=== PATIENT | female | born 1955 | race American Indian/Alaskan Native ===

== ENCOUNTER 2016-07-18 01:46 | Emergency (ER) | payer MEDICARE, OTHER ==
[2016-07-18] MEDS ORDERED: HYDROmorphone 1 MG/ML 1 ML SYRINGE IVP STA ×2 (02:49→04:42)
[2016-07-18] MEDS ORDERED: ONDANSETRON 4 MG/2 ML VIAL IVP STA (02:49)
[2016-07-18] MEDS ORDERED: SODIUM CHLORIDE 0.9% 1,000 ML IV ONE (02:50)
--- NOTE | 2016-07-18 03:13 | ED ---
Abdominal Pain HPI - General Source: patient, EMS, RN notes reviewed Mode of arrival: EMS Limitations: no limitations <Charlotte Tellez - Last Filed: 07/18/16 04:48> <Galindo Alan - Last Filed: 07/18/16 07:05> - General Chief Complaint: Abdominal Pain Stated Complaint: abd pain Time Seen by Provider: 07/18/16 01:54 - History of Present Illness Initial Comments: Patient is 60-year-old female presents to the emergency room for evaluation of abdominal pain and nausea/vomiting. Patient is on peritoneal dialysis for kidney failure. Patient states she began having worsening abdominal pain about 4 hours ago. Patient states she began with nausea and vomiting. Patient states her at home pain medications are not helping her pain. Patient denies chest pain or shortness of breath. Patient states he is having 10 out of 10 constant pain. Patient denies any history of bowel obstructions. Patient denies constipation or diarrhea. (Charlotte Tellez) - Related Data Home Medications Medication Instructions Recorded Confirmed Carvedilol [Coreg*] 12.5 mg PO BID 11/24/13 04/27/16 Isosorbide Mononitrate [Imdur] 30 mg PO DAILY 11/24/13 04/27/16 Albuterol Nebulized [Ventolin 2.5 mg INHALATION RT-Q6H PRN 01/07/14 04/27/16 Nebulized] Amitriptyline HCl [Elavil] 100 mg PO HS 12/07/14 04/27/16 Calcium Acetate [Phoslo] 1,334 mg PO TID-W/MEALS 11/13/15 04/27/16 Calcium Acetate [Phoslo] 667 mg PO DIRECTED PRN 11/13/15 04/27/16 Insulin NPH Hum/Reg Insulin Hm 35 units SQ AC-SUPPER 11/13/15 04/27/16 [NovoLIN 70-30 100 UNIT/ML VIAL] traMADol HCL [Tramadol HCl] 50 mg PO BID PRN 11/13/15 04/27/16 Omeprazole 20 mg PO BID 04/27/16 04/27/16 Polyethylene Glycol 3350 [Miralax] 17 gm PO DAILY PRN 04/27/16 04/27/16 Previous Rx's Medication Instructions Recorded Furosemide [Lasix] 80 mg PO BID #60 tablet 01/10/14 Budesonide-Formot 160-4.5 Mcg 2 puff INHALATION BID #1 inhaler 04/28/16 [Symbicort 160-4.5 Mcg Inhaler] Tiotropium 18 Mcg/Puff [Spiriva] 1 puff INHALATION RT-DAILY #1 04/28/16 inhaler ALPRAZolam [Xanax] 0.25 mg PO TID PRN #25 tab 05/08/16 Amoxic-Pot Clav 500-125 mg 1 each PO DAILY #10 tab 05/08/16 [Augmentin 500-125 mg] Darbepoetin Praveen [Aranesp] 60 mcg SQ Q7D syringe 05/08/16 Ipratropium-Albuterol Nebulize 3 ml INHALATION RT-Q4H PRN #5 05/08/16 [Duoneb 0.5 mg-3 mg/3 ml Soln] ampul.neb Isosorbide Dinitrate [Isordil] 10 mg PO TID tab 05/08/16 Mag Hydrox/Al Hydrox/Simeth 30 ml PO Q4HR PRN #0 cup 05/08/16 [Maalox] amLODIPine [Norvasc] 2.5 mg PO DAILY tab 05/08/16 ALPRAZolam [Xanax] 0.5 mg PO Q12HR #15 tab 07/18/16 Allergies Allergy/AdvReac Type Severity Reaction Status Date / Time No Known Allergies Allergy Verified 04/27/16 05:36 Review of Systems ROS Other: All systems not noted in ROS Statement are negative. <Charlotte Tellez - Last Filed: 07/18/16 04:48> ROS Other: All systems not noted in ROS Statement are negative. <Galindo Alan - Last Filed: 07/18/16 07:05> ROS Statement: Those systems with pertinent positive or pertinent negative responses have been documented in the HPI. Past Medical History Past Medical History: Heart Failure, Diabetes Mellitus, Dialysis, GERD/Reflux, Hyperlipidemia, Hypertension, Pneumonia, Renal Disease Additional Past Medical History / Comment(s): Peritonitis's in past with recent admit to [facility] for peritonitis and discharged 04/20/16 per son, chronic renal disease stage IV, cardiomyopathy, current lower leg and face edema per son- "can't get the fluid off", IDDM type II, normocytic anemia, ARPIT without device, frequent constipation, hyponatremia, hypocalcemia, low albumin, mild to moderate protein calorie malnutrition, obesity, gastritis, back and hip pain bilaterally, cataract in one eye (laterallity unknown). History of Any Multi-Drug Resistant Organisms: None Reported Past Surgical History: Cholecystectomy, Heart Catheterization Additional Past Surgical History / Comment(s): 2013 Peritoneal dialysis catheter placement, 2011 cardiac cath, pilonodial cyst removed Past Anesthesia/Blood Transfusion Reactions: No Reported Reaction Additional Past Anesthesia/Blood Transfusion Reaction / Comment(s): never received a blood transfusion Past Psychological History: Anxiety, Depression Additional Psychological History / Comment(s): Father is from [facility]. She has had no international travel at any time. She has no travel to the [facility]. She lives in her family home with her son and rhonda, and does not work outside of the home. No significant alcohol use. No history of recreational drug use. There is a pet cat in the home, and her adult son cares for the box. Smoking Status: Current every day smoker Past Alcohol Use History: None Reported Additional Past Alcohol Use History / Comment(s): Pt started smoking in 1975 and is a ppd smoker. Past Drug Use History: None Reported - Past Family History Mother Family Medical History: Congestive Heart Failure (CHF), Coronary Artery Disease (CAD), Diabetes Mellitus Additional Family Medical History / Comment(s): Mother of diabetic complications at the age of 55yrs. Father Family Medical History: Diabetes Mellitus, Hypertension, Pneumonia Additional Family Medical History / Comment(s): alcoholism. Father of pneumonia at the age of 81 yrs. <Charlotte Tellez - Last Filed: 07/18/16 04:48> General Exam Limitations: no limitations General appearance: alert Head exam: Present: atraumatic, normocephalic, normal inspection Eye exam: Present: normal appearance ENT exam: Present: normal exam Neck exam: Present: normal inspection Respiratory exam: Present: normal lung sounds bilaterally. Absent: respiratory distress Cardiovascular Exam: Present: regular rate, normal rhythm, normal heart sounds GI/Abdominal exam: Present: soft, tenderness (Left upper quadrant and right upper quadrant pain on palpating), normal bowel sounds. Absent: distended, guarding, rebound, rigid Extremities exam: Present: normal inspection Back exam: Present: normal inspection Neurological exam: Present: alert, oriented X3, CN II-XII intact, normal gait Psychiatric exam: Present: normal affect, normal mood Skin exam: Present: warm, dry, intact, normal color. Absent: rash <Charlotte Tellez - Last Filed: 07/18/16 04:48> <Galindo Alan - Last Filed: 07/18/16 07:05> - General Exam Comments Initial Comments: Sitting up in exam room, actively vomiting. (Charlotte Tellez) Course <Charlotte Tellez - Last Filed: 07/18/16 04:48> <Galindo Alan - Last Filed: 07/18/16 07:05> Vital Signs 07/18/16 07/18/16 07/18/16 01:49 03:44 06:05 Temperature 97.2 F L 97.8 F Pulse Rate 90 94 89 Respiratory 20 16 20 Rate Blood Pressure 167/77 152/66 146/95 O2 Sat by Pulse 100 95 98 Oximetry - Reevaluation(s) Reevaluation #1: 07/18/16 04:49 Patient states her abdominal pain has gone from a 10 out of 10 to a 3 out of 10. Patient states the nausea has completely subsided. Patient has her at home peritoneal dialysis kit with her. Will obtain peritoneal fluid from dialysis and culture. (Charlotte Tellez) Medical Decision Making - Lab Data Result diagrams: 07/18/16 02:48 07/18/16 02:48 <Charlotte Tellez - Last Filed: 07/18/16 04:48> - Lab Data Result diagrams: 07/18/16 02:48 07/18/16 02:48 <Galindo Alan - Last Filed: 07/18/16 07:05> - Medical Decision Making EKG shows a sinus rhythm with frequent PVCs at 93 bpm TN interval 176 QRS is 124 Q-T is 384 QTC is 477. Patient has no ST segment elevation or depression I will begin to reevaluate the patient I palpate her abdomen she is nontender at this time. Patient stated she felt considerably better. Patient states this is been a chronic problem with her having intermittent abdominal pain. We will send the dialysate for cultures and if they come back positive we will call her. (Galindo Alan) - Lab Data Lab Results 07/18/16 07/18/16 07/18/16 Range/Units 02:48 02:48 02:48 WBC 6.2 (3.8-10.6) k/uL RBC 4.42 (3.80-5.40) m/uL Hgb 13.5 (11.4-16.0) gm/dL Hct 42.0 (34.0-46.0) % MCV 95.1 (80.0-100.0) fL MCH 30.6 (25.0-35.0) pg MCHC 32.2 (31.0-37.0) g/dL RDW 18.6 H (11.5-15.5) % Plt Count 179 (150-450) k/uL Neutrophils % 80 % Lymphocytes % 11 % Monocytes % 6 % Eosinophils % 1 % Basophils % 0 % Neutrophils # 5.0 (1.3-7.7) k/uL Lymphocytes # 0.7 L (1.0-4.8) k/uL Monocytes # 0.4 (0-1.0) k/uL Eosinophils # 0.1 (0-0.7) k/uL Basophils # 0.0 (0-0.2) k/uL Anisocytosis Slight Macrocytosis Slight Sodium 125 L (137-145) mmol/L Potassium 4.2 (3.5-5.1) mmol/L Chloride 89 L (98-107) mmol/L Carbon Dioxide 22 (22-30) mmol/L Anion Gap 14 mmol/L BUN 60 H (7-17) mg/dL Creatinine 8.20 H* (0.52-1.04) mg/dL Est GFR (MDRD) Af Amer 6 (>60 ml/min/1.73 sqM) Est GFR (MDRD) Non-Af 5 (>60 ml/min/1.73 sqM) Glucose 310 H (74-99) mg/dL Plasma Lactic Acid Pio 1.4 (0.7-2.0) mmol/L Calcium 8.2 L (8.4-10.2) mg/dL Total Bilirubin 0.6 (0.2-1.3) mg/dL AST 19 (14-36) U/L ALT 30 (9-52) U/L Alkaline Phosphatase 257 H (38-126) U/L Total Creatine Kinase (30-135) U/L CK-MB (CK-2) (0.0-2.4) ng/mL CK-MB (CK-2) Rel Index Troponin I (0.000-0.034) ng/mL Total Protein 6.2 L (6.3-8.2) g/dL Albumin 2.7 L (3.5-5.0) g/dL Amylase <30 L (30-110) U/L Lipase 85 (23-300) U/L 07/18/16 Range/Units 02:48 WBC (3.8-10.6) k/uL RBC (3.80-5.40) m/uL Hgb (11.4-16.0) gm/dL Hct (34.0-46.0) % MCV (80.0-100.0) fL MCH (25.0-35.0) pg MCHC (31.0-37.0) g/dL RDW (11.5-15.5) % Plt Count (150-450) k/uL Neutrophils % % Lymphocytes % % Monocytes % % Eosinophils % % Basophils % % Neutrophils # (1.3-7.7) k/uL Lymphocytes # (1.0-4.8) k/uL Monocytes # (0-1.0) k/uL Eosinophils # (0-0.7) k/uL Basophils # (0-0.2) k/uL Anisocytosis Macrocytosis Sodium (137-145) mmol/L Potassium (3.5-5.1) mmol/L Chloride (98-107) mmol/L Carbon Dioxide (22-30) mmol/L Anion Gap mmol/L BUN (7-17) mg/dL Creatinine (0.52-1.04) mg/dL Est GFR (MDRD) Af Amer (>60 ml/min/1.73 sqM) Est GFR (MDRD) Non-Af (>60 ml/min/1.73 sqM) Glucose (74-99) mg/dL Plasma Lactic Acid Pio (0.7-2.0) mmol/L Calcium (8.4-10.2) mg/dL Total Bilirubin (0.2-1.3) mg/dL AST (14-36) U/L ALT (9-52) U/L Alkaline Phosphatase (38-126) U/L Total Creatine Kinase 40 (30-135) U/L CK-MB (CK-2) 2.3 (0.0-2.4) ng/mL CK-MB (CK-2) Rel Index 5.8 Troponin I 0.069 H* (0.000-0.034) ng/mL Total Protein (6.3-8.2) g/dL Albumin (3.5-5.0) g/dL Amylase (30-110) U/L Lipase (23-300) U/L Disposition <Charlotte Tellez - Last Filed: 07/18/16 04:48> Time of Disposition: 07:01 <Galindo Alan - Last Filed: 07/18/16 07:05> Clinical Impression: Abdominal pain Disposition: HOME SELF-CARE Instructions: Abdominal Pain (ED) Prescriptions: ALPRAZolam [Xanax] 0.5 mg PO Q12HR #15 tab Referrals: None,Stated [Primary Care Provider] - 1-2 days
[2016-07-18 03:23] LABS: Anisocytosis Slight; Basophils % (A) 0 %; CH 31.7; CHCM 33.5; Eosinophils # (A) 0.1 k/uL (0-0.7); Eosinophils % (A) 1 %; HGB 13.5 gm/dL (11.4-16.0); Luc % (Auto) 2; Lymphocytes # (A) 0.7 k/uL (1.0-4.8); Lymphocytes % (A) 11 %; MCH 30.6 pg (25.0-35.0); MCHC 32.2 g/dL (31.0-37.0); MCV 95.1 fL (80.0-100.0); Macrocytosis Slight; Mean Platelet Volume 7.6; Monocytes # (A) 0.4 k/uL (0-1.0); Monocytes % (A) 6 %; Neutrophils % (A) 80 %; RBC 4.42 m/uL (3.80-5.40); RDW 18.6 % (11.5-15.5); WBC 6.2 k/uL (3.8-10.6); WBC (Perox) 6.28
[2016-07-18 03:24] LABS: ALT 30 U/L (9-52); AST 19 U/L (14-36); Alkaline Phosphatase 257 U/L (38-126); Amylase <30 U/L (30-110); Anion Gap 14 mmol/L; Blood Urea Nitrogen 60 mg/dL (7-17); Calcium 8.2 mg/dL (8.4-10.2); Carbon Dioxide 22 mmol/L (22-30); Chloride 89 mmol/L (98-107); Glucose 310 mg/dL (74-99); Potassium 4.2 mmol/L (3.5-5.1); Sodium 125 mmol/L (137-145); Total Bilirubin 0.6 mg/dL (0.2-1.3); Total Protein 6.2 g/dL (6.3-8.2)
[2016-07-18 03:36] LABS: Non-African American GFR(MDRD) 5 (>60 ml/min/1.73 sqM)
[2016-07-18 06:38] LABS: Creatine Kinase MB 2.3 ng/mL (0.0-2.4)
[2016-07-18 06:40] LABS: Troponin I 0.069 ng/mL (0.000-0.034)
[2016-07-18] MEDS ORDERED: HYDROcodone/APAP 7.5-325MG 1 EACH TAB PO ONE (08:22)
[2016-07-18 09:16] VITALS: BP 146/74; PULSE 81; RESP 16; TEMP 97.3
== END 2016-07-18 09:41 | disposition home or self-care (01) ==
LOC: EC 01:46
DX: R10.9 Unspecified abdominal pain (principal); I13.2 Hypertensive heart and chronic kidney disease with heart failure and with stage 5 chronic kidney disease, or end stage renal disease; E11.22 Type 2 diabetes mellitus with diabetic chronic kidney disease; N18.6 End stage renal disease; I50.9 Heart failure, unspecified; Z99.2 Dependence on renal dialysis; K21.9 Gastro-esophageal reflux disease without esophagitis; G47.33 Obstructive sleep apnea (adult) (pediatric); F41.9 Anxiety disorder, unspecified; F32.9 Major depressive disorder, single episode, unspecified; F17.200 Nicotine dependence, unspecified, uncomplicated; Z79.4 Long term (current) use of insulin; Z79.51 Long term (current) use of inhaled steroids; Z79.899 Other long term (current) drug therapy
CPT/HCPCS: 36415; 93005; 80053; 82150; 82550; 82553; 83605; 83690; 84484; 85025; 87070; 87205; 99284; 96374; 96375; 96376; 96361 ×2; J2405; J1170

== ENCOUNTER 2016-08-07 23:29 | Inpatient (IN) | payer MEDICARE, OTHER ==
--- NOTE | 2016-08-08 00:02 | ED ---
General Adult HPI - General Chief complaint: Abdominal Pain Stated complaint: Vomiting/[facility] call Time Seen by Provider: 08/07/16 23:35 Source: patient, RN notes reviewed Mode of arrival: ambulatory Limitations: no limitations - History of Present Illness Initial comments: This is a 61-year-old female who is a peritoneal dialysis patient. Patient comes in today because this morning she started having a little bit of abdominal pain and having some nausea and vomiting. Patient states she her dialysate has become cloudy so she believes she has peritonitis again. Patient states she is ability the third time. Patient denies any fever chills patient denies any chest pain difficulty breathing or shortness of breath per patient denies any palpitations. Patient states that the pain is in the upper abdomen the lower abdomen at all. Patient denies any headache patient denies numbness weakness. Patient denies any dysuria hematuria urinary frequency. - Related Data Home Medications Medication Instructions Recorded Confirmed Carvedilol [Coreg*] 12.5 mg PO BID 11/24/13 04/27/16 Isosorbide Mononitrate [Imdur] 30 mg PO DAILY 11/24/13 04/27/16 Albuterol Nebulized [Ventolin 2.5 mg INHALATION RT-Q6H PRN 01/07/14 04/27/16 Nebulized] Amitriptyline HCl [Elavil] 100 mg PO HS 12/07/14 04/27/16 Calcium Acetate [Phoslo] 1,334 mg PO TID-W/MEALS 11/13/15 04/27/16 Calcium Acetate [Phoslo] 667 mg PO DIRECTED PRN 11/13/15 04/27/16 Insulin NPH Hum/Reg Insulin Hm 35 units SQ AC-SUPPER 11/13/15 04/27/16 [NovoLIN 70-30 100 UNIT/ML VIAL] traMADol HCL [Tramadol HCl] 50 mg PO BID PRN 11/13/15 04/27/16 Omeprazole 20 mg PO BID 04/27/16 04/27/16 Polyethylene Glycol 3350 [Miralax] 17 gm PO DAILY PRN 04/27/16 04/27/16 Previous Rx's Medication Instructions Recorded Furosemide [Lasix] 80 mg PO BID #60 tablet 01/10/14 Budesonide-Formot 160-4.5 Mcg 2 puff INHALATION BID #1 inhaler 04/28/16 [Symbicort 160-4.5 Mcg Inhaler] Tiotropium 18 Mcg/Puff [Spiriva] 1 puff INHALATION RT-DAILY #1 04/28/16 inhaler ALPRAZolam [Xanax] 0.25 mg PO TID PRN #25 tab 05/08/16 Amoxic-Pot Clav 500-125 mg 1 each PO DAILY #10 tab 05/08/16 [Augmentin 500-125 mg] Darbepoetin Praveen [Aranesp] 60 mcg SQ Q7D syringe 05/08/16 Ipratropium-Albuterol Nebulize 3 ml INHALATION RT-Q4H PRN #5 05/08/16 [Duoneb 0.5 mg-3 mg/3 ml Soln] ampul.neb Isosorbide Dinitrate [Isordil] 10 mg PO TID tab 05/08/16 Mag Hydrox/Al Hydrox/Simeth 30 ml PO Q4HR PRN #0 cup 05/08/16 [Maalox] amLODIPine [Norvasc] 2.5 mg PO DAILY tab 05/08/16 ALPRAZolam [Xanax] 0.5 mg PO Q12HR #15 tab 07/18/16 Allergies Allergy/AdvReac Type Severity Reaction Status Date / Time No Known Allergies Allergy Verified 04/27/16 05:36 Review of Systems ROS Statement: Those systems with pertinent positive or pertinent negative responses have been documented in the HPI. ROS Other: All systems not noted in ROS Statement are negative. Past Medical History Past Medical History: Heart Failure, Diabetes Mellitus, Dialysis, GERD/Reflux, Hyperlipidemia, Hypertension, Pneumonia, Renal Disease Additional Past Medical History / Comment(s): Peritonitis's in past with recent admit to [facility] for peritonitis and discharged 04/20/16 per son, chronic renal disease stage IV, cardiomyopathy, current lower leg and face edema per son- "can't get the fluid off", IDDM type II, normocytic anemia, ARPIT without device, frequent constipation, hyponatremia, hypocalcemia, low albumin, mild to moderate protein calorie malnutrition, obesity, gastritis, back and hip pain bilaterally, cataract in one eye (laterallity unknown). History of Any Multi-Drug Resistant Organisms: None Reported Past Surgical History: Cholecystectomy, Heart Catheterization Additional Past Surgical History / Comment(s): 2013 Peritoneal dialysis catheter placement, 2011 cardiac cath, pilonodial cyst removed Past Anesthesia/Blood Transfusion Reactions: No Reported Reaction Additional Past Anesthesia/Blood Transfusion Reaction / Comment(s): never received a blood transfusion Past Psychological History: Anxiety, Depression Additional Psychological History / Comment(s): Father is from [facility]. She has had no international travel at any time. She has no travel to the [facility]. She lives in her family home with her son and rhonda, and does not work outside of the home. No significant alcohol use. No history of recreational drug use. There is a pet cat in the home, and her adult son cares for the box. Smoking Status: Current every day smoker Past Alcohol Use History: None Reported Additional Past Alcohol Use History / Comment(s): Pt started smoking in 1975 and is a ppd smoker. Past Drug Use History: None Reported - Past Family History Mother Family Medical History: Congestive Heart Failure (CHF), Coronary Artery Disease (CAD), Diabetes Mellitus Additional Family Medical History / Comment(s): Mother of diabetic complications at the age of 55yrs. Father Family Medical History: Diabetes Mellitus, Hypertension, Pneumonia Additional Family Medical History / Comment(s): alcoholism. Father of pneumonia at the age of 81 yrs. General Exam - General Exam Comments Initial Comments: GENERAL: Patient is well-developed and well-nourished. Patient is nontoxic and well- hydrated and is in mild distress. ENT: Neck is soft and supple. No significant lymphadenopathy is noted. Oropharynx is clear. Moist mucous membranes. Neck has full range of motion without eliciting any pain. EYES: The sclera were anicteric and conjunctiva were pink and moist. Extraocular movements were intact and pupils were equal round and reactive to light. Eyelids were unremarkable. PULMONARY: Unlabored respirations. Good breath sounds bilaterally. No audible rales rhonchi or wheezing was noted. CARDIOVASCULAR: There is a regular rate and rhythm without any murmurs gallops or rubs. ABDOMEN: Upper quadrant are both tender to palpation. SKIN: Skin is clear with no lesions or rashes and otherwise unremarkable. NEUROLOGIC: Patient is alert and oriented x3. Cranial nerves II through XII are grossly intact. Motor and sensory are also intact. Normal speech, volume and content. Symmetrical smile. MUSCULOSKELETAL: Normal extremities with adequate strength and full range of motion. No lower extremity swelling or edema. No calf tenderness. LYMPHATICS: No significant lymphadenopathy is noted PSYCHIATRIC: Normal psychiatric evaluation. Normal interpersonal interactions appears functionally intact in deals appropriately with others. No signs of depression. No signs of anxiety. Limitations: no limitations Course Vital Signs 08/07/16 08/08/16 23:32 00:59 Temperature 98.8 F Pulse Rate 101 H 91 Respiratory 24 18 Rate Blood Pressure 181/88 137/83 O2 Sat by Pulse 99 98 Oximetry Medical Decision Making - Medical Decision Making Peritoneal fluid looked very cloudy. This in combination with the patient's abdominal pain I'm assuming the patient's denies sore treat as such and admit the patient. - Lab Data Result diagrams: 08/07/16 23:58 08/07/16 23:58 Lab Results 08/07/16 08/07/16 08/07/16 Range/Units 23:58 23:58 23:58 WBC 8.6 (3.8-10.6) k/uL RBC 3.88 (3.80-5.40) m/uL Hgb 12.2 (11.4-16.0) gm/dL Hct 37.6 (34.0-46.0) % MCV 97.0 (80.0-100.0) fL MCH 31.4 (25.0-35.0) pg MCHC 32.4 (31.0-37.0) g/dL RDW 17.1 H (11.5-15.5) % Plt Count 315 (150-450) k/uL Neutrophils % 80 % Lymphocytes % 10 % Monocytes % 6 % Eosinophils % 1 % Basophils % 1 % Neutrophils # 6.8 (1.3-7.7) k/uL Lymphocytes # 0.8 L (1.0-4.8) k/uL Monocytes # 0.5 (0-1.0) k/uL Eosinophils # 0.1 (0-0.7) k/uL Basophils # 0.1 (0-0.2) k/uL Anisocytosis Slight Macrocytosis Slight Sodium 133 L (137-145) mmol/L Potassium 3.6 (3.5-5.1) mmol/L Chloride 95 L (98-107) mmol/L Carbon Dioxide 27 (22-30) mmol/L Anion Gap 11 mmol/L BUN 29 H (7-17) mg/dL Creatinine 5.90 H* (0.52-1.04) mg/dL Est GFR (MDRD) Af Amer 9 (>60 ml/min/1.73 sqM) Est GFR (MDRD) Non-Af 7 (>60 ml/min/1.73 sqM) Glucose 195 H (74-99) mg/dL Plasma Lactic Acid Pio 2.3 H* (0.7-2.0) mmol/L Calcium 7.8 L (8.4-10.2) mg/dL Total Bilirubin 0.4 (0.2-1.3) mg/dL AST 15 (14-36) U/L ALT 28 (9-52) U/L Alkaline Phosphatase 162 H (38-126) U/L Total Protein 5.8 L (6.3-8.2) g/dL Albumin 2.4 L (3.5-5.0) g/dL Amylase 33 (30-110) U/L Lipase 86 (23-300) U/L Disposition Clinical Impression: Peritonitis Disposition: ADMITTED IP TO THIS [facility] Time of Disposition: 01:26
[2016-08-08] MEDS ORDERED: ONDANSETRON 4 MG/2 ML VIAL IVP STA (00:08)
[2016-08-08] MEDS ORDERED: HYDROmorphone 1 MG/ML 1 ML SYRINGE IVP STA ×2 (00:09→09:30)
[2016-08-08 00:23] LABS: Anisocytosis Slight; Basophils # (A) 0.1 k/uL (0-0.2); Basophils % (A) 1 %; CH 31.5; CHCM 32.6; Eosinophils # (A) 0.1 k/uL (0-0.7); Eosinophils % (A) 1 %; HCT 37.6 % (34.0-46.0); HDW 2.94; HGB 12.2 gm/dL (11.4-16.0); Luc # (Auto) 0.16; Luc % (Auto) 2; Lymphocytes # (A) 0.8 k/uL (1.0-4.8); Lymphocytes % (A) 10 %; MCH 31.4 pg (25.0-35.0); MCHC 32.4 g/dL (31.0-37.0); Macrocytosis Slight; Mean Platelet Volume 7.3; Monocytes # (A) 0.5 k/uL (0-1.0); Monocytes % (A) 6 %; Neutrophils # (A) 6.8 k/uL (1.3-7.7); Neutrophils % (A) 80 %; RBC 3.88 m/uL (3.80-5.40); RDW 17.1 % (11.5-15.5); WBC 8.6 k/uL (3.8-10.6); WBC (Perox) 8.07
[2016-08-08 00:27] LABS: Calcium 7.8 mg/dL (8.4-10.2); Potassium 3.6 mmol/L (3.5-5.1); Total Bilirubin 0.4 mg/dL (0.2-1.3); Total Protein 5.8 g/dL (6.3-8.2)
[2016-08-08] MEDS ORDERED: PIPERACILLIN-TAZOBACTAM 3.375 GM in DEXTROSE/WATER 1 50ML.BAG IVPB STA (01:25)
[2016-08-08] MEDS ORDERED: SODIUM CHLORIDE 0.9% 1,000 ML IV ONE (01:27)
[2016-08-08] MEDS ORDERED: IPRATROPIUM-ALBUTEROL 3 ML NEB INHALATION PRN (02:41)
[2016-08-08] MEDS: MORPHINE SULFATE 2 MG/ML SYRINGE IVP PRN ×2 (03:23→06:24)
[2016-08-08] MEDS: ONDANSETRON 4 MG/2 ML VIAL IVP PRN ×3 (03:24→18:23)
[2016-08-08] MEDS: DIALYSIS DEX INTRAPERIT SCH ×2 (04:26→06:33)
[2016-08-08] MEDS: TIOTROPIUM 18 MCG/PUFF INHALER INHALATION SCH (07:32)
[2016-08-08 09:18] LABS: Glucose,Whole Blood 66 mg/dL (75-99)
[2016-08-08] MEDS ORDERED: VANCOMYCIN 1,000 MG VIAL MISCELLANE STA (09:21)
[2016-08-08 09:27] LABS: Glucose,Whole Blood 98 mg/dL (75-99)
[2016-08-08] MEDS ORDERED: HEPARIN SODIUM 1,000 UNIT/ML VIAL MISCELLANE ONE (09:32)
--- NOTE | 2016-08-08 09:39 | P.NPCON ---
History of Present Illness - Reason for Consult end stage renal disease - History of Present Illness Reason for consultation: End-stage renal disease History of present illness: Patient is a 61-year-old female seen in renal consultation for end- stage renal disease. Patient is maintained on peritoneal dialysis. She presented to the hospital due to abdominal pain along with nausea and vomiting. She also noted cloudy dialysate and presented to the hospital due to concern for peritonitis. She complains of abdominal pain at this time. She is requesting pain medications. Nausea and vomiting are improved. Denies chest pain or shortness of breath. Hemodynamically she is quite stable. There is no evidence of leukocytosis. She is afebrile. She is currently maintained on normal saline running at 100 mL an hour. Vital signs are stable. General: The patient appeared well nourished and normally developed. HEENT: Head exam is unremarkable. Neck is without jugular venous distension. LUNGS: Lungs are clear to auscultation and percussion. Breath sounds decreased. HEART: Rate and Rhythm are regular. First and second heart sounds normal. No murmurs, rubs or gallops. ABDOMEN: Abdominal exam reveals normal bowel sounds. Moderately distended. No evidence of peritonitis. EXTREMITITES: 1+ edema. Past Medical History Past Medical History: Heart Failure, Diabetes Mellitus, Dialysis, GERD/Reflux, Hyperlipidemia, Hypertension, Renal Disease Additional Past Medical History / Comment(s): Peritonitis's in past with recent admit to [facility] for peritonitis and discharged 04/20/16 per son, chronic renal disease stage IV, cardiomyopathy, current lower leg and face edema per son- "can't get the fluid off", IDDM type II, normocytic anemia, ARPIT without device, frequent constipation, hyponatremia, hypocalcemia, low albumin, mild to moderate protein calorie malnutrition, obesity, gastritis, back and hip pain bilaterally, cataract in one eye (laterallity unknown). History of Any Multi-Drug Resistant Organisms: None Reported Past Surgical History: Cholecystectomy, Heart Catheterization Additional Past Surgical History / Comment(s): 2013 Peritoneal dialysis catheter placement, 2011 cardiac cath, pilonodial cyst removed Past Anesthesia/Blood Transfusion Reactions: No Reported Reaction Additional Past Anesthesia/Blood Transfusion Reaction / Comment(s): never received a blood transfusion Past Psychological History: Anxiety, Depression Additional Psychological History / Comment(s): Father is from [place]. She has had no international travel at any time. She has no travel to the [facility]. She lives in her family home with her son and rhonda, and does not work outside of the home. No significant alcohol use. No history of recreational drug use. There is a pet cat in the home, and her adult son cares for the box. Smoking Status: Current every day smoker Past Alcohol Use History: None Reported Additional Past Alcohol Use History / Comment(s): Pt started smoking in 1975 and is a ppd smoker. Past Drug Use History: None Reported - Past Family History Mother Family Medical History: Congestive Heart Failure (CHF), Coronary Artery Disease (CAD), Diabetes Mellitus Additional Family Medical History / Comment(s): Mother of diabetic complications at the age of 55yrs. Father Family Medical History: Diabetes Mellitus, Hypertension, Pneumonia Additional Family Medical History / Comment(s): alcoholism. Father of pneumonia at the age of 81 yrs. Medications and Allergies Home Medications Medication Instructions Recorded Confirmed Type Carvedilol [Coreg*] 12.5 mg PO BID 11/24/13 08/08/16 History Isosorbide Mononitrate [Imdur] 30 mg PO DAILY 11/24/13 08/08/16 History Albuterol Nebulized [Ventolin 2.5 mg INHALATION RT-Q6H PRN 01/07/14 08/08/16 History Nebulized] Calcium Acetate [Phoslo] 667 mg PO DIRECTED PRN 11/13/15 08/08/16 History Insulin NPH Hum/Reg Insulin Hm 35 units SQ AC-SUPPER 11/13/15 08/08/16 History [NovoLIN 70-30 100 UNIT/ML VIAL] Omeprazole 20 mg PO BID 04/27/16 08/08/16 History Polyethylene Glycol 3350 [Miralax] 17 gm PO DAILY PRN 04/27/16 08/08/16 History Allergies Allergy/AdvReac Type Severity Reaction Status Date / Time No Known Allergies Allergy Verified 04/27/16 05:36 Physical Exam Vitals: Vital Signs Temp Pulse Pulse Resp BP BP Pulse Ox 08/08/16 08:00 86 22 08/08/16 07:46 94 08/08/16 07:33 92 08/08/16 07:00 97.6 F 86 22 138/82 97 08/08/16 01:59 97.9 F 93 16 175/75 99 Intake and Output 08/07/16 08/08/16 08/08/16 22:59 06:59 14:59 Intake Total 400 Balance 400 Intake: Intake, IV Titration 400 Amount Sodium Chloride 0.9% 1, 400 000 ml @ 100 mls/hr IV . Q10H ONE Rx#:[id number] Other: Voiding Method CAPD CAPD Weight 119 kg 119 kg Patient Weight 08/09/16 06:59 Weight 119 kg Results - Lab Results Most recent lab results Calcium 7.8 mg/dL (8.4-10.2) L 08/07/16 23:58 08/07/16 23:58 08/07/16 23:58 Assessment and Plan Plan: Assessment: #1. End-stage renal disease maintained on peritoneal dialysis. #2. Abdominal pain along with cloudy dialysate suggestive of peritonitis. #3. Volume overload. #4. Chronic kidney disease mineral bone disease. #5. Hypertension with chronic kidney disease. Controlled. Plan: Check peritoneal dialysate for cell count culture and Gram stain. 1 g intraperitoneal vancomycin and 1 g intraperitoneal Fortaz today. Continue with 2 L 2.5% actual solution exchanges every 6 hours. Check phosphorus level. Hep-Lock IV fluids. Thank you for the consultation. I will continue to follow the patient with you during her hospital stay.
[2016-08-08] MEDS ORDERED: PIPERACILLIN-TAZOBACTAM 3.375 GM in DEXTROSE/WATER 1 50ML.BAG IVPB SCH (10:00)
[2016-08-08] MEDS: FOLIC ACID-VIT B COMPLEX-VIT C 1 CAP PO SCH (11:08)
[2016-08-08 11:17] LABS: Glucose,Whole Blood 183 mg/dL (75-99)
[2016-08-08] MEDS ORDERED: RX INFO: IV CONTRAST WAS GIVEN 1 EACH MISC MISCELLANE PRN (11:47)
[2016-08-08] MEDS ORDERED: [UNRECOGNIZED DRUG - OTHER] INTRAPERIT ONE (12:00)
[2016-08-08] MEDS ORDERED: HEPARIN SODIUM INTRAPERIT ONE (12:00)
[2016-08-08] MEDS ORDERED: CEFTAZIDIME INTRAPERIT ONE (12:00)
[2016-08-08] MEDS ORDERED: VANCOMYCIN INTRAPERIT ONE ×2 (12:00)
[2016-08-08] MEDS ORDERED: DIALYSIS DEX INTRAPERIT ONE (12:00)
[2016-08-08] MEDS: HYDROmorphone 1 MG/ML 1 ML SYRINGE IVP PRN ×3 (12:04→17:59)
[2016-08-08] MEDS: NICOTINE 14MG/24HR PATCH TRANSDERM SCH (12:22)
[2016-08-08 13:57] LABS: RBC, Body Fluid 10 /uL
[2016-08-08] MEDS: IOHEXOL 350 MG/ML 25 ML BOTTLE (ORAL USE) PO PRN ×2 (14:33→15:35)
--- NOTE | 2016-08-08 17:17 | CONS ---
DATE OF CONSULTATION: 08/08/2016 REASON FOR CONSULT: Peritonitis. HISTORY: The patient is a 61-year-old patient who undergoes peritoneal dialysis. She came into the emergency department because of nausea, pain with some nausea and vomiting with cloudy peritoneal dialysis fluid. She has a history of bacterial peritonitis and has been hospitalized a couple of times last year. This afternoon, she is feeling much better. No nausea. No vomiting. Past medical history includes chronic renal failure on peritoneal dialysis, heart disease, diabetes, GERD, hyperlipidemia, hypertension, pneumonia, noninsulin dependent diabetes, obstructive sleep apnea, electrolyte disturbances, obesity, gastritis. Past surgical history includes cholecystectomy, placement of peritoneal dialysis catheter along with herniorrhaphy, cardiac catheterization, pilonidal cystectomy, cataract surgery. Medications as an outpatient: 1. Coreg. 2. Imdur. 3. Ventolin. 4. Elavil. 5. PhosLo. 6. Insulin. 7. Tramadol. 8. Omeprazole. 9. MiraLax. See med rec for doses. ALLERGIES: None. SOCIAL: Still smokes. No alcohol use. FAMILY HISTORY: Noncontributory. PHYSICAL EXAM: A 61-year-old female; alert and oriented x3, in no acute distress, morbidly obese. ABDOMEN: Soft with minimal tenderness. Labs were reviewed. ASSESSMENT: Peritoneal dialysis-related peritonitis, currently improved after intraperitoneal antibiotics. PLAN: Will be available if condition worsens, but at present continue medical care.
[2016-08-08 17:30] LABS: Glucose,Whole Blood 175 mg/dL (75-99)
[2016-08-08] MEDS ORDERED: DIALYSIS DEX INTRAPERIT SCH ×2 (18:00)
[2016-08-08] MEDS ORDERED: HEPARIN SODIUM INTRAPERIT SCH (18:00)
[2016-08-08] MEDS ORDERED: POLYETHYLENE GLYCOL 3350 17 GM POWD.PACK PO PRN (18:57)
[2016-08-08] MEDS ORDERED: MAG HYDROX/AL HYDROX/SIMETH 30 ML CUP PO PRN (18:57)
[2016-08-08] MEDS ORDERED: LORazepam 0.5 MG TAB PO PRN (18:59)
[2016-08-08] MEDS ORDERED: diphenhydrAMINE 25 MG CAP PO PRN (19:42)
[2016-08-08] MEDS: ISOSORBIDE MONONITRATE ER 30 MG TAB.ER.24H PO SCH (19:46)
[2016-08-08] MEDS: FUROSEMIDE 80 MG TAB PO SCH (19:46)
[2016-08-08] MEDS: SYMBICORT 160-4.5 MCG INHALER INHALATION SCH (19:48)
[2016-08-08] MEDS: INSULIN NPH/REG INSULIN 70/30 300 UNIT/3 ML VIAL SQ SCH (19:50)
[2016-08-08 20:13] LABS: Glucose,Whole Blood 320 mg/dL (75-99)
--- NOTE | 2016-08-08 21:21 | CT ---
EXAMINATION TYPE: CT abdomen pelvis wo con DATE OF EXAM: 08/08/2016 5:49 PM COMPARISON: Previous CT abdomen pelvis 02 December 2015 HISTORY: Abdominal pain and vomiting. CT DLP: 2336.7 mGycm Automated exposure control for dose reduction was used. TECHNIQUE: Helical acquisition of images fom the lung bases through the pelvis. FINDINGS: Lack of contrast may compromise sensitivity LUNG BASES: No significant abnormality is appreciated. AORTA: No significant abnormality is appreciated, stable atheromatous changes. LIVER/GB: There is eventration of the right hemidiaphragm as on previous exam, there is associated as cites about the liver and spleen PANCREAS: Probable duodenal diverticulum at the second and third portion of the duodenum, pancreas ap pear stable SPLEEN: Punctate calcification may be vascular rather than represent old granulomatous disease ADRENALS: No significant abnormality is seen. KIDNEYS: Dense vascular calcifications are again noted, no hydronephrosis bilaterally, no ureteral ca lcification REPRODUCTIVE ORGANS: No significant abnormality is seen. There is free fluid in the pelvis. URINARY BLADDER: No significant abnormality is seen. BOWEL: No significant abnormality is seen. Peritoneal dialysis catheter is coiled within the left he mipelvis. Some fluid courses along the catheter and collects within the subcutaneous fat along the le robert of the rectus muscle coursing towards a skin wound in the left lower quadrant, the collection yousuf sures approximately 7 x 3.5 x 10 cm. Some associated soft tissue stranding present along the anterior abdominal wall within the subcutaneous fat may be due to cellulitis Stomach wall thickening, small b owel wall thickening may be due to intra-abdominal fluid, hypoproteinemia FREE AIR: No Free Air is visible. ASCITES: Fluid may be due to patient's peritoneal dialysis PELVIC ADENOPATHY: None visualized. RETROPERITONEAL ADENOPATHY: No Retroperitoneal Adenopathy visible. OSSEOUS STRUCTURES: Degenerative disc changes are present as on prior exam IMPRESSION: FINDINGS COMPATIBLE WITH PATIENT'S HISTORY OF PERITONEAL DIALYSIS. THERE IS NO BOWEL OBSTRUCTION EVID ENT, CONSIDER ENTERITIS. Noncontrast exam. No focal intra-abdominal fluid collection. Correlate for p ossible cellulitis, fluid collection in the subcutaneous fat as described, difficult to exclude absce ss.
[2016-08-08] MEDS: CARVEDILOL 12.5 MG TAB PO SCH (21:56)
[2016-08-08] MEDS: AMITRIPTYLINE HCL 50 MG TAB PO SCH (21:56)
[2016-08-08] MEDS: ALPRAZolam 0.5 MG TAB PO SCH (21:56)
[2016-08-08] MEDS: amLODIPine 2.5 MG TAB PO SCH (21:57)
[2016-08-08] MEDS: PIPERACILLIN-TAZOBACTAM 3.375 GM in DEXTROSE/WATER 1 50ML.BAG IVPB SCH (21:57)
[2016-08-08] MEDS: INSULIN LISPRO (humaLOG) 300 UNIT/3 ML VIAL SQ SCH (21:57)
[2016-08-08] MEDS: HYDROcodone/APAP 10-325MG 1 EACH TAB PO PRN (22:10)
[2016-08-09] MEDS ORDERED: DIALYSIS (PERITONL) DEX 4.25% 2,000 ML INTRAPERIT SCH
[2016-08-09] MEDS: HEPARIN SODIUM INTRAPERIT SCH ×4 (00:12→18:25)
[2016-08-09] MEDS: DIALYSIS DEX INTRAPERIT SCH ×3 (00:12→18:25)
[2016-08-09] MEDS: HYDROcodone/APAP 10-325MG 1 EACH TAB PO PRN ×3 (05:03→19:58)
[2016-08-09 07:12] LABS: Glucose,Whole Blood 125 mg/dL (75-99)
[2016-08-09] MEDS: INSULIN LISPRO (humaLOG) 300 UNIT/3 ML VIAL SQ SCH ×4 (07:23→21:06)
[2016-08-09] MEDS: SYMBICORT 160-4.5 MCG INHALER INHALATION SCH ×2 (07:47→20:14)
[2016-08-09 08:13] LABS: Anisocytosis Slight; Basophils % (A) 1 %; CH 31.2; CHCM 31.6; Eosinophils # (A) 0.3 k/uL (0-0.7); Eosinophils % (A) 4 %; HCT 33.5 % (34.0-46.0); HDW 2.96; HGB 10.7 gm/dL (11.4-16.0); Hypochromasia Slight; Luc # (Auto) 0.14; Luc % (Auto) 2; Lymphocytes % (A) 17 %; MCH 31.8 pg (25.0-35.0); MCV 99.1 fL (80.0-100.0); Macrocytosis Slight; Mean Platelet Volume 6.9; Monocytes # (A) 0.4 k/uL (0-1.0); Monocytes % (A) 6 %; Neutrophils % (A) 69 %; RBC 3.38 m/uL (3.80-5.40); RDW 17.1 % (11.5-15.5); WBC 5.7 k/uL (3.8-10.6); WBC (Perox) 6.02
[2016-08-09 08:23] LABS: Calcium 7.3 mg/dL (8.4-10.2); Potassium 3.1 mmol/L (3.5-5.1)
[2016-08-09] MEDS ORDERED: POTASSIUM CHLORIDE ER 20 MEQ TAB.ER PO STA (09:15)
--- NOTE | 2016-08-09 09:15 | P.PN ---
Subjective Patient is seen in follow-up for end-stage renal disease. She is maintained on peritoneal dialysis. Patient presented with abdominal pain and cloudy dialysate. Her cell count was noted to be elevated at 1215. She received 1 g of intraperitoneal vancomycin as well as Fortaz on August 08. Currently resting in bed. Feels tired. No vomiting or diarrhea. Appetite is fair. Denies chest pain or shortness of breath. Vital signs are stable. General: The patient appeared well nourished and normally developed. HEENT: Head exam is unremarkable. Neck is without jugular venous distension. LUNGS: Lungs are clear to auscultation and percussion. Breath sounds decreased. HEART: Rate and Rhythm are regular. First and second heart sounds normal. No murmurs, rubs or gallops. ABDOMEN: Abdominal exam reveals normal bowel sounds. Non-tender and non- distended. No evidence of peritonitis. EXTREMITITES: Trace edema. Objective - Vital Signs Vital signs: Vital Signs Temp 98 F 08/09/16 07:00 Pulse 63 08/09/16 07:00 Resp 20 08/09/16 07:00 BP 122/57 08/09/16 07:00 Pulse Ox 100 08/09/16 07:00 Intake & Output 08/08/16 08/09/16 08/09/16 18:59 06:59 18:59 Intake Total 1009 1350 Balance 1009 1350 Weight 119 kg 121.5 kg Intake: Intake, IV Titration 1009 1150 Amount Piperacillin-Tazobactam 3 50 .375 gm In Dextrose/Water 1 50ml.bag @ 12.5 mls/hr IVPB Q12H [facility] Rx#: [id number] Sodium Chloride 0.9% 1, 859 1150 000 ml @ 100 mls/hr IV . Q10H ONE Rx#:[id number] cefTAZidime 1 gm In 100 Sodium Chloride 0.9% 50 ml @ 100 mls/hr IVPB ONCE STA Rx#:[id number] Oral 200 Other: Voiding Method CAPD CAPD # Voids 3 # Bowel Movements 2 - Labs CBC & Chem 7: 08/09/16 07:50 08/09/16 07:50 Labs: Abnormal Lab Results - Last 24 Hours (Table) 08/08/16 08/08/16 08/08/16 Range/Units 09:07 11:13 17:24 RBC (3.80-5.40) m/uL Hgb (11.4-16.0) gm/dL Hct (34.0-46.0) % RDW (11.5-15.5) % Sodium (137-145) mmol/L Potassium (3.5-5.1) mmol/L Chloride (98-107) mmol/L BUN (7-17) mg/dL Creatinine (0.52-1.04) mg/dL Glucose (74-99) mg/dL POC Glucose (mg/dL) 66 L 183 H 175 H (75-99) mg/dL Calcium (8.4-10.2) mg/dL 08/08/16 08/09/16 08/09/16 Range/Units 20:10 07:05 07:50 RBC 3.38 L (3.80-5.40) m/uL Hgb 10.7 L (11.4-16.0) gm/dL Hct 33.5 L (34.0-46.0) % RDW 17.1 H (11.5-15.5) % Sodium (137-145) mmol/L Potassium (3.5-5.1) mmol/L Chloride (98-107) mmol/L BUN (7-17) mg/dL Creatinine (0.52-1.04) mg/dL Glucose (74-99) mg/dL POC Glucose (mg/dL) 320 H 125 H (75-99) mg/dL Calcium (8.4-10.2) mg/dL 08/09/16 Range/Units 07:50 RBC (3.80-5.40) m/uL Hgb (11.4-16.0) gm/dL Hct (34.0-46.0) % RDW (11.5-15.5) % Sodium 133 L (137-145) mmol/L Potassium 3.1 L (3.5-5.1) mmol/L Chloride 96 L (98-107) mmol/L BUN 28 H (7-17) mg/dL Creatinine 5.66 H* (0.52-1.04) mg/dL Glucose 111 H (74-99) mg/dL POC Glucose (mg/dL) (75-99) mg/dL Calcium 7.3 L (8.4-10.2) mg/dL Microbiology - Last 24 Hours (Table) 08/08/16 10:49 Gram Stain - Preliminary Dialysate Body Fluid Culture - Preliminary Assessment and Plan Plan: Assessment: #1. End-stage renal disease maintained on peritoneal dialysis. #2. Peritonitis. #3. Volume overload. #4. Chronic kidney disease mineral bone disease. #5. Hypertension with chronic kidney disease. Controlled. #6. Hypokalemia related to PD. Plan: Repeat peritoneal dialysate for cell count culture and Gram stain. 1 g IP vancomycin given 08/08. 1 g intraperitoneal Fortaz daily started 08/08. Continue with 2 L 2.5% actual solution exchanges every 6 hours. Hep-Lock IV fluids. Replace K - 40 meq today. Check Mg level.
[2016-08-09] MEDS: CALCIUM ACETATE 667 MG CAP PO SCH ×3 (09:50→17:15)
[2016-08-09] MEDS: ISOSORBIDE MONONITRATE ER 30 MG TAB.ER.24H PO SCH (09:50)
[2016-08-09] MEDS: NICOTINE 14MG/24HR PATCH TRANSDERM SCH (09:50)
[2016-08-09] MEDS: FOLIC ACID-VIT B COMPLEX-VIT C 1 CAP PO SCH (09:50)
[2016-08-09] MEDS: FUROSEMIDE 80 MG TAB PO SCH ×2 (09:51→17:15)
[2016-08-09] MEDS: CARVEDILOL 12.5 MG TAB PO SCH ×2 (09:51→17:15)
[2016-08-09] MEDS: PANTOPRAZOLE 40 MG TABLET PO SCH (09:51)
[2016-08-09] MEDS: METOLAZONE 5 MG TAB PO SCH (09:51)
[2016-08-09] MEDS: ALPRAZolam 0.5 MG TAB PO SCH ×2 (09:51→21:05)
[2016-08-09] MEDS: PIPERACILLIN-TAZOBACTAM 3.375 GM in DEXTROSE/WATER 1 50ML.BAG IVPB SCH ×2 (10:02→21:05)
[2016-08-09] MEDS: TIOTROPIUM 18 MCG/PUFF INHALER INHALATION SCH (11:02)
[2016-08-09 11:15] LABS: Glucose,Whole Blood 125 mg/dL (75-99)
--- NOTE | 2016-08-09 11:40 | HP ---
DATE OF SERVICE: 08/08/2016 CHIEF COMPLAINT: Abdominal pain, vomiting. HISTORY OF PRESENT ILLNESS: This 61-year-old woman with a past medical history of multiple medical problems, including history of CHF, history of diabetes mellitus, history of chronic hemodialysis, hypertension, disease, cholecystectomy, cardiac catheterization being followed by Dr. Izaguirre in outpatient setting and is complaining of severe abdominal pain. Patient also has cardiomyopathy. The patient also had previous episodes of peritonitis also and abdominal distention. The patient had some nausea, vomiting. The patient is on peritoneal dialysis. The dialysis fluid is a bit cloudy and the patient was thought to have peritonitis and admitted for further evaluation and treatment. There is no history of any fever, rigors. No history of headache, loss of consciousness, seizures. PAST MEDICAL HISTORY: History of congestive heart failure, history of diabetes history type 2, history of gastroesophageal reflux disease, hypertension, hyperlipidemia, history of cardiomyopathy, history of cholecystectomy, anxiety, depression, not otherwise specified. Medications prior to admission include home medications are: 1. Norvasc 2.5 mg q.h.s. 2. Zaroxolyn 5 mg p.o. daily. 3. Elavil 100 mg p.o. q.h.s. 4. Spiriva 1 puff daily. 5. MiraLAX 17 grams daily p.r.n. 6. Omeprazole 20 mg p.o. b.i.d. 7. Maalox 30 mL q.4 p.r.n. 8. Imdur 30 mg p.o. daily. 9. DuoNeb q.i.d. and p.r.n. 10. Novolin 70/30 35 units subcu a.c. supper. 11. Tyro 10 mg q.6 p.r.n. 12. Lasix 80 mg p.o. b.i.d. 13. Coreg 12.5 mg p.o. b.i.d. 14. PhosLo 1334 mg p.o. t.i.d. with meals. 15. Symbicort 160/4.5, 2 puffs b.i.d. 16. Ventolin 2.5 q.i.d. p.r.n. 17. Xanax 0.5 b.i.d. ALLERGIES: None. FAMILY HISTORY: History of congestive heart failure and CAD, diabetes mellitus in the family. SOCIAL HISTORY: History of smoking on a daily basis, no history of alcohol intake. REVIEW OF SYSTEMS: ENT: No diminished hearing, no diminished vision. CARDIOVASCULAR SYSTEM: As mentioned earlier RESPIRATORY: As mentioned earlier. GI: As mentioned earlier. : As mentioned earlier. NERVOUS SYSTEM: No numbness or weakness. ALLERGY/IMMUNOLOGY: No asthma or hayfever. MUSCULOSKELETAL: As mentioned earlier. HEMATOLOGY: No history of anemia. ENDOCRINE: Diabetes. CONSTITUTIONAL: As mentioned earlier. DERMATOLOGY: Negative. RHEUMATOLOGY: Negative. PSYCHIATRY: As mentioned earlier. PHYSICAL EXAMINATION: Alert and oriented x3. Pulse is 89, blood pressure 160/71, respirations 20, temperature 97.6, pulse of 99% on room air. HEENT: Conjunctivae normal. Oral mucosa moist. NECK: No jugular venous distention. No carotid bruit. No lymph node enlargement. CARDIOVASCULAR: S1 and S2. No S3, no S4. RESPIRATORY: Breath sounds diminished at the bases. Bilateral scattered rhonchi and crackles. ABDOMEN: Soft, obese, mild diffuse discomfort to palpation. No guarding. No rigidity. No mass palpable. Bowel sounds are diminished. LEGS: No edema, no swelling. NERVOUS SYSTEM: No focal deficits. LABS: WBC 8.3, hemoglobin 12.2, sodium 133, potassium 3.6, creatinine 1.9, plasma lactic acid 2.3. ASSESSMENT: 1. Abdominal pain and possible acute peritonitis with possible early sepsis, present on admission. 2. Chronic renal failure stage V on peritoneal dialysis. 3. Hyponatremia. 4. Hypoalbuminemia with mild to moderate protein calorie malnutrition. 5. History of congestive heart failure. 6. History of diabetes type 2. 7. History of gastroesophageal reflux disease. 8. Hypertension, essential. 9. Hyperlipidemia. 10. History of recurrent peritonitis. 11. History of cardiomyopathy. 12. Obstructive sleep apnea. 13. History of frequent constipation. 14. History of multiple electrolyte imbalances. 15. Obesity with a body mass index of 45. 16. History of degenerative joint disease. 17. History of cataracts. 18. History of cholecystectomy. 19. History of anxiety, depression, not otherwise specified 20. Diabetes mellitus type 2. 21. FULL CODE. RECOMMENDATIONS AND DISCUSSION: In this 61-year-old woman who presented with multiple complex medical issues, we will monitor the patient closely. Continue the current medications. Continue symptomatic treatment. I recommend surgical evaluation, cultures, initiate empiric antibiotics. I would also recommend Infectious Disease evaluation also. Otherwise, continue the home medications and bronchodilators, ensure oxygenation. DVT prophylaxis. Guarded prognosis. Further recommendations to follow. MTDD
[2016-08-09] MEDS: [UNRECOGNIZED DRUG - OTHER] INTRAPERIT SCH (12:55)
[2016-08-09] MEDS: CEFTAZIDIME INTRAPERIT SCH (12:55)
[2016-08-09 17:18] LABS: Glucose,Whole Blood 183 mg/dL (75-99)
[2016-08-09] MEDS: INSULIN NPH/REG INSULIN 70/30 300 UNIT/3 ML VIAL SQ SCH (17:18)
[2016-08-09 17:44] LABS: RBC, Body Fluid 3 /uL
--- NOTE | 2016-08-09 18:24 | PN ---
DATE OF SERVICE: 08/09/2016 Ni is seen on rounds. She has developed a peritonitis associated with her CAPD. She is feeling better, tolerating a diet. No nausea, no vomiting. She has been afebrile. White count is normal at 5700. ASSESSMENT: 1. Peritonitis. 2. Renal failure on peritoneal dialysis. PLAN: The patient is currently nonsurgical. We will follow up on a p.r.n. basis. Please notify us if the condition changes where she would need to have the peritoneal dialysis catheter removed.
[2016-08-09 20:16] LABS: Glucose,Whole Blood 148 mg/dL (75-99)
[2016-08-09 20:46] LABS: Glucose,Whole Blood 154 mg/dL (75-99)
[2016-08-09] MEDS: AMITRIPTYLINE HCL 50 MG TAB PO SCH (21:05)
[2016-08-09] MEDS: amLODIPine 2.5 MG TAB PO SCH (21:06)
[2016-08-10] MEDS: DIALYSIS DEX INTRAPERIT SCH ×4 (00:29→23:54)
[2016-08-10] MEDS: HEPARIN SODIUM INTRAPERIT SCH ×5 (00:29→23:54)
[2016-08-10 02:04] LABS: Glucose,Whole Blood 152 mg/dL (75-99)
[2016-08-10] MEDS: HYDROcodone/APAP 10-325MG 1 EACH TAB PO PRN ×4 (02:07→20:24)
[2016-08-10] MEDS: TIOTROPIUM 18 MCG/PUFF INHALER INHALATION SCH ×2 (07:46→07:50)
[2016-08-10] MEDS: SYMBICORT 160-4.5 MCG INHALER INHALATION SCH ×3 (07:46→20:00)
[2016-08-10 07:52] LABS: Glucose,Whole Blood 193 mg/dL (75-99)
[2016-08-10] MEDS: CALCIUM ACETATE 667 MG CAP PO SCH ×3 (08:01→16:55)
[2016-08-10] MEDS: CARVEDILOL 12.5 MG TAB PO SCH ×2 (08:01→16:55)
[2016-08-10] MEDS: INSULIN LISPRO (humaLOG) 300 UNIT/3 ML VIAL SQ SCH ×4 (08:01→22:36)
[2016-08-10] MEDS: FUROSEMIDE 80 MG TAB PO SCH ×2 (08:02→16:55)
[2016-08-10] MEDS: ISOSORBIDE MONONITRATE ER 30 MG TAB.ER.24H PO SCH (08:02)
[2016-08-10] MEDS: PANTOPRAZOLE 40 MG TABLET PO SCH (08:02)
[2016-08-10] MEDS: ALPRAZolam 0.5 MG TAB PO SCH ×2 (08:02→22:34)
[2016-08-10] MEDS: METOLAZONE 5 MG TAB PO SCH (08:02)
[2016-08-10] MEDS: FOLIC ACID-VIT B COMPLEX-VIT C 1 CAP PO SCH (08:02)
[2016-08-10] MEDS: NICOTINE 14MG/24HR PATCH TRANSDERM SCH (08:02)
[2016-08-10 08:35] LABS: Body Fluid Comment Few Mesothelial
[2016-08-10 09:41] LABS: Anisocytosis Slight; Basophils # (A) 0.1 k/uL (0-0.2); Basophils % (A) 2 %; CH 31.6; CHCM 31.6; Eosinophils # (A) 0.3 k/uL (0-0.7); Eosinophils % (A) 5 %; HCT 34.4 % (34.0-46.0); HDW 2.92; HGB 10.7 gm/dL (11.4-16.0); Hypochromasia Slight; Luc # (Auto) 0.12; Luc % (Auto) 2; Lymphocytes # (A) 0.8 k/uL (1.0-4.8); Lymphocytes % (A) 14 %; MCH 31.3 pg (25.0-35.0); MCHC 31.2 g/dL (31.0-37.0); MCV 100.6 fL (80.0-100.0); Macrocytosis Slight; Mean Platelet Volume 8.3; Monocytes # (A) 0.3 k/uL (0-1.0); Monocytes % (A) 6 %; Neutrophils # (A) 3.8 k/uL (1.3-7.7); Neutrophils % (A) 71 %; RBC 3.42 m/uL (3.80-5.40); RDW 17.4 % (11.5-15.5); WBC 5.4 k/uL (3.8-10.6); WBC (Perox) 5.48
--- NOTE | 2016-08-10 09:42 | CONS ---
DATE OF CONSULTATION: 08/09/2016 REASON FOR CONSULTATION: PD catheter associated peritonitis. HISTORY OF PRESENT ILLNESS: The patient is a 61-year-old female with a past medical history significant for end-stage renal disease on hemodialysis. Patient did have previous episodes of PD catheter associated peritonitis. Patient presented to the [facility] ER on 08/08/2016 with the chief complaint of abdominal pain along with nausea and vomiting. The patient said that her dialysis has become cloudy. The patient denies significant fever, rigors and chills. The patient subsequently has been evaluated by the ER physician. The patient did have a CT of the abdomen and pelvis which did show finding compatible with patient's history of peritoneal dialysis. There is no bowel obstruction evident or ulcerative enteritis. No focal intra-abdominal fluid collection for possible cellulitis. Patient did receive Fortaz and vancomycin in her dialysis lead. I was asked to see the patient for further recommendation regarding antibiotic therapy. Patient did not have any fever and her abdominal pain getting better as of today. No further nausea, vomiting. Patient denies having any chest pain or shortness of breath or cough. REVIEW OF SYSTEMS: CONSTITUTIONAL: Positive for weakness but no high-grade fever. EYES: No complaint. ENT: No complaint. RESPIRATORY: No complaint. CARDIOVASCULAR: No complaint. GENITOURINARY: No complaint. GASTROINTESTINAL: As per HPI. MUSCULOSKELETAL: No complaint. INTEGUMENTARY: No complaint. PSYCHOLOGIC: No complaint. ENDOCRINE: No complaint. NEUROLOGIC: No complaint. Past medical history is significant for hypertension, hyperlipidemia, end-stage renal disease on peritoneal dialysis, diabetes mellitus, gastroesophageal reflux disease and heart failure. Previous episodes of peritonitis. PAST SURGICAL HISTORY: Cholecystectomy, PD catheter placement, pilonidal cyst removal and heart catheterization. SOCIAL HISTORY: Smokes about a pack a day, smoking since 1975. Denies any drinking or drug use. FAMILY HISTORY: Mother with history of congestive heart failure and coronary artery disease and diabetes mellitus. Father with history of diabetes and hypertension. ALLERGIES: No known drug allergies. Medications currently include the patient is on Xanax, Elavil, Norvasc, Symbicort, PhosLo, Coreg, ceftazidime 1 gm in peritoneal dialysis daily, Lasix, heparin, NovoLog sliding scale, Imdur, Ativan, Zaroxolyn, Nephrocaps, nicotine patch, Zofran, piperacillin-tazobactam. On examination, blood pressure is 122/57 with a pulse of 53, temperature of 98. She is 100% on room air. General description is a middle-age female, lying in bed in no distress. No tachypnea or accessory muscle of respiration use. HEENT examination shows pallor. No scleral icterus. Oral mucous membrane dry. NECK: Trachea central. There is no thyromegaly. LUNGS: Unlabored breathing. Clear to auscultation anteriorly. No wheeze or crackle. HEART: S1, S2, regular rate and rhythm. ABDOMEN: Soft, no tenderness. No guarding or rigidity. No evidence of underlying infection. EXTREMITIES: No edema of the feet. SKIN EXAMINATION: No rash or mass palpable. NEUROLOGICAL: Patient is awake, alert, oriented x3. Mood and affect normal. LABS: Hemoglobin is 10.7, white count 5.7 with a BUN of 28, creatinine is 5.66. The peritoneal fluid cultures are currently pending. DIAGNOSTIC IMPRESSION AND PLAN: Patient admitted to the hospital with abdominal pain in a patient who did have cloudy peritoneal fluid and does peritoneal dialysis for her endstage renal disease with previous episodes of peritoneal dialysis catheter-associated peritonitis likely representing an episode of peritonitis in a patient with no evidence of any tunnel infection. Could be more likely a Gram-positive skin liliana or a Gram-negative could not be entirely excluded. PLAN: 1. Patient did receive a dose of vancomycin in the PD that should stay in her system for the next few days. 2. Keep the patient on Fortaz in her PD, dialysis every day. Discontinue Zosyn. 3. Will follow up on the clinical condition and cultures to further adjust the medication if needed. Thank you for this consultation. Will follow this patient along with you. ANDRÉS
[2016-08-10 10:08] LABS: Calcium 7.1 mg/dL (8.4-10.2); Magnesium 1.5 mg/dL (1.6-2.3); Potassium 3.5 mmol/L (3.5-5.1)
--- NOTE | 2016-08-10 10:16 | P.PN ---
Subjective Patient is seen in follow-up for end-stage renal disease. She is maintained on peritoneal dialysis. Patient presented with abdominal pain and cloudy dialysate. Her cell count was noted to be elevated at 1215. She received 1 g of intraperitoneal vancomycin as well as Fortaz on August 08 and is now maintained on intraperitoneal Fortaz daily. Currently resting in bed. Feels tired. No vomiting or diarrhea. Appetite is fair. Denies chest pain or shortness of breath. Vital signs are stable. General: The patient appeared well nourished and normally developed. HEENT: Head exam is unremarkable. Neck is without jugular venous distension. LUNGS: Lungs are clear to auscultation and percussion. Breath sounds decreased. HEART: Rate and Rhythm are regular. First and second heart sounds normal. No murmurs, rubs or gallops. ABDOMEN: Abdominal exam reveals normal bowel sounds. Non-tender and non- distended. No evidence of peritonitis. EXTREMITITES: Trace edema. Objective - Vital Signs Vital signs: Vital Signs Temp 97.4 F L 08/10/16 07:00 Pulse 86 08/10/16 07:00 Resp 17 08/10/16 07:00 BP 143/64 08/10/16 07:00 Pulse Ox 99 08/10/16 07:00 Intake & Output 08/09/16 08/10/16 08/10/16 18:59 06:59 18:59 Intake Total 50 480 Balance 50 480 Intake: Intake, IV Titration 50 Amount Piperacillin-Tazobactam 3 50 .375 gm In Dextrose/Water 1 50ml.bag @ 12.5 mls/hr IVPB Q12H [facility] Rx#: [id number] Oral 480 Other: Voiding Method CAPD CAPD CAPD # Voids 2 - Labs CBC & Chem 7: 08/10/16 08:16 08/09/16 07:50 Labs: Abnormal Lab Results - Last 24 Hours (Table) 08/09/16 08/09/16 08/09/16 Range/Units 07:50 11:09 17:15 RBC (3.80-5.40) m/uL Hgb (11.4-16.0) gm/dL MCV (80.0-100.0) fL RDW (11.5-15.5) % Lymphocytes # (1.0-4.8) k/uL POC Glucose (mg/dL) 125 H 183 H (75-99) mg/dL Hemoglobin A1c 8.0 H (4.2-6.1) % 08/09/16 08/09/16 08/10/16 Range/Units 20:15 20:45 02:02 RBC (3.80-5.40) m/uL Hgb (11.4-16.0) gm/dL MCV (80.0-100.0) fL RDW (11.5-15.5) % Lymphocytes # (1.0-4.8) k/uL POC Glucose (mg/dL) 148 H 154 H 152 H (75-99) mg/dL Hemoglobin A1c (4.2-6.1) % 08/10/16 08/10/16 Range/Units 07:39 08:16 RBC 3.42 L (3.80-5.40) m/uL Hgb 10.7 L (11.4-16.0) gm/dL MCV 100.6 H (80.0-100.0) fL RDW 17.4 H (11.5-15.5) % Lymphocytes # 0.8 L (1.0-4.8) k/uL POC Glucose (mg/dL) 193 H (75-99) mg/dL Hemoglobin A1c (4.2-6.1) % Microbiology - Last 24 Hours (Table) 08/08/16 10:49 Gram Stain - Preliminary Dialysate Body Fluid Culture - Preliminary Assessment and Plan Plan: Assessment: #1. End-stage renal disease maintained on peritoneal dialysis. #2. Peritonitis. Cell count coming down. It was 1215 on admission and down to 82 as of yesterday. #3. Volume overload. Improving. #4. Chronic kidney disease mineral bone disease. #5. Hypertension with chronic kidney disease. Controlled. #6. Hypokalemia related to PD. Plan: Repeat peritoneal dialysate for cell count and culture tomorrow. 1 g IP vancomycin given 08/08. 1 g intraperitoneal Fortaz daily started 08/08. Continue with 2 L 2.5% actual solution exchanges every 6 hours. Hep-Lock IV fluids.
--- NOTE | 2016-08-10 11:24 | PN ---
DATE OF SERVICE: 08/09/2016 This is a 61-year-old woman who was admitted with abdominal pain and vomiting with features of peritonitis. The peritoneal fluid is turbid but cultures are pending at this time. Patient is on empiric antibiotics. No chest pain or palpitation. No fever. REVIEW OF SYSTEMS: HEENT: No diminished vision or diminished hearing. CARDIOVASCULAR: An angina, no palpitation. RESPIRATORY: As mentioned earlier. GI: As mentioned earlier. : As mentioned earlier. Current medications are reviewed and include: 1. [place] 10 mg q.6 p.r.n. 2. Maalox 30 mL q.4 p.r.n. 3. Albuterol Atrovent q.i.d. and p.r.n. 4. Xanax 0.5 p.o. b.i.d. 5. Elavil 100 mg p.o. q.h.s. 6. Norvasc 2.5 mg q.h.s. 7. Symbicort 160/4.5 two puffs b.i.d. 8. PhosLo 1334 mg p.o. t.i.d. 9. Coreg 12.5 mg p.o. b.i.d. 10. Ceftazidime 1 gm daily. 11. Benadryl 25 mg q.i.d. p.r.n. 12. Lasix 80 mg. 13. Heparin. 14. Insulin 70/30 thirty-five units subQ q.h.s. 15. Imdur 30 mg p.o. daily. 16. Ativan 0.5 mg q.8 p.r.n. 17. Seroquel 5 mg p.o. daily. 18. Multivitamin. 19. Habitrol 14 daily. 20. Zofran 4 mg q.6 p.r.n. 21. Protonix 40 mg p.o. daily. 22. Zosyn 3.375 IV b.i.d. 23. Miralax 17 gm daily. 24. Spiriva 1 puff daily. On exam, alert and oriented x3. Pulse is 63, blood pressure 120/57, respirations 20, temperature 98 degrees, pulse ox 100% on room air. HEENT: Conjunctivae normal. NECK: No jugular venous distension. CARDIOVASCULAR SYSTEM: S1, S2, muffled. RESPIRATORY: Breath sounds diminished at the bases, a few scattered rhonchi. ABDOMEN: Soft, ascites present, mild diffuse tenderness, no guarding, no mass palpable. EXTREMITIES: Legs no edema, no swelling. NERVOUS SYSTEM: No focal deficits. LABS: WBC is 5.4, hemoglobin is 10.7, sodium 131, potassium 3.5, creatinine is 5.65. ASSESSMENT: 1. Abdominal pain, acute peritonitis with possible sepsis, present on admission. 2. Chronic renal failure stage V on peritoneal dialysis. 3. Hyponatremia. 4. Hypoalbuminemia with mild to moderate protein calorie malnutrition. 5. History of congestive heart failure, ejection fraction unknown. 6. History of diabetes mellitus type 2. 7. History of gastroesophageal reflux disease. 8. Hypertension, essential. 9. Hyperlipidemia. 10. History of recurrent pancreatitis. 11. History of cardiomyopathy. 12. Obstructive sleep apnea. 13. History of frequent constipation. 14. History of multiple electrolyte imbalances. 15. Obesity with a body mass index of 45. 16. History of degenerative joint disease. 17. History of cataracts. 18. History of cholecystectomy. 19. History of anxiety, depression, not otherwise specified. 20. Diabetes mellitus type 2. 21. FULL CODE. RECOMMENDATION: In this 61-year-old woman who presented with multiple complex medical issues, will monitor the patient closely. Continue with the current medications and symptomatic treatment with pain medication. Continue with the broad spectrum IV antibiotics. Follow cultures. Guarded prognosis because of multiple complex medical issues. Further recommendations to follow. See orders for further details. Potassium supplementation, will monitor potassium closely. Surgical evaluation. See orders for further details. Once again, the prognosis is guarded.
[2016-08-10] MEDS: CEFTAZIDIME INTRAPERIT SCH (12:01)
[2016-08-10] MEDS: [UNRECOGNIZED DRUG - OTHER] INTRAPERIT SCH (12:01)
[2016-08-10 12:28] LABS: Glucose,Whole Blood 140 mg/dL (75-99)
[2016-08-10 17:08] LABS: Glucose,Whole Blood 258 mg/dL (75-99)
[2016-08-10] MEDS: INSULIN NPH/REG INSULIN 70/30 300 UNIT/3 ML VIAL SQ SCH (18:12)
[2016-08-10 20:15] LABS: Glucose,Whole Blood 286 mg/dL (75-99)
[2016-08-10] MEDS: amLODIPine 2.5 MG TAB PO SCH (22:34)
[2016-08-10] MEDS: AMITRIPTYLINE HCL 50 MG TAB PO SCH (22:35)
[2016-08-11] MEDS: HYDROcodone/APAP 10-325MG 1 EACH TAB PO PRN ×3 (05:31→17:58)
[2016-08-11] MEDS: DIALYSIS DEX INTRAPERIT SCH ×2 (05:31→17:59)
[2016-08-11] MEDS: HEPARIN SODIUM INTRAPERIT SCH ×3 (05:31→17:59)
[2016-08-11 07:24] LABS: Glucose,Whole Blood 112 mg/dL (75-99)
--- NOTE | 2016-08-11 07:27 | PN ---
DATE OF SERVICE: 08/10/2016 Reason for follow-up: Peritoneal dialysis associated peritonitis. INTERVAL HISTORY: The patient said her abdominal pain is currently improved. The patient denies any chest pain or shortness of breath or cough. No abdominal pain. No diarrhea. On examination, blood pressure is 143/64 with pulse of 86, temperature 97.4. She is 99% on room air. General description is a middle-age female lying in bed in no distress. RESPIRATORY SYSTEM: Unlabored breathing. Clear to auscultation anteriorly. HEART: S1, S2. Regular rate and rhythm. ABDOMEN: Soft. No tenderness. LABS: Hemoglobin is 10.7, white count 5.4, BUN of 29, creatinine 6.05. Repeat urine showing white count is down to 8. Cultures so far negative. DIAGNOSTIC IMPRESSION AND PLAN: Patient with peritoneal dialysis associated peritonitis. Patient will continue with Fortaz daily for another 12 days to 2 week course of therapy along with the vancomycin. Plan of care discussed with nephrology will be arranging for those antibiotics as an outpatient. Continue supportive care.
[2016-08-11] MEDS: SYMBICORT 160-4.5 MCG INHALER INHALATION SCH ×2 (07:29→19:29)
[2016-08-11] MEDS: TIOTROPIUM 18 MCG/PUFF INHALER INHALATION SCH (07:29)
[2016-08-11 07:54] LABS: Anisocytosis Slight; Basophils # (A) 0.1 k/uL (0-0.2); Basophils % (A) 1 %; CH 31.4; CHCM 32.1; Eosinophils # (A) 0.3 k/uL (0-0.7); Eosinophils % (A) 6 %; HCT 32.6 % (34.0-46.0); HDW 2.99; HGB 10.4 gm/dL (11.4-16.0); Luc # (Auto) 0.16; Luc % (Auto) 3; Lymphocytes % (A) 18 %; MCH 31.2 pg (25.0-35.0); MCHC 31.8 g/dL (31.0-37.0); MCV 98.2 fL (80.0-100.0); Macrocytosis Slight; Mean Platelet Volume 7.7; Monocytes # (A) 0.3 k/uL (0-1.0); Monocytes % (A) 5 %; Neutrophils # (A) 3.6 k/uL (1.3-7.7); Neutrophils % (A) 67 %; RBC 3.32 m/uL (3.80-5.40); RDW 17.5 % (11.5-15.5); WBC 5.4 k/uL (3.8-10.6); WBC (Perox) 5.51
[2016-08-11 08:34] LABS: Calcium 7.1 mg/dL (8.4-10.2); Potassium 3.4 mmol/L (3.5-5.1)
[2016-08-11] MEDS: METOLAZONE 5 MG TAB PO SCH (08:55)
[2016-08-11] MEDS: NICOTINE 14MG/24HR PATCH TRANSDERM SCH (08:55)
[2016-08-11] MEDS: INSULIN LISPRO (humaLOG) 300 UNIT/3 ML VIAL SQ SCH ×4 (08:55→20:26)
[2016-08-11] MEDS: ALPRAZolam 0.5 MG TAB PO SCH (08:55)
[2016-08-11] MEDS: FOLIC ACID-VIT B COMPLEX-VIT C 1 CAP PO SCH (08:55)
[2016-08-11] MEDS: PANTOPRAZOLE 40 MG TABLET PO SCH (08:55)
[2016-08-11] MEDS: CALCIUM ACETATE 667 MG CAP PO SCH ×3 (08:55→18:00)
[2016-08-11] MEDS: ISOSORBIDE MONONITRATE ER 30 MG TAB.ER.24H PO SCH (08:55)
[2016-08-11] MEDS: FUROSEMIDE 80 MG TAB PO SCH ×2 (08:55→17:05)
[2016-08-11] MEDS: CARVEDILOL 12.5 MG TAB PO SCH ×2 (08:55→17:05)
[2016-08-11] MEDS: ONDANSETRON 4 MG/2 ML VIAL IVP PRN (09:13)
[2016-08-11] MEDS ORDERED: POTASSIUM CHLORIDE ER 20 MEQ TAB.ER PO STA (09:36)
--- NOTE | 2016-08-11 09:49 | PN ---
DATE OF SERVICE: 08/10/2016 This 61-year-old woman admitted with abdominal pain and acute peritonitis, is being closely monitored. The peritoneal fluid is clearing at this time. The patient is on broad-spectrum antibiotics. Cultures are growing coagulase-negative staph on a consistent basis. Final ID is pending. No chest pain or palpitations. no fever. On exam, alert, oriented x3. Pulse 91, blood pressure 120/56, respirations 16, temperature 97.4, pulse ox 94% on room air. HEENT: Conjunctivae normal. NECK: No JVD. CARDIOVASCULAR: S1 and S2. LUNGS: Breath sounds diminished at the bases. No rhonchi, no crackles. ABDOMEN: Soft. abdominal peritoneal dialysis fluid present. NERVOUS SYSTEM: No focal deficits. LABS: WBC 5.3, hemoglobin 10.7, sodium 137, creatinine 6.05, magnesium 1.5. ASSESSMENT: 1. Abdominal pain with acute peritonitis with possible sepsis present on admission. 2. Chronic renal failure, stage V, on peritoneal dialysis. 3. Hyponatremia. 4. Hypoalbuminemia with mild to moderate protein calorie malnutrition. 5. History of congestive heart failure, ejection fraction unknown. 6. History of diabetes type 2. 7. Hypomagnesemia. 8. History of gastroesophageal reflux disease. 9. Hypertension, essential. 10. Hyperlipidemia. 11. History of recurrent pancreatitis. 12. History of cardiomyopathy. 13. Obstructive sleep apnea. 14. History of frequent constipation. 15. History of multiple electrolyte imbalances. 16. Obesity, body mass index of 45. 17. History of degenerative joint disease. 18. History of cataracts. 19. History of cholecystectomy. 20. History of anxiety and depression, not otherwise specified. 21. Diabetes mellitus type 2. 22. FULL CODE. RECOMMENDATION: At this time, continue current mediations, continue to monitor, symptomatic treatment. Otherwise at this time we will closely monitor. Otherwise I would recommend to continue with antibiotics, patient is receiving vancomycin in the peritoneal dialysis. Closely follow with infectious disease. Further recommendations to follow. Dr. Haas is following.
--- NOTE | 2016-08-11 10:51 | P.PN ---
Subjective Patient is seen in follow-up for end-stage renal disease. She is maintained on peritoneal dialysis. Patient presented with abdominal pain and cloudy dialysate. Her cell count was noted to be elevated at 1215. She received 1 g of intraperitoneal vancomycin as well as Fortaz on August 08 and is now maintained on intraperitoneal Fortaz daily. Currently resting in bed. Feels tired. No vomiting or diarrhea. Appetite is fair. Denies chest pain or shortness of breath. Vital signs are stable. General: The patient appeared well nourished and normally developed. HEENT: Head exam is unremarkable. Neck is without jugular venous distension. LUNGS: Lungs are clear to auscultation and percussion. Breath sounds decreased. HEART: Rate and Rhythm are regular. First and second heart sounds normal. No murmurs, rubs or gallops. ABDOMEN: Abdominal exam reveals normal bowel sounds. Non-tender and non- distended. No evidence of peritonitis. EXTREMITITES: Trace edema. Objective - Vital Signs Vital signs: Vital Signs Temp 96.5 F L 08/11/16 07:00 Pulse 75 08/11/16 08:00 Resp 20 08/11/16 08:00 BP 114/62 08/11/16 07:00 Pulse Ox 100 08/11/16 07:00 Intake & Output 08/10/16 08/11/16 08/11/16 18:59 06:59 18:59 Weight 121 kg Other: Voiding Method CAPD CAPD CAPD # Voids 1 1 - Labs CBC & Chem 7: 08/11/16 07:24 08/11/16 07:24 Labs: Abnormal Lab Results - Last 24 Hours (Table) 08/10/16 08/10/16 08/10/16 Range/Units 12:26 17:04 20:11 RBC (3.80-5.40) m/uL Hgb (11.4-16.0) gm/dL Hct (34.0-46.0) % RDW (11.5-15.5) % Sodium (137-145) mmol/L Potassium (3.5-5.1) mmol/L Chloride (98-107) mmol/L BUN (7-17) mg/dL Creatinine (0.52-1.04) mg/dL POC Glucose (mg/dL) 140 H 258 H 286 H (75-99) mg/dL Calcium (8.4-10.2) mg/dL 08/11/16 08/11/16 08/11/16 Range/Units 07:13 07:24 07:24 RBC 3.32 L (3.80-5.40) m/uL Hgb 10.4 L (11.4-16.0) gm/dL Hct 32.6 L (34.0-46.0) % RDW 17.5 H (11.5-15.5) % Sodium 132 L (137-145) mmol/L Potassium 3.4 L (3.5-5.1) mmol/L Chloride 96 L (98-107) mmol/L BUN 27 H (7-17) mg/dL Creatinine 5.75 H* (0.52-1.04) mg/dL POC Glucose (mg/dL) 112 H (75-99) mg/dL Calcium 7.1 L (8.4-10.2) mg/dL Microbiology - Last 24 Hours (Table) 08/08/16 10:49 Gram Stain - Preliminary Dialysate Body Fluid Culture - Preliminary Coagulase Negative Staph Assessment and Plan Plan: Assessment: #1. End-stage renal disease maintained on peritoneal dialysis. #2. Peritonitis. Cell count coming down. It was 1215 on admission and down to 82 as of 08/09. #3. Volume overload. Improving. #4. Chronic kidney disease mineral bone disease. #5. Hypertension with chronic kidney disease. Controlled. #6. Hypokalemia related to PD. Plan: Repeat peritoneal dialysate for cell count and culture today. 1 g IP vancomycin given 08/08. 1 g intraperitoneal Fortaz daily started 08/08. Continue with 2 L 2.5% actual solution exchanges every 6 hours. Hep-Lock IV fluids. Replace potassium. 40 mEq today. Stable to be discharged home from nephrology standpoint. Will continue intraperitoneal antibiotics as an outpatient for a total of at least 2 weeks duration.
[2016-08-11] MEDS: [UNRECOGNIZED DRUG - OTHER] INTRAPERIT SCH (11:34)
[2016-08-11] MEDS: CEFTAZIDIME INTRAPERIT SCH (11:34)
[2016-08-11 11:38] LABS: Glucose,Whole Blood 102 mg/dL (75-99)
[2016-08-11] MEDS ORDERED: IV VANCOMYCIN PER PHARMACY 1 EACH MISC MISCELLANE PRN (12:36)
[2016-08-11] MEDS ORDERED: VANCOMYCIN 2,000 MG in SODIUM CHLORIDE 0.9% 500 ML IVPB ONE (13:00)
[2016-08-11 15:34] LABS: Hepatitis B Surface Ag Index 0.07
[2016-08-11 15:39] LABS: Hepatitis B Core IgM Index 0.03
[2016-08-11 15:51] LABS: Hepatitis C Virus IgG Index 0.02
[2016-08-11 15:53] LABS: Hepatitis C Virus IgG Ab Negative (Negative)
[2016-08-11] MEDS: IPRATROPIUM-ALBUTEROL 3 ML NEB INHALATION SCH ×2 (16:19→19:29)
[2016-08-11 16:44] LABS: RBC, Body Fluid 0 /uL
[2016-08-11 17:15] LABS: Glucose,Whole Blood 206 mg/dL (75-99)
[2016-08-11] MEDS: INSULIN NPH/REG INSULIN 70/30 300 UNIT/3 ML VIAL SQ SCH (18:08)
--- NOTE | 2016-08-11 20:12 | PN ---
DATE OF SERVICE: 08/11/2016 PRESENTING COMPLAINT: Abdominal pain. INTERVAL HISTORY: This is a patient who presented with acute peritonitis, getting intraperitoneal antibiotics. Patient is tolerating a diet, had a bowel movement. Patient is concerned about a chronic pain in the right hip. Review of systems done for constitutional, cardiovascular, GI, pulmonary; relevant findings as above. Current medications are reviewed that intraperitoneal ceftazidime. On examination, temperature 98.2, pulse 78, respiration 16, blood pressure 158/68, pulse ox 97% on room air. GENERAL APPEARANCE: Morbidly obese, BMI of 45.8. Sitting at the edge of the bed. Not in distress. EYES: Pupils equal. Conjunctivae normal. NECK: JVD not raised. Mass not palpable. RESPIRATORY: Effort normal. LUNGS: Diminished breath sounds. CARDIOVASCULAR: First and second sounds normal. Some edema. ABDOMEN: Distended, soft. Liver and spleen not palpable. PSYCHIATRY: Alert and oriented x3. Mood and affect normal. INVESTIGATIONS: White count 5.4, hemoglobin 10.4. Potassium 3.4. BUN 27, creatinine 5.75. Peritoneal fluid cultures positive for Staphylococcus epidermidis. ASSESSMENT: 1. Acute peritonitis associated with peritoneal dialysis, probably from an infected CAPD catheter. 2. Morbid obesity; body mass index 45.8. 3. End-stage kidney disease, on peritoneal dialysis. 4. Diabetes mellitus, type 2, chronically on insulin. 5. Gastroesophageal reflux disease. 6. Hyperlipidemia. 7. Essential hypertension. 8. Normocytic anemia associated with end-stage kidney disease. 9. Obstructive sleep apnea; does not use CPAP. 10. Primary osteoarthritis of multiple joints, especially the right hip. 11. Chronic obstructive pulmonary disease in a current smoker. 12. Chronic nicotine dependence. Patient smokes a pack a day. PLAN: Continue current medication and treatment plan. I spoke to Dr. Gaviria over the phone. Patient in home environment ( ) has had at breast 5 episodes of CAPD-associated peritonitis. In view of that, he is planning to switch the patient to hemodialysis. Also will consult Dr. Spencer for chronic pain management. Will also put the patient on DuoNeb. Counseled against smoking. Put on nicotine patch. Overall prognosis is guarded. Will follow.
[2016-08-11 20:15] LABS: Glucose,Whole Blood 252 mg/dL (75-99)
[2016-08-11] MEDS: AMITRIPTYLINE HCL 50 MG TAB PO SCH (20:25)
[2016-08-11] MEDS: amLODIPine 2.5 MG TAB PO SCH (20:26)
--- NOTE | 2016-08-11 21:34 | P.PN ---
Subjective Principal diagnosis: renal failure with peritonitis patient is well-known to our service. She underwent perineal dialysis catheter insertion 2 years ago. She was seen recently by Dr. Almeida. We were consulted because of peritonitis. Her symptoms have improved. Today we were asked to remove her catheter. The patient currently is refusing to have the catheter removed and is refusing to switch to hemodialysis. Objective - Vital Signs Vital signs: Vital Signs Temp 97.9 F 08/11/16 20:17 Pulse 73 08/11/16 20:17 Resp 18 08/11/16 20:17 BP 103/53 08/11/16 20:17 Pulse Ox 98 08/11/16 20:17 Intake & Output 08/11/16 08/11/16 08/12/16 06:59 18:59 06:59 Intake Total 120 Balance 120 Weight 121 kg Intake: Oral 120 Other: Voiding Method CAPD CAPD # Voids 1 0 - Exam abdomen: Obese, nontender, nondistended, catheter noted, exit site within normal limits - Labs CBC & Chem 7: 08/11/16 07:24 08/11/16 07:24 Labs: Abnormal Lab Results - Last 24 Hours (Table) 08/11/16 08/11/16 08/11/16 Range/Units 07:13 07:24 07:24 RBC 3.32 L (3.80-5.40) m/uL Hgb 10.4 L (11.4-16.0) gm/dL Hct 32.6 L (34.0-46.0) % RDW 17.5 H (11.5-15.5) % Sodium 132 L (137-145) mmol/L Potassium 3.4 L (3.5-5.1) mmol/L Chloride 96 L (98-107) mmol/L BUN 27 H (7-17) mg/dL Creatinine 5.75 H* (0.52-1.04) mg/dL POC Glucose (mg/dL) 112 H (75-99) mg/dL Calcium 7.1 L (8.4-10.2) mg/dL 08/11/16 08/11/16 08/11/16 Range/Units 11:14 17:13 20:13 RBC (3.80-5.40) m/uL Hgb (11.4-16.0) gm/dL Hct (34.0-46.0) % RDW (11.5-15.5) % Sodium (137-145) mmol/L Potassium (3.5-5.1) mmol/L Chloride (98-107) mmol/L BUN (7-17) mg/dL Creatinine (0.52-1.04) mg/dL POC Glucose (mg/dL) 102 H 206 H 252 H (75-99) mg/dL Calcium (8.4-10.2) mg/dL Microbiology - Last 24 Hours (Table) 08/11/16 14:10 Body Fluid Culture - Preliminary Dialysate 08/08/16 10:49 Gram Stain - Final Dialysate Body Fluid Culture - Final Staphylococcus epidermidis Assessment and Plan (1) Peritonitis Narrative/Plan: continue PD usage. The patient will further discuss her desire to keep the perineal dialysis catheter with nephrology in the morning. I will remain on surgical standby. Status: Acute
[2016-08-12] MEDS: HYDROcodone/APAP 10-325MG 1 EACH TAB PO PRN (00:17)
[2016-08-12] MEDS: DIALYSIS DEX INTRAPERIT SCH ×3 (00:18→18:33)
[2016-08-12] MEDS: HEPARIN SODIUM INTRAPERIT SCH ×3 (00:18→18:33)
[2016-08-12] MEDS: ALPRAZolam 0.5 MG TAB PO SCH ×3 (00:27→21:12)
[2016-08-12 07:15] LABS: Glucose,Whole Blood 217 mg/dL (75-99)
--- NOTE | 2016-08-12 07:18 | P.PN ---
Progress Note - Text Chart reviewed. Recommendation by Dr. Dow that patient convert to hemodialysis. Patient is refusing hemodialysis catheter at this time. Emphasized that the reason that she undergo hemodialysis is that she has recurrent bouts of peritonitis. She understands that she could have serious consequences of recurrent peritonitis including . She is refusing catheter placement at this time.
[2016-08-12 07:35] LABS: Potassium 3.7 mmol/L (3.5-5.1)
[2016-08-12 07:36] LABS: Calcium 7.9 mg/dL (8.4-10.2)
[2016-08-12] MEDS: IPRATROPIUM-ALBUTEROL 3 ML NEB INHALATION SCH ×4 (07:40→21:53)
[2016-08-12] MEDS: SYMBICORT 160-4.5 MCG INHALER INHALATION SCH ×2 (07:40→21:53)
[2016-08-12] MEDS: TIOTROPIUM 18 MCG/PUFF INHALER INHALATION SCH (07:40)
[2016-08-12 07:47] LABS: Anisocytosis Slight; Aty Lym Flag Slight; CH 31.3; CHCM 31.5; HCT 32.7 % (34.0-46.0); HDW 2.98; HGB 10.5 gm/dL (11.4-16.0); Hypochromasia Slight; MCH 32.3 pg (25.0-35.0); MCHC 32.3 g/dL (31.0-37.0); Macrocytosis Slight; Mean Platelet Volume 8.2; RBC 3.27 m/uL (3.80-5.40); RDW 17.9 % (11.5-15.5); WBC 5.2 k/uL (3.8-10.6); WBC (Perox) 5.65
[2016-08-12] MEDS ORDERED: VANCOMYCIN 2,000 MG in SODIUM CHLORIDE 0.9% 500 ML IVPB ONE (10:00)
--- NOTE | 2016-08-12 10:28 | PN ---
DATE OF SERVICE: 08/11/2016 Reason for follow up is peritoneal dialysis associated peritonitis. INTERVAL HISTORY: The patient is afebrile. Her abdominal pain is currently improved, the edema more cleared up. Patient denies having any chest pain or shortness of breath. No cough, no nausea, no vomiting or any diarrhea. On examination, blood pressure is 103/53 with a pulse of 73, temperature is 97.9, she is 98% on room air. General description is a middle-age female, lying in bed in no distress. RESPIRATORY SYSTEM: Unlabored breathing. Clear to auscultation anteriorly. HEART: S1, S2. Regular rate and rhythm. ABDOMEN: Soft, no tenderness. The PD catheter site with no evidence of internal infection. LABS: Hemoglobin is 10.4, white count of 5.4, with a BUN of 27, creatinine 5.75. Culture has been positive for staph epi. DIAGNOSTIC IMPRESSION AND PLAN: Patient with staph epidermis PD associated peritoitis. At this time patient on vancomycin. Fortaz has been discontinued.Continue supportive care. MTDD
[2016-08-12] MEDS: CALCIUM ACETATE 667 MG CAP PO SCH ×3 (10:38→18:18)
[2016-08-12] MEDS: CARVEDILOL 12.5 MG TAB PO SCH ×2 (10:40→18:18)
[2016-08-12 11:12] LABS: Add Differential Manual Differential
[2016-08-12] MEDS: INSULIN LISPRO (humaLOG) 300 UNIT/3 ML VIAL SQ SCH ×4 (11:13→21:14)
[2016-08-12 11:14] LABS: Nucleated Red Blood Cells 0 /100 WBC (0-0)
[2016-08-12 11:16] LABS: Band Neutrophils % 2.5 %; Manual Review Performed; Metamyelocytes % 0.5 %; Myelocytes % 0.5 %; Total Cells Counted 200
--- NOTE | 2016-08-12 11:16 | P.PN ---
Subjective Patient is seen in follow-up for end-stage renal disease. She is maintained on peritoneal dialysis. Patient presented with abdominal pain and cloudy dialysate. Her cell count was noted to be elevated at 1215. She received 1 g of intraperitoneal vancomycin as well as Fortaz on August 08 and is now maintained on intraperitoneal Fortaz daily. Currently resting in bed. Feels tired. No vomiting or diarrhea. Appetite is fair. Denies chest pain or shortness of breath. Vital signs are stable. General: The patient appeared well nourished and normally developed. HEENT: Head exam is unremarkable. Neck is without jugular venous distension. LUNGS: Lungs are clear to auscultation and percussion. Breath sounds decreased. HEART: Rate and Rhythm are regular. First and second heart sounds normal. No murmurs, rubs or gallops. ABDOMEN: Abdominal exam reveals normal bowel sounds. Non-tender and non- distended. No evidence of peritonitis. EXTREMITITES: Trace edema. Objective - Vital Signs Vital signs: Vital Signs Temp 97.9 F 08/12/16 07:00 Pulse 78 08/12/16 08:00 Resp 16 08/12/16 08:00 BP 134/67 08/12/16 07:00 Pulse Ox 100 08/12/16 07:00 Intake & Output 08/11/16 08/12/16 08/12/16 18:59 06:59 18:59 Intake Total 120 Balance 120 Weight 120 kg Intake: Oral 120 Other: Voiding Method CAPD CAPD CAPD # Voids 0 1 1 # Bowel Movements 2 1 - Labs CBC & Chem 7: 08/12/16 06:59 08/12/16 06:59 Labs: Abnormal Lab Results - Last 24 Hours (Table) 08/11/16 08/11/16 08/11/16 Range/Units 11:14 17:13 20:13 RBC (3.80-5.40) m/uL Hgb (11.4-16.0) gm/dL Hct (34.0-46.0) % RDW (11.5-15.5) % Sodium (137-145) mmol/L BUN (7-17) mg/dL Creatinine (0.52-1.04) mg/dL Glucose (74-99) mg/dL POC Glucose (mg/dL) 102 H 206 H 252 H (75-99) mg/dL Calcium (8.4-10.2) mg/dL 08/12/16 08/12/16 08/12/16 Range/Units 06:59 06:59 07:14 RBC 3.27 L (3.80-5.40) m/uL Hgb 10.5 L (11.4-16.0) gm/dL Hct 32.7 L (34.0-46.0) % RDW 17.9 H (11.5-15.5) % Sodium 132 L (137-145) mmol/L BUN 28 H (7-17) mg/dL Creatinine 6.47 H* (0.52-1.04) mg/dL Glucose 211 H (74-99) mg/dL POC Glucose (mg/dL) 217 H (75-99) mg/dL Calcium 7.9 L (8.4-10.2) mg/dL Microbiology - Last 24 Hours (Table) 08/11/16 14:10 Body Fluid Culture - Preliminary Dialysate 08/08/16 10:49 Gram Stain - Final Dialysate Body Fluid Culture - Final Staphylococcus epidermidis Assessment and Plan Plan: Assessment: #1. End-stage renal disease maintained on peritoneal dialysis. #2. Peritonitis. Cell count coming down. It was 1215 on admission and down to 2 as of 08/11. Fluid culture positive for staph epi. #3. Volume overload. Improving. #4. Chronic kidney disease mineral bone disease. #5. Hypertension with chronic kidney disease. Controlled. #6. Hypokalemia related to PD.Improved. Plan: 1 g IP vancomycin given 08/08. 1 g intraperitoneal Fortaz daily started 08/08. Continue with 2 L 2.5% actual solution exchanges every 6 hours. Hep-Lock IV fluids. This is patient's fifth peritonitis episode and it was discussed with her that if she develops peritonitis again she will need to be transitioned over to hemodialysis. Patient has been quite hesitant to transition over to hemodialysis but is now agreeable. Dr. Horowitz as well as vascular surgery are following. She is to get the peritoneal dialysis catheter discontinued this admission and get a hemodialysis catheter placed. Will plan for first treatment of hemodialysis tomorrow. manager technical training on board to help facilitate outpatient hemodialysis.
--- NOTE | 2016-08-12 11:44 | P.PN ---
Subjective Principal diagnosis: renal failure with peritonitis Patient has agreed to dialysis catheter removal. Denies abdominal pain. Objective - Vital Signs Vital signs: Vital Signs Temp 97.9 F 08/12/16 07:00 Pulse 88 08/12/16 11:22 Resp 16 08/12/16 08:00 BP 134/67 08/12/16 07:00 Pulse Ox 100 08/12/16 07:00 Intake & Output 08/11/16 08/12/16 08/12/16 18:59 06:59 18:59 Intake Total 120 Balance 120 Weight 120 kg Intake: Oral 120 Other: Voiding Method CAPD CAPD CAPD # Voids 0 1 1 # Bowel Movements 2 1 - Exam Abdomen: Soft, nondistended, nontender - Labs CBC & Chem 7: 08/12/16 06:59 08/12/16 06:59 Labs: Abnormal Lab Results - Last 24 Hours (Table) 08/11/16 08/11/16 08/12/16 Range/Units 17:13 20:13 06:59 RBC 3.27 L (3.80-5.40) m/uL Hgb 10.5 L (11.4-16.0) gm/dL Hct 32.7 L (34.0-46.0) % RDW 17.9 H (11.5-15.5) % Sodium (137-145) mmol/L BUN (7-17) mg/dL Creatinine (0.52-1.04) mg/dL Glucose (74-99) mg/dL POC Glucose (mg/dL) 206 H 252 H (75-99) mg/dL Calcium (8.4-10.2) mg/dL 08/12/16 08/12/16 Range/Units 06:59 07:14 RBC (3.80-5.40) m/uL Hgb (11.4-16.0) gm/dL Hct (34.0-46.0) % RDW (11.5-15.5) % Sodium 132 L (137-145) mmol/L BUN 28 H (7-17) mg/dL Creatinine 6.47 H* (0.52-1.04) mg/dL Glucose 211 H (74-99) mg/dL POC Glucose (mg/dL) 217 H (75-99) mg/dL Calcium 7.9 L (8.4-10.2) mg/dL Microbiology - Last 24 Hours (Table) 08/11/16 14:10 Body Fluid Culture - Preliminary Dialysate 08/08/16 10:49 Gram Stain - Final Dialysate Body Fluid Culture - Final Staphylococcus epidermidis Assessment and Plan (1) Peritonitis Narrative/Plan: Case discussed with vascular. Will remove the patient's PD catheter at the time of a permacath placement tomorrow. Risks of bleeding, infection, bowel injury were discussed as it pertains to my portion of the procedure. She understands and wishes to proceed. Status: Acute
[2016-08-12 11:49] LABS: Glucose,Whole Blood 173 mg/dL (75-99)
--- NOTE | 2016-08-12 11:49 | P.PN ---
Progress Note - Text Recently informed that patient now wishes to have hemodialysis catheter placed. Had right internal jugular catheter for 3 months at one point when peritoneal dialysis catheter was malfunctioning. Left hand dominant; signs papers with left hand and uses left hand when eating. Otherwise is ambidextrous. impression: 1. stage V CKD with infected peritoneal dialysis catheter 2. left hand dominant 3. previous history of right internal jugular dialysis catheter plan: 1. duplex of right internal jugular vein and right arm veins to determine patency 2. placement of tunneled dialysis catheter in OR 08/13/2016 Risks and benefits of tunneled dialysis catheter discussed including pneumothorax, infection, bleeding, catheter malfunction and thrombosis, central vein stenosis/thrombosis and occlusion. Patient understands that catheter is not a permanent solution for hemodialysis and is willing to have it inserted. Will schedule to coordinate with peritoneal dialysis catheter removal on 2016.
--- NOTE | 2016-08-12 11:56 | P.CONS ---
History of Present Illness - Reason for Consult Consult date: 08/12/16 - History of Present Illness This is a 61 years old female with a chronic history of low back pain, was treated as an outpatient by for low back pain, and she was treated with Ivel 10 every 6 hours, the last few days she was admitted to [facility] because of severe abdominal pain and she was diagnosed with peritonitis, patient had multiple medical problems including congestive heart failure and diabetes mellitus and chronic hemodialysis, hypertension, currenly patient complaining of generalized abdominal pain , and low back pain , the low back pain is constant and increases with any movement , patient had a diagnostic of the lumbar spine/hips study done at [facility], Past Medical History Past Medical History: Heart Failure, Diabetes Mellitus, Dialysis, GERD/Reflux, Hyperlipidemia, Hypertension, Renal Disease Additional Past Medical History / Comment(s): Peritonitis's in past with recent admit to [facility] for peritonitis and discharged 04/20/16 per son, chronic renal disease stage IV, cardiomyopathy, current lower leg and face edema per son- "can't get the fluid off", IDDM type II, normocytic anemia, ARPIT without device, frequent constipation, hyponatremia, hypocalcemia, low albumin, mild to moderate protein calorie malnutrition, obesity, gastritis, back and hip pain bilaterally, cataract in one eye (laterallity unknown). History of Any Multi-Drug Resistant Organisms: None Reported Past Surgical History: Cholecystectomy, Heart Catheterization Additional Past Surgical History / Comment(s): 2013 Peritoneal dialysis catheter placement, 2011 cardiac cath, pilonodial cyst removed Past Anesthesia/Blood Transfusion Reactions: No Reported Reaction Additional Past Anesthesia/Blood Transfusion Reaction / Comm: never received a blood transfusion Past Psychological History: Anxiety, Depression Additional Psychological History / Comment(s): Father is from [facility], [place]. She has had no international travel at any time. She has no travel to the [facility]. She lives in her family home with her son and rhonda, and does not work outside of the home. No significant alcohol use. No history of recreational drug use. There is a pet cat in the home, and her adult son cares for the box. Smoking Status: Current every day smoker Past Alcohol Use History: None Reported Additional Past Alcohol Use History / Comment(s): Pt started smoking in 1975 and is a ppd smoker. Past Drug Use History: None Reported - Past Family History Mother Family Medical History: Congestive Heart Failure (CHF), Coronary Artery Disease (CAD), Diabetes Mellitus Additional Family Medical History / Comment(s): Mother of diabetic complications at the age of 55yrs. Father Family Medical History: Diabetes Mellitus, Hypertension, Pneumonia Additional Family Medical History / Comment(s): alcoholism. Father of pneumonia at the age of 81 yrs. Medications and Allergies Home Medications Medication Instructions Recorded Confirmed Type Carvedilol [Coreg*] 12.5 mg PO BID 11/24/13 08/08/16 History Isosorbide Mononitrate [Imdur] 30 mg PO DAILY 11/24/13 08/08/16 History Albuterol Nebulized [Ventolin 2.5 mg INHALATION RT-QID PRN 01/07/14 08/08/16 History Nebulized] Calcium Acetate [Phoslo] 1,334 mg PO TID-W/MEALS 11/13/15 08/08/16 History Insulin NPH Hum/Reg Insulin Hm 35 units SQ AC-SUPPER 11/13/15 08/08/16 History [NovoLIN 70-30 100 UNIT/ML VIAL] Omeprazole 20 mg PO BID 04/27/16 08/08/16 History Amitriptyline HCl [Elavil] 100 mg PO HS 08/08/16 08/08/16 History Budesonide-Formot 160-4.5 Mcg 2 puff INHALATION RT-BID 08/08/16 08/08/16 History [Symbicort 160-4.5 Mcg Inhaler] HYDROcodone/APAP 10-325MG [Ivel 1 tab PO Q6H PRN 08/08/16 08/08/16 History 10-325] Ipratropium-Albuterol Nebulize 3 ml INHALATION RT-QID PRN 08/08/16 08/08/16 History [Duoneb 0.5 mg-3 mg/3 ml Soln] Metolazone [Zaroxolyn] 5 mg PO DAILY 08/08/16 08/08/16 History Polyethylene Glycol 3350 [Miralax] 17 gm PO DAILY PRN 08/08/16 08/08/16 History Tiotropium 18 Mcg/Puff [Spiriva] 1 cap INHALATION RT-DAILY 08/08/16 08/08/16 History amLODIPine [Norvasc] 2.5 mg PO HS 08/08/16 08/08/16 History Allergies Allergy/AdvReac Type Severity Reaction Status Date / Time No Known Allergies Allergy Verified 04/27/16 05:36 Physical Exam Vitals: Vital Signs Temp Pulse Pulse Pulse Resp BP BP 08/12/16 08:00 80 78 16 08/12/16 07:42 80 08/12/16 07:00 97.9 F 78 16 134/67 08/12/16 06:00 98.2 F 88 16 102/60 08/12/16 00:00 97.9 F 75 16 102/49 08/11/16 20:17 97.9 F 73 18 103/53 08/11/16 19:45 81 08/11/16 19:33 81 08/11/16 18:00 97.2 F L 68 16 142/78 08/11/16 16:20 89 08/11/16 15:44 89 75 16 08/11/16 15:00 97.9 F 81 20 101/60 08/11/16 11:36 98.2 F 78 16 154/68 08/11/16 11:35 98.2 F 78 16 154/68 Pulse Ox 08/12/16 08:00 08/12/16 07:42 08/12/16 07:00 100 08/12/16 06:00 96 08/12/16 00:00 96 08/11/16 20:17 98 08/11/16 19:45 08/11/16 19:33 08/11/16 18:00 98 08/11/16 16:20 08/11/16 15:44 08/11/16 15:00 99 08/11/16 11:36 97 08/11/16 11:35 97 Intake and Output 08/11/16 08/12/16 08/12/16 22:59 06:59 14:59 Other: Voiding Method CAPD CAPD # Voids 1 1 # Bowel Movements 2 1 Weight 120 kg Social history : smoker , NO ETOH , NO Illegal drugs use . Physical Examinations : 1-Constitutional : Cooperative , not in acute distress . 2-HEENT : nech ; supple , no Lymphadenopathy , no Thyromegaly , :eyes , no icterus, no photophobia . ENT : , normal oropharynx , no Thrush 3- Respiratory : Chest clear to auscultations Bilaterally , no wheezing . 4- Cardiovascular : regular rate and rhythem , S1 , S2 , no S3 , no S4. 5- Gastrointestinal: abdomen soft generalized tenderness , no organomegally . 6- Genitourinary : Defferred ./History of renal failure and currently on paratonial dialysis 7-Integumentary : No cellulitis , no ulcers , normal skin turgor , no cyanotic . 8- neurologic : Cranial nerve II to XII intact , no focal neurological deffecit 9-psychatric : alert , oriented X 3 , appropriate affect , intact judgment and insight . 10-Lymphatic : no Lymphadenopathy. 11- musculoskeltal: normal gait , exams of the Lumber spine = moter stegnth lower extremities , thigh and legs 4/5 Right side , 4/5 Left side deep tendon reflexes : normal Knee Jerk , normal ankle Jerk positive lumber facet Loading Test Range of motion of the lumbar spine Flexion 30 degrees, extension 10 degrees strait leg raising test , positive at 30 degree Fabere test positive RT and positive LT . moderate tenderness over the Sacroiliac joint on the R and L sides Results CBC & Chem 7: 08/12/16 06:59 08/12/16 06:59 Labs: Abnormal Lab Results - Last 24 Hours (Table) 08/11/16 08/11/16 08/11/16 Range/Units 11:14 17:13 20:13 RBC (3.80-5.40) m/uL Hgb (11.4-16.0) gm/dL Hct (34.0-46.0) % RDW (11.5-15.5) % Sodium (137-145) mmol/L BUN (7-17) mg/dL Creatinine (0.52-1.04) mg/dL Glucose (74-99) mg/dL POC Glucose (mg/dL) 102 H 206 H 252 H (75-99) mg/dL Calcium (8.4-10.2) mg/dL 08/12/16 08/12/16 08/12/16 Range/Units 06:59 06:59 07:14 RBC 3.27 L (3.80-5.40) m/uL Hgb 10.5 L (11.4-16.0) gm/dL Hct 32.7 L (34.0-46.0) % RDW 17.9 H (11.5-15.5) % Sodium 132 L (137-145) mmol/L BUN 28 H (7-17) mg/dL Creatinine 6.47 H* (0.52-1.04) mg/dL Glucose 211 H (74-99) mg/dL POC Glucose (mg/dL) 217 H (75-99) mg/dL Calcium 7.9 L (8.4-10.2) mg/dL Microbiology - Last 24 Hours (Table) 08/11/16 14:10 Body Fluid Culture - Preliminary Dialysate 08/08/16 10:49 Gram Stain - Final Dialysate Body Fluid Culture - Final Staphylococcus epidermidis Assessment and Plan Plan: Assessment and plan=1 chronic pain syndrome, description had a history of chronic low back pain and she was treated as an outpatient with Ivel 10/325 every 4-6 hours when necessary, patient currently complaining of severe abdominal pain secondary to peritonitis, recommend discontinue Ivel, start patient on Percocet 7.5/325 every 6 hours, and if patient continued to have pain and will increase it to 10/325 , the patient is not a candidate for any interventional pain management Time with Patient: Greater than 30
[2016-08-12] MEDS: oxyCODONE-APAP 7.5-325MG 1 EACH TAB PO PRN ×2 (12:11→18:33)
[2016-08-12] MEDS: FOLIC ACID-VIT B COMPLEX-VIT C 1 CAP PO SCH (12:12)
[2016-08-12] MEDS: METOLAZONE 5 MG TAB PO SCH (12:12)
[2016-08-12] MEDS: ISOSORBIDE MONONITRATE ER 30 MG TAB.ER.24H PO SCH (12:12)
[2016-08-12] MEDS: PANTOPRAZOLE 40 MG TABLET PO SCH (12:12)
[2016-08-12] MEDS: FUROSEMIDE 80 MG TAB PO SCH ×2 (12:12→18:18)
--- NOTE | 2016-08-12 15:39 | US ---
EXAMINATION TYPE: US venous doppler duplex UE RT DATE OF EXAM: 08/12/2016 3:20 PM COMPARISON: NONE CLINICAL HISTORY: suspected right IJ stenosis vs. occlusion. SIDE PERFORMED: right TECHNOLOGIST IMPRESSION: Very large body habitus, could not image right ulnar veins. Right Arm: Negative for DVT Grayscale, color Doppler, spectral Doppler imaging performed of the deep veins of the right upper ext remity. The right internal jugular vein shows normal color flow and compressibility, subclavian vein in its visualized portions is normal, axillary vein, brachial veins are unremarkable. Basilic and cep halic veins are normal. Radial veins are normal. Ulnar veins were not visualized. IMPRESSION: No evident deep venous thrombosis in the right upper extremity as described.
[2016-08-12] MEDS: NICOTINE 14MG/24HR PATCH TRANSDERM SCH (15:49)
--- NOTE | 2016-08-12 16:47 | PN ---
DATE OF SERVICE: 08/12/2016 Reason For Follow-Up: Peritoneal dialysis with peritonitis. INTERVAL HISTORY: The patient is afebrile. He still has some abdominal pain but controlled. The patient denies having any chest pain or shortness of breath or cough. Hog Tender is planning for hemodialysis because of her noncompliance and she has been having recurrent episodes of peritonitis. Though the patient does not seem happy with it. On examination, blood pressure is 134/57, pulse of 70, temperature 97.9, she is 100% on room air. General description is a middle-aged female lying in bed in no distress. RESPIRATORY SYSTEM: Unlabored breathing. Clear to auscultation anteriorly. HEART: S1, S2 regular rate and rhythm. ABDOMEN: Soft, no tenderness. LABS: Hemoglobin is 10.5, white count is 5.2 with a BUN of 28, creatinine of 6.47. Wound cultures grew Staphylococcus epidermidis. DIAGNOSTIC IMPRESSION AND PLAN: Patient with Staph epi, peritoneal dialysis associated peritonitis. Patient will continue vancomycin, pharmacy to dose at this point with the nephrology planning for hemodialysis to be started. Blood cultures to be done to document clearance of the same before dialysis catheter placed. Continue supportive care.
[2016-08-12 16:55] LABS: Glucose,Whole Blood 250 mg/dL (75-99)
[2016-08-12] MEDS: INSULIN NPH/REG INSULIN 70/30 300 UNIT/3 ML VIAL SQ SCH (18:18)
[2016-08-12 20:45] LABS: Glucose,Whole Blood 279 mg/dL (75-99)
[2016-08-12] MEDS: AMITRIPTYLINE HCL 50 MG TAB PO SCH (21:13)
[2016-08-12] MEDS: amLODIPine 2.5 MG TAB PO SCH (21:13)
[2016-08-13] MEDS: DIALYSIS DEX INTRAPERIT SCH ×3 (00:20→19:33)
[2016-08-13] MEDS: oxyCODONE-APAP 7.5-325MG 1 EACH TAB PO PRN ×3 (00:20→23:36)
[2016-08-13] MEDS: HEPARIN SODIUM INTRAPERIT SCH ×3 (00:20→19:33)
--- NOTE | 2016-08-13 06:05 | PN ---
DATE OF SERVICE: 08/12/2016 PRESENTING COMPLAINT: Abdominal pain. INTERVAL HISTORY: This is a patient who presented with acute peritonitis. Will get intraperitoneal antibiotics and dialysis. Patient is being switched over to hemodialysis as of this morning. This was being scheduled. sunil Gaviria and Dr. Powell had both spoken to the patient. Overall, patient is feeling a little bit better. Review of systems done for constitutional, cardiovascular, GI, pulmonary; relevant findings as above. Current medications are reviewed and patient is on IV vancomycin. On examination, temperature 98.1, pulse 80, respiration 16, blood pressure 134/78, pulse ox 98% on room air. GENERAL APPEARANCE: Sitting up, not in distress. EYES: Pupils equal. Conjunctivae normal. NECK: JVD not raised. Mass not palpable. RESPIRATORY: Effort normal. LUNGS: Clear breath sounds. CARDIOVASCULAR: First and second sounds normal, some edema. ABDOMEN: Distended, soft. Liver and spleen not palpable. PSYCHIATRIC: Alert and oriented x3. Mood and affect normal. INVESTIGATIONS: White count 5.2, hemoglobin 10.5. Potassium 3.7. Accu-Cheks are noted. Creatinine 6.47. ASSESSMENT: 1. Acute peritonitis associated with peritoneal dialysis, probably from infected CAPD catheter. 2. Morbid obesity, body mass index 45.8. 3. End-stage kidney disease, on peritoneal dialysis, now being planned to switch her over to hemodialysis. 4. Diabetes mellitus type 2, chronically on insulin. 5. Gastroesophageal reflux disease. 6. Hyperlipidemia. 7. Essential hypertension. 8. Normocytic anemia, associated with end-stage kidney disease. 9. Obstructive sleep apnea, does not use CPAP. 10. Primary osteoarthritis of multiple joints, especially of the right hip. 11. Chronic obstructive pulmonary disease in a current smoker. 12. Chronic nicotine dependence. Patient smokes a pack a day. PLAN: Patient was seen by Dr. Spencer from pain management. He switched the patient to Percocet 7.5 q.6. Awaiting a dialysis catheter and then we will proceed from there. Dr. Gaviria also spoke to the patient.
[2016-08-13 07:07] LABS: Glucose,Whole Blood 89 mg/dL (75-99)
[2016-08-13] MEDS: IPRATROPIUM-ALBUTEROL 3 ML NEB INHALATION SCH ×4 (07:37→19:25)
[2016-08-13] MEDS: SYMBICORT 160-4.5 MCG INHALER INHALATION SCH ×2 (07:39→19:25)
[2016-08-13] MEDS: TIOTROPIUM 18 MCG/PUFF INHALER INHALATION SCH (07:39)
[2016-08-13] MEDS: CALCIUM ACETATE 667 MG CAP PO SCH ×3 (07:49→19:31)
[2016-08-13] MEDS: INSULIN LISPRO (humaLOG) 300 UNIT/3 ML VIAL SQ SCH ×4 (07:49→21:34)
[2016-08-13 08:38] LABS: Anisocytosis Slight; Basophils # (A) 0.1 k/uL (0-0.2); Basophils % (A) 1 %; CH 31.2; CHCM 31.3; Eosinophils # (A) 0.3 k/uL (0-0.7); Eosinophils % (A) 5 %; HCT 34.1 % (34.0-46.0); HDW 3.01; HGB 10.6 gm/dL (11.4-16.0); Hypochromasia Slight; Luc # (Auto) 0.17; Luc % (Auto) 3; Lymphocytes # (A) 1.2 k/uL (1.0-4.8); Lymphocytes % (A) 18 %; MCH 31.2 pg (25.0-35.0); MCHC 31.2 g/dL (31.0-37.0); MCV 100.2 fL (80.0-100.0); Macrocytosis Slight; Monocytes # (A) 0.4 k/uL (0-1.0); Monocytes % (A) 6 %; Neutrophils # (A) 4.4 k/uL (1.3-7.7); Neutrophils % (A) 68 %; RDW 18.2 % (11.5-15.5); WBC 6.5 k/uL (3.8-10.6); WBC (Perox) 6.65
[2016-08-13 08:57] LABS: Calcium 8.4 mg/dL (8.4-10.2); Potassium 3.9 mmol/L (3.5-5.1)
[2016-08-13] MEDS: ALPRAZolam 0.5 MG TAB PO SCH ×2 (09:00→21:33)
[2016-08-13] MEDS: CARVEDILOL 12.5 MG TAB PO SCH ×2 (09:58→19:32)
[2016-08-13] MEDS ORDERED: VANCOMYCIN 2,000 MG in SODIUM CHLORIDE 0.9% 500 ML IVPB ONE ×2 (11:00→18:00)
--- NOTE | 2016-08-13 11:12 | P.PN ---
Subjective Patient is seen in follow-up for end-stage renal disease. She is maintained on peritoneal dialysis. Patient presented with abdominal pain and cloudy dialysate. Her cell count was noted to be elevated at 1215. She received 1 g of intraperitoneal vancomycin as well as Fortaz on August 08 and is now maintained on intraperitoneal Fortaz daily. Currently resting in bed. Feels tired. No vomiting or diarrhea. Appetite is fair. Denies chest pain or shortness of breath. Vital signs are stable. General: The patient appeared well nourished and normally developed. HEENT: Head exam is unremarkable. Neck is without jugular venous distension. LUNGS: Lungs are clear to auscultation and percussion. Breath sounds decreased. HEART: Rate and Rhythm are regular. First and second heart sounds normal. No murmurs, rubs or gallops. ABDOMEN: Abdominal exam reveals normal bowel sounds. Non-tender and non- distended. No evidence of peritonitis. EXTREMITITES: Trace edema. Objective - Vital Signs Vital signs: Vital Signs Temp 97.8 F 08/13/16 07:00 Pulse 78 08/13/16 07:54 Resp 17 08/13/16 07:00 BP 119/63 08/13/16 07:00 Pulse Ox 97 08/13/16 07:00 Intake & Output 08/12/16 08/13/16 08/13/16 18:59 06:59 18:59 Intake Total 360 540 Output Total 10 Balance 350 540 Weight 137 kg Intake: Oral 360 540 Output: Urine 10 Other: Voiding Method CAPD CAPD Bedside Commode # Voids 1 2 1 # Bowel Movements 1 1 - Labs CBC & Chem 7: 08/13/16 08:10 08/13/16 08:10 Labs: Abnormal Lab Results - Last 24 Hours (Table) 08/12/16 08/12/16 08/12/16 Range/Units 06:59 11:48 16:53 RBC 3.27 L (3.80-5.40) m/uL Hgb 10.5 L (11.4-16.0) gm/dL Hct 32.7 L (34.0-46.0) % MCV (80.0-100.0) fL RDW 17.9 H (11.5-15.5) % Sodium (137-145) mmol/L BUN (7-17) mg/dL Creatinine (0.52-1.04) mg/dL POC Glucose (mg/dL) 173 H 250 H (75-99) mg/dL 08/12/16 08/13/16 08/13/16 Range/Units 20:43 08:10 08:10 RBC 3.40 L (3.80-5.40) m/uL Hgb 10.6 L (11.4-16.0) gm/dL Hct (34.0-46.0) % MCV 100.2 H (80.0-100.0) fL RDW 18.2 H (11.5-15.5) % Sodium 135 L (137-145) mmol/L BUN 31 H (7-17) mg/dL Creatinine 6.66 H* (0.52-1.04) mg/dL POC Glucose (mg/dL) 279 H (75-99) mg/dL Microbiology - Last 24 Hours (Table) 08/11/16 14:10 Gram Stain - Preliminary Dialysate Body Fluid Culture - Preliminary Assessment and Plan Plan: Assessment: #1. End-stage renal disease maintained on peritoneal dialysis. #2. Peritonitis. Cell count coming down. It was 1215 on admission and down to 2 as of 08/11. Fluid culture positive for staph epi. #3. Volume overload. Improving. #4. Chronic kidney disease mineral bone disease. #5. Hypertension with chronic kidney disease. Controlled. #6. Hypokalemia related to PD.Improved. Plan: 1 g IP vancomycin given 08/08. 1 g intraperitoneal Fortaz daily started 08/08. Continue with 2 L 2.5% actual solution exchanges every 6 hours. Hep-Lock IV fluids. This is patient's fifth peritonitis episode and it was discussed with her that if she develops peritonitis again she will need to be transitioned over to hemodialysis. Patient has been quite hesitant to transition over to hemodialysis but is now agreeable. Dr. Horowitz as well as vascular surgery are following. She is to get the peritoneal dialysis catheter discontinued and get a hemodialysis catheter placed today. Will plan for first treatment of hemodialysis today. manager business information on board to help facilitate outpatient hemodialysis. Patient is now on IV vancomycin per infectious disease recommendations.
[2016-08-13 11:33] LABS: Glucose,Whole Blood 71 mg/dL (75-99)
[2016-08-13] MEDS ORDERED: DEXTROSE 50%-WATER 50 ML SYRINGE IVP ONE (11:35)
[2016-08-13] MEDS ORDERED: LACTATED RINGERS 1,000 ML IV ONE ×2 (12:26→15:01)
[2016-08-13 12:41] LABS: Glucose,Whole Blood 102 mg/dL (75-99)
[2016-08-13] MEDS ORDERED: fentaNYL (PF) 50 MCG/ML 2 ML AMP ONE (12:52)
[2016-08-13] MEDS ORDERED: diphenhydrAMINE 50 MG/ML 1 ML VIAL ONE (12:52)
[2016-08-13] MEDS ORDERED: SUCCINYLCHOLINE CHLORIDE 100 MG/5 ML SYR IV ONE (12:52)
[2016-08-13] MEDS ORDERED: ROCURONIUM BROMIDE 10 MG/ML 10 ML VIAL IV ONE (12:52)
[2016-08-13] MEDS ORDERED: GLYCOPYRROLATE 0.2 MG/ML 2 ML VIAL ONE (12:52)
[2016-08-13] MEDS ORDERED: LIDOCAINE 1% INJ 10MG/ML (20 ML MDV) ONE (12:52)
[2016-08-13] MEDS ORDERED: PHENYLEPHRINE-0.9% NACL SYG 1 MG/10 ML SYRINGE ONE (12:52)
[2016-08-13] MEDS ORDERED: DEXAMETHASONE SOD PHOS (MDV) 100 MG/10 ML VIAL ONE (12:52)
[2016-08-13] MEDS ORDERED: ePHEDrine 50 MG/ML 1 ML AMP ONE (12:52)
[2016-08-13] MEDS ORDERED: KETAMINE 10 MG/ML 20 ML VIAL ONE (12:52)
[2016-08-13] MEDS ORDERED: ETOMIDATE 2 MG/ML 10 ML VIAL ONE (12:52)
[2016-08-13] MEDS ORDERED: MIDAZOLAM 2 MG/2 ML VIAL ONE (12:52)
[2016-08-13] MEDS ORDERED: NEOSTIGMINE 1 MG/ML 10 ML VIAL ONE (12:52)
[2016-08-13] MEDS ORDERED: LIDOCAINE 1%-EPI 1:100,000 20 ML VIAL SQ ONE ×2 (13:34)
[2016-08-13] MEDS ORDERED: BUPIVACAIN-EPI 0.25%-1:200,000 30 ML VIAL SQ ONE ×2 (13:34)
--- NOTE | 2016-08-13 14:14 | FL ---
EXAMINATION TYPE: FL guided central line placemt DATE OF EXAM: 08/13/2016 2:07 PM CLINICAL HISTORY: Dialysis patient. TECHNIQUE: Fluoroscopy. COMPARISON: None. FINDINGS: Fluoroscopic guidance was provided during dialysis central venous catheter insertion proce dure performed by Dr. Almeida. A total of 37 seconds of fluoroscopic time was utilized during the proc edure and 2 spot images are acquired. Images acquired show partial visualization of internal jugular dialysis catheter and endotracheal tube. Tip is not included. IMPRESSION: As Above.
--- NOTE | 2016-08-13 14:28 | P.OP ---
Date of Procedure: 08/13/16 Preoperative Diagnosis: Stage V CKD, infected hemodialysis catheter Postoperative Diagnosis: same Procedure(s) Performed: tunneled right internal jugular dialysis catheter Implants: dialysis catheter Anesthesia: STEPHANIE Surgeon: Sravani Almeida Estimated Blood Loss (ml): 20 Indications for Procedure: stage V CKD, infected peritoneal dialysis catheter, peritonitis Operative Findings: widely patent right internal jugular vein Description of Procedure: After sterile prep and drape of the right neck, the area overlying the right internal jugular vein was infiltrated with a solution of 1% lidocaine with epinephrine. Using ultrasound guidance, a 21-gauge needle was placed into the right internal jugular vein. An 018" wire was threaded into the superior vena cava followed by a sheath and a core. The wire and core were removed. An 035" J-wire was threaded into the superior vena cava using fluoroscopic guidance. A tunnel onto the anterior chest wall was then infiltrated with a solution of 1% lidocaine. A dialysis catheter was threaded through the tunnel taking care not to twist it. The tract into the superior vena cava was sequentially dilated. A dilator and peel-away sheath were placed under fluoroscopic guidance. The wire and dilator were removed. The catheter was placed into the peel-away sheath and the peel-away sheath was removed. The catheter's tip was noted to be at the right atrial superior vena cava junction. There was no kinks throughout the course of the catheter. Both ports aspirated and flushed without difficulty and were capped with a solution of one thousand units of heparin per cc. Incisions were closed with a 3-0 Vicryl for the subcutaneous tissues with 3-0 nylon for skin. Sterile dressings. Needle and sponge counts were correct. Patient tolerated the procedure well.
--- NOTE | 2016-08-13 14:37 | P.PCN ---
Date of Procedure: 08/13/16 Procedure(s) Performed: PREOPERATIVE DIAGNOSIS: Renal failure POSTOPERATIVE DIAGNOSIS: Same PROCEDURE: PD cath removal SURGEON: Lor EBL: 2 mL ANESTHESIA: Sedation and local COMPLICATIONS: None OPERATIVE PROCEDURE: Patient was placed in the supine position. The abdomen was prepped and draped in usual sterile fashion. The previous paramedian incision was re-incised after localizing the skin. The subcutaneous tissues were divided using electrocautery. Blunt dissection around the cuff that was present at the fascia and peritoneum took place. The cuff was fully mobilized. The catheter was removed from the perineal cavity. The outer cuff was dissected from the saphenous fascia using electrocautery. The catheter was cut on the other side of that cuff and the catheter was removed. The fascial defect was closed using a single [id number] 0 Vicryl stitch. The subcutaneous tissues were closed using 3-0 Vicryl sutures and the skin using 4- 0 Monocryl sutures. Steri-Strips and sterile dressings were applied. DISPOSITION: Stable to recovery room
[2016-08-13] MEDS: FUROSEMIDE 80 MG TAB PO SCH ×2 (14:53→15:30)
--- NOTE | 2016-08-13 15:16 | XR ---
EXAMINATION TYPE: XR chest 1V portable DATE OF EXAM: 08/13/2016 2:50 PM COMPARISON: Prior chest x-ray 04 May 2016 HISTORY: Status post dialysis catheter placement TECHNIQUE: Single frontal view of the chest is obtained. FINDINGS: Right jugular central venous catheter is in place, distal tip is within the superior vena cava. No evident pneumothorax or pleural effusion. IMPRESSION: No evident complication status post central venous catheter placement.
[2016-08-13] MEDS: METOLAZONE 5 MG TAB PO SCH (15:30)
[2016-08-13] MEDS: FOLIC ACID-VIT B COMPLEX-VIT C 1 CAP PO SCH (15:30)
[2016-08-13] MEDS: ISOSORBIDE MONONITRATE ER 30 MG TAB.ER.24H PO SCH (15:30)
[2016-08-13] MEDS: PANTOPRAZOLE 40 MG TABLET PO SCH (15:30)
[2016-08-13] MEDS: NICOTINE 14MG/24HR PATCH TRANSDERM SCH (15:30)
[2016-08-13 17:08] LABS: Glucose,Whole Blood 131 mg/dL (75-99)
[2016-08-13] MEDS ORDERED: HEPARIN SODIUM,PORCINE 5,000 UNIT/ML 1 ML VIAL ONE (19:00)
[2016-08-13] MEDS: INSULIN NPH/REG INSULIN 70/30 300 UNIT/3 ML VIAL SQ SCH (19:33)
[2016-08-13 19:48] LABS: Hepatitis B Surface Ag Index 0.08
[2016-08-13 20:30] LABS: Glucose,Whole Blood 202 mg/dL (75-99)
[2016-08-13] MEDS: HYDROmorphone 1 MG/ML 1 ML SYRINGE IVP PRN (21:33)
[2016-08-13] MEDS: amLODIPine 2.5 MG TAB PO SCH (21:34)
[2016-08-13] MEDS: AMITRIPTYLINE HCL 50 MG TAB PO SCH (21:34)
--- NOTE | 2016-08-13 22:26 | PN ---
DATE OF SERVICE: 08/13/2016 PRESENTING COMPLAINT: Abdominal pain. INTERVAL HISTORY: This is a patient with acute peritonitis associated with peritoneal dialysis catheter. This catheter was removed today and a hemodialysis catheter was placed in the right IJ. Patient due for hemodialysis this morning. Feeling tired. Review of systems done for constitutional, cardiovascular, GI, pulmonary; relevant findings as above. Current medications are reviewed that include vancomycin. On examination, temperature 97.2, pulse 72, respiration 20, blood pressure 103/59, pulse ox 98% on 5 L. GENERAL APPEARANCE: Lying in bed. Not in distress. EYES: Pupils equal. Conjunctivae normal. NECK: JVD not raised. Mass not palpable. RESPIRATORY: Effort normal. LUNGS: Slightly decreased breath sounds. CARDIOVASCULAR: First and second sounds normal. No edema. ABDOMEN: Distended, soft. Liver and spleen not palpable. PD catheter was removed. PSYCHIATRY: Alert and oriented x3. Mood and affect normal. INVESTIGATIONS: White count 6.5. Potassium 3.9. ASSESSMENT: 1. Acute peritonitis associated with peritoneal dialysis, probably from infected CAPD catheter, the latter of which is now removed. 2. Moderate obesity; body mass index of 45.8. 3. End-stage kidney disease, on peritoneal dialysis, now being switched over to hemodialysis. 4. Diabetes mellitus, type 2, chronically on insulin. 5. Gastroesophageal reflux disease. 6. Hyperlipidemia. 7. Essential hypertension. 8. Normocytic anemia associated with end-stage kidney disease. 9. Obstructive sleep apnea; does not use CPAP. 10. Primary osteoarthritis of multiple joints, especially in the right hip. 11. Chronic obstructive pulmonary disease in a current smoker. 12. Chronic nicotine dependence; patient smokes a pack a day. PLAN: Patient will get dialyzed today. Looking at patient going back tomorrow, as patient is requesting to stay overnight. Will follow.
[2016-08-14] MEDS: HYDROmorphone 1 MG/ML 1 ML SYRINGE IVP PRN ×3 (00:29→22:22)
[2016-08-14] MEDS: oxyCODONE-APAP 7.5-325MG 1 EACH TAB PO PRN ×3 (05:56→19:43)
[2016-08-14 06:56] LABS: Glucose,Whole Blood 289 mg/dL (75-99)
[2016-08-14] MEDS: SYMBICORT 160-4.5 MCG INHALER INHALATION SCH ×2 (07:34→20:23)
[2016-08-14] MEDS: TIOTROPIUM 18 MCG/PUFF INHALER INHALATION SCH (07:34)
[2016-08-14] MEDS: IPRATROPIUM-ALBUTEROL 3 ML NEB INHALATION SCH ×4 (07:34→20:23)
[2016-08-14] MEDS: INSULIN LISPRO (humaLOG) 300 UNIT/3 ML VIAL SQ SCH ×4 (08:00→22:41)
--- NOTE | 2016-08-14 09:18 | P.PN ---
Subjective Patient is seen in follow-up for end-stage renal disease. She was maintained on peritoneal dialysis. Patient presented with abdominal pain and cloudy dialysate. Her cell count was noted to be elevated at 1215. She received 1 g of intraperitoneal vancomycin as well as 5 doses of intraperitoneal Fortaz. Due to multiple peritonitis episodes recently, peritoneal dialysis was discontinued yesterday and a permacath was placed. She underwent first treatment of hemodialysis yesterday. She is currently complaining of abdominal pain and is requesting more Dilaudid. Denies chest pain or shortness of breath. Vital signs are stable. General: The patient appeared well nourished and normally developed. HEENT: Head exam is unremarkable. Neck is without jugular venous distension. LUNGS: Lungs are clear to auscultation and percussion. Breath sounds decreased. HEART: Rate and Rhythm are regular. First and second heart sounds normal. No murmurs, rubs or gallops. ABDOMEN: Abdominal exam reveals normal bowel sounds. Tender to palpation. EXTREMITITES: Trace edema. Objective - Vital Signs Vital signs: Vital Signs Temp 97.1 F L 08/14/16 07:00 Pulse 103 H 08/14/16 07:00 Resp 18 08/14/16 07:00 BP 144/74 08/14/16 07:00 Pulse Ox 94 L 08/14/16 07:00 Intake & Output 08/13/16 08/14/16 08/14/16 18:59 06:59 18:59 Intake Total 1000 600 Output Total 10 Balance 990 600 Intake: IV 1000 Intake, IV Titration 500 Amount Vancomycin 2,000 mg In 500 Sodium Chloride 0.9% 500 ml @ 167 mls/hr IVPB ONCE ONE Rx#:[id number] Oral 100 Output: Estimated Blood Loss 10 Other: Voiding Method Bedside Commode Bedside Commode # Voids 1 1 - Labs CBC & Chem 7: 08/13/16 08:10 08/13/16 08:10 Labs: Abnormal Lab Results - Last 24 Hours (Table) 08/13/16 08/13/16 08/13/16 Range/Units 08:10 11:26 12:28 Sodium 135 L (137-145) mmol/L BUN 31 H (7-17) mg/dL Creatinine 6.66 H* (0.52-1.04) mg/dL POC Glucose (mg/dL) 71 L 102 H (75-99) mg/dL 08/13/16 08/13/16 08/14/16 Range/Units 17:06 20:20 06:50 Sodium (137-145) mmol/L BUN (7-17) mg/dL Creatinine (0.52-1.04) mg/dL POC Glucose (mg/dL) 131 H 202 H 289 H (75-99) mg/dL Microbiology - Last 24 Hours (Table) 08/12/16 13:42 Blood Culture - Preliminary Blood No Growth after 24 hours 08/11/16 14:10 Gram Stain - Preliminary Dialysate Body Fluid Culture - Preliminary Assessment and Plan Plan: Assessment: #1. End-stage renal disease now maintained on hemodialysis. #2. Peritonitis. Cell count coming down. It was 1215 on admission and down to 2 as of 08/11. Fluid culture positive for staph epi. #3. Volume overload. Improving. #4. Chronic kidney disease mineral bone disease. #5. Hypertension with chronic kidney disease. Controlled. #6. Hypokalemia related to PD. Improved. Plan: 1 g IP vancomycin given 08/08. Also received 5 doses of intraperitoneal Fortaz.] This is patient's fifth peritonitis episode and it was discussed with her that if she develops peritonitis again she will need to be transitioned over to hemodialysis. Patient was quite hesitant to transition over to hemodialysis but agreed. Second treatment of hemodialysis today with goal 2 liters ultrafiltration - she will now be maintained on a Wednesday schedule. acquisition manager on board to help facilitate outpatient hemodialysis in [place]. Patient is now on IV vancomycin per infectious disease recommendations. Potential discharge today.
[2016-08-14] MEDS: CALCIUM ACETATE 667 MG CAP PO SCH ×3 (09:20→22:43)
[2016-08-14] MEDS: PANTOPRAZOLE 40 MG TABLET PO SCH (09:20)
[2016-08-14] MEDS: NICOTINE 14MG/24HR PATCH TRANSDERM SCH (09:20)
[2016-08-14] MEDS: CARVEDILOL 12.5 MG TAB PO SCH ×2 (09:21→18:35)
[2016-08-14] MEDS: ALPRAZolam 0.5 MG TAB PO SCH ×2 (09:21→22:45)
[2016-08-14] MEDS: METOLAZONE 5 MG TAB PO SCH (09:21)
[2016-08-14] MEDS: ISOSORBIDE MONONITRATE ER 30 MG TAB.ER.24H PO SCH (09:21)
[2016-08-14] MEDS: FOLIC ACID-VIT B COMPLEX-VIT C 1 CAP PO SCH (09:21)
[2016-08-14] MEDS: FUROSEMIDE 80 MG TAB PO SCH ×2 (09:21→16:37)
[2016-08-14 11:45] LABS: Glucose,Whole Blood 209 mg/dL (75-99)
[2016-08-14] MEDS ORDERED: HYDROmorphone 2 MG/ML 1 ML SYRINGE IVP STA (15:43)
[2016-08-14 17:01] LABS: Glucose,Whole Blood 202 mg/dL (75-99)
--- NOTE | 2016-08-14 17:12 | P.PN ---
Subjective Principal diagnosis: renal failure with peritonitis Patient has had pain in the upper midabdomen ever since her dialysis catheter was removed yesterday. She does have issues with chronic pain and has admittedly a low pain tolerance she states. When she had her catheter placed a few years ago she had significant pain at that time as well. She doesn't have any pain at the hemodialysis catheter insertion site however. Her appetite today is diminished. She is afebrile. No lab work from today. Objective - Vital Signs Vital signs: Vital Signs Temp 97.7 F 08/14/16 15:00 Pulse 98 08/14/16 15:24 Resp 18 08/14/16 15:00 BP 138/66 08/14/16 15:00 Pulse Ox 98 08/14/16 15:00 Intake & Output 08/13/16 08/14/16 08/14/16 18:59 06:59 18:59 Intake Total 1000 600 Output Total 10 Balance 990 600 Intake: IV 1000 Intake, IV Titration 500 Amount Vancomycin 2,000 mg In 500 Sodium Chloride 0.9% 500 ml @ 167 mls/hr IVPB ONCE ONE Rx#:[id number] Oral 100 Output: Estimated Blood Loss 10 Other: Voiding Method Bedside Commode Bedside Commode Bedside Commode # Voids 1 1 - Exam Abdomen: Soft, mild upper abdominal tenderness, mild tenderness at the incision site was clean and dry - Labs CBC & Chem 7: 08/13/16 08:10 08/13/16 08:10 Labs: Abnormal Lab Results - Last 24 Hours (Table) 08/13/16 08/14/16 08/14/16 Range/Units 20:20 06:50 11:43 POC Glucose (mg/dL) 202 H 289 H 209 H (75-99) mg/dL 08/14/16 Range/Units 16:52 POC Glucose (mg/dL) 202 H (75-99) mg/dL Microbiology - Last 24 Hours (Table) 08/12/16 13:42 Blood Culture - Preliminary Blood No Growth after 48 hours 08/11/16 14:10 Gram Stain - Preliminary Dialysate Body Fluid Culture - Preliminary Assessment and Plan (1) Peritonitis Narrative/Plan: Will check CT abdomen and pelvis and basic labs now. Will follow closely with you. Status: Acute
[2016-08-14] MEDS: IOHEXOL 350 MG/ML 25 ML BOTTLE (ORAL USE) PO PRN ×2 (17:33→18:33)
[2016-08-14 18:10] LABS: Anisocytosis Slight; Basophils % (A) 0 %; CH 31.1; Eosinophils # (A) 0.1 k/uL (0-0.7); Eosinophils % (A) 0 %; HCT 30.1 % (34.0-46.0); HDW 3.11; HGB 9.8 gm/dL (11.4-16.0); Hypochromasia Slight; Luc # (Auto) 0.15; Luc % (Auto) 1; Lymphocytes # (A) 0.8 k/uL (1.0-4.8); Lymphocytes % (A) 7 %; MCH 31.8 pg (25.0-35.0); MCHC 32.6 g/dL (31.0-37.0); MCV 97.5 fL (80.0-100.0); Macrocytosis Slight; Mean Platelet Volume 7.6; Monocytes % (A) 8 %; Neutrophils # (A) 9.9 k/uL (1.3-7.7); Neutrophils % (A) 83 %; RBC 3.08 m/uL (3.80-5.40); RDW 18.5 % (11.5-15.5); WBC 11.9 k/uL (3.8-10.6); WBC (Perox) 11.58
[2016-08-14 18:23] LABS: Calcium 7.3 mg/dL (8.4-10.2); Potassium 4.1 mmol/L (3.5-5.1); Total Bilirubin 0.5 mg/dL (0.2-1.3)
[2016-08-14] MEDS: INSULIN NPH/REG INSULIN 70/30 300 UNIT/3 ML VIAL SQ SCH (18:34)
--- NOTE | 2016-08-14 18:42 | PN ---
DATE OF SERVICE: 08/14/2016 REASON FOR FOLLOWUP: Staph epi, peritoneal dialysis-associated peritonitis. INTERVAL HISTORY: The patient is afebrile. She has been complaining of more abdominal pain. Her PD catheter has been discontinued. She was getting hemodialysis. Denies having any chest pain, shortness of breath or cough. On examination, blood pressure 132/66 with a pulse of 90, temperature 97.7. She is 98% on room air. General description is a middle-age female lying in bed in no distress. RESPIRATORY SYSTEM: Unlabored breathing. Clear to auscultation anteriorly. HEART: S1, S2. Regular rate and rhythm. ABDOMEN: Soft. No tenderness. LABS: Repeat peritoneal fluid culture so far negative as well as blood cultures remains to be negative. DIAGNOSTIC IMPRESSION AND PLAN: Patient has Staphylococcus epidermidis peritoneal dialysis-associated peritonitis, adequately responding to the IV vancomycin. Will be continued Pharmacy to dose, target trough of 15. Continue supportive care. MTDD
[2016-08-14] MEDS: ONDANSETRON 4 MG/2 ML VIAL IVP PRN (19:43)
--- NOTE | 2016-08-14 20:08 | CT ---
EXAMINATION TYPE: CT abdomen pelvis wo con DATE OF EXAM: 08/14/2016 7:34 PM COMPARISON: 08/08/2016 HISTORY: Abdominal pain post peritoneal dialysis catheter removal. CT DLP: 2579.40 mGycm Automated exposure control for dose reduction was used. TECHNIQUE: Helical acquisition of images was performed from the lung bases through the pelvis. FINDINGS: There is a small left pleural effusion. Heart appears enlarged. Liver spleen pancreas appear normal. Bile ducts are not dilated. Gallbladder is not definitely seen. There is no adrenal mass. There are multiple calcifications in both kidneys. There is no hydronephros is. Ureters are not dilated. Abdominal aorta is atheromatous. There is no retroperitoneal adenopathy. There is extensive subcutaneous edema over the anterior and right side of the abdomen. There is an um bilical hernia that contains some fluid and edema. Bladder distends smoothly. There is no sign of a p elvic mass. I see no intestinal wall thickening. There are no dilated loops. IMPRESSION: THERE IS AN UMBILICAL HERNIA CONTAINS OMENTAL FAT AND EDEMA FLUID. THERE IS EXTENSIVE SUBCUTANEOUS ED CARMINE OVER THE ANTERIOR ABDOMEN AND MORE ON THE RIGHT SIDE. THIS IS CONSISTENT WITH CELLULITIS. THE DOTTIE MA IS WORSE THAN THE LAST CT SCAN. THERE IS NO CHANGE IN THE UMBILICAL HERNIA FLUID. THE UMBILICAL HE RNIA FLUID MEASURES 8 BY 3.5 CM. THIS FLUID IS SIMILAR TO LAST EXAM. THERE IS A NEW SMALL LEFT PLEURAL EFFUSION.
[2016-08-14 20:29] LABS: Glucose,Whole Blood 228 mg/dL (75-99)
[2016-08-14 22:26] LABS: Anisocytosis Slight; CH 31.2; CHCM 32.3; HGB 10.4 gm/dL (11.4-16.0); MCH 31.6 pg (25.0-35.0); MCHC 32.5 g/dL (31.0-37.0); MCV 97.2 fL (80.0-100.0); Macrocytosis Slight; Mean Platelet Volume 7.1; RBC 3.29 m/uL (3.80-5.40); RDW 18.5 % (11.5-15.5); WBC 10.4 k/uL (3.8-10.6)
[2016-08-14] MEDS: AMITRIPTYLINE HCL 50 MG TAB PO SCH (22:43)
[2016-08-14] MEDS: amLODIPine 2.5 MG TAB PO SCH (22:43)
[2016-08-15] MEDS: PIPERACILLIN-TAZOBACTAM 3.375 GM in DEXTROSE/WATER 1 50ML.BAG IVPB SCH ×3 (00:02→16:03)
[2016-08-15] MEDS: HYDROmorphone 1 MG/ML 1 ML SYRINGE IVP PRN ×5 (02:50→21:37)
[2016-08-15] MEDS: oxyCODONE-APAP 7.5-325MG 1 EACH TAB PO PRN ×2 (04:08→14:39)
[2016-08-15] MEDS: PANTOPRAZOLE 40 MG TABLET PO SCH (07:20)
[2016-08-15] MEDS: ISOSORBIDE MONONITRATE ER 30 MG TAB.ER.24H PO SCH (07:20)
[2016-08-15] MEDS: CALCIUM ACETATE 667 MG CAP PO SCH ×3 (07:20→16:01)
[2016-08-15] MEDS: FUROSEMIDE 80 MG TAB PO SCH ×2 (07:21→16:02)
[2016-08-15] MEDS: INSULIN LISPRO (humaLOG) 300 UNIT/3 ML VIAL SQ SCH ×4 (07:21→21:50)
[2016-08-15] MEDS: FOLIC ACID-VIT B COMPLEX-VIT C 1 CAP PO SCH (07:21)
[2016-08-15] MEDS: CARVEDILOL 12.5 MG TAB PO SCH ×2 (07:21→16:02)
[2016-08-15 07:31] LABS: Glucose,Whole Blood 60 mg/dL (75-99)
[2016-08-15 07:38] LABS: Glucose,Whole Blood 70 mg/dL (75-99)
[2016-08-15] MEDS: ALPRAZolam 0.5 MG TAB PO SCH ×3 (07:51→21:39)
[2016-08-15 07:52] LABS: Anisocytosis Slight; CH 31.5; CHCM 31.5; HDW 3.09; HGB 9.7 gm/dL (11.4-16.0); Hypochromasia Slight; MCH 31.5 pg (25.0-35.0); MCHC 31.3 g/dL (31.0-37.0); MCV 100.8 fL (80.0-100.0); Macrocytosis Moderate; Mean Platelet Volume 7.8; RBC 3.08 m/uL (3.80-5.40); RDW 18.9 % (11.5-15.5); WBC 12.2 k/uL (3.8-10.6)
[2016-08-15] MEDS: NICOTINE 14MG/24HR PATCH TRANSDERM SCH (07:52)
[2016-08-15] MEDS: METOLAZONE 5 MG TAB PO SCH (07:52)
--- NOTE | 2016-08-15 08:09 | PN ---
DATE OF SERVICE: 08/14/2016 PRESENTING COMPLAINT: Abdominal pain. INTERVAL HISTORY: This is a patient who presented with acute peritonitis associated peritoneal dialysis catheter. The catheter was removed yesterday and patient had a hemodialysis catheter placed in the jugular vein. Overnight the patient started having abdominal pain, more so than before. No nausea. Not much of an appetite. I did tell the nurse to call Dr. Horowitz. Review of systems done for constitutional, cardiovascular, GI, pulmonary; relevant findings as above. Current medications are reviewed. On examination, temperature 97.1, pulse 103 respiration 18, blood pressure 140/74, pulse ox 94% on room air. GENERAL APPEARANCE: Sitting up, somewhat uncomfortable. EYES: Pupils equal. Conjunctivae normal. NECK: JVD not raised. Mass not palpable. RESPIRATORY: Effort normal. LUNGS: Decreased breath sounds. CARDIOVASCULAR: First and second sounds normal. No edema. ABDOMEN: Soft, mild diffuse tenderness. No guarding or rigidity. PSYCHIATRY: Alert and oriented x3. Mood and affect anxious -appearing. INVESTIGATIONS: Accu-Cheks are noted. ASSESSMENT: 1. Acute peritonitis secondary to peritoneal dialysis probably from infected CP catheter that of which is now removed. Patient has some flare up of abdominal pain since last night. Dr. Horowitz has been consulted. Does not appear to be surgical abdomen, rather soft. 2. Morbid obesity, body mass index of 45.8. 3. End-stage kidney disease, on peritoneal dialysis now switched over to hemodialysis. 4. Diabetes mellitus type 2, chronically on insulin. 5. Gastroesophageal reflux disease. 6. Hyperlipidemia. 7. Essential hypertension. 8. Normocytic anemia, surgery with end-stage kidney disease. 9. Obstructive sleep apnea, does not use CPAP. 10. Primary osteoarthritis in multiple joints, especially in the right hip. 11. Chronic obstructive pulmonary disease in a current smoker. 12. Chronic Coumadin dependence. Patient is a smoker a pack a day. 13. Chronic pain syndrome, pain service, Dr. Spencer was consulted. His recommendations will be followed. Plan: I discussed with Dr. Horowitz, I will keep a close eye and see how she does and in the meantime, continue with hemodialysis.
[2016-08-15] MEDS: SYMBICORT 160-4.5 MCG INHALER INHALATION SCH ×2 (09:06→19:53)
[2016-08-15] MEDS: IPRATROPIUM-ALBUTEROL 3 ML NEB INHALATION SCH ×4 (09:07→19:54)
--- NOTE | 2016-08-15 10:55 | P.PN ---
Subjective This is a 61-year-old female who is in ESRD, was on peritoneal dialysis. Was admitted with recurrent peritonitis. She was switched over to hemodialysis and was dialyzed 2 days in a row. Her PD catheter . Sh was discontinued on 08/13/2016.She continues to have abdominal discomfort and pain and is back on Dilaudid last night. Appetite is fair. She is somewhat bedridden looks depressed. Denies any shortness of breath chest pain fever chills. No bowel movement the last 2 days. Does not feel constipated though. Objective - Vital Signs Vital signs: Vital Signs Temp 97.3 F L 08/15/16 07:00 Pulse 88 08/15/16 07:36 Resp 20 08/15/16 07:36 BP 159/67 08/15/16 07:00 Pulse Ox 97 08/15/16 07:00 Intake & Output 08/14/16 08/15/16 08/15/16 18:59 06:59 18:59 Intake Total 630 Output Total 40 Balance 590 Weight 124 kg Intake: IV 30 0.9 NS flush 10ml 30 Oral 600 Output: Urine 40 Other: Voiding Method Bedside Commode Bedside Commode Bedside Commode # Voids 1 2 On exam she is lying in bed covered up and does not want to go home today. She says she has abdominal pain. HEENT exam no JVP neck is supple no facial asymmetry Lungs are clear to auscultation percussion good air entry bilaterally. Heart sounds are unremarkable somewhat distant she is somewhat obese Abdomen is soft pendulous with a large pannus. Nontender. Bowel sounds are diminished though. Extremity exam was trace edema Neurologically awake alert oriented no focal motor deficit - Labs CBC & Chem 7: 08/15/16 07:21 08/14/16 17:38 Labs: Abnormal Lab Results - Last 24 Hours (Table) 08/14/16 08/14/16 08/14/16 Range/Units 11:43 16:52 17:38 WBC 11.9 H (3.8-10.6) k/uL RBC 3.08 L (3.80-5.40) m/uL Hgb 9.8 L (11.4-16.0) gm/dL Hct 30.1 L (34.0-46.0) % MCV (80.0-100.0) fL RDW 18.5 H (11.5-15.5) % Neutrophils # 9.9 H (1.3-7.7) k/uL Lymphocytes # 0.8 L (1.0-4.8) k/uL Sodium (137-145) mmol/L Creatinine (0.52-1.04) mg/dL Glucose (74-99) mg/dL POC Glucose (mg/dL) 209 H 202 H (75-99) mg/dL Calcium (8.4-10.2) mg/dL Alkaline Phosphatase (38-126) U/L Total Protein (6.3-8.2) g/dL Albumin (3.5-5.0) g/dL 08/14/16 08/14/16 08/14/16 Range/Units 17:38 20:27 22:00 WBC (3.8-10.6) k/uL RBC 3.29 L (3.80-5.40) m/uL Hgb 10.4 L (11.4-16.0) gm/dL Hct 32.0 L (34.0-46.0) % MCV (80.0-100.0) fL RDW 18.5 H (11.5-15.5) % Neutrophils # (1.3-7.7) k/uL Lymphocytes # (1.0-4.8) k/uL Sodium 132 L (137-145) mmol/L Creatinine 3.65 H (0.52-1.04) mg/dL Glucose 212 H (74-99) mg/dL POC Glucose (mg/dL) 228 H (75-99) mg/dL Calcium 7.3 L (8.4-10.2) mg/dL Alkaline Phosphatase 133 H (38-126) U/L Total Protein 5.0 L (6.3-8.2) g/dL Albumin 2.0 L (3.5-5.0) g/dL 08/15/16 08/15/16 08/15/16 Range/Units 07:20 07:21 07:36 WBC 12.2 H (3.8-10.6) k/uL RBC 3.08 L (3.80-5.40) m/uL Hgb 9.7 L (11.4-16.0) gm/dL Hct 31.0 L (34.0-46.0) % MCV 100.8 H (80.0-100.0) fL RDW 18.9 H (11.5-15.5) % Neutrophils # (1.3-7.7) k/uL Lymphocytes # (1.0-4.8) k/uL Sodium (137-145) mmol/L Creatinine (0.52-1.04) mg/dL Glucose (74-99) mg/dL POC Glucose (mg/dL) 60 L 70 L (75-99) mg/dL Calcium (8.4-10.2) mg/dL Alkaline Phosphatase (38-126) U/L Total Protein (6.3-8.2) g/dL Albumin (3.5-5.0) g/dL Microbiology - Last 24 Hours (Table) 08/12/16 13:42 Blood Culture - Preliminary Blood No Growth after 48 hours 08/11/16 14:10 Gram Stain - Preliminary Dialysate Body Fluid Culture - Preliminary Assessment and Plan Plan: Impression. 1. ESRD on hemodialysis with a P cath started 08/13/2016. 2. Recurrent peritonitis on CAPD. CAPD catheter removed 08/13/2016. On vancomycin intravenous and Zosyn 3. Abdominal pain status post peritonitis with staph aureus. 4. Anemia of chronic kidney disease hemoglobin is 9.7 stable. 5. Obesity. Recommendation. Patient needs to have access surgery plan as she has had multiple peritonitis and is not a suitable candidate for CAPD. Maintain current medications. Watch calcium phosphorus albumin hemoglobin. Patient can be discharged and needs a dialysis unit assigned
[2016-08-15 11:39] LABS: Glucose,Whole Blood 86 mg/dL (75-99)
--- NOTE | 2016-08-15 15:02 | P.PN ---
Progress Note - Text The patient is afebrile. Continues to complain of pain in the periumbilical lower abdominal area. Had diminished appetite. She is keeping down some fluids. She states she had some cream of wheat cereal this morning and some fruit. On examination the patient the has no fever vitals are stable. Blood pressure is elevated the chronically. Abdomen is fairly soft. Some edema. The anterior abdominal wall but no cellulitis or evidence of infection. Surgical site looks fine. No no infection or erythema. WBC is mildly elevated to 12,200. CT was reviewed. Some abdominal wall with edema. Doubt the pus or infection or abscess. Impression stable post removal of the peritoneal dialysis catheter. No evidence of any acute infection. Has some edema and ascites. We will continue to observe. Encouraged to eat more.
[2016-08-15 17:38] LABS: Glucose,Whole Blood 94 mg/dL (75-99)
[2016-08-15] MEDS: INSULIN NPH/REG INSULIN 70/30 300 UNIT/3 ML VIAL SQ SCH (17:48)
[2016-08-15] MEDS: TIOTROPIUM 18 MCG/PUFF INHALER INHALATION SCH (18:53)
--- NOTE | 2016-08-15 19:25 | PN ---
DATE OF SERVICE: 08/15/2016 PRESENTING COMPLAINT: Abdominal pain. INTERVAL HISTORY: Patient presented with acute peritonitis with peritoneal dialysis, catheter was removed and started on hemodialysis. Patient is having abdominal. Started on Dilaudid by Dr. Horowitz. Patient did have a small breakfast this morning. No nausea and vomiting. Last bowel movement was 2 days ago. Review of systems is done for constitutional, cardiovascular, GI, pulmonary; relevant findings as above. Current medications are reviewed and include IV Zosyn. On examination, temperature 97.5, pulse 79, respiration 18, blood pressure 143/64, pulse ox 98% on room air. GENERAL APPEARANCE: Lying in bed, not in distress. EYES: Pupils equal, conjunctivae normal. NECK: JVD not raised. Mass not palpable. RESPIRATORY: Effort normal. LUNGS: Decreased breath sounds. CARDIOVASCULAR: First and second sounds normal. No edema. ABDOMEN: Soft, mild tenderness, rather soft. No guarding or rigidity. PSYCHIATRY: Alert and oriented times three. Mood and affect normal. INVESTIGATIONS: White count 12.2, hemoglobin 9.7 ASSESSMENT: 1. Acute peritonitis secondary to peritoneal dialysis from infected dialysis catheter that has now been removed. Otherwise, clinical exam of the abdomen is rather benign. Does not appear to be surgical at all. 2. Morbid obesity, body mass index of 45.8. 3. End stage kidney disease, now switched from peritoneal to hemodialysis. 4. Diabetes mellitus type 2, chronically on insulin. 5. Gastroesophageal reflux disease. 6. Hyperlipidemia. 7. Essential hypertension. 8. Normocytic anemia secondary to end-stage kidney disease. 9. Obstructive sleep apnea, does not use CPAP. 10. Primary osteoarthritis of multiple joints especially in the right hip. 11. Chronic obstructive pulmonary disease in a current smoker. 12. Chronic nicotine dependence. 13. Chronic pain syndrome. Dr. Spencer is following. Overall, patient is doing better. Follow with surgery.
[2016-08-15] MEDS: AMITRIPTYLINE HCL 50 MG TAB PO SCH (21:48)
[2016-08-15] MEDS: amLODIPine 2.5 MG TAB PO SCH (21:48)
[2016-08-15 21:52] LABS: Glucose,Whole Blood 127 mg/dL (75-99)
[2016-08-16] MEDS: oxyCODONE-APAP 7.5-325MG 1 EACH TAB PO PRN ×4 (00:05→18:30)
[2016-08-16] MEDS: PIPERACILLIN-TAZOBACTAM 3.375 GM in DEXTROSE/WATER 1 50ML.BAG IVPB SCH ×2 (00:06→11:18)
[2016-08-16] MEDS: HYDROmorphone 1 MG/ML 1 ML SYRINGE IVP PRN (03:30)
[2016-08-16] MEDS: IPRATROPIUM-ALBUTEROL 3 ML NEB INHALATION SCH ×4 (07:33→20:33)
[2016-08-16] MEDS: TIOTROPIUM 18 MCG/PUFF INHALER INHALATION SCH (07:33)
[2016-08-16] MEDS: SYMBICORT 160-4.5 MCG INHALER INHALATION SCH ×2 (07:33→20:33)
[2016-08-16 07:49] LABS: Glucose,Whole Blood 130 mg/dL (75-99)
--- NOTE | 2016-08-16 08:44 | PN ---
DATE OF SERVICE: 08/15/2016 Reason for follow-up is peritoneal dialysis, peritonitis. INTERVAL HISTORY: The patient is afebrile. Her pain has improved compare to yesterday. The patient denies any nausea and vomiting. Denies any chest pain, shortness of breath or cough. On examination, blood pressure 143/64 with a pulse of 88, temperature 97.5, she is 98% on room air. General description is a middle-age female up in the bed in no distress. RESPIRATORY SYSTEM: Unlabored breathing. Clear to auscultation anteriorly. HEART: S1, S2. Regular rate and rhythm. ABDOMEN: Soft. No tenderness. No erythema was noticed. LABS: Hemoglobin is 9.7, white count 12.0, Vanco level is 23.7. Blood culture has been negative. DIAGNOSTIC IMPRESSION AND PLAN: Patient with staph epi peritoneal dialysis associated peritonitis. The patient will continue on vancomycin to finish up a 2 week course of therapy. Continue supportive care. MTDD
[2016-08-16] MEDS: CARVEDILOL 12.5 MG TAB PO SCH ×2 (09:56→18:30)
[2016-08-16] MEDS: FOLIC ACID-VIT B COMPLEX-VIT C 1 CAP PO SCH (09:56)
[2016-08-16] MEDS: ISOSORBIDE MONONITRATE ER 30 MG TAB.ER.24H PO SCH (09:56)
[2016-08-16] MEDS: PANTOPRAZOLE 40 MG TABLET PO SCH (09:56)
[2016-08-16] MEDS: CALCIUM ACETATE 667 MG CAP PO SCH ×3 (09:56→18:30)
[2016-08-16] MEDS: METOLAZONE 5 MG TAB PO SCH (09:56)
[2016-08-16] MEDS: INSULIN LISPRO (humaLOG) 300 UNIT/3 ML VIAL SQ SCH ×4 (09:57→20:43)
[2016-08-16] MEDS: FUROSEMIDE 80 MG TAB PO SCH ×2 (09:57→18:29)
[2016-08-16] MEDS: NICOTINE 14MG/24HR PATCH TRANSDERM SCH (10:16)
--- NOTE | 2016-08-16 10:25 | P.PN ---
Progress Note - Text Patient continues to complain of abdominal pain. Nurses report she is demanding her Dilaudid [id number] and refuses to take any other analgesic ago. Or operate in terms of physical therapy or any other therapy until she gets the dilated. No nausea or vomiting. She doesn't have an appetite. Most of the pain appears to be more in the epigastric area. The pain however he is fairly chronic in that she states she admits that she's had this pain even prior to having her dialysis catheter removed. On examination the patient is awake alert the. Very unhappy. Vitals are stable. No fever. Abdomen is fairly soft depressible. Complains mostly of tenderness in the epigastric area. No mass or organomegaly noted. Surgical site the looks normal. No cellulitis or mass or abscess or evidence of any complications here. Impression chronic upper abdominal pain. Pain management problems. No evidence of any significant complications or abnormalities on the computed tomography scan. No evidence of cellulitis clinically. Some edema the abdominal wall not unexpected. Recommendation had a long discussion with her. Try to back off from the dilaudid. Try to eat. Encouraged to ambulate.
--- NOTE | 2016-08-16 11:05 | P.PN ---
Subjective This is a 61-year-old female who is in ESRD, was on peritoneal dialysis. Was admitted with recurrent peritonitis. She was switched over to hemodialysis and was dialyzed 2 days in a row. Her PD catheter has been discontinued on 2016.She continued to have abdominal discomfort and pain and is back on Dilaudid , but this morning she is better. She is able to eat. She is still very worried about going home and says there is still some pain in her abdomen. She would like to come back to the peritoneal dialysis. Given that she has recurrent peritonitis she is not a good candidate for CAPD and I have explained to her that she should be on hemodialysis and a graft or fistula should be placed as there is a good chance that she is going to have peritonitis again if she goes back to PD and then she will need a hemodialysis access. Additionally she is somewhat obese she needs to lose some weight. Appetite is fair. She is somewhat bedridden looks depressed. Denies any shortness of breath chest pain fever chills. No bowel movement the last 3 days. Does not feel constipated though. Objective - Vital Signs Vital signs: Vital Signs Temp 97.0 F L 08/16/16 07:00 Pulse 85 08/16/16 08:00 Resp 16 08/16/16 08:00 BP 156/79 08/16/16 07:00 Pulse Ox 96 08/16/16 07:00 Intake & Output 08/15/16 08/16/16 08/16/16 18:59 06:59 18:59 Intake Total 240 510 Output Total 80 Balance 240 430 Weight 124 kg 124 kg Intake: IV 30 0.9 NS flush 10ml 30 Oral 240 480 Output: Urine 80 Other: Voiding Method Bedside Commode Bedside Commode Bedside Commode # Voids 1 2 On examination she is awake alert oriented somewhat worried and depressed HEENT exam no JVP neck is supple no facial asymmetry She looks somewhat pale. Lungs are clear to auscultation percussion good air entry bilaterally. At sounds are unremarkable for any murmur rub gallop. Abdomen is soft obese somewhat tender. Extremity exam was moderate edema Neurologically awake alert oriented. No asterixis. No motor deficit. - Labs CBC & Chem 7: 08/15/16 07:21 08/14/16 17:38 Labs: Abnormal Lab Results - Last 24 Hours (Table) 08/15/16 08/16/16 Range/Units 21:41 07:47 POC Glucose (mg/dL) 127 H 130 H (75-99) mg/dL Microbiology - Last 24 Hours (Table) 08/12/16 13:42 Blood Culture - Preliminary Blood No Growth after 72 hours 08/11/16 14:10 Gram Stain - Final Dialysate Body Fluid Culture - Final Assessment and Plan Plan: Impression. 1. ESRD on hemodialysis with a P cath started 08/13/2016. 2. Recurrent peritonitis on CAPD. CAPD catheter removed 08/13/2016. On vancomycin intravenous and Zosyn 3. Abdominal pain status post peritonitis with staph epidermidis 4. Anemia of chronic kidney disease hemoglobin is 9.7 stable. 5. Obesity. Recommendation. Patient needs to have access surgery plan as she has had multiple peritonitis and is not a suitable candidate for CAPD. Maintain current medications. Watch calcium phosphorus albumin hemoglobin. Patient can be discharged and needs a dialysis unit assigned
[2016-08-16 11:27] LABS: Glucose,Whole Blood 149 mg/dL (75-99)
[2016-08-16 17:22] LABS: Glucose,Whole Blood 176 mg/dL (75-99)
[2016-08-16] MEDS: INSULIN NPH/REG INSULIN 70/30 300 UNIT/3 ML VIAL SQ SCH (18:34)
[2016-08-16 20:41] LABS: Glucose,Whole Blood 147 mg/dL (75-99)
[2016-08-16] MEDS: ALPRAZolam 0.5 MG TAB PO SCH (20:41)
[2016-08-16] MEDS: AMITRIPTYLINE HCL 50 MG TAB PO SCH (20:42)
[2016-08-16] MEDS: amLODIPine 2.5 MG TAB PO SCH (20:44)
[2016-08-16] MEDS ORDERED: ONDANSETRON 4 MG TAB PO PRN (22:41)
[2016-08-17] MEDS: oxyCODONE-APAP 7.5-325MG 1 EACH TAB PO PRN ×4 (00:17→21:12)
[2016-08-17] MEDS: SYMBICORT 160-4.5 MCG INHALER INHALATION SCH ×2 (07:25→19:31)
[2016-08-17] MEDS: IPRATROPIUM-ALBUTEROL 3 ML NEB INHALATION SCH ×4 (07:26→19:31)
[2016-08-17] MEDS: TIOTROPIUM 18 MCG/PUFF INHALER INHALATION SCH (07:27)
[2016-08-17 07:49] LABS: Glucose,Whole Blood 89 mg/dL (75-99)
[2016-08-17] MEDS: CARVEDILOL 12.5 MG TAB PO SCH ×2 (08:15→16:53)
[2016-08-17] MEDS: CALCIUM ACETATE 667 MG CAP PO SCH ×3 (08:15→16:53)
[2016-08-17] MEDS: INSULIN LISPRO (humaLOG) 300 UNIT/3 ML VIAL SQ SCH ×4 (08:16→21:26)
[2016-08-17] MEDS: METOLAZONE 5 MG TAB PO SCH (08:16)
[2016-08-17] MEDS: NICOTINE 14MG/24HR PATCH TRANSDERM SCH (08:16)
[2016-08-17] MEDS: PANTOPRAZOLE 40 MG TABLET PO SCH (08:16)
[2016-08-17] MEDS: ALPRAZolam 0.5 MG TAB PO SCH ×2 (08:16→21:12)
[2016-08-17] MEDS: ISOSORBIDE MONONITRATE ER 30 MG TAB.ER.24H PO SCH (08:17)
[2016-08-17] MEDS: FUROSEMIDE 80 MG TAB PO SCH ×2 (08:17→16:53)
[2016-08-17] MEDS: FOLIC ACID-VIT B COMPLEX-VIT C 1 CAP PO SCH (08:17)
--- NOTE | 2016-08-17 09:32 | PN ---
DATE OF SERVICE: 08/16/2016 INTERVAL HISTORY: This is a patient who presented with acute peritonitis associated with peritoneal dialysis catheter that was subsequently removed and now has hemodialysis catheter. Patient had flare-up of his abdominal pain, which is settling down today. The patient is doing better, actually tolerating a diet. Has not had a bowel movement. I have ordered some lactulose. The patient is full assist at this point, not able to move. Hence, I will hold on to the discharge as the patient may need to be sent off to rehab. Review of systems done for constitutional, cardiovascular, GI, pulmonary; relevant findings as above. No nausea or vomiting. No fever. Current medications are reviewed. On examination, temperature 97, pulse 55, respiration 16, blood pressure 156/79. Repeat blood pressure 124/68, pulse ox 96% on room air. GENERAL APPEARANCE: Sitting up, tired appearing. EYES: Pupils equal. Conjunctivae normal. NECK: JVD not raised. Mass not palpable. RESPIRATORY: Effort normal. LUNGS: Diminished breath sounds. CARDIOVASCULAR: First and second sounds normal. No edema. ABDOMEN: Distended, soft. Liver and spleen not palpable. No guarding or rigidity. PSYCHIATRY: Alert and oriented x3. Mood and affect slightly low appearing. INVESTIGATIONS: Accu-Cheks are noted. ASSESSMENT: 1. Acute peritonitis secondary to peritoneal dialysis infected dialysis catheter, that has now been removed, abdominal exam remains benign. 2. Morbid obesity, body mass index 45.8. 3. End-stage kidney disease, now switched from peritoneal to hemodialysis. 4. Diabetes mellitus type 2, chronically on insulin. 5. Gastroesophageal reflux disease. 6. Hyperlipidemia. 7. Essential hypertension. 8. Normocytic anemia, due to end-stage kidney disease. 9. Obstructive sleep apnea, does not use CPAP. 10. Primary osteoarthritis of multiple joints, especially in the right hip. 11. Chronic obstructive pulmonary disease in a current smoker. 12. Chronic nicotine dependence. 13. Chronic pain syndrome. Dr. Spencer is following. 14. Medical debility, patient not able to get about. PLAN: Patient will need inpatient rehab as this patient not able to move without full assist.
--- NOTE | 2016-08-17 10:01 | P.PN ---
Subjective Patient is seen in follow-up for end-stage renal disease. She was maintained on peritoneal dialysis. Patient presented with abdominal pain and cloudy dialysate. Her cell count was noted to be elevated at 1215. She received 1 g of intraperitoneal vancomycin as well as 5 doses of intraperitoneal Fortaz. She is now on IV vancomycin. Due to multiple peritonitis episodes recently, she has been transitioned over to hemodialysis. Denies chest pain or shortness of breath. Vital signs are stable. General: The patient appeared well nourished and normally developed. HEENT: Head exam is unremarkable. Neck is without jugular venous distension. LUNGS: Lungs are clear to auscultation and percussion. Breath sounds decreased. HEART: Rate and Rhythm are regular. First and second heart sounds normal. No murmurs, rubs or gallops. ABDOMEN: Abdominal exam reveals normal bowel sounds. Tender to palpation. EXTREMITITES: Trace edema. Objective - Vital Signs Vital signs: Vital Signs Temp 98.3 F 08/17/16 07:00 Pulse 80 08/17/16 07:31 Resp 18 08/17/16 07:00 BP 158/71 08/17/16 07:00 Pulse Ox 97 08/17/16 07:00 Intake & Output 08/16/16 08/17/16 08/17/16 18:59 06:59 18:59 Intake Total 440 Output Total 40 40 Balance -40 400 Weight 124 kg 125.3 kg Intake: Oral 440 Output: Urine 40 40 Other: Voiding Method Bedside Commode Bedside Commode # Voids 1 3 # Bowel Movements 1 - Labs CBC & Chem 7: 08/15/16 07:21 08/14/16 17:38 Labs: Abnormal Lab Results - Last 24 Hours (Table) 08/16/16 08/16/16 08/16/16 Range/Units 11:26 17:21 20:38 POC Glucose (mg/dL) 149 H 176 H 147 H (75-99) mg/dL Microbiology - Last 24 Hours (Table) 08/12/16 13:42 Blood Culture - Preliminary Blood No Growth after 96 hours Assessment and Plan Plan: Assessment: #1. End-stage renal disease now maintained on hemodialysis. #2. Peritonitis. Cell count coming down. It was 1215 on admission and down to 2 as of 08/11. Fluid culture positive for staph epi. #3. Volume overload. Improving. #4. Chronic kidney disease mineral bone disease. #5. Hypertension with chronic kidney disease. Controlled. #6. Hypokalemia related to PD. Improved. Plan: 1 g IP vancomycin given 08/08. Also received 5 doses of intraperitoneal Fortaz. This is patient's fifth peritonitis episode and it was discussed with her that if she develops peritonitis again she will need to be transitioned over to hemodialysis. Patient was quite hesitant to transition over to hemodialysis but agreed. it investment/portfolio manager on board to help facilitate outpatient hemodialysis in [place]. Patient is now on IV vancomycin per infectious disease recommendations. Hemodialysis today with goal to liters ultrafiltration. Now consideration for rehab upon discharge.
[2016-08-17 11:34] LABS: Glucose,Whole Blood 87 mg/dL (75-99)
[2016-08-17] MEDS ORDERED: HEPARIN SODIUM,PORCINE 5,000 UNIT/ML 1 ML VIAL ONE (16:00)
[2016-08-17 17:02] LABS: Glucose,Whole Blood 89 mg/dL (75-99)
[2016-08-17] MEDS: INSULIN NPH/REG INSULIN 70/30 300 UNIT/3 ML VIAL SQ SCH (17:07)
--- NOTE | 2016-08-17 17:10 | PN ---
DATE OF SERVICE: 08/17/2016 Reason for follow-up: Peritoneal dialysis associated peritonitis, Staph epi. INTERVAL HISTORY: The patient has complaint of significant abdominal pain. Though slightly better than yesterday. No nausea. No vomiting. Denies any chest pain, shortness of breath or cough. On examination, her blood pressure is 158/72, ( ) pulse of 72, temperature 98.3. She is 97% on room air. General description is a middle-age female lying in bed in no distress. RESPIRATORY SYSTEM: Unlabored breathing. Clear to auscultation anteriorly. HEART: S1, S2 regular rate and rhythm. ABDOMEN: Soft, no tenderness. LABS: Blood culture negative, repeat peritoneal dialysis fluid 08/11 has been negative. DIAGNOSTIC IMPRESSION AND PLAN: Patient with peritoneal dialysis related to peritonitis. The patient's culture has been positive for Staphylococcus epidermidis, repeat culture has been negative. PLAN: At this time is to continue the patient on vancomycin, pharmacy to dose with a target of 15 for another 10 days. Continue supportive care.
--- NOTE | 2016-08-17 17:42 | P.PN ---
Subjective Principal diagnosis: renal failure with peritonitis Patient's pain is much improved and almost absent at this time. She is tolerating a regular diet. Plans are underway for her to be possibly discharge to [facility]CF. Objective - Vital Signs Vital signs: Vital Signs Temp 98.6 F 08/17/16 15:00 Pulse 67 08/17/16 15:00 Resp 18 08/17/16 15:00 BP 133/66 08/17/16 15:00 Pulse Ox 97 08/17/16 15:00 Intake & Output 08/16/16 08/17/16 08/17/16 18:59 06:59 18:59 Intake Total 440 Output Total 40 40 Balance -40 400 Weight 124 kg 125.3 kg Intake: Oral 440 Output: Urine 40 40 Other: Voiding Method Bedside Commode Bedside Commode Bedside Commode # Voids 1 3 # Bowel Movements 1 - Exam Abdomen: Soft, nondistended, mild incisional tenderness, incision clean and dry - Labs CBC & Chem 7: 08/15/16 07:21 08/14/16 17:38 Labs: Abnormal Lab Results - Last 24 Hours (Table) 08/16/16 Range/Units 20:38 POC Glucose (mg/dL) 147 H (75-99) mg/dL Microbiology - Last 24 Hours (Table) 08/12/16 13:42 Blood Culture - Preliminary Blood No Growth after 120 hours Assessment and Plan (1) Peritonitis Narrative/Plan: Continue diet as tolerated. We'll sign off at this point. Please contact if needed. Status: Acute
[2016-08-17] MEDS ORDERED: VANCOMYCIN 2,000 MG in SODIUM CHLORIDE 0.9% 500 ML IVPB ONE (20:00)
[2016-08-17] MEDS: AMITRIPTYLINE HCL 50 MG TAB PO SCH (21:12)
[2016-08-17] MEDS: amLODIPine 2.5 MG TAB PO SCH (21:13)
[2016-08-17 21:40] LABS: Glucose,Whole Blood 51 mg/dL (75-99)
[2016-08-17] MEDS ORDERED: DEXTROSE 50%-WATER 50 ML SYRINGE IVP ONE (21:57)
[2016-08-17 22:02] LABS: Glucose,Whole Blood 51 mg/dL (75-99)
[2016-08-17 22:02] LABS: Glucose,Whole Blood 66 mg/dL (75-99)
[2016-08-17 22:52] LABS: Glucose,Whole Blood 59 mg/dL (75-99)
[2016-08-17 22:52] LABS: Glucose,Whole Blood 72 mg/dL (75-99)
--- NOTE | 2016-08-17 23:54 | PN ---
DATE OF SERVICE: 08/17/2016 PRESENTING COMPLAINT: Abdominal pain. INTERVAL HISTORY: This patient presented with acute peritonitis associated with peritoneal dialysis catheter that was removed. The patient has now been started on hemodialysis. Patient actually did use a walker with the nurse and walked to the bathroom. 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 Review of systems done for constitutional, cardiovascular, GI; pertinent relevant findings as above. The abdominal pain is much better. Current medications are reviewed and include vancomycin. On examination, temperature 98.3, pulse 72, respirations 18, blood pressure 150/71, pulse ox 97% on room air. GENERAL APPEARANCE: Sitting up, comfortable. EYES: Pupils equal. Conjunctivae normal. NECK: JVD not raised. Mass not palpable. RESPIRATORY: Effort normal. LUNGS: Decreased breath sounds. CARDIOVASCULAR: First and second sounds normal. No edema. ABDOMEN: Distended, soft. Liver and spleen not palpable. PSYCHIATRY: Alert and oriented x3. Mood and affect much better. INVESTIGATIONS: Accu-Cheks are noted. ASSESSMENT: 1. Acute peritonitis secondary to infected dialysis catheter that has now been removed with cultures showed Staphylococcus epidermidis. 2. Morbid obesity, BMI 45.8. 3. End-stage kidney disease, now switched from peritoneal to hemodialysis. 4. Diabetes mellitus type 2, chronically on insulin. 5. Gastroesophageal reflux disease. 6. Hyperlipidemia. 7. Essential hypertension. 8. Normocytic anemia due to end-stage kidney disease. 9. Obstructive sleep apnea, does not use CPAP. 10. Primary osteoarthritis of multiple joints, especially the right hip. 11. Chronic obstructive pulmonary disease in a current smoker. 12. Chronic nicotine dependence. 13. Chronic pain syndrome, Dr. Spencer is following. 14. Medical debility. Patient doing better, able to use a walker and get to the bathroom. PLAN: Continue current medication and treatment plan. Looking at nephrology social worker to arrange for outpatient antibiotics, only then the patient can be discharged.
[2016-08-18 06:55] LABS: Glucose,Whole Blood 49 mg/dL (75-99)
[2016-08-18 07:03] LABS: Glucose,Whole Blood 45 mg/dL (75-99)
[2016-08-18] MEDS ORDERED: DEXTROSE 50%-WATER 50 ML SYRINGE IVP ONE (07:23)
[2016-08-18 07:24] LABS: Glucose,Whole Blood 44 mg/dL (75-99)
[2016-08-18 07:57] LABS: Glucose,Whole Blood 124 mg/dL (75-99)
[2016-08-18 08:04] VITALS: RESP 18
[2016-08-18] MEDS: FUROSEMIDE 80 MG TAB PO SCH (08:35)
[2016-08-18] MEDS: NICOTINE 14MG/24HR PATCH TRANSDERM SCH (08:35)
[2016-08-18] MEDS: PANTOPRAZOLE 40 MG TABLET PO SCH (08:35)
[2016-08-18] MEDS: ISOSORBIDE MONONITRATE ER 30 MG TAB.ER.24H PO SCH (08:35)
[2016-08-18] MEDS: CARVEDILOL 12.5 MG TAB PO SCH (08:35)
[2016-08-18] MEDS: METOLAZONE 5 MG TAB PO SCH (08:35)
[2016-08-18] MEDS: CALCIUM ACETATE 667 MG CAP PO SCH ×2 (08:35→12:48)
[2016-08-18] MEDS: FOLIC ACID-VIT B COMPLEX-VIT C 1 CAP PO SCH (08:36)
[2016-08-18] MEDS: ALPRAZolam 0.5 MG TAB PO SCH (08:36)
[2016-08-18] MEDS: oxyCODONE-APAP 7.5-325MG 1 EACH TAB PO PRN ×2 (08:36→14:16)
[2016-08-18] MEDS: INSULIN LISPRO (humaLOG) 300 UNIT/3 ML VIAL SQ SCH ×2 (09:11→12:48)
[2016-08-18 10:31] VITALS: BMI 47.5
--- NOTE | 2016-08-18 10:34 | P.PN ---
Subjective Patient is seen in follow-up for end-stage renal disease. She was maintained on peritoneal dialysis. Patient presented with abdominal pain and cloudy dialysate. Her cell count was noted to be elevated at 1215. She received 1 g of intraperitoneal vancomycin as well as 5 doses of intraperitoneal Fortaz. She is now on IV vancomycin. Due to multiple peritonitis episodes recently, she has been transitioned over to hemodialysis. Denies chest pain or shortness of breath. No issues with hemodialysis yesterday. She's been walking with a walker. Vital signs are stable. General: The patient appeared well nourished and normally developed. HEENT: Head exam is unremarkable. Neck is without jugular venous distension. LUNGS: Lungs are clear to auscultation and percussion. Breath sounds decreased. HEART: Rate and Rhythm are regular. First and second heart sounds normal. No murmurs, rubs or gallops. ABDOMEN: Abdominal exam reveals normal bowel sounds. Tender to palpation. EXTREMITITES: Trace edema. Objective - Vital Signs Vital signs: Vital Signs Temp 94.8 F L 08/18/16 07:00 Pulse 65 08/18/16 07:00 Resp 18 08/18/16 07:00 BP 121/70 08/18/16 07:00 Pulse Ox 99 08/18/16 07:00 Intake & Output 08/17/16 08/18/16 08/18/16 18:59 06:59 18:59 Intake Total 640 Balance 640 Weight 125.5 kg 125.5 kg Intake: Intake, IV Titration 500 Amount Vancomycin 2,000 mg In 500 Sodium Chloride 0.9% 500 ml @ 167 mls/hr IVPB ONCE ONE Rx#:[id number] Oral 140 Other: Voiding Method Bedside Commode Bedside Commode Bedside Commode # Bowel Movements 1 - Labs CBC & Chem 7: 08/15/16 07:21 08/14/16 17:38 Labs: Abnormal Lab Results - Last 24 Hours (Table) 08/17/16 08/17/16 08/17/16 Range/Units 21:20 21:42 21:55 POC Glucose (mg/dL) 51 L 66 L 51 L (75-99) mg/dL 08/17/16 08/17/16 08/18/16 Range/Units 22:31 22:48 06:44 POC Glucose (mg/dL) 59 L 72 L 49 L (75-99) mg/dL 08/18/16 08/18/16 08/18/16 Range/Units 07:02 07:21 07:49 POC Glucose (mg/dL) 45 L 44 L 124 H (75-99) mg/dL Microbiology - Last 24 Hours (Table) 08/12/16 13:42 Blood Culture - Preliminary Blood No Growth after 120 hours Assessment and Plan Plan: Assessment: #1. End-stage renal disease now maintained on hemodialysis. #2. Peritonitis. Cell count coming down. It was 1215 on admission and down to 2 as of 08/11. Fluid culture positive for staph epi. #3. Volume overload. Improving. #4. Chronic kidney disease mineral bone disease. #5. Hypertension with chronic kidney disease. Controlled. Plan: 1 g IP vancomycin given 08/08. Also received 5 doses of intraperitoneal Fortaz. This is patient's fifth peritonitis episode and it was discussed with her that if she develops peritonitis again she will need to be transitioned over to hemodialysis. Patient was quite hesitant to transition over to hemodialysis but agreed. mobile product manager on board to help facilitate outpatient hemodialysis in [place]. Patient is now on IV vancomycin per infectious disease recommendations. Hemodialysis tomorrow with goal 2 liters ultrafiltration. Awaits outpatient antibiotics to be set up. Otherwise stable to be discharged.
[2016-08-18 11:15] LABS: Glucose,Whole Blood 126 mg/dL (75-99)
[2016-08-18] MEDS: SYMBICORT 160-4.5 MCG INHALER INHALATION SCH (11:16)
[2016-08-18] MEDS: IPRATROPIUM-ALBUTEROL 3 ML NEB INHALATION SCH ×3 (11:16→15:24)
[2016-08-18] MEDS: TIOTROPIUM 18 MCG/PUFF INHALER INHALATION SCH (11:17)
--- NOTE | 2016-08-18 13:30 | PN ---
DATE OF SERVICE: 08/18/2016 Reason for follow-up is: Peritoneal dialysis associated to peritonitis. INTERVAL HISTORY: The patient is afebrile. She is currently waiting for the outpatient vancomycin arrangment before discharge. Denies having any chest pain, shortness of breath or cough. On examination, blood pressure is 121/70 with a pulse of 54, temperature 97, she is 99% on room air. General description is a middle-age female lying in bed in no distress. RESPIRATORY SYSTEM: Unlabored breathing. Clear to auscultation anteriorly. HEART: S1, S2, regular rate and rhythm. ABDOMEN: Soft, no tenderness. LABS: No new labs have been obtained today. DIAGNOSTIC IMPRESSION AND PLAN: Patient with a peritoneal dialysis associated peritonitis. Patient at this time responding to vancomycin. She will continue vancomycin with dialysis for another 10 days to finish course of therapy, Continue supportive care. ANDRÉS
[2016-08-18 14:58] VITALS: BP 156/67; PULSE 75; TEMP 98.1
--- NOTE | 2016-08-19 07:01 | DS ---
DATE OF ADMISSION: 08/08/2016 DATE OF DISCHARGE: 08/18/2016 FINAL DIAGNOSES: 1. Acute peritonitis secondary to infected dialysis catheter that has now been removed with cultures showing Staphylococcus epidermidis, present on admission. 2. Morbid obesity, body mass index 45.8. 3. End-stage kidney disease switched from peritoneal to hemodialysis for recurrent peritonitis. 4. Diabetes mellitus type 2, chronically on insulin. 5. Gastroesophageal reflux disease. 6. Hyperlipidemia. 7. Essential hypertension. 8. Normocytic anemia, due to end-stage kidney disease. 9. Obstructive sleep apnea, does not use CPAP. 10. Primary osteoarthritis of multiple joints, especially in the right hip. 11. Chronic obstructive pulmonary disease in a current smoker. 12. Chronic nicotine dependence. 13. Chronic pain syndrome. Dr. Spencer is following. 14. Medical debility. Patient does use a walker to get about. CONSULTATION: Dr. Lagunas from infection disease; Dr. Gaviria from nephrology; Dr. Horowitz from general surgery; Dr. Almeida from vascular; also consultation with Dr. Spencer from pain management. HOSPITAL COURSE: This patient yet again presented with another bout of peritonitis, felt to be from PD catheter. Cultures were positive as above. The patient was given intraperitoneal Fortaz then switched to IV vancomycin. Patient will be switched over to hemodialysis. The patient is tolerating a diet, had a bowel movement; otherwise, comfortable. DISCHARGE MEDICATIONS: 1. Coreg 12.5 p.o. b.i.d. 2. Imdur 30 mg p.o. daily. 3. Ventolin 2.5 q.i.d. p.r.n. 4. Lasix 80 mg p.o. b.i.d. 5. PhosLo 1334 p.o. t.i.d. with meals. 6. Novolin 70/30, thirty-five units with supper. 7. Omeprazole 20 mg p.o. b.i.d. 8. Maalox 30 mL p.o. q.4 p.r.n. 9. Xanax 0.5 p.o. q.12. 10. Elavil 100 mg p.o. q.h.s. 11. Symbicort 160/4.5, two puffs b.i.d. 12. DuoNeb q.i.d. p.r.n. 13. Zaroxolyn 5 mg p.o. daily. 14. MiraLAX 17 grams p.o. daily. 15. Spiriva 1 capsule inhaler daily. 16. Norvasc 2.5 mg p.o. q.h.s. 17. Nephrocaps 1 capsule p.o. daily. 18. Nicotine patch 14. 19. Percocet 7.5 one tablet q.6 p.r.n. Follow up with Dr. Izaguirre on 08/21/16; Dr. Gaviria in one week. Hemodialysis Wednesday, Wednesday, Wednesday. Follow up with Dr. Spencer for pain management.
--- NOTE | 2016-09-07 16:58 | DS ---
ADDENDUM TO DISCHARGE SUMMARY DATE OF ADMISSION: 08/08/2016 DATE OF DISCHARGE: 08/18/2016 On examination, abdomen is soft, non-tender. Lungs have distant breath sounds. CARDIOVASCULAR: Heart sounds muffled. PSYCH: Alert and oriented x3.
== END 2016-08-18 17:25 | disposition home health service (06) | DRG 981 ==
LOC: EC 23:29 → 5MS5E 08-08 01:28
PROVIDERS: ADMIT Hospitalist; ATTEND Hospitalist
PROC: 5A1D60Z (ICD-10-PCS; 2016-08-13)
PROC: B548ZZA Ultrasonography of Superior Vena Cava, Guidance (ICD-10-PCS; principal; 2016-08-13 12:30)
PROC: 02HV33Z Insertion of Infusion Device into Superior Vena Cava, Percutaneous Approach (ICD-10-PCS; principal; 2016-08-13 12:30)
PROC: 0WPG03Z Removal of Infusion Device from Peritoneal Cavity, Open Approach (ICD-10-PCS; 2016-08-13 12:30)
DX: T85.71XA Infection and inflammatory reaction due to peritoneal dialysis catheter, initial encounter (principal); N18.6 End stage renal disease; K65.0 Generalized (acute) peritonitis; I13.2 Hypertensive heart and chronic kidney disease with heart failure and with stage 5 chronic kidney disease, or end stage renal disease; A41.9 Sepsis, unspecified organism; E44.0 Moderate protein-calorie malnutrition; I42.9 Cardiomyopathy, unspecified; R18.8 Other ascites; E87.1 Hypo-osmolality and hyponatremia; K86.1 Other chronic pancreatitis; Z68.42 Body mass index [BMI] 45.0-49.9, adult; E11.22 Type 2 diabetes mellitus with diabetic chronic kidney disease; I50.9 Heart failure, unspecified; D63.1 Anemia in chronic kidney disease; E66.01 Morbid (severe) obesity due to excess calories; E78.5 Hyperlipidemia, unspecified; E83.42 Hypomagnesemia; E87.6 Hypokalemia; F17.210 Nicotine dependence, cigarettes, uncomplicated; G47.33 Obstructive sleep apnea (adult) (pediatric); G89.4 Chronic pain syndrome; J44.9 Chronic obstructive pulmonary disease, unspecified; K21.9 Gastro-esophageal reflux disease without esophagitis; M15.9 Polyosteoarthritis, unspecified; Y83.8 Other surgical procedures as the cause of abnormal reaction of the patient, or of later complication, without mention of misadventure at the time of the procedure; Y84.1 Kidney dialysis as the cause of abnormal reaction of the patient, or of later complication, without mention of misadventure at the time of the procedure; Z79.01 Long term (current) use of anticoagulants; Z99.2 Dependence on renal dialysis; Z79.4 Long term (current) use of insulin; Z79.899 Other long term (current) drug therapy; Z82.49 Family history of ischemic heart disease and other diseases of the circulatory system; Z91.19 Patient's noncompliance with other medical treatment and regimen
CPT/HCPCS: 36415; 71010; 74176; 77001; 80048; 80053; 80074; 80202; 82150; 83036; 83605; 83690; 83735; 84100; 85025; 85027; 87040; 87070; 87077; 87186; 87205; 87340; 89050; 90935; 94640; 96365; 96375; 96376; 99285

== ENCOUNTER 2016-09-09 19:33 | Observation (INO) | payer MEDICARE, OTHER ==
--- NOTE | 2016-09-09 20:23 | ED ---
General Adult HPI - General Source: patient, EMS Mode of arrival: EMS Limitations: no limitations <Eric Salcido - Last Filed: 09/09/16 21:00> <Eliseo Butcher - Last Filed: 09/10/16 00:42> - General Chief complaint: Extremity Injury, Lower Stated complaint: WEAKNESS Time Seen by Provider: 09/09/16 19:52 - History of Present Illness Initial comments: 61-year-old female presenting for bilateral knee pain. Patient states that she had mechanical trip and fall last night. She states she twisted on her knees and fell to the ground hitting her knees on the ground. She was able to get up after this injury without issue. She states that since this time she is feeling pain in both knees. She states that it is painful to stand as well. She denies any other falls. She denies any other injury. She has not tried any medications for this at this point. (Eric Salcido) - Related Data Home Medications Medication Instructions Recorded Confirmed Carvedilol [Coreg*] 12.5 mg PO BID 11/24/13 09/09/16 Isosorbide Mononitrate [Imdur] 30 mg PO DAILY 11/24/13 09/09/16 Insulin NPH Hum/Reg Insulin Hm 35 units SQ AC-SUPPER 11/13/15 09/09/16 [NovoLIN 70-30 100 UNIT/ML VIAL] Omeprazole 20 mg PO BID 04/27/16 09/09/16 Albuterol Inhaler [Ventolin Hfa 1 - 2 puff INHALATION RT-Q6H PRN 09/09/16 Inhaler] Albuterol Nebulized [Ventolin 2.5 mg INHALATION RT-Q6H PRN 09/09/16 09/09/16 Nebulized] Insuln Asp Prt/Insulin Aspart 20 unit SQ HS PRN 09/09/16 09/09/16 [NovoLOG MIX 70-30 VIAL] hydrALAZINE HCL [Apresoline] 25 mg PO TID 09/09/16 09/09/16 oxyCODONE-APAP 7.5-325MG [Percocet 1 tab PO BID PRN 09/09/16 09/09/16 7.5-325 mg] Previous Rx's Medication Instructions Recorded Furosemide [Lasix] 80 mg PO BID #60 tablet 01/10/14 ALPRAZolam [Xanax] 0.5 mg PO Q12HR #15 tab 07/18/16 Ibuprofen [Motrin] 600 mg PO Q6HR PRN #24 tab 09/09/16 Allergies Allergy/AdvReac Type Severity Reaction Status Date / Time No Known Allergies Allergy Verified 09/09/16 22:43 Review of Systems ROS Other: All systems not noted in ROS Statement are negative. <Eric Salcido - Last Filed: 09/09/16 21:00> ROS Other: All systems not noted in ROS Statement are negative. <Eliseo Butcher - Last Filed: 09/10/16 00:42> ROS Statement: Those systems with pertinent positive or pertinent negative responses have been documented in the HPI. Past Medical History Past Medical History: Heart Failure, Diabetes Mellitus, Dialysis, GERD/Reflux, Hyperlipidemia, Hypertension, Renal Disease Additional Past Medical History / Comment(s): Peritonitis's in past with recent admit to [facility] for peritonitis and discharged 04/20/16 per son, chronic renal disease stage IV, cardiomyopathy, current lower leg and face edema per son- "can't get the fluid off", IDDM type II, normocytic anemia, ARPIT without device, frequent constipation, hyponatremia, hypocalcemia, low albumin, mild to moderate protein calorie malnutrition, obesity, gastritis, back and hip pain bilaterally, cataract in one eye (laterallity unknown). History of Any Multi-Drug Resistant Organisms: None Reported Past Surgical History: Cholecystectomy, Heart Catheterization Additional Past Surgical History / Comment(s): 2013 Peritoneal dialysis catheter placement and removal, hemodialysis cath placement, 2011 cardiac cath , pilonodial cyst removed Past Anesthesia/Blood Transfusion Reactions: No Reported Reaction Additional Past Anesthesia/Blood Transfusion Reaction / Comment(s): never received a blood transfusion Past Psychological History: Anxiety, Depression Additional Psychological History / Comment(s): Father is from [facility]. She has had no international travel at any time. She has no travel to the [facility]. She lives in her family home with her son and rhonda, and does not work outside of the home. No significant alcohol use. No history of recreational drug use. There is a pet cat in the home, and her adult son cares for the box. Smoking Status: Current every day smoker Past Alcohol Use History: None Reported Additional Past Alcohol Use History / Comment(s): Pt started smoking in 1975 and is a ppd smoker. Past Drug Use History: None Reported - Past Family History Mother Family Medical History: Congestive Heart Failure (CHF), Coronary Artery Disease (CAD), Diabetes Mellitus Additional Family Medical History / Comment(s): Mother of diabetic complications at the age of 55yrs. Father Family Medical History: Diabetes Mellitus, Hypertension, Pneumonia Additional Family Medical History / Comment(s): alcoholism. Father of pneumonia at the age of 81 yrs. <Eric Salcido - Last Filed: 09/09/16 21:00> General Exam Limitations: no limitations <Eric Salcido - Last Filed: 09/09/16 21:00> <Eliseo Butcher - Last Filed: 09/10/16 00:42> - General Exam Comments Initial Comments: General: Awake and Alert. No acute distress. Does not appear acutely ill. Obese. Eyes: ELIN, EOM intact. No nystagmus. No scleral icterus. HENT: Atraumatic, normocephalic. Mucous membranes moist. Trachea midline. Neck: The neck is supple, there is no tenderness or JVD. Cardiovascular: Regular rate and rhythm. No murmur, rub, or gallop is appreciated. Distal pulses intact, 2+ DP B/L. Respiratory: Lungs are clear to auscultation bilaterally. No wheezes, rales, rhonchi. No respiratory distress. Gastrointestinal: Soft, Nontender. No rebound or guarding. Non-distended. No masses or organomegaly noted. No CVA tenderness. Musculoskeletal: Right knee with mild tenderness over the patella, no effusion. Left knee with mild effusion and tenderness over the patella. Range of motion is intact. Varus and valgus testing are normal. Otherwise on a scale exam with no tenderness. Normal ROM. No gross deformity. No strength deficits. Neurological: A&Ox3. CN II-XII grossly intact, There are no obvious motor or sensory deficits. Coordination appears grossly intact. Speech is normal. Skin: Skin is warm and dry and no rashes or lesions are noted. Psychiatric: Cooperative, appropriate mood & affect, normal judgment. (Eric Salcido) Course <Eric Salcido - Last Filed: 09/09/16 21:00> <Eliseo Butcher - Last Filed: 09/10/16 00:42> Vital Signs 09/09/16 19:37 Temperature 98.4 F Pulse Rate 102 H Respiratory 18 Rate Blood Pressure 171/74 O2 Sat by Pulse 99 Oximetry - Reevaluation(s) Reevaluation #1: 09/10/16 00:39 I did evaluate the patient after the x-rays were performed. Patient was endorsed to me by Dr. Salcido. X-rays are negative for acute findings patient however his stated she has not had dialysis for over a week because she could not get there. He complains of some lethargy no fevers chills sweats no palpitations or other symptoms. (Eliseo Butcher) Reevaluation #2: 09/10/16 00:40 Patient will be admitted for observation and dialysis in the a.m. (Eliseo Butcher) EKG Findings - EKG Results: EKG: interpreted by ERMD, sinus rhythm (Sinus rhythm rate 98 IN interval 196 QRS duration 76 daily since QTC of 352/449 left axis deviation low-voltage old inferior changes poor R-wave progression.) <Eliseo Butcher - Last Filed: 09/10/16 00:42> Medical Decision Making - Radiology Data Radiology results: report reviewed, image reviewed <Eric Salcido - Last Filed: 09/09/16 21:00> - Lab Data Result diagrams: 09/09/16 23:25 09/09/16 23:25 <Eliseo Butcher - Last Filed: 09/10/16 00:42> - Medical Decision Making 61-year-old female presenting for bilateral knee pain after mechanical fall. X- ray imaging was performed without evidence of acute fracture. Patient was able to ambulate without issue. Rx for pain medication provided. Discussed follow- up with PCP. Discussed follow-up with orthopedic for repeat evaluation and imaging if pain is not improved after 1 week. Discussed ice and elevation. Discussed concerning signs symptoms for immediate return to the ED. Patient is agreeable with plan and discharge home. (Eric Salcido) - Lab Data Lab Results 09/09/16 09/09/16 Range/Units 23:25 23:25 WBC 7.5 (3.8-10.6) k/uL RBC 3.18 L (3.80-5.40) m/uL Hgb 9.9 L (11.4-16.0) gm/dL Hct 32.3 L (34.0-46.0) % MCV 101.5 H (80.0-100.0) fL MCH 31.2 (25.0-35.0) pg MCHC 30.7 L (31.0-37.0) g/dL RDW 18.1 H (11.5-15.5) % Plt Count 257 (150-450) k/uL Neutrophils % 67 % Lymphocytes % 15 % Monocytes % 8 % Eosinophils % 7 % Basophils % 1 % Neutrophils # 5.0 (1.3-7.7) k/uL Lymphocytes # 1.1 (1.0-4.8) k/uL Monocytes # 0.6 (0-1.0) k/uL Eosinophils # 0.6 (0-0.7) k/uL Basophils # 0.1 (0-0.2) k/uL Hypochromasia Slight Anisocytosis Slight Macrocytosis Moderate Sodium 139 (137-145) mmol/L Potassium 4.3 (3.5-5.1) mmol/L Chloride 105 (98-107) mmol/L Carbon Dioxide 24 (22-30) mmol/L Anion Gap 10 mmol/L BUN 55 H (7-17) mg/dL Creatinine 11.20 H* (0.52-1.04) mg/dL Est GFR (MDRD) Af Amer 4 (>60 ml/min/1.73 sqM) Est GFR (MDRD) Non-Af 3 (>60 ml/min/1.73 sqM) Glucose 295 H (74-99) mg/dL Calcium 7.9 L (8.4-10.2) mg/dL Total Bilirubin 0.5 (0.2-1.3) mg/dL AST 19 (14-36) U/L ALT 31 (9-52) U/L Alkaline Phosphatase 159 H (38-126) U/L Total Protein 5.8 L (6.3-8.2) g/dL Albumin 2.4 L (3.5-5.0) g/dL Disposition <Eric Salcido - Last Filed: 09/09/16 21:00> <Eliseo Butcher - Last Filed: 09/10/16 00:42> Clinical Impression: Bilateral knee pain, Chronic renal failure Disposition: ADMITTED IP TO THIS HOSP Condition: Stable Instructions: Knee Sprain (ED), Knee Pain (ED) Additional Instructions: Please take your home oxycodones for pain as needed. Please follow up with Orthopedics in 1 week if pain is not improving. Prescriptions: Ibuprofen [Motrin] 600 mg PO Q6HR PRN #24 tab PRN Reason: Pain Referrals: Dakota Izaguirre MD [Primary Care Provider] - 1-2 days Ruiz Mariano DO [Doctor of Osteopathic Medicine] - 1-2 days
--- NOTE | 2016-09-09 21:46 | XR ---
EXAMINATION TYPE: XR knee complete bilateral DATE OF EXAM: 09/09/2016 9:30 PM COMPARISON: NONE HISTORY: Pain after a fall TECHNIQUE: 6 views FINDINGS: There is narrowing of the lateral joint spaces with planovalgus deformity. There is subcuta neous edema. I see no fracture nor dislocation. There is vascular calcification. IMPRESSION: Osteoarthritis and soft tissue swelling. No fracture seen.
--- NOTE | 2016-09-09 22:33 | XR ---
EXAMINATION TYPE: XR chest 2V DATE OF EXAM: 09/09/2016 10:28 PM COMPARISON: 08/13/2016 HISTORY: Knee weakness. Heart failure. TECHNIQUE: Frontal and lateral views of the chest are obtained. FINDINGS: There is no heart failure nor confluent pneumonic infiltrate. Heart is probably enlarged. There is right central venous catheter with the tip in the superior vena cava. There is no pleural ef fusion. IMPRESSION: No active cardiopulmonary disease. There is clearing of mild pleural reaction or fluid a t the left lung base compared to old exam.
[2016-09-09 23:40] LABS: Anisocytosis Slight; Basophils # (A) 0.1 k/uL (0-0.2); Basophils % (A) 1 %; CH 31.6; CHCM 31.3; Eosinophils # (A) 0.6 k/uL (0-0.7); Eosinophils % (A) 7 %; HCT 32.3 % (34.0-46.0); HDW 2.75; HGB 9.9 gm/dL (11.4-16.0); Hypochromasia Slight; Luc # (Auto) 0.13; Luc % (Auto) 2; Lymphocytes # (A) 1.1 k/uL (1.0-4.8); Lymphocytes % (A) 15 %; MCH 31.2 pg (25.0-35.0); MCHC 30.7 g/dL (31.0-37.0); MCV 101.5 fL (80.0-100.0); Macrocytosis Moderate; Mean Platelet Volume 7.2; Monocytes # (A) 0.6 k/uL (0-1.0); Monocytes % (A) 8 %; Neutrophils % (A) 67 %; RBC 3.18 m/uL (3.80-5.40); RDW 18.1 % (11.5-15.5); WBC 7.5 k/uL (3.8-10.6)
[2016-09-10] LABS: Calcium 7.9 mg/dL (8.4-10.2); Potassium 4.3 mmol/L (3.5-5.1); Total Bilirubin 0.5 mg/dL (0.2-1.3); Total Protein 5.8 g/dL (6.3-8.2)
[2016-09-10] MEDS ORDERED: NALOXONE 0.4 MG/ML 1 ML VIAL IV PRN (01:11)
[2016-09-10] MEDS ORDERED: ALBUTEROL NEBULIZED 2.5 MG/3 ML INHALATION PRN (01:16)
[2016-09-10] MEDS ORDERED: INSULN ASP PRT/INSULIN ASPART 100 UNIT/ML 10 ML VIAL SQ PRN (01:16)
[2016-09-10 03:05] VITALS: BMI 48.9
[2016-09-10] MEDS: oxyCODONE-APAP 7.5-325MG 1 EACH TAB PO PRN ×2 (03:09→16:15)
[2016-09-10 06:49] LABS: Glucose,Whole Blood 356 mg/dL (75-99)
[2016-09-10] MEDS: INSULIN LISPRO (humaLOG) 300 UNIT/3 ML VIAL SQ SCH ×4 (07:59→21:06)
[2016-09-10] MEDS ORDERED: ISOSORBIDE MONONITRATE ER 30 MG TAB.ER.24H PO SCH (09:00)
[2016-09-10] MEDS ORDERED: INSULIN NPH/REG INSULIN 70/30 300 UNIT/3 ML VIAL SQ SCH ×2 (10:15→17:30)
--- NOTE | 2016-09-10 11:03 | P.NPCON ---
History of Present Illness - Reason for Consult end stage renal disease - History of Present Illness Reason for consultation: End-stage renal disease History of present illness: Patient is a 61-year-old female seen in renal consultation for end- stage renal disease. She is maintained on hemodialysis on a Wednesday schedule via permacath. Patient was on peritoneal dialysis however due to recurrent peritonitis she was transitioned over to hemodialysis last month. She missed last 3 treatments of hemodialysis. Patient states he sustained a mechanical fall and was having bilateral knee pain and difficulty with ambulation. She also states she was having intermittent diarrhea. Currently denies any chest pain or shortness of breath. No active vomiting or diarrhea. Hemodynamically she is stable with blood pressures on the higher end. No fractures noted on imaging. She does have significant lower extremity edema. Vital signs are stable. General: The patient appeared well nourished and normally developed. HEENT: Head exam is unremarkable. Neck is without jugular venous distension. LUNGS: Lungs are clear to auscultation and percussion. Breath sounds decreased. HEART: Rate and Rhythm are regular. First and second heart sounds normal. No murmurs, rubs or gallops. ABDOMEN: Abdominal exam reveals normal bowel sounds. Non-tender and non- distended. No evidence of peritonitis. EXTREMITITES: 1-2+ edema. Past Medical History Past Medical History: Heart Failure, Diabetes Mellitus, Dialysis, GERD/Reflux, Hyperlipidemia, Hypertension, Renal Disease Additional Past Medical History / Comment(s): Peritonitis, chronic renal disease stage IV, cardiomyopathy, IDDM type II, normocytic anemia, ARPIT without device, frequent constipation, hyponatremia, hypocalcemia, low albumin, mild to moderate protein calorie malnutrition, obesity, gastritis, back and hip pain bilaterally, cataract in one eye (laterallity unknown). History of Any Multi-Drug Resistant Organisms: None Reported Past Surgical History: Cholecystectomy, Heart Catheterization Additional Past Surgical History / Comment(s): 2013 Peritoneal dialysis catheter placement and removal, hemodialysis cath placement, 2011 cardiac cath , pilonodial cyst removed Past Anesthesia/Blood Transfusion Reactions: No Reported Reaction Additional Past Anesthesia/Blood Transfusion Reaction / Comment(s): never received a blood transfusion Past Psychological History: Anxiety, Depression Additional Psychological History / Comment(s): Father is from [facility]. She has had no international travel at any time. She has no travel to the [facility]. She lives in her family home with her son and rhonda, and does not work outside of the home. No significant alcohol use. No history of recreational drug use. There is a pet cat in the home, and her adult son cares for the box. Smoking Status: Current every day smoker Past Alcohol Use History: None Reported Additional Past Alcohol Use History / Comment(s): Pt started smoking in 1975 and is a ppd smoker. Past Drug Use History: None Reported - Past Family History Mother Family Medical History: Congestive Heart Failure (CHF), Coronary Artery Disease (CAD), Diabetes Mellitus Additional Family Medical History / Comment(s): Mother of diabetic complications at the age of 55yrs. Father Family Medical History: Diabetes Mellitus, Hypertension, Pneumonia Additional Family Medical History / Comment(s): alcoholism. Father of pneumonia at the age of 81 yrs. Medications and Allergies Home Medications Medication Instructions Recorded Confirmed Type Carvedilol [Coreg*] 12.5 mg PO BID 11/24/13 09/09/16 History Isosorbide Mononitrate [Imdur] 30 mg PO DAILY 11/24/13 09/09/16 History Insulin NPH Hum/Reg Insulin Hm 35 units SQ AC-SUPPER 11/13/15 09/09/16 History [NovoLIN 70-30 100 UNIT/ML VIAL] Omeprazole 20 mg PO BID 04/27/16 09/09/16 History Albuterol Inhaler [Ventolin Hfa 1 - 2 puff INHALATION RT-Q6H PRN 09/09/16 History Inhaler] Albuterol Nebulized [Ventolin 2.5 mg INHALATION RT-Q6H PRN 09/09/16 09/09/16 History Nebulized] Insuln Asp Prt/Insulin Aspart 20 unit SQ HS PRN 09/09/16 09/09/16 History [NovoLOG MIX 70-30 VIAL] hydrALAZINE HCL [Apresoline] 25 mg PO TID 09/09/16 09/09/16 History oxyCODONE-APAP 7.5-325MG [Percocet 1 tab PO BID PRN 09/09/16 09/09/16 History 7.5-325 mg] Allergies Allergy/AdvReac Type Severity Reaction Status Date / Time No Known Allergies Allergy Verified 09/09/16 22:43 Physical Exam Vitals: Vital Signs Temp Pulse Pulse Resp BP BP Pulse Ox 09/10/16 07:30 97.7 F 90 16 170/87 100 09/10/16 03:23 84 16 09/10/16 02:50 97.8 F 95 16 187/69 99 09/10/16 01:32 97 18 160/72 100 Intake and Output 09/09/16 09/10/16 09/10/16 22:59 06:59 14:59 Intake Total 356 Balance 356 Intake: Oral 356 Other: Voiding Method Bedside Commode # Voids 2 Weight 130.2 kg Results - Lab Results Most recent lab results Calcium 7.9 mg/dL (8.4-10.2) L 09/09/16 23:25 09/09/16 23:25 09/09/16 23:25 Assessment and Plan Plan: Assessment: #1. End-stage renal disease maintained on hemodialysis on a Wednesday schedule via permacath. #2. Anemia of chronic kidney disease. #3. Hypertension with chronic kidney disease. Uncontrolled. Partially volume sensitive. #4. Insulin-dependent diabetes mellitus. Plan: Hemodialysis today with goal 4 L ultrafiltration. Check phosphorus level. Potential discharge after hemodialysis today. I strongly advised her to be compliant with her dialysis treatments and to resume dialysis as an outpatient starting tomorrow. Thank you for the consultation. I will continue to follow the patient you during her hospital stay.
[2016-09-10] MEDS: ALPRAZolam 0.5 MG TAB PO SCH ×2 (11:20→21:05)
--- NOTE | 2016-09-10 11:26 | HP ---
DATE OF ADMISSION: 09/10/2016 PRESENTING COMPLAINT: Missed hemodialysis. HISTORY OF PRESENTING COMPLAINT: This is a pleasant 61-year-old patient with rather extensive medical history. Patient's chronic stable medical conditions include morbid obesity, diabetes mellitus type 2, GERD, hyperlipidemia, hypertension, normocytic anemia, obstructive sleep apnea, primary osteoarthritis, COPD. Patient on last admission last month was switched over to hemodialysis because of infected peritoneal dialysis catheter causing peritonitis. Patient yesterday took a fall on both the knees and has been unable to get up. Hence, she was unable to do her hemodialysis. X-ray in the ER did not show any fracture but she became more tired, lethargic because of missed hemodialysis hence she had to be admitted. Denies any fever. Tiredness is significant. REVIEW OF SYSTEMS: CONSTITUTIONAL: Tired. HEENT: None. RESPIRATORY: Baseline some shortness of breath. CARDIOVASCULAR: None. GASTROINTESTINAL: None. GENITOURINARY: None. MUSCULOSKELETAL: Pain in the knees. DERMATOLOGICAL: None. HEMATOLOGICAL: None. LYMPHATICS: None. PSYCHIATRY: None. NEUROLOGICAL: None. PAST MEDICAL HISTORY: End-stage kidney disease on hemodialysis previously on peritoneal dialysis got infected catheter, diabetes mellitus type 2 on insulin, GERD, hyperlipidemia, hypertension, normocytic anemia, obstructive sleep apnea, primary osteoarthritis, COPD. Also, patient has cardiomyopathy, hypoalbuminemia, chronic pain. PAST SURGICAL HISTORY: Cholecystectomy, cardiac cath, peritoneal catheter dialysis placement and removal. SOCIAL HISTORY: Patient been smoking since 1975, still smoking off and on. No significant alcohol use. FAMILY HISTORY: Congestive heart failure, coronary artery disease, diabetes. Mother ( ) age of 55. HOME MEDICATIONS: 1. Hydralazine 25 mg p.o. t.i.d. 2. Xanax 0.5 p.o. q.12. 3. Ventolin 2.5 q.6 p.r.n. 4. Ventolin HFA 1 to 2 puffs q.6 p.r.n. 5. NovoLog Mix 70/30, twenty units subcu q.h.s. 6. Lasix 80 mg b.i.d. 7. Coreg 12.5 p.o. b.i.d. 8. Imdur 30 mg a day. 9. Novolin 70/30, 35 units with supper. 10. Percocet 7.5 one tablet p.o. b.i.d. p.r.n. 11. Omeprazole 20 mg b.i.d. 12. Motrin 600 mg q.6 p.r.n. ALLERGIES: None. On examination, temperature 97.7, pulse 90, respirations 16, blood pressure 170/87, pulse ox 100% on room air. GENERAL APPEARANCE: Morbidly obese, BMI of 49.3, lying in bed, tired appearing. EYES: Pupils equal. Conjunctivae pale. HENT: Oral cavity normal. NECK: JVD unable to assess. Mass not palpable. RESPIRATORY: Effort increased. LUNGS: Diminished breath sounds. CARDIOVASCULAR: First and second sounds normal. Edema present. ABDOMEN: Distended, pendulous. Liver and spleen not palpable. LYMPHATIC: No lymph nodes palpable in neck or axillae. PSYCHIATRY: Alert and oriented x3. Mood and affect normal. NEUROLOGICAL: Pupils equal. Cranial nerves grossly intact. Power and sensation grossly intact. MUSCULOSKELETAL: Some evidence of osteoarthritis with prominent bones, slight tenderness in the knees. No excessive tenderness. INVESTIGATIONS: White count 7.5, hemoglobin 9.9. Potassium 4.3. BUN 55, creatinine 11.2. Glucose 295. Albumin 2.4. ASSESSMENT: 1. End-stage kidney disease with worsening having missed hemodialysis causing fluid retention, uncontrolled hypertension, weak, tired. 2. Acute bilateral knee sprain secondary to a fall. 3. Morbid obesity, body mass index greater than 45. 4. Diabetes mellitus type 2, chronically on insulin. 5. Gastroesophageal reflux disease. 6. Hyperlipidemia. 7. Essential hypertension. 8. Normocytic anemia due to end-stage kidney disease. 9. Obstructive sleep apnea, does not use CPAP. 10. Primary osteoarthritis of multiple joints, including hips and knees. 11. Chronic obstructive pulmonary disease in a current smoker. 12. Chronic nicotine dependence. Patient is a cigarette smoker. 13. Chronic pain syndrome in multiple joints. 14. Medical debility. Patient at baseline uses a walker. 15. Hypoalbuminemia from end-stage kidney disease. PLAN: Home medications will be resumed. Patient will need hemodialysis so that she will become more ( ) to where she can be discharged. Accu-Cheks will be followed. Care was discussed in detail with the patient.
[2016-09-10 11:38] LABS: Hemoglobin A1C 8.1 % (4.2-6.1)
[2016-09-10 12:05] LABS: Glucose,Whole Blood 168 mg/dL (75-99)
[2016-09-10 12:44] VITALS: RESP 18
[2016-09-10] MEDS: FUROSEMIDE 80 MG TAB PO SCH ×2 (17:03→21:05)
[2016-09-10] MEDS: PANTOPRAZOLE 40 MG TABLET PO SCH ×2 (17:03→18:30)
[2016-09-10] MEDS: hydrALAZINE HCL 25 MG TAB PO SCH ×2 (17:03→17:04)
[2016-09-10] MEDS: CARVEDILOL 12.5 MG TAB PO SCH ×2 (17:04→18:29)
[2016-09-10 17:33] LABS: Glucose,Whole Blood 49 mg/dL (75-99)
[2016-09-10 18:28] LABS: Glucose,Whole Blood 63 mg/dL (75-99)
[2016-09-10 19:06] LABS: Glucose,Whole Blood 63 mg/dL (75-99)
[2016-09-10 19:43] LABS: Glucose,Whole Blood 88 mg/dL (75-99)
[2016-09-10 21:05] VITALS: BP 161/78; PULSE 91; TEMP 98.7
--- NOTE | 2016-09-14 20:22 | DS ---
DATE OF ADMISSION: 09/10/2016 DATE OF DISCHARGE: 09/10/2016 FINAL DIAGNOSIS(ES): 1. Increasing fluid retention from having missed hemodialysis. 2. Acute bilateral knee sprain secondary to fall. 3. Morbid obesity, body mass index greater than 45. 4. Diabetes mellitus type 2, chronically on insulin. 5. Gastroesophageal reflux disease. 6. Hyperlipidemia. 7. Essential hypertension, uncontrolled from missed dialysis. 8. Normocytic anemia due to end-stage kidney disease. 9. Obstructive sleep apnea does not use CPAP. 10. Primary osteoarthritis of multiple joints including hips and knees. 11. Chronic obstructive pulmonary disease in a current smoker. 12. Chronic nicotine dependence. Patient a smoker. 13. Chronic pain syndrome in multiple joints. 14. Medical debility. Patient at baseline uses a walker. 15. Hypoalbuminemia from end-stage kidney disease. HOSPITAL COURSE: This patient missed hemodialysis, presented with fluid overload, uncontrolled blood pressures. Patient was dialyzed, after which she was feeling much better. On exam, lungs decreased breath sounds. CARDIOVASCULAR: First and second sounds normal. Decreased edema. CONSULTATION: Dr. Gaviria from nephrology. DISCHARGE MEDICATIONS: 1. Coreg 12.5 p.o. b.i.d. 2. Imdur 30 mg p.o. daily. 3. Lasix 80 mg p.o. b.i.d. 4. Omeprazole 20 mg p.o. b.i.d. 5. Xanax 0.5 p.o. q.12. 6. Ventolin HFA 1 to 2 puffs q.6 p.r.n. 7. Ventolin 2.5 nebulizer q.6 p.r.n. 8. Motrin 600 mg q.6 p.r.n. 9. Hydralazine 25 mg p.o. daily. 10. Percocet 7.5 1 tablet b.i.d. 11. Humalog at meals and q.h.s. 12. Novolin 70/30 35 units a.c. b.i.d. Follow up with Dr. Mariano in 1 to 2 days, follow-up with Dr. Izaguirre in one week. Follow up with hemodialysis as scheduled.
== END 2016-09-10 21:30 | disposition home or self-care (01) ==
LOC: EC 19:33 → 3OBS 09-10 01:11
PROVIDERS: ADMIT Hospitalist; ATTEND Hospitalist
DX: I12.0 Hypertensive chronic kidney disease with stage 5 chronic kidney disease or end stage renal disease (principal); E11.22 Type 2 diabetes mellitus with diabetic chronic kidney disease; N18.6 End stage renal disease; S83.92XA Sprain of unspecified site of left knee, initial encounter; S83.91XA Sprain of unspecified site of right knee, initial encounter; E66.01 Morbid (severe) obesity due to excess calories; Z68.42 Body mass index [BMI] 45.0-49.9, adult; K21.9 Gastro-esophageal reflux disease without esophagitis; E78.5 Hyperlipidemia, unspecified; D63.1 Anemia in chronic kidney disease; D64.9 Anemia, unspecified; G47.33 Obstructive sleep apnea (adult) (pediatric); M19.91 Primary osteoarthritis, unspecified site; J44.9 Chronic obstructive pulmonary disease, unspecified; F17.210 Nicotine dependence, cigarettes, uncomplicated; G89.4 Chronic pain syndrome; E88.09 Other disorders of plasma-protein metabolism, not elsewhere classified; I42.9 Cardiomyopathy, unspecified; I50.9 Heart failure, unspecified; R19.7 Diarrhea, unspecified; R60.0 Localized edema; Z79.899 Other long term (current) drug therapy; Z79.4 Long term (current) use of insulin; Z99.2 Dependence on renal dialysis; W01.198A Fall on same level from slipping, tripping and stumbling with subsequent striking against other object, initial encounter
CPT/HCPCS: 99285; 36415; 93005; 80053; 83036; 84100; 85025; 71020; 73562; G0378

== ENCOUNTER 2016-09-14 11:32 | Inpatient (IN) | payer MEDICARE, OTHER ==
--- NOTE | 2016-09-14 12:15 | ED ---
General Adult HPI - General Source: patient, RN notes reviewed Mode of arrival: ambulatory Limitations: no limitations <Devon Treadwell - Last Filed: 09/14/16 12:27> <Galindo Macedo - Last Filed: 09/14/16 14:05> - General Chief complaint: Recheck/Abnormal Lab/Rx Stated complaint: PLUGGED CATHETER Time Seen by Provider: 09/14/16 12:03 - History of Present Illness Initial comments: Patient 61-year-old female who presents emergency room today with chief complaint of a clogged dialysis catheter. Patient states that she went to have her routine dialysis today they were unable to access. States they called Dr. Crawley office and was advised come here to the emergency room. Patient denies any recent fever, chills, shortness of breath, chest pain, back pain, abdominal pain, nausea or vomiting, numbness or tingling, dysuria or hematuria, constipation or diarrhea, headaches or visual changes, or any other complaints. (Devon Treadwell) - Related Data Home Medications Medication Instructions Recorded Confirmed Carvedilol [Coreg*] 12.5 mg PO BID 11/24/13 09/14/16 Isosorbide Mononitrate [Imdur] 30 mg PO DAILY 11/24/13 09/14/16 Omeprazole 20 mg PO BID 04/27/16 09/14/16 Albuterol Inhaler [Ventolin Hfa 1 - 2 puff INHALATION RT-Q6H PRN 09/09/16 Inhaler] Albuterol Nebulized [Ventolin 2.5 mg INHALATION RT-Q6H PRN 09/09/16 09/14/16 Nebulized] hydrALAZINE HCL [Apresoline] 25 mg PO TID 09/09/16 09/14/16 oxyCODONE-APAP 7.5-325MG [Percocet 1 tab PO BID PRN 09/09/16 09/14/16 7.5-325 mg] INSULIN LISPRO (humaLOG) [humaLOG See Protocol SQ ACHS 09/14/16 09/14/16 (formulary)] Previous Rx's Medication Instructions Recorded Furosemide [Lasix] 80 mg PO BID #60 tablet 01/10/14 ALPRAZolam [Xanax] 0.5 mg PO Q12HR #15 tab 07/18/16 Ibuprofen [Motrin] 600 mg PO Q6HR PRN #24 tab 09/09/16 Insulin NPH Hum/Reg Insulin Hm 35 units SQ AC-BID #0 09/10/16 [NovoLIN 70-30 100 UNIT/ML VIAL] Allergies Allergy/AdvReac Type Severity Reaction Status Date / Time No Known Allergies Allergy Verified 09/14/16 12:55 Review of Systems ROS Other: All systems not noted in ROS Statement are negative. <Devon Treadwell - Last Filed: 09/14/16 12:27> ROS Other: All systems not noted in ROS Statement are negative. <Galindo Macedo - Last Filed: 09/14/16 14:05> ROS Statement: Those systems with pertinent positive or pertinent negative responses have been documented in the HPI. Past Medical History Past Medical History: Heart Failure, Diabetes Mellitus, Dialysis, GERD/Reflux, Hyperlipidemia, Hypertension, Renal Disease Additional Past Medical History / Comment(s): Peritonitis, chronic renal disease stage IV, cardiomyopathy, IDDM type II, normocytic anemia, ARPIT without device, frequent constipation, hyponatremia, hypocalcemia, low albumin, mild to moderate protein calorie malnutrition, obesity, gastritis, back and hip pain bilaterally, cataract in one eye (laterallity unknown). History of Any Multi-Drug Resistant Organisms: None Reported Past Surgical History: Cholecystectomy, Heart Catheterization Additional Past Surgical History / Comment(s): 2013 Peritoneal dialysis catheter placement and removal, hemodialysis cath placement, 2011 cardiac cath , pilonodial cyst removed Past Anesthesia/Blood Transfusion Reactions: No Reported Reaction Additional Past Anesthesia/Blood Transfusion Reaction / Comment(s): never received a blood transfusion Past Psychological History: Anxiety, Depression Additional Psychological History / Comment(s): Father is from [facility]. She has had no international travel at any time. She has no travel to the [facility]. She lives in her family home with her son and rhonda, and does not work outside of the home. No significant alcohol use. No history of recreational drug use. There is a pet cat in the home, and her adult son cares for the box. Smoking Status: Current every day smoker Past Alcohol Use History: None Reported Additional Past Alcohol Use History / Comment(s): Pt started smoking in 1975 and is a ppd smoker. Past Drug Use History: None Reported - Past Family History Mother Family Medical History: Congestive Heart Failure (CHF), Coronary Artery Disease (CAD), Diabetes Mellitus Additional Family Medical History / Comment(s): Mother of diabetic complications at the age of 55yrs. Father Family Medical History: Diabetes Mellitus, Hypertension, Pneumonia Additional Family Medical History / Comment(s): alcoholism. Father of pneumonia at the age of 81 yrs. <Devon Treadwell - Last Filed: 09/14/16 12:27> General Exam Limitations: no limitations <Devon Treadwell - Last Filed: 09/14/16 12:27> General appearance: alert, in no apparent distress Head exam: Present: atraumatic, normocephalic, normal inspection Eye exam: Present: normal appearance, PERRL, EOMI. Absent: scleral icterus, conjunctival injection, periorbital swelling ENT exam: Present: normal exam, mucous membranes moist Neck exam: Present: normal inspection. Absent: tenderness, meningismus, lymphadenopathy Respiratory exam: Present: normal lung sounds bilaterally. Absent: respiratory distress, wheezes, rales, rhonchi, stridor Cardiovascular Exam: Present: regular rate, normal rhythm, normal heart sounds. Absent: systolic murmur, diastolic murmur, rubs, gallop, clicks GI/Abdominal exam: Present: soft, normal bowel sounds. Absent: distended, tenderness, guarding, rebound, rigid Extremities exam: Present: normal inspection, full ROM, normal capillary refill. Absent: tenderness, pedal edema, joint swelling, calf tenderness Back exam: Present: normal inspection Neurological exam: Present: alert, oriented X3, CN II-XII intact Psychiatric exam: Present: normal affect, normal mood Skin exam: Present: warm, dry, intact, normal color. Absent: rash <Galindo Macedo - Last Filed: 09/14/16 14:05> - General Exam Comments Initial Comments: General: The patient is awake and alert, in no distress, and does not appear acutely ill. Eye: Pupils are equal, round and reactive to light, extra-ocular movements are intact. No nystagmus. There is normal conjunctiva bilaterally. No signs of icterus. Ears, nose, mouth and throat: There are moist mucous membranes and no oral lesions. Neck: The neck is supple, there is no tenderness or JVD. Cardiovascular: There is a regular rate and rhythm. No murmur, rub or gallop is appreciated. Respiratory: Lungs are clear to auscultation, respirations are non-labored, breath sounds are equal. No wheezes, stridor, rales, or rhonchi. Gastrointestinal: Soft, non-distended, non-tender abdomen without masses or organomegaly noted. There is no rebound or guarding present. No CVA tenderness. Bowel sounds are unremarkable. Musculoskeletal: Normal ROM, no tenderness. Strength 5/5. Sensation intact. Pulses equal bilaterally 2+. Neurological: A&O x 3. CN II-XII intact, There are no obvious motor or sensory deficits. Coordination appears grossly intact. Speech is normal. Skin: Skin is warm and dry and no rashes or lesions are noted. Psychiatric: Cooperative, appropriate mood & affect, normal judgment. (Devon Treadwell) Course <Devon Treadwell - Last Filed: 09/14/16 12:27> <Galindo Macedo - Last Filed: 09/14/16 14:05> Vital Signs 09/14/16 09/14/16 11:58 13:02 Temperature 98.2 F Pulse Rate 99 Respiratory 18 Rate Blood Pressure 210/84 158/67 O2 Sat by Pulse 99 Oximetry - Reevaluation(s) Reevaluation #1: 09/14/16 14:[address] Crawley regarding patient's clotted, clogged right subclavian Jose M catheter, will admit for permanent vascular access (Galindo Macedo) Medical Decision Making <Devon Treadwell - Last Filed: 09/14/16 12:27> - Lab Data Result diagrams: 09/14/16 13:32 09/14/16 12:56 <Galindo Macedo - Last Filed: 09/14/16 14:05> - Medical Decision Making Case discussed and seen by attending physician who did discuss the case with vascular surgeon Dr. Crawley who states he will see the patient on consult. Patient will be admitted to the hospitalist for new catheter placement for dialysis. (Devon Teradwell) 61 female ER for evaluation of catheter malfunction, patient is quite catheter for dialysis, patient recently of peritoneal dialysis, but suffering from peritonitis, catheter was exchanged to when cath right subclavian, this time it is clogged the patient will be admitted for better and permanent stage renal disease on hemodialysis (Galindo Macedo) - Lab Data Lab Results 09/14/16 09/14/16 Range/Units 12:56 13:32 WBC 6.9 (3.8-10.6) k/uL RBC 3.34 L (3.80-5.40) m/uL Hgb 10.9 L (11.4-16.0) gm/dL Hct 33.7 L (34.0-46.0) % MCV 100.9 H (80.0-100.0) fL MCH 32.7 (25.0-35.0) pg MCHC 32.4 (31.0-37.0) g/dL RDW 17.2 H (11.5-15.5) % Plt Count 229 (150-450) k/uL Neutrophils % 66 % Lymphocytes % 15 % Monocytes % 9 % Eosinophils % 6 % Basophils % 1 % Neutrophils # 4.6 (1.3-7.7) k/uL Lymphocytes # 1.0 (1.0-4.8) k/uL Monocytes # 0.7 (0-1.0) k/uL Eosinophils # 0.4 (0-0.7) k/uL Basophils # 0.1 (0-0.2) k/uL Hypochromasia Slight Anisocytosis Slight Macrocytosis Slight Sodium 137 (137-145) mmol/L Potassium 4.1 (3.5-5.1) mmol/L Chloride 104 (98-107) mmol/L Carbon Dioxide 23 (22-30) mmol/L Anion Gap 10 mmol/L BUN 37 H (7-17) mg/dL Creatinine 8.18 H* (0.52-1.04) mg/dL Est GFR (MDRD) Af Amer 6 (>60 ml/min/1.73 sqM) Est GFR (MDRD) Non-Af 5 (>60 ml/min/1.73 sqM) Glucose 222 H (74-99) mg/dL Calcium 7.9 L (8.4-10.2) mg/dL Total Bilirubin 0.5 (0.2-1.3) mg/dL AST 17 (14-36) U/L ALT 31 (9-52) U/L Alkaline Phosphatase 170 H (38-126) U/L Total Protein 5.8 L (6.3-8.2) g/dL Albumin 2.3 L (3.5-5.0) g/dL Disposition Time of Disposition: 12:46 <Devon Treadwell - Last Filed: 09/14/16 12:27> <Galindo Macedo - Last Filed: 09/14/16 14:05> Clinical Impression: Chronic renal failure, Dialysis catheter clot or failure Disposition: ADMITTED IP TO THIS [facility] Condition: Stable Referrals: Dakota Izaguirre MD [Primary Care Provider] - 1-2 days
[2016-09-14] MEDS ORDERED: oxyCODONE-APAP 7.5-325MG 1 EACH TAB PO STA (12:16)
[2016-09-14] MEDS ORDERED: SODIUM CHLORIDE 0.9% 1,000 ML IV STA (12:26)
[2016-09-14] MEDS ORDERED: NALOXONE 0.4 MG/ML 1 ML VIAL IV PRN (12:46)
[2016-09-14] MEDS ORDERED: SODIUM CHLORIDE 0.9% 1,000 ML IV ONE (12:46)
[2016-09-14] MEDS ORDERED: ONDANSETRON 4 MG/2 ML VIAL IVP PRN (12:46)
[2016-09-14 13:23] LABS: Calcium 7.9 mg/dL (8.4-10.2); Potassium 4.1 mmol/L (3.5-5.1); Total Bilirubin 0.5 mg/dL (0.2-1.3); Total Protein 5.8 g/dL (6.3-8.2)
[2016-09-14 13:51] LABS: Anisocytosis Slight; Basophils # (A) 0.1 k/uL (0-0.2); Basophils % (A) 1 %; CH 31.3; CHCM 31.2; Eosinophils # (A) 0.4 k/uL (0-0.7); Eosinophils % (A) 6 %; HCT 33.7 % (34.0-46.0); HDW 2.87; HGB 10.9 gm/dL (11.4-16.0); Hypochromasia Slight; Luc # (Auto) 0.17; Luc % (Auto) 2; Lymphocytes % (A) 15 %; MCH 32.7 pg (25.0-35.0); MCHC 32.4 g/dL (31.0-37.0); MCV 100.9 fL (80.0-100.0); Macrocytosis Slight; Mean Platelet Volume 8.3; Monocytes # (A) 0.7 k/uL (0-1.0); Monocytes % (A) 9 %; Neutrophils # (A) 4.6 k/uL (1.3-7.7); Neutrophils % (A) 66 %; RBC 3.34 m/uL (3.80-5.40); RDW 17.2 % (11.5-15.5); WBC 6.9 k/uL (3.8-10.6); WBC (Perox) 7.27
[2016-09-14] MEDS: HYDROmorphone 1 MG/ML 1 ML SYRINGE IV PRN ×2 (14:21→22:26)
--- NOTE | 2016-09-14 14:52 | P.GSCN ---
History of Present Illness History of present illness: 61-year-old white female patient had a dialysis catheter placed August 13 today patient came to the emergency room her right dialysis catheter is clogged up and she has been admitted for change of dialysis catheter Medical history history of chronic or renal failure hypertension hyperlipidemia Surgical history patient had a cholecystectomy and appendectomy and right catheter placed up in July On examination patient has a dialysis catheter for approach no sign of infection noted Chest is clear auscultation Abdomen soft nontender vascular examination femoral pulses are present Impression is mottled function dialysis catheter plan is change of the dialysis catheter risk and complication discussed thank you very much Past Medical History Past Medical History: Heart Failure, Diabetes Mellitus, Dialysis, GERD/Reflux, Hyperlipidemia, Hypertension, Renal Disease Additional Past Medical History / Comment(s): Peritonitis, chronic renal disease stage IV, cardiomyopathy, IDDM type II, normocytic anemia, ARPIT without device, frequent constipation, hyponatremia, hypocalcemia, low albumin, mild to moderate protein calorie malnutrition, obesity, gastritis, back and hip pain bilaterally, cataract in one eye (laterallity unknown). History of Any Multi-Drug Resistant Organisms: None Reported Past Surgical History: Cholecystectomy, Heart Catheterization Additional Past Surgical History / Comment(s): 2013 Peritoneal dialysis catheter placement and removal, hemodialysis cath placement, 2011 cardiac cath , pilonodial cyst removed Past Anesthesia/Blood Transfusion Reactions: No Reported Reaction Additional Past Anesthesia/Blood Transfusion Reaction / Comm: never received a blood transfusion Past Psychological History: Anxiety, Depression Additional Psychological History / Comment(s): Father is from [facility]. She has had no international travel at any time. She has no travel to the [facility]. She lives in her family home with her son and rhonda, and does not work outside of the home. No significant alcohol use. No history of recreational drug use. There is a pet cat in the home, and her adult son cares for the box. Smoking Status: Current every day smoker Past Alcohol Use History: None Reported Additional Past Alcohol Use History / Comment(s): Pt started smoking in 1975 and is a ppd smoker. Past Drug Use History: None Reported - Past Family History Mother Family Medical History: Congestive Heart Failure (CHF), Coronary Artery Disease (CAD), Diabetes Mellitus Additional Family Medical History / Comment(s): Mother of diabetic complications at the age of 55yrs. Father Family Medical History: Diabetes Mellitus, Hypertension, Pneumonia Additional Family Medical History / Comment(s): alcoholism. Father of pneumonia at the age of 81 yrs. Medications and Allergies Home Medications Medication Instructions Recorded Confirmed Type Carvedilol [Coreg*] 12.5 mg PO BID 11/24/13 09/14/16 History Isosorbide Mononitrate [Imdur] 30 mg PO DAILY 11/24/13 09/14/16 History Omeprazole 20 mg PO BID 04/27/16 09/14/16 History Albuterol Inhaler [Ventolin Hfa 1 - 2 puff INHALATION RT-Q6H PRN 09/09/16 History Inhaler] Albuterol Nebulized [Ventolin 2.5 mg INHALATION RT-Q6H PRN 09/09/16 09/14/16 History Nebulized] hydrALAZINE HCL [Apresoline] 25 mg PO TID 09/09/16 09/14/16 History oxyCODONE-APAP 7.5-325MG [Percocet 1 tab PO BID PRN 09/09/16 09/14/16 History 7.5-325 mg] INSULIN LISPRO (humaLOG) [humaLOG See Protocol SQ ACHS 09/14/16 09/14/16 History (formulary)] Allergies Allergy/AdvReac Type Severity Reaction Status Date / Time No Known Allergies Allergy Verified 09/14/16 12:55 Surgical - Exam Vital Signs Temp Pulse Resp BP Pulse Ox 98.2 F 99 18 210/84 99 09/14/16 11:58 09/14/16 11:58 09/14/16 11:58 09/14/16 11:58 09/14/16 11:58 Results - Labs 09/14/16 13:32 09/14/16 12:56
[2016-09-14] MEDS ORDERED: IBUPROFEN 600 MG TAB PO PRN (17:12)
[2016-09-14] MEDS: INSULIN LISPRO (humaLOG) 300 UNIT/3 ML VIAL SQ SCH ×3 (17:38→20:17)
[2016-09-14] MEDS: FUROSEMIDE 80 MG TAB PO SCH ×2 (17:39→17:50)
[2016-09-14] MEDS: CARVEDILOL 12.5 MG TAB PO SCH ×2 (17:39→17:50)
[2016-09-14] MEDS: PANTOPRAZOLE 40 MG TABLET PO SCH (17:39)
[2016-09-14 17:43] LABS: Glucose,Whole Blood 206 mg/dL (75-99)
[2016-09-14] MEDS: INSULIN NPH/REG INSULIN 70/30 300 UNIT/3 ML VIAL SQ SCH ×2 (17:50→20:18)
[2016-09-14] MEDS ORDERED: IV FLUID CONTINUATION 1,000 ML IV ONE (18:30)
[2016-09-14] MEDS ORDERED: fentaNYL (PF) 50 MCG/ML 2 ML AMP IV ONE (18:39)
[2016-09-14] MEDS ORDERED: LIDOCAINE 2% INJ 20 MG/ML SQ ONE (18:41)
[2016-09-14] MEDS ORDERED: MIDAZOLAM 2 MG/2 ML VIAL IV ONE (18:44)
--- NOTE | 2016-09-14 19:48 | XR ---
EXAMINATION TYPE: XR chest 1V DATE OF EXAM: 09/14/2016 7:32 PM CLINICAL HISTORY: Post dialysis catheter exchange. TECHNIQUE: Single AP portable upright view of the chest is obtained. COMPARISON: Chest x-ray from 5 days earlier. FINDINGS: There is redemonstration of dual-lumen right internal jugular dialysis catheter with tips in SVC. Position is satisfactory after exchange. There is persistent mild cardiomegaly. There is perh aps mild central vascular congestion redemonstrated. No large pleural effusion or pneumothorax is see n. Osseous structures are intact. IMPRESSION: No evidence of complication related to catheter exchange.
[2016-09-14 20:03] LABS: Glucose,Whole Blood 140 mg/dL (75-99)
[2016-09-14] MEDS: ALPRAZolam 0.5 MG TAB PO SCH (20:17)
--- NOTE | 2016-09-14 20:26 | IR ---
EXAMINATION TYPE: IR cvc insert central tunneled DATE OF EXAM: 09/14/2016 7:06 PM CLINICAL HISTORY: Dialysis Catheter Exchange. TECHNIQUE: Fluoroscopy. COMPARISON: None. FINDINGS: Fluoroscopic guidance was provided during dialysis catheter exchange procedure performed lang Crawley. A total of 120 seconds of fluoroscopic time was utilized during the procedure and mul tiple spot intraoperative images are acquired. Intraoperative Images acquired show right internal jug ular dialysis catheter with tips overlying SVC. IMPRESSION: As Above.
[2016-09-14] MEDS: hydrALAZINE HCL 25 MG TAB PO SCH (22:32)
[2016-09-15] MEDS: HYDROmorphone 1 MG/ML 1 ML SYRINGE IV PRN ×4 (01:27→18:29)
[2016-09-15] MEDS ORDERED: DEXTROSE 50%-WATER 50 ML SYRINGE IVP ONE (06:56)
[2016-09-15 07:23] LABS: Glucose,Whole Blood 21 mg/dL (75-99)
[2016-09-15 07:23] LABS: Glucose,Whole Blood 22 mg/dL (75-99)
[2016-09-15 07:24] LABS: Glucose,Whole Blood 104 mg/dL (75-99)
[2016-09-15 07:30] LABS: Glucose,Whole Blood 85 mg/dL (75-99)
--- NOTE | 2016-09-15 07:37 | XR ---
EXAMINATION TYPE: XR chest 1V portable DATE OF EXAM: 09/15/2016 7:32 AM HISTORY: Shortness of breath. COMPARISON: 09/14/2016 TECHNIQUE: Single view of the chest is submitted. FINDINGS: Demonstrated are scattered senescent parenchymal change. There is persistent patchy density right medial lung base. Correlate for pneumonia or atelectasis. The heart is stable. Hilar and mediastinal structures are within normal limits. Degenerative changes are seen of the dorsal spine. IMPRESSION: 1. There is persistent patchy density right medial lung base. Correlate for pneumonia or atelectasis .
[2016-09-15 07:54] LABS: Glucose,Whole Blood 81 mg/dL (75-99)
[2016-09-15] MEDS: INSULIN LISPRO (humaLOG) 300 UNIT/3 ML VIAL SQ SCH ×4 (08:23→20:59)
[2016-09-15] MEDS: CARVEDILOL 12.5 MG TAB PO SCH ×2 (08:28→16:07)
[2016-09-15] MEDS: PANTOPRAZOLE 40 MG TABLET PO SCH ×2 (08:29→16:12)
[2016-09-15 08:32] LABS: Glucose,Whole Blood 82 mg/dL (75-99)
[2016-09-15 09:10] LABS: Glucose,Whole Blood 88 mg/dL (75-99)
[2016-09-15] MEDS: INSULIN NPH/REG INSULIN 70/30 300 UNIT/3 ML VIAL SQ SCH ×2 (09:41→17:47)
--- NOTE | 2016-09-15 09:54 | PCN ---
DATE OF PROCEDURE: PREOPERATIVE DIAGNOSIS: Acute on chronic renal failure. PROCEDURE: Placement of the 28 cm dialysis catheter. This patient had a previous catheter placed. Patient's catheter was malfunctioning. Patient was brought to the brick and blocker aid labor. The right side of the neck and chest and catheter was prepped and draped in usual sterile manner and 1% lidocaine infiltrated. Small incision was made at the neck and catheter was divided and a guidewire was passed, which was parked in the inferior vena cava. After that, we created a tunnel. Through the tunnel, we brought a 28 cm dialysis catheter. Old catheter was removed and sheath was advanced on top of the guidewire. Through the sheath, we introduced the 28 cm dialysis catheter. Tip of the catheter in the superior vena cava and ( ), flushed with heparin saline and hep-locked. Incision was closed with nylon and Vicryl. Dressing applied. The patient tolerated the procedure well.
[2016-09-15] MEDS ORDERED: DEXTROSE 5%-0.9% NACL 1,000 ML IV SCH (10:30)
[2016-09-15 10:56] LABS: Potassium 4.3 mmol/L (3.5-5.1)
[2016-09-15] MEDS: ALPRAZolam 0.5 MG TAB PO SCH ×2 (10:57→20:58)
[2016-09-15] MEDS: ISOSORBIDE MONONITRATE ER 30 MG TAB.ER.24H PO SCH (10:57)
[2016-09-15] MEDS: FUROSEMIDE 80 MG TAB PO SCH ×2 (10:57→16:12)
[2016-09-15] MEDS: hydrALAZINE HCL 25 MG TAB PO SCH ×3 (10:58→20:59)
[2016-09-15 11:03] LABS: Anisocytosis Slight; CH 31.3; CHCM 31.1; HCT 31.8 % (34.0-46.0); HDW 2.83; HGB 10.1 gm/dL (11.4-16.0); Hypochromasia Slight; MCH 32.1 pg (25.0-35.0); MCHC 31.8 g/dL (31.0-37.0); MCV 101.1 fL (80.0-100.0); Macrocytosis Moderate; RBC 3.14 m/uL (3.80-5.40); RDW 17.7 % (11.5-15.5); WBC 5.5 k/uL (3.8-10.6)
--- NOTE | 2016-09-15 11:37 | P.NPCON ---
History of Present Illness - Reason for Consult end stage renal disease - History of Present Illness Reason for consultation: End-stage renal disease History of present illness: Patient is a 61-year-old female seen in renal consultation for end- stage renal disease. She is maintained on hemodialysis on a Wednesday schedule. Patient presented to hemodialysis yesterday however her permacath was not functioning. She was subsequently sent to [facility] for further care. Vascular surgery is following and exchanged the permacath yesterday. She is currently undergoing hemodialysis. Denies chest pain or shortness of breath. Does admit to pain at the surgical site and in her knees. No vomiting or diarrhea. Appetite is good. Her blood sugar was low this morning in the 20s and she is currently receiving D5 in her IV fluids and also received D50. She's been drinking juice as well. She is awake and alert. Hemodynamically stable. No other complaints at this time. Vital signs are stable. General: The patient appeared well nourished and normally developed. HEENT: Head exam is unremarkable. Neck is without jugular venous distension. LUNGS: Lungs are clear to auscultation and percussion. Breath sounds decreased. HEART: Rate and Rhythm are regular. First and second heart sounds normal. No murmurs, rubs or gallops. ABDOMEN: Abdominal exam reveals normal bowel sounds. Non-tender and non- distended. No evidence of peritonitis. EXTREMITITES: 1+ edema. Past Medical History Past Medical History: Heart Failure, COPD, Diabetes Mellitus, Dialysis, GERD/ Reflux, Hyperlipidemia, Hypertension, Osteoarthritis (OA), Pneumonia, Renal Disease Additional Past Medical History / Comment(s): Pt recently admitted to [facility] on with ESRD/bilateral knee [id number] to falling. Other hx: 07/2016 peritonitis, chronic renal disease stage IV, cardiomyopathy, IDDM type II, normocytic anemia, ARPIT without device, frequent constipation, hyponatremia, hypocalcemia, low albumin, mild to moderate protein calorie malnutrition, obesity, gastritis, chronic pain syndrome, back/sciatica and hip pain bilaterally, cataract in R eye. History of Any Multi-Drug Resistant Organisms: None Reported Past Surgical History: Cholecystectomy, Heart Catheterization Additional Past Surgical History / Comment(s): 2013 Peritoneal dialysis catheter placement and removal, hemodialysis cath placement, 2011 cardiac cath , pilonodial cyst removed Past Anesthesia/Blood Transfusion Reactions: No Reported Reaction Additional Past Anesthesia/Blood Transfusion Reaction / Comment(s): never received a blood transfusion Past Psychological History: Anxiety, Depression Additional Psychological History / Comment(s): Father is from [facility]. She has had no international travel at any time. She has no travel to the [facility]. She lives in her family home with her son and rhonda, and does not work outside of the home. No significant alcohol use. No history of recreational drug use. There is a pet cat in the home, and her adult son cares for the box. Smoking Status: Current every day smoker Past Alcohol Use History: None Reported Additional Past Alcohol Use History / Comment(s): Pt started smoking in 1975 and is a ppd smoker. Past Drug Use History: None Reported - Past Family History Mother Family Medical History: Congestive Heart Failure (CHF), Coronary Artery Disease (CAD), Diabetes Mellitus Additional Family Medical History / Comment(s): Mother of diabetic complications at the age of 55yrs. Father Family Medical History: Diabetes Mellitus, Hypertension, Pneumonia Additional Family Medical History / Comment(s): alcoholism. Father of pneumonia at the age of 81 yrs. Medications and Allergies Home Medications Medication Instructions Recorded Confirmed Type Carvedilol [Coreg*] 12.5 mg PO BID 11/24/13 09/14/16 History Isosorbide Mononitrate [Imdur] 30 mg PO DAILY 11/24/13 09/14/16 History Omeprazole 20 mg PO BID 04/27/16 09/14/16 History Albuterol Inhaler [Ventolin Hfa 1 - 2 puff INHALATION RT-Q6H PRN 09/09/16 History Inhaler] Albuterol Nebulized [Ventolin 2.5 mg INHALATION RT-Q6H PRN 09/09/16 09/14/16 History Nebulized] hydrALAZINE HCL [Apresoline] 25 mg PO TID 09/09/16 09/14/16 History oxyCODONE-APAP 7.5-325MG [Percocet 1 tab PO BID PRN 09/09/16 09/14/16 History 7.5-325 mg] INSULIN LISPRO (humaLOG) [humaLOG See Protocol SQ ACHS 09/14/16 09/14/16 History (formulary)] Allergies Allergy/AdvReac Type Severity Reaction Status Date / Time No Known Allergies Allergy Verified 09/14/16 12:55 Physical Exam Vitals: Vital Signs Temp Pulse Pulse Pulse Resp BP BP 09/15/16 07:00 97.1 F L 77 20 122/53 09/14/16 23:00 97.0 F L 81 16 162/78 09/14/16 16:54 96.1 F L 100 18 179/80 09/14/16 16:11 98.2 F 89 20 160/50 09/14/16 14:23 89 20 170/88 Pulse Ox 09/15/16 07:00 90 L 09/14/16 23:00 100 09/14/16 16:54 97 09/14/16 16:11 99 09/14/16 14:23 Intake and Output 09/14/16 09/15/16 09/15/16 22:59 06:59 14:59 Intake Total 50 200 Balance 50 200 Intake: IV 50 Oral 200 Other: # Voids 1 1 # Bowel Movements 1 Weight 117.7 kg Results - Lab Results Most recent lab results Calcium 8.0 mg/dL (8.4-10.2) L 09/15/16 10:00 Phosphorus 7.0 mg/dL (2.5-4.5) H 09/15/16 10:30 09/15/16 10:00 09/15/16 10:00 Assessment and Plan Plan: Assessment: #1. End-stage renal disease maintained on hemodialysis on a Wednesday schedule via permacath. #2. Malfunctioning permacatheter status post exchange on September 14. #3. Hypertension with chronic kidney disease. #4. Volume overload. #5. Anemia of chronic kidney disease. Hemoglobin at goal. Plan: Currently undergoing hemodialysis with goal 3-1/2 L ultrafiltration. Repeat treatment tomorrow per her outpatient schedule. Check phosphorus level. Potential discharge tomorrow. Thank you for the consultation. I will continue to follow the patient with you during her hospital stay.
[2016-09-15 11:45] LABS: Glucose,Whole Blood 132 mg/dL (75-99)
[2016-09-15 11:53] VITALS: BMI 44.5
--- NOTE | 2016-09-15 12:09 | P.CON ---
Consult Note - . Consult date: 09/15/16 Assessment/Plan:: Patient seen and examined, current admission records reviewed, medical/surgical/ social/family history reviewed along with allergies. Patient is a 61-year-old female with chronic kidney disease (on HD) and a long history of chronic back pain admitted with a clogged dialysis catheter and underwent revision yesterday. Pain service consulted as patient is using IV Dilaudid routinely every three hours. Patient states that she is on [place] 10/ 325 at home from PCP while patient's daughter states that she is on Percocet 7.5 /325 pills at home per nursing staff, and today she is complaining of pain "all over". Patient is requesting her usual hydrocodone pills while she is in the hospital. Patient is likely having some withdrawal symptoms as her home opioids were discontinued suddenly and without warning and the IV medication will only stay in her system for a short time. Discussed with patient and nursing staff, and will decrease Dilaudid to 1 mg IV every eight hours. Will discontinue Percocet and start Glenview 10/325 TID while she is here in the hospital, and then she can return to see her primary care physician Dr. Izaguirre, and orders were given to nursing staff. I did tell the patient to use the pills first for pain, and then to only use the IV Dilaudid only if her pain is severe. The patient wishes to return to her PCP for further management. I did inform her that, should her needs increase or if she wants any interventional procedures, that she can be referred to our clinic as an outpatient. Thank you very much for the consultation, and please call back with any further questions. In records review, patient interview, and communication with other providers, I spent a total of 40 minutes in the care of this patient.
[2016-09-15] MEDS: HYDROcodone/APAP 10-325MG 1 EACH TAB PO PRN ×2 (12:57→20:58)
[2016-09-15] MEDS: DEXTROSE 4 GM CHEWABLE PO SCH ×4 (12:57→16:12)
[2016-09-15] MEDS ORDERED: HEPARIN SODIUM,PORCINE 5,000 UNIT/ML 1 ML VIAL ONE (13:00)
[2016-09-15 16:12] LABS: Glucose,Whole Blood 252 mg/dL (75-99)
[2016-09-15 16:58] LABS: Glucose,Whole Blood 237 mg/dL (75-99)
[2016-09-15] MEDS: ALBUTEROL NEBULIZED 2.5 MG/3 ML INHALATION PRN (20:00)
[2016-09-15 20:37] LABS: Glucose,Whole Blood 133 mg/dL (75-99)
--- NOTE | 2016-09-15 23:24 | HP ---
DATE OF ADMISSION: 09/14/2016 PRESENTING COMPLAINT: Weak and tired. HISTORY OF PRESENTING COMPLAINT: This is a 61-year-old patient with a rather extensive medical history. Chronic stable medical conditions include morbid obesity, diabetes mellitus, type 2, GERD, hyperlipidemia, hypertension, normocytic anemia, obstructive sleep apnea, primary osteoarthritis, COPD. Patient recently has been switched over to hemodialysis because of infected peritoneal dialysis catheter that was removed. Patient's hemodialysis catheter is not working; hence she was admitted for replacement of the same, feeling weak and tired. Patient has chronic pain and was seen by Pain Services on the last admission. Patient yesterday evening had a new dialysis catheter placed on the right chest wall by Dr. Crawley. Patient is due for hemodialysis today. REVIEW OF SYSTEMS: CONSTITUTIONAL: Tired. HEENT: None. RESPIRATORY: Baseline shortness of breath. CARDIOVASCULAR: None. GASTROINTESTINAL: None. GENITOURINARY: None. MUSCULOSKELETAL: Pain in multiple joints, chronic. DERMATOLOGICAL: None. HEMATOLOGIC: None. LYMPHATICS: None. PSYCHIATRY: Some anxiety. NEUROLOGICAL: None. PAST HISTORY: 1. End-stage kidney disease, on hemodialysis. Previously had peritoneal dialysis catheter that got infected. 2. Diabetes mellitus, type 2, on insulin. 3. GERD. 4. Hyperlipidemia. 5. Hypertension. 6. Normocytic anemia. 7. Obstructive sleep apnea. 8. Primary osteoarthritis. 9. COPD. 10. Cardiomyopathy. 11. Hypoalbuminemia. 12. Chronic pain. PAST SURGICAL HISTORY: 1. Cholecystectomy. 2. Cardiac catheterization. 3. Peritoneal dialysis catheter placement and removal. SOCIAL HISTORY: Patient continues to smoke about a pack a day since 1975. No alcohol use. FAMILY HISTORY: Congestive heart failure, coronary artery disease, diabetes. HOME MEDICATIONS: 1. Percocet 7.5 one tablet p.o. b.i.d. p.r.n. 2. Hydralazine 25 mg p.o. t.i.d. 3. Omeprazole 20 mg p.o. b.i.d. 4. Imdur 30 mg p.o. daily. 5. Novolin 70/30 35 units b.i.d. 6. Motrin 600 mg p.o. q.6 p.r.n. 7. Humalog per scale. 8. Lasix 80 mg p.o. b.i.d. 9. Coreg 12.5 p.o. b.i.d. 10. Ventolin 2.5 q.6 p.r.n. 11. Ventolin inhaler 1 to 2 puffs q.6 p.r.n. 12. Xanax 0.5 q.12. ALLERGIES: NONE. On examination, temperature 97.1, pulse 77, respiration 20, blood pressure 102/53, pulse ox 98% on room air. GENERAL APPEARANCE: Well built; BMI of 44. Lying in bed. Tired-appearing. EYES: Pupils equal. Conjunctivae normal. HEENT: External appearance of nose and ears normal. Oral cavity normal. NECK: JVD unable to assess. Mass not palpable. RESPIRATORY: Effort increased. LUNGS: Diminished breath sounds. CARDIOVASCULAR: First and second sounds normal. Mild edema. ABDOMEN: Large, distended, soft. Liver and spleen not palpable. LYMPHATIC: No lymph node palpable in neck or axillae. PSYCHIATRY: Alert and oriented x3. Mood and affect anxious-appearing. CHEST WALL: New dialysis catheter present. INVESTIGATIONS: White count 6.9, hemoglobin 10.9. Potassium 4.1. BUN 37, creatinine 8.18. Albumin 2.3. It may be noted that patient's sugars this morning did drop down to 22 and 21. ASSESSMENT: 1. End-stage kidney disease, worsening, having missed hemodialysis due to a malfunctioning dialysis catheter; admitted for the same. 2. Malfunctioning hemodialysis catheter, now removed. Now a new one is placed in the right chest. 3. Morbid obesity; body mass index greater than 45. 4. Diabetes mellitus, type 2, chronically on insulin. 5. Gastroesophageal reflux disease. 6. Hyperlipidemia. 7. Essential hypertension. 8. Normocytic anemia due to end-stage kidney disease. 9. Obstructive sleep apnea; does not use CPAP. 10. Primary osteoarthritis of multiple joints, including hips and knees. 11. Chronic obstructive pulmonary disease in a current smoker. 12. Chronic nicotine dependence. Patient is a cigarette smoker. 13. Chronic pain syndrome in multiple joints. 14. Medical debility. Patient at baseline uses a walker. 15. Hypoalbuminemia from end-stage kidney disease. 16. Hypoalbuminemia, probably from decreased oral intake. PLAN: This morning patient's 70/30 was held. Patient was put on D5W and sugar tablets. Accu-Cheks will be closely followed. Home medications are resumed. Patient is due for hemodialysis today. Patient is getting IV Dilaudid for hemodialysis catheter that was placed. Last 2 admissions also, patient is having significant pain issues and wanted IV Dilaudid. I am going to have Pain Management see the patient. This was discussed with the patient and her daughter at the bedside. ( ) to get hemodialyzed today. Will cut back on 70/30 later in the day, depending on how the sugars are. Nephrology was consulted.
[2016-09-16 02:17] LABS: Glucose,Whole Blood 81 mg/dL (75-99)
[2016-09-16] MEDS: HYDROmorphone 1 MG/ML 1 ML SYRINGE IV PRN ×3 (02:41→11:33)
[2016-09-16] MEDS: HYDROcodone/APAP 10-325MG 1 EACH TAB PO PRN ×2 (05:46→13:03)
[2016-09-16] MEDS: INSULIN LISPRO (humaLOG) 300 UNIT/3 ML VIAL SQ SCH ×2 (07:20→11:55)
[2016-09-16 07:36] LABS: Glucose,Whole Blood 64 mg/dL (75-99)
[2016-09-16] MEDS: ALBUTEROL NEBULIZED 2.5 MG/3 ML INHALATION PRN (07:39)
[2016-09-16 07:49] VITALS: RESP 20
[2016-09-16 08:00] LABS: Glucose,Whole Blood 66 mg/dL (75-99)
[2016-09-16 08:00] LABS: Glucose,Whole Blood 89 mg/dL (75-99)
[2016-09-16] MEDS: FUROSEMIDE 80 MG TAB PO SCH (08:15)
[2016-09-16] MEDS: CARVEDILOL 12.5 MG TAB PO SCH (08:16)
[2016-09-16] MEDS: PANTOPRAZOLE 40 MG TABLET PO SCH (08:16)
[2016-09-16] MEDS: hydrALAZINE HCL 25 MG TAB PO SCH (08:16)
[2016-09-16] MEDS: ISOSORBIDE MONONITRATE ER 30 MG TAB.ER.24H PO SCH (08:16)
[2016-09-16] MEDS: ALPRAZolam 0.5 MG TAB PO SCH (08:16)
[2016-09-16] MEDS: INSULIN NPH/REG INSULIN 70/30 300 UNIT/3 ML VIAL SQ SCH (08:33)
[2016-09-16] MEDS ORDERED: HEPARIN SODIUM,PORCINE 5,000 UNIT/ML 1 ML VIAL ONE (10:45)
[2016-09-16 11:51] LABS: Glucose,Whole Blood 127 mg/dL (75-99)
--- NOTE | 2016-09-16 11:58 | P.PN ---
Subjective Patient is seen in follow-up for end-stage renal disease. She is maintained on hemodialysis on a Wednesday schedule via permacath. Her catheter was not functioning and she had exchanged on September 14. She is currently undergoing hemodialysis. She tolerated over 3 L ultrafiltration yesterday. She 's currently admitting to pain in her knees and is requesting pain medication. Denies chest pain or shortness of breath. Vital signs are stable. General: The patient appeared well nourished and normally developed. HEENT: Head exam is unremarkable. Neck is without jugular venous distension. LUNGS: Lungs are clear to auscultation and percussion. Breath sounds decreased. HEART: Rate and Rhythm are regular. First and second heart sounds normal. No murmurs, rubs or gallops. ABDOMEN: Abdominal exam reveals normal bowel sounds. Non-tender and non- distended. No evidence of peritonitis. EXTREMITITES: No clubbing, cyanosis, or edema. Objective - Vital Signs Vital signs: Vital Signs Temp 96.6 F L 09/16/16 07:00 Pulse 80 09/16/16 07:49 Resp 20 09/16/16 07:00 BP 149/70 09/16/16 07:00 Pulse Ox 100 09/16/16 07:00 Intake & Output 09/15/16 09/16/16 09/16/16 18:59 06:59 18:59 Intake Total 200 Balance 200 Weight 117.7 kg 119 kg Intake: Oral 200 Other: Voiding Method Bedside Commode # Voids 0 2 # Bowel Movements 1 - Labs CBC & Chem 7: 09/15/16 10:00 09/15/16 10:00 Labs: Abnormal Lab Results - Last 24 Hours (Table) 09/15/16 09/15/16 09/15/16 Range/Units 16:11 16:56 20:36 POC Glucose (mg/dL) 252 H 237 H 133 H (75-99) mg/dL 09/16/16 09/16/16 09/16/16 Range/Units 07:19 07:36 11:39 POC Glucose (mg/dL) 64 L 66 L 127 H (75-99) mg/dL Assessment and Plan Plan: Assessment: #1. End-stage renal disease maintained on hemodialysis on a Wednesday schedule via permacath. #2. Malfunctioning permacatheter status post exchange on September 14. #3. Hypertension with chronic kidney disease. Controlled. #4. Volume overload. #5. Anemia of chronic kidney disease. Hemoglobin at goal. Plan: Currently undergoing hemodialysis with goal 3-1/2 L ultrafiltration. Next treatment Wednesday per her outpatient schedule. Start Renvela 800 mg 3 times daily with meals. Potential discharge today.
[2016-09-16] MEDS ORDERED: SEVELAMER 800 MG TAB PO SCH (12:30)
[2016-09-16 15:22] VITALS: BP 100/61; PULSE 92; TEMP 96.7
--- NOTE | 2016-09-18 13:51 | DS ---
DATE OF ADMISSION: 09/14/2016 DATE OF DISCHARGE: 09/16/2016 FINAL DIAGNOSES: 1. End-stage kidney disease worsening, having missed hemodialysis due to malfunctioning dialysis catheter admitted for the same. 2. Malfunctioning hemodialysis catheter now removed. New one was placed in the right chest. 3. Morbid obesity, body mass index greater than 45. 4. Diabetes mellitus type 2, chronically on insulin. 5. Gastroesophageal reflux disease. 6. Hyperlipidemia. 7. Essential hypertension. 8. Normocytic anemia due to end-stage kidney disease. 9. Obstructive sleep apnea, does not use CPAP. 10. Primary osteoarthritis of multiple joints including hips and knees. 11. Chronic obstructive pulmonary disease in a current smoker. 12. Chronic nicotine dependence. Patient is a smoker. 13. Chronic pain syndrome in multiple joints. 14. Medical debility. Patient at baseline using a walker. 15. Hypoalbuminemia from end-stage kidney disease and also possibly decreased oral intake. CONSULTATION: Dr. Gaviria from nephrology. HOSPITAL COURSE: This patient was admitted following dialysis catheter not functioning, she is not feeling well, probably from uremic symptoms. A new dialysis catheter was placed by Dr. Darren Crawley. The patient did get dialyzed. Patient insulin was adjusted. Care was discussed with the patient. The patient does have chronic pain. Patient also advised against smoking as patient continues to smoke. On examination, lungs decreased breath sounds. CARDIOVASCULAR: First and second sounds normal. ABDOMEN: Soft, nontender. PSYCH: Alert and oriented x3. CONSULTATIONS: Dr. Gaviria from nephrology. Dr. Crawley from vascular surgery. DISCHARGE MEDICATIONS: 1. Coreg 12.5 p.o. b.i.d. 2. Imdur 30 mg p.o. daily. 3. Lasix 80 mg p.o. b.i.d. 4. Omeprazole 20 mg p.o. b.i.d. 5. Xanax 0.5 p.o. q.12. 6. Ventolin HFA 1 to 2 puffs q.6 p.r.n. 7. Ventolin Nebulizer 2.5 q.6 p.r.n. 8. Motrin 600 mg p.o. q.6 p.r.n. 9. Hydralazine 25 mg p.o. t.i.d. 10. Percocet 7.5 1 tablet p.o. b.i.d. p.r.n. 11. Humalog per scale. 12. Novolin 70/30 25 units subcu a.c. t.i.d. 13. Renvela 800 mg p.o. t.i.d. with meals. Follow-up with Dr. Izaguirre in 2 to 3 days. Follow up with Dr. Darren Crawley as needed, and patient to keep hemodialysis schedule.
== END 2016-09-16 16:17 | disposition home or self-care (01) | DRG 314 ==
LOC: EC 11:32 → 4MS4W 14:19
PROVIDERS: ADMIT Hospitalist; ATTEND Hospitalist
PROC: 02HV33Z Insertion of Infusion Device into Superior Vena Cava, Percutaneous Approach (ICD-10-PCS; principal; 2016-09-14 18:30)
PROC: B51WZZA Fluoroscopy of Dialysis Shunt/Fistula, Guidance (ICD-10-PCS; 2016-09-14 18:30)
PROC: 5A1D60Z (ICD-10-PCS; 2016-09-15)
DX: T82.41XA Breakdown (mechanical) of vascular dialysis catheter, initial encounter (principal); N18.6 End stage renal disease; I13.2 Hypertensive heart and chronic kidney disease with heart failure and with stage 5 chronic kidney disease, or end stage renal disease; N17.9 Acute kidney failure, unspecified; I42.9 Cardiomyopathy, unspecified; Z68.42 Body mass index [BMI] 45.0-49.9, adult; E11.22 Type 2 diabetes mellitus with diabetic chronic kidney disease; I50.9 Heart failure, unspecified; E66.01 Morbid (severe) obesity due to excess calories; E88.09 Other disorders of plasma-protein metabolism, not elsewhere classified; K21.9 Gastro-esophageal reflux disease without esophagitis; E78.5 Hyperlipidemia, unspecified; D63.1 Anemia in chronic kidney disease; G47.33 Obstructive sleep apnea (adult) (pediatric); M19.91 Primary osteoarthritis, unspecified site; J44.9 Chronic obstructive pulmonary disease, unspecified; F17.210 Nicotine dependence, cigarettes, uncomplicated; G89.4 Chronic pain syndrome; F41.9 Anxiety disorder, unspecified; F32.9 Major depressive disorder, single episode, unspecified; Z99.2 Dependence on renal dialysis; Z90.49 Acquired absence of other specified parts of digestive tract; Z79.899 Other long term (current) drug therapy; Z79.4 Long term (current) use of insulin; Y84.1 Kidney dialysis as the cause of abnormal reaction of the patient, or of later complication, without mention of misadventure at the time of the procedure
CPT/HCPCS: 36415; 36581; 71010; 77001; 80048; 80053; 83036; 84100; 85025; 85027; 90935; 94640

== ENCOUNTER 2016-09-23 11:14 | Inpatient (IN) | payer MEDICARE, OTHER ==
[2016-09-23] MEDS ORDERED: MORPHINE SULFATE 4 MG/ML SYRINGE IVP STA (11:51)
--- NOTE | 2016-09-23 11:57 | ED ---
Abdominal Pain HPI - General Chief Complaint: Abdominal Pain Stated Complaint: Weakness Time Seen by Provider: 09/23/16 11:35 Source: patient, family, EMS, RN notes reviewed Mode of arrival: EMS Limitations: no limitations - History of Present Illness Initial Comments: This a 61-year-old female presents emergency department for increased weakness, abdominal pain, leg pain. Patient has been in facilities secondary to multiple coronary abilities. Patient has renal failure on hemodialysis, CHF, diabetes. Patient states she was at [facility]. Patient is requesting the patient be admitted for placement in facility for rehab. They state that she is too weak to ambulate on most days. Patient states she missed dialysis today. Patient states that she's nauseated no vomiting or diarrhea constipation. Patient states she does make some urine. Patient denies any recent falls today no trauma to her legs. She states this is chronic radiculopathy type pain. Patient denies any chest pain or shortness breath at this time. Patient denies fever or chills. - Related Data Home Medications Medication Instructions Recorded Confirmed Carvedilol [Coreg*] 12.5 mg PO BID 11/24/13 09/23/16 Isosorbide Mononitrate [Imdur] 30 mg PO DAILY 11/24/13 09/23/16 Omeprazole 20 mg PO BID 04/27/16 09/23/16 Albuterol Inhaler [Ventolin Hfa 1 - 2 puff INHALATION RT-Q6H PRN 09/09/16 Inhaler] Albuterol Nebulized [Ventolin 2.5 mg INHALATION RT-Q6H PRN 09/09/16 09/23/16 Nebulized] hydrALAZINE HCL [Apresoline] 25 mg PO TID 09/09/16 09/23/16 INSULIN LISPRO (humaLOG) [humaLOG See Protocol SQ ACHS 09/14/16 09/23/16 (formulary)] Previous Rx's Medication Instructions Recorded Furosemide [Lasix] 80 mg PO BID #60 tablet 01/10/14 ALPRAZolam [Xanax] 0.5 mg PO Q12HR #15 tab 07/18/16 Ibuprofen [Motrin] 600 mg PO Q6HR PRN #24 tab 09/09/16 Insulin NPH Hum/Reg Insulin Hm 25 units SQ AC-BID #0 09/16/16 [NovoLIN 70-30 100 UNIT/ML VIAL] Sevelamer [Renvela] 800 mg PO TID-W/MEALS #60 tab 09/16/16 Allergies Allergy/AdvReac Type Severity Reaction Status Date / Time No Known Allergies Allergy Verified 09/23/16 11:28 Review of Systems ROS Statement: Those systems with pertinent positive or pertinent negative responses have been documented in the HPI. ROS Other: All systems not noted in ROS Statement are negative. Past Medical History Past Medical History: Heart Failure, COPD, Diabetes Mellitus, Dialysis, GERD/ Reflux, Hyperlipidemia, Hypertension, Osteoarthritis (OA), Pneumonia, Renal Disease Additional Past Medical History / Comment(s): Pt recently admitted to [facility] on with ESRD/bilateral knee [id number] to falling. Other hx: 07/2016 peritonitis, chronic renal disease stage IV, cardiomyopathy, IDDM type II, normocytic anemia, ARPIT without device, frequent constipation, hyponatremia, hypocalcemia, low albumin, mild to moderate protein calorie malnutrition, obesity, gastritis, chronic pain syndrome, back/sciatica and hip pain bilaterally, cataract in R eye. History of Any Multi-Drug Resistant Organisms: None Reported Past Surgical History: Cholecystectomy, Heart Catheterization Additional Past Surgical History / Comment(s): 2013 Peritoneal dialysis catheter placement and removal, hemodialysis cath placement, 2011 cardiac cath , pilonodial cyst removed Past Anesthesia/Blood Transfusion Reactions: No Reported Reaction Additional Past Anesthesia/Blood Transfusion Reaction / Comment(s): never received a blood transfusion Past Psychological History: Anxiety, Depression Additional Psychological History / Comment(s): Father is from [facility]. She has had no international travel at any time. She has no travel to the [facility]. She lives in her family home with her son and rhonda, and does not work outside of the home. No significant alcohol use. No history of recreational drug use. There is a pet cat in the home, and her adult son cares for the box. Smoking Status: Current every day smoker Past Alcohol Use History: None Reported Additional Past Alcohol Use History / Comment(s): Pt started smoking in 1975 and is a ppd smoker. Past Drug Use History: None Reported - Past Family History Mother Family Medical History: Congestive Heart Failure (CHF), Coronary Artery Disease (CAD), Diabetes Mellitus Additional Family Medical History / Comment(s): Mother of diabetic complications at the age of 55yrs. Father Family Medical History: Diabetes Mellitus, Hypertension, Pneumonia Additional Family Medical History / Comment(s): alcoholism. Father of pneumonia at the age of 81 yrs. General Exam Limitations: no limitations General appearance: alert, in no apparent distress Head exam: Present: atraumatic, normocephalic, normal inspection Neck exam: Present: normal inspection, full ROM. Absent: tenderness, meningismus, lymphadenopathy Respiratory exam: Present: normal lung sounds bilaterally. Absent: respiratory distress, wheezes, rales, rhonchi, stridor Cardiovascular Exam: Present: regular rate, normal rhythm, normal heart sounds. Absent: systolic murmur, diastolic murmur, rubs, gallop, clicks GI/Abdominal exam: Present: soft, tenderness (Diffuse [id number]), normal bowel sounds. Absent: distended, guarding, rebound, rigid Back exam: Absent: CVA tenderness (R), CVA tenderness (L) Neurological exam: Present: alert, oriented X3, CN II-XII intact Psychiatric exam: Present: normal affect, normal mood Course Vital Signs 09/23/16 09/23/16 11:17 12:08 Temperature 96.8 F L Pulse Rate 97 93 Respiratory 18 18 Rate Blood Pressure 134/73 137/103 O2 Sat by Pulse 99 99 Oximetry Medical Decision Making - Lab Data Result diagrams: 09/23/16 12:00 09/23/16 12:00 Lab Results 09/23/16 09/23/16 09/23/16 Range/Units 12:00 12:00 12:00 WBC 11.4 H (3.8-10.6) k/uL RBC 3.01 L (3.80-5.40) m/uL Hgb 9.5 L (11.4-16.0) gm/dL Hct 30.4 L (34.0-46.0) % MCV 100.9 H (80.0-100.0) fL MCH 31.6 (25.0-35.0) pg MCHC 31.3 (31.0-37.0) g/dL RDW 18.6 H (11.5-15.5) % Plt Count 248 (150-450) k/uL Neutrophils % 85 % Lymphocytes % 7 % Monocytes % 5 % Eosinophils % 1 % Basophils % 0 % Neutrophils # 9.7 H (1.3-7.7) k/uL Lymphocytes # 0.8 L (1.0-4.8) k/uL Monocytes # 0.6 (0-1.0) k/uL Eosinophils # 0.1 (0-0.7) k/uL Basophils # 0.0 (0-0.2) k/uL Hypochromasia Slight Anisocytosis Slight Macrocytosis Moderate PT (9.0-12.0) sec INR (<1.1) APTT (22.0-30.0) sec Sodium 135 L (137-145) mmol/L Potassium 4.9 (3.5-5.1) mmol/L Chloride 96 L (98-107) mmol/L Carbon Dioxide 22 (22-30) mmol/L Anion Gap 17 mmol/L BUN 56 H (7-17) mg/dL Creatinine 9.40 H* (0.52-1.04) mg/dL Est GFR (MDRD) Af Amer 5 (>60 ml/min/1.73 sqM) Est GFR (MDRD) Non-Af 4 (>60 ml/min/1.73 sqM) Glucose 205 H (74-99) mg/dL Calcium 7.7 L (8.4-10.2) mg/dL Phosphorus 10.3 H* (2.5-4.5) mg/dL Magnesium 2.1 (1.6-2.3) mg/dL Total Bilirubin 0.7 (0.2-1.3) mg/dL AST 52 H (14-36) U/L ALT 43 (9-52) U/L Alkaline Phosphatase 160 H (38-126) U/L Total Creatine Kinase 772 H (30-135) U/L CK-MB (CK-2) 12.4 H* (0.0-2.4) ng/mL CK-MB (CK-2) Rel Index 1.6 Troponin I 0.026 (0.000-0.034) ng/mL NT-Pro-B Natriuret Pep pg/mL Total Protein 6.0 L (6.3-8.2) g/dL Albumin 2.5 L (3.5-5.0) g/dL Lipase 39 (23-300) U/L Acetone, Qual Positive (Negative) 09/23/16 09/23/16 Range/Units 12:00 12:00 WBC (3.8-10.6) k/uL RBC (3.80-5.40) m/uL Hgb (11.4-16.0) gm/dL Hct (34.0-46.0) % MCV (80.0-100.0) fL MCH (25.0-35.0) pg MCHC (31.0-37.0) g/dL RDW (11.5-15.5) % Plt Count (150-450) k/uL Neutrophils % % Lymphocytes % % Monocytes % % Eosinophils % % Basophils % % Neutrophils # (1.3-7.7) k/uL Lymphocytes # (1.0-4.8) k/uL Monocytes # (0-1.0) k/uL Eosinophils # (0-0.7) k/uL Basophils # (0-0.2) k/uL Hypochromasia Anisocytosis Macrocytosis PT 10.9 (9.0-12.0) sec INR 1.1 (<1.1) APTT 22.9 (22.0-30.0) sec Sodium (137-145) mmol/L Potassium (3.5-5.1) mmol/L Chloride (98-107) mmol/L Carbon Dioxide (22-30) mmol/L Anion Gap mmol/L BUN (7-17) mg/dL Creatinine (0.52-1.04) mg/dL Est GFR (MDRD) Af Amer (>60 ml/min/1.73 sqM) Est GFR (MDRD) Non-Af (>60 ml/min/1.73 sqM) Glucose (74-99) mg/dL Calcium (8.4-10.2) mg/dL Phosphorus (2.5-4.5) mg/dL Magnesium (1.6-2.3) mg/dL Total Bilirubin (0.2-1.3) mg/dL AST (14-36) U/L ALT (9-52) U/L Alkaline Phosphatase (38-126) U/L Total Creatine Kinase (30-135) U/L CK-MB (CK-2) (0.0-2.4) ng/mL CK-MB (CK-2) Rel Index Troponin I (0.000-0.034) ng/mL NT-Pro-B Natriuret Pep 38951 pg/mL Total Protein (6.3-8.2) g/dL Albumin (3.5-5.0) g/dL Lipase (23-300) U/L Acetone, Qual (Negative) Disposition Clinical Impression: Congestive heart failure (CHF), Uncontrolled diabetes mellitus, Anemia, Chronic renal failure, Weakness, Decreased ambulation status Disposition: ADMITTED IP TO THIS HOSP Condition: Fair
[2016-09-23] MEDS ORDERED: MORPHINE SULFATE 2 MG/ML SYRINGE IVP ONE (12:02)
[2016-09-23 12:18] LABS: Anisocytosis Slight; Basophils % (A) 0 %; CH 31.7; CHCM 31.6; Eosinophils # (A) 0.1 k/uL (0-0.7); Eosinophils % (A) 1 %; HCT 30.4 % (34.0-46.0); HDW 3.03; HGB 9.5 gm/dL (11.4-16.0); Hypochromasia Slight; Luc # (Auto) 0.26; Luc % (Auto) 2; Lymphocytes # (A) 0.8 k/uL (1.0-4.8); Lymphocytes % (A) 7 %; MCH 31.6 pg (25.0-35.0); MCHC 31.3 g/dL (31.0-37.0); MCV 100.9 fL (80.0-100.0); Macrocytosis Moderate; Mean Platelet Volume 7.3; Monocytes # (A) 0.6 k/uL (0-1.0); Monocytes % (A) 5 %; Neutrophils # (A) 9.7 k/uL (1.3-7.7); Neutrophils % (A) 85 %; RBC 3.01 m/uL (3.80-5.40); RDW 18.6 % (11.5-15.5); WBC 11.4 k/uL (3.8-10.6); WBC (Perox) 11.48
[2016-09-23 12:28] LABS: ALT 43 U/L (9-52); AST 52 U/L (14-36); Alkaline Phosphatase 160 U/L (38-126); Anion Gap 17 mmol/L; Blood Urea Nitrogen 56 mg/dL (7-17); Calcium 7.7 mg/dL (8.4-10.2); Carbon Dioxide 22 mmol/L (22-30); Chloride 96 mmol/L (98-107); Glucose 205 mg/dL (74-99); Magnesium 2.1 mg/dL (1.6-2.3); Potassium 4.9 mmol/L (3.5-5.1); Sodium 135 mmol/L (137-145); Total Bilirubin 0.7 mg/dL (0.2-1.3)
--- NOTE | 2016-09-23 12:35 | XR ---
EXAMINATION TYPE: XR chest 2V DATE OF EXAM: 09/23/2016 12:21 PM COMPARISON: 09/15/2016 HISTORY: 61-year-old female with weakness TECHNIQUE: AP and lateral views FINDINGS: Portable exam further limited by large body habitus and rightward rotation. A right-sided double-lume n hemodialysis catheter is present with tips in the lower SVC. Heart remains mildly enlarged. Mild el ongation of the thoracic aorta. Diffuse interstitial and vascular prominence may be slightly increase d from prior. Suggestion of patchy bibasilar opacities. No significant pleural effusion on the latera l view. Heart is mildly enlarged. Mild elongation of thoracic aorta IMPRESSION: 1. Limited portable exam. 2. Cardiomegaly and possible mild pulmonary vascular congestion. 3. Possible patchy atelectasis or consolidation in the lower lungs. Again, limited portable exam. No pleural effusion seen on the lateral view.
[2016-09-23 12:48] LABS: INR 1.1 (<1.1); Partial Thromboplastin Time 22.9 sec (22.0-30.0); Prothrombin Time 10.9 sec (9.0-12.0)
[2016-09-23 12:52] LABS: Non-African American GFR(MDRD) 4 (>60 ml/min/1.73 sqM); Phosphorous 10.3 mg/dL (2.5-4.5)
[2016-09-23 13:05] LABS: Troponin I 0.026 ng/mL (0.000-0.034)
[2016-09-23 13:06] LABS: Creatine Kinase MB 12.4 ng/mL (0.0-2.4)
[2016-09-23] MEDS ORDERED: NALOXONE 0.4 MG/ML 1 ML VIAL IV PRN (13:47)
[2016-09-23] MEDS ORDERED: FUROSEMIDE 10 MG/ML 4 ML VIAL IV STA (13:50)
[2016-09-23] MEDS: SODIUM CHLORIDE 0.9% 1,000 ML IV SCH (14:28)
[2016-09-23 16:49] LABS: Glucose,Whole Blood 177 mg/dL (75-99)
[2016-09-23] MEDS: FUROSEMIDE 80 MG TAB PO SCH (17:03)
[2016-09-23] MEDS: HYDROcodone/APAP 7.5-325MG 1 EACH TAB PO PRN (17:03)
[2016-09-23] MEDS: INSULIN LISPRO (humaLOG) 300 UNIT/3 ML VIAL SQ SCH ×2 (17:04→21:44)
[2016-09-23] MEDS ORDERED: INSULIN NPH/REG INSULIN 70/30 300 UNIT/3 ML VIAL SQ SCH (17:30)
[2016-09-23] MEDS: CARVEDILOL 12.5 MG TAB PO SCH (18:12)
[2016-09-23] MEDS: SEVELAMER 800 MG TAB PO SCH (18:12)
[2016-09-23] MEDS: hydrALAZINE HCL 25 MG TAB PO SCH (18:12)
[2016-09-23] MEDS: PANTOPRAZOLE 40 MG TABLET PO SCH (18:12)
[2016-09-23 19:47] LABS: Hemoglobin A1C 7.8 % (4.2-6.1)
--- NOTE | 2016-09-23 20:25 | XR ---
EXAMINATION TYPE: XR Hip Complete RT - 2V DATE OF EXAM: 09/23/2016 8:12 PM COMPARISON: NONE HISTORY: Pain without injury TECHNIQUE: : AP and frog-leg lateral views were obtained. FINDINGS: The bones and joints are negative. No focal findings. Soft tissues positive for widespread atherosclerotic calcifications throughout the arterial anatomy. IMPRESSION: NO FOCAL FINDINGS.
--- NOTE | 2016-09-23 20:27 | XR ---
EXAMINATION TYPE: XR knee complete RT - 3V DATE OF EXAM: 09/23/2016 8:12 PM COMPARISON: NONE HISTORY: Pain without injury TECHNIQUE: 3 views FINDINGS: There is no fracture or malalignment. No focal skeletal finding. Moderate tricompartmental osteoarthritis changes are appreciated. Widespread atherosclerotic calcifications are seen throughout the visualized arterial anatomy. IMPRESSION: 1. No acute process. 2. Tricompartmental osteoarthritis, moderate in degree.
--- NOTE | 2016-09-23 21:16 | HP ---
DATE OF ADMISSION: Patient is a 61-year-old who came in with complaints of generalized weakness and left knee pain and left hip pain. Patient is morbidly obese; appears to have severe osteoarthritis. Patient otherwise has chronic low back pain, but patient is also having generalized weakness. Because of the pain, patient is unable to ambulate. Patient has end-stage renal disease and patient was seen in [facility] because patient went into [facility]. She did miss one day of hemodialysis. Patient barely urinates. Patient denied any cough, runny nose. Patient denied any sputum production. Since she missed her hemodialysis, patient was complaining of shortness of breath, found to have some pulmonary edema on the chest x-ray. Will obtain an x-ray of the left hip and left knee. Patient appears to have severe osteoarthritis. Will get PT and OT evaluation. Most probably will need subacute rehabilitation placement. Patient does have leukocytosis but does not have any signs or symptoms of pneumonia. Chest x-ray was read as a possibility of atelectasis versus pneumonia. My suspicion is low for pneumonia. Patient does have pulmonary edema on the chest x-ray as well as clinically, although saturating well. Nephrology will be called and patient will be admitted. REVIEW OF SYSTEMS: GENERAL: As described in HPI. CONSTITUTIONAL: No fever, no malaise, no fatigue. HEENT: No recent visual problems or hearing problems. Denied any sore throat. CARDIOVASCULAR: No chest pain, orthopnea, PND, no palpitations, no syncope. PULMONARY: As described in HPI. GASTROINTESTINAL: No diarrhea, no nausea, no vomiting, no abdominal pain. Normoactive bowel sounds. NEUROLOGICAL: No headaches, no weakness, no numbness. HEMATOLOGICAL: Denies any bleeding or petechiae. GENITOURINARY: Denies any burning micturition, frequency, or urgency. MUSCULOSKELETAL/RHEUMATOLOGICAL: As described in HPI. ENDOCRINE: Denies any polyuria or polydipsia. The rest of the 14 point review of systems is negative. Past medical history is significant for: 1. Diabetes mellitus. 2. End-stage renal disease, hemodialysis-dependent. 3. Diabetic nephropathy. 4. Gastroesophageal reflux disease. 5. Morbid obesity. 6. Severe osteoarthritis. 7. Degenerative disc disease. 8. Cholecystectomy. 9. Cardiac catheterization in the past. HOME MEDICATIONS: 1. Coreg. 2. Isosorbide mononitrate. 3. Omeprazole. 4. Albuterol. SOCIAL HISTORY: Patient does smoke. Denied any alcohol abuse or any drug abuse. FAMILY HISTORY: Mother had congestive heart failure, coronary artery disease, diabetes mellitus, and father had diabetes mellitus, hypertension and pneumonia. PHYSICAL EXAMINATION: VITAL SIGNS: Temperature 97.8, pulse of 92, respiratory rate of 18. Blood pressure is 160/76. Saturating at 100% on 2 L of oxygen by nasal cannula. GENERAL: Morbidly obese female. Alert and oriented x3. HEENT: Pupils are round and equally reacting to light. EOMI. No scleral icterus. No conjunctival pallor. Normocephalic, atraumatic. No pharyngeal erythema. No thyromegaly. CARDIOVASCULAR: S1 and S2 present. No murmurs, rubs, or gallops. PULMONARY: Chest is clear to auscultation, no wheezing or crackles. ABDOMEN: Soft, nontender, nondistended, normoactive bowel sounds. No palpable organomegaly. MUSCULOSKELETAL: No joint swelling or deformity. EXTREMITIES: Patient does have varus deformity, probably secondary to severe osteoarthritis in the knee and the hip area. Does appear to be generalized weakness in bilateral lower limbs. NEUROLOGICAL: Gross neurological examination did not reveal any focal deficits. SKIN: No rashes. LABORATORY DATA: CBC, CMP are abnormal for elevated WBC count of 11,100. MCV is 100.9. I will obtain a B12 level. Sodium of 135. BUN of 56, creatinine of 9.4. Blood glucose is elevated. Phosphorus is 10.3. Alkaline phosphatase is 160. Acetone is positive in the urine. ASSESSMENT AND PLAN: 1. Severe osteoarthritis of left lower limb leading to generalized weakness. I will obtain imaging studies of the left hip and left knee. I do not believe ( ) patient has acute weakness from her back pain. Patient does not have any ( ) signs of back pain. Physical Therapy will be consulted. Patient will be started on [place]. 2. Shortness of breath, probably due to pulmonary edema related to end-stage renal disease and missing hemodialysis. 3. Morbid obesity. Counseling was provided. 4. Type 2 diabetes mellitus, uncontrolled blood sugars. 5. Metabolic bone disease and hyperphosphatemia secondary to end-stage renal disease, missed hemodialysis. Patient will be started on Sevelamer. Management of hyperphosphatemia as per Nephrology. 6. Essential hypertension. 7. Normocytic anemia secondary to end-stage renal disease. 8. Obstructive sleep apnea. Patient needs to use CPAP machine. 9. Patient will need DVT prophylaxis. 10. Chronic obstructive pulmonary disease without any acute exacerbation. 11. Chronic medical debility. 12. Severe osteoarthritis. Patient has multiple medical problems, as mentioned above. Patient is quite weak and will need subacute rehabilitation placement.
[2016-09-23] MEDS ORDERED: DEXTROSE 50%-WATER 50 ML SYRINGE IVP ONE ×3 (21:33→22:40)
[2016-09-23 21:39] LABS: Glucose,Whole Blood <20 mg/dL (75-99)
[2016-09-23 21:39] LABS: Glucose,Whole Blood <20 mg/dL (75-99)
[2016-09-23 21:39] LABS: Glucose,Whole Blood 141 mg/dL (75-99)
[2016-09-23 22:02] LABS: Glucose,Whole Blood 66 mg/dL (75-99)
[2016-09-23 22:14] LABS: Anisocytosis Slight; Basophils # (A) 0.1 k/uL (0-0.2); Basophils % (A) 1 %; CH 31.5; CHCM 31.3; Eosinophils # (A) 0.2 k/uL (0-0.7); Eosinophils % (A) 2 %; HDW 2.97; HGB 8.4 gm/dL (11.4-16.0); Hypochromasia Slight; Luc # (Auto) 0.35; Luc % (Auto) 4; Lymphocytes % (A) 11 %; MCH 32.6 pg (25.0-35.0); MCHC 32.2 g/dL (31.0-37.0); MCV 101.4 fL (80.0-100.0); Macrocytosis Moderate; Mean Platelet Volume 7.3; Monocytes # (A) 0.7 k/uL (0-1.0); Monocytes % (A) 8 %; Neutrophils # (A) 6.9 k/uL (1.3-7.7); Neutrophils % (A) 76 %; RBC 2.57 m/uL (3.80-5.40); RDW 18.4 % (11.5-15.5); WBC 9.2 k/uL (3.8-10.6); WBC (Perox) 9.29
[2016-09-23 22:24] LABS: Glucose,Whole Blood 78 mg/dL (75-99)
[2016-09-23 22:37] LABS: Calcium 7.3 mg/dL (8.4-10.2); Potassium 3.7 mmol/L (3.5-5.1)
[2016-09-23 23:22] LABS: Glucose,Whole Blood 139 mg/dL (75-99)
[2016-09-23 23:22] LABS: Glucose,Whole Blood 165 mg/dL (75-99)
[2016-09-23 23:22] LABS: Glucose,Whole Blood 67 mg/dL (75-99)
[2016-09-23 23:50] LABS: Glucose,Whole Blood 93 mg/dL (75-99)
[2016-09-23 23:51] LABS: Glucose,Whole Blood 89 mg/dL (75-99)
[2016-09-24 00:05] LABS: Glucose,Whole Blood 84 mg/dL (75-99)
[2016-09-24 00:46] LABS: Glucose,Whole Blood 86 mg/dL (75-99)
[2016-09-24 01:04] LABS: Glucose,Whole Blood 90 mg/dL (75-99)
[2016-09-24 01:31] LABS: Glucose,Whole Blood 95 mg/dL (75-99)
[2016-09-24] MEDS: hydrALAZINE HCL 25 MG TAB PO SCH ×2 (02:08→08:28)
[2016-09-24] MEDS: NYSTATIN 100,000 UNIT/GM POWD 15 GM TOPICAL SCH ×4 (02:08→19:50)
[2016-09-24] MEDS: ALPRAZolam 0.5 MG TAB PO SCH ×3 (02:09→21:45)
[2016-09-24] MEDS ORDERED: DEXTROSE 5% IN WATER 1,000 ML IV SCH (02:15)
[2016-09-24 02:33] LABS: Glucose,Whole Blood 109 mg/dL (75-99)
[2016-09-24] MEDS: HEPARIN SODIUM,PORCINE 5,000 UNIT/ML 1 ML VIAL SQ SCH ×3 (03:40→16:45)
[2016-09-24 04:12] LABS: Glucose,Whole Blood 119 mg/dL (75-99)
[2016-09-24 05:41] LABS: Anisocytosis Slight; CH 31.8; CHCM 31.7; HDW 3.14; HGB 8.7 gm/dL (11.4-16.0); Hypochromasia Slight; MCH 32.6 pg (25.0-35.0); MCHC 32.3 g/dL (31.0-37.0); MCV 101.1 fL (80.0-100.0); Macrocytosis Moderate; Mean Platelet Volume 7.2; RBC 2.67 m/uL (3.80-5.40); RDW 18.6 % (11.5-15.5); WBC 9.8 k/uL (3.8-10.6)
[2016-09-24 05:52] LABS: Calcium 7.3 mg/dL (8.4-10.2); Potassium 4.1 mmol/L (3.5-5.1)
[2016-09-24 06:06] LABS: Phosphorous 8.2 mg/dL (2.5-4.5)
[2016-09-24] MEDS: HYDROcodone/APAP 7.5-325MG 1 EACH TAB PO PRN ×3 (06:38→16:45)
[2016-09-24 07:58] LABS: Glucose,Whole Blood 87 mg/dL (75-99)
[2016-09-24] MEDS: INSULIN LISPRO (humaLOG) 300 UNIT/3 ML VIAL SQ SCH ×4 (08:27→21:48)
[2016-09-24] MEDS: PANTOPRAZOLE 40 MG TABLET PO SCH ×2 (08:27→16:46)
[2016-09-24] MEDS: CARVEDILOL 12.5 MG TAB PO SCH (08:27)
[2016-09-24] MEDS: SEVELAMER 800 MG TAB PO SCH ×3 (08:27→16:45)
[2016-09-24] MEDS: ISOSORBIDE MONONITRATE ER 30 MG TAB.ER.24H PO SCH (08:28)
[2016-09-24] MEDS: FUROSEMIDE 80 MG TAB PO SCH ×2 (08:28→16:46)
--- NOTE | 2016-09-24 09:01 | XR ---
EXAMINATION TYPE: XR chest 1V DATE OF EXAM: 09/24/2016 8:49 AM HISTORY: Shortness of breath. COMPARISON: 09/23/2016 TECHNIQUE: Single view of the chest is submitted. FINDINGS: Demonstrated are scattered senescent parenchymal change. Central venous line unchanged in position. There is increased density right medial lung base which may reflect atelectasis and/or infiltrate. Ch ronic elevation right hemidiaphragm. The heart is enlarged without evidence for overt failure. Hilar and mediastinal structures are within normal limits. Degenerative changes are seen of the dorsal spine. IMPRESSION: 1. Essentially stable chest.
[2016-09-24] MEDS ORDERED: HEPARIN SODIUM,PORCINE 5,000 UNIT/ML 1 ML VIAL ONE (10:00)
[2016-09-24 12:06] LABS: Glucose,Whole Blood 89 mg/dL (75-99)
[2016-09-24] MEDS: traMADol 50 MG TAB PO PRN ×2 (13:03→19:49)
[2016-09-24] MEDS: LIDOCAINE 5% PATCH TOPICAL SCH (13:03)
[2016-09-24] MEDS: DEXAMETHASONE 4 MG TAB PO SCH ×3 (13:03→19:49)
--- NOTE | 2016-09-24 13:39 | P.CNPUL ---
History of Present Illness Consult date: 09/24/16 Requesting physician: Penelope Garcia Reason for consult: other (Hypotension requiring transfer to the ICU) Chief complaint: Abdominal pain, back pain, and weakness. History of present illness: This is a 61-year-old female with history of multiple medical problems including hypertension, chronic renal failure, on hemodialysis, chronic pain syndrome mostly back pain, diabetes, secondary hyperparathyroidism, COPD, GERD , underlying coronary artery disease, patient was seen yesterday initially at [facility], and she was complaining of weakness. Apparently she missed her dialysis that day, hence the patient was evaluated, she requested to be admitted for rehab, however she was told to be more compliant with dialysis, and have her dialysis done today instead. Patient came on her own from [facility] to our ER, and she had similar complaints. Patient was admitted, underwent dialysis yesterday, and she is undergoing dialysis this morning. Apparently upon arrival patient was given her usual meds mostly blood pressure medications, and her systolic blood pressure was noted to be low in the 70s. Patient was transferred to the ICU last night, and all along and for the night, her blood pressure was relatively normal. Patient did not require any fluid boluses, did not require any levo fed, she is presently receiving dialysis again, and she is mostly in pain mostly back pain which is chronic according to the patient. No cough no wheezing no shortness of breath, no chest pain. Patient feels generally weak. Labs were reviewed she had a hemoglobin of 8.7 WBC count of 9.8 electrolytes are normal BUN 49 creatinine 8.80. Her sugar last night while she was on the medical floor was as low as 57. Patient was given D50. Chest x-ray this morning showed mostly atelectasis at the right medial lung base, and chronic elevation of the right hemidiaphragm. Essentially unremarkable chest noted. Review of Systems Constitutional: No weight loss, no fever, no chills, patient has mostly generalized weakness aches and pains and fatigue. HEENT: Negative, she has no visual and no hearing problems. Denies any sore throat. Cardiovascular denies any chest pain, no palpitations, no orthopnea, no PND. Pulmonary: No cough, no wheezing, no shortness of breath. GI: No nausea no vomiting, she has vague abdominal discomfort. No melena no hematemesis. Genitourinary: No dysuria frequency or urgency. Musculoskeletal: Generalized aches and pains. Neurologic: Weakness. No headaches no blurred vision no dizziness. Psychiatric: Denies any symptoms of depression. Hematologic: History of chronic anemia related to renal failure. Endocrine history of diabetes. No polyuria no polydipsia. Past Medical History Past Medical History: Heart Failure, COPD, Diabetes Mellitus, Dialysis, GERD/ Reflux, Hyperlipidemia, Hypertension, Osteoarthritis (OA), Pneumonia, Renal Disease Additional Past Medical History / Comment(s): Pt recently admitted to [facility] on with ESRD/bilateral knee [id number] to falling. Other hx: 07/2016 peritonitis, chronic renal disease stage IV, cardiomyopathy, IDDM type II, normocytic anemia, ARPIT without device, frequent constipation, hyponatremia, hypocalcemia, low albumin, mild to moderate protein calorie malnutrition, obesity, gastritis, chronic pain syndrome, back/sciatica and hip pain bilaterally, cataract in R eye. History of Any Multi-Drug Resistant Organisms: None Reported Past Surgical History: Cholecystectomy, Heart Catheterization Additional Past Surgical History / Comment(s): 2013 Peritoneal dialysis catheter placement and removal, hemodialysis cath placement BUT MAL FUNCTIONED AND NEW DIALYSIS CATH PLACED 09-16-16, 2011 cardiac cath, pilonodial cyst removed Past Anesthesia/Blood Transfusion Reactions: No Reported Reaction Additional Past Anesthesia/Blood Transfusion Reaction / Comment(s): never received a blood transfusion Past Psychological History: Anxiety, Depression Additional Psychological History / Comment(s): Father is from [facility]. She has had no international travel at any time. She has no travel to the [facility]. She lives in her family home with her son , and does not work outside of the home. No significant alcohol use. No history of recreational drug use. There is a pet cat in the home, and her adult son cares for the box. Smoking Status: Current every day smoker Past Alcohol Use History: None Reported Additional Past Alcohol Use History / Comment(s): Pt started smoking in 1975 and WAS a ppd now down to 1/2 ppd Past Drug Use History: None Reported - Past Family History Mother Family Medical History: Congestive Heart Failure (CHF), Coronary Artery Disease (CAD), Diabetes Mellitus Additional Family Medical History / Comment(s): Mother of diabetic complications at the age of 55yrs. Father Family Medical History: Diabetes Mellitus, Hypertension, Pneumonia Additional Family Medical History / Comment(s): alcoholism. Father of pneumonia at the age of 81 yrs. Medications and Allergies Home Medications Medication Instructions Recorded Confirmed Type Carvedilol [Coreg*] 12.5 mg PO BID 11/24/13 09/23/16 History Isosorbide Mononitrate [Imdur] 30 mg PO DAILY 11/24/13 09/23/16 History Omeprazole 20 mg PO BID 04/27/16 09/23/16 History Albuterol Inhaler [Ventolin Hfa 1 - 2 puff INHALATION RT-Q6H PRN 09/09/16 History Inhaler] Albuterol Nebulized [Ventolin 2.5 mg INHALATION RT-Q6H PRN 09/09/16 09/23/16 History Nebulized] hydrALAZINE HCL [Apresoline] 25 mg PO TID 09/09/16 09/23/16 History INSULIN LISPRO (humaLOG) [humaLOG See Protocol SQ ACHS 09/14/16 09/23/16 History (formulary)] Allergies Allergy/AdvReac Type Severity Reaction Status Date / Time No Known Allergies Allergy Verified 09/23/16 11:28 Physical Exam Vitals: Vital Signs Temp Pulse Pulse Pulse Resp BP BP 09/24/16 10:00 73 18 104/41 09/24/16 09:30 75 20 09/24/16 09:00 80 22 115/65 09/24/16 08:30 98.6 F 79 18 114/52 09/24/16 08:00 84 23 09/24/16 07:30 81 22 100/64 09/24/16 07:00 87 26 H 139/46 09/24/16 06:30 67 125/57 09/24/16 06:00 84 22 122/49 09/24/16 05:30 67 11 L 136/60 09/24/16 05:00 80 22 125/55 09/24/16 04:30 79 12 118/64 09/24/16 04:00 72 15 101/48 09/24/16 03:00 90 26 H 86/43 09/24/16 00:26 96.3 F L 78 16 106/52 09/24/16 00:00 95.6 F L 69 20 88/53 09/23/16 23:26 94.2 F L 70 20 93/45 09/23/16 22:53 79/51 09/23/16 22:52 70 79/51 09/23/16 21:35 95.0 F L 75 20 106/49 09/23/16 20:00 83 09/23/16 16:50 96.7 F L 98 18 137/104 09/23/16 16:22 97.8 F 92 18 160/76 09/23/16 14:38 98.6 F 94 18 136/83 Pulse Ox 09/24/16 10:00 99 09/24/16 09:30 09/24/16 09:00 97 09/24/16 08:30 97 09/24/16 08:00 97 09/24/16 07:30 94 L 09/24/16 07:00 92 L 09/24/16 06:30 96 09/24/16 06:00 98 09/24/16 05:30 100 09/24/16 05:00 100 09/24/16 04:30 99 09/24/16 04:00 100 09/24/16 03:00 92 L 09/24/16 00:26 100 09/24/16 00:00 100 09/23/16 23:26 100 09/23/16 22:53 09/23/16 22:52 09/23/16 21:35 97 09/23/16 20:00 09/23/16 16:50 97 09/23/16 16:22 100 09/23/16 14:38 97 Intake and Output 09/23/16 09/24/16 09/24/16 22:59 06:59 14:59 Intake Total 650 60 Output Total 0 Balance 650 60 Intake: IV 220 60 Dextrose 5% in Water 1, 160 000 ml @ 40 mls/hr IV . Q24H VENU Rx#:[id number] Sodium Chloride 0.9% 1, 60 60 000 ml @ 20 mls/hr IV . Q24H VENU Rx#:[id number] Intake, IV Titration 330 Amount Sodium Chloride 0.9% 1, 80 000 ml @ 20 mls/hr IV . Q24H VENU Rx#:[id number] Sodium Chloride 0.9% 250 250 ml @ 999 mls/hr IV .Q16M ONE Rx#:[id number] Oral 100 Output: Urine 0 Other: # Voids 0 0 # Bowel Movements 0 Physical Exam: Revealed a 61-year-old female in no form of respiratory distress , however she seems to be moaning and groaning from chronic back pain. HEENT:[Neck is supple.] [No neck masses.] [No thyromegaly.] [No JVD.] Chest: [Diminished breath sounds at the bases no crackles, no rhonchi, no wheezes.] Cardiac Exam: [Normal S1 and S2, no S3 gallop, no murmur.] Abdomen: [Soft, nontender, no megaly, no rebound, no guarding, normal bowel sounds.] Extremities: [No clubbing, no edema, no cyanosis.] Neurological Exam: [No focal neurologic deficit.] Results - Laboratory Findings CBC and BMP: 09/24/16 05:13 09/24/16 05:13 PT/INR, D-dimer PT 10.9 sec (9.0-12.0) 09/23/16 12:00 INR 1.1 (<1.1) 09/23/16 12:00 Abnormal lab findings: Abnormal Labs 09/23/16 09/23/16 09/23/16 16:42 17:25 21:30 RBC Hgb Hct MCV RDW Sodium Chloride BUN Creatinine Glucose POC Glucose (mg/dL) 177 H <20 L Calcium Phosphorus 10.2 H* 09/23/16 09/23/16 09/23/16 21:33 21:37 21:55 RBC 2.57 L Hgb 8.4 L Hct 26.0 L MCV 101.4 H RDW 18.4 H Sodium Chloride BUN Creatinine Glucose POC Glucose (mg/dL) <20 L 141 H Calcium Phosphorus 09/23/16 09/23/16 09/23/16 21:55 21:55 21:59 RBC Hgb Hct MCV RDW Sodium 134 L Chloride 96 L BUN 51 H Creatinine 8.80 H* Glucose 65 L POC Glucose (mg/dL) 66 L Calcium 7.3 L Phosphorus 8.7 H* 09/23/16 09/23/16 09/23/16 22:38 22:49 23:02 RBC Hgb Hct MCV RDW Sodium Chloride BUN Creatinine Glucose POC Glucose (mg/dL) 67 L 165 H 139 H Calcium Phosphorus 09/24/16 09/24/16 09/24/16 02:31 04:10 05:13 RBC 2.67 L Hgb 8.7 L Hct 27.0 L MCV 101.1 H RDW 18.6 H Sodium Chloride BUN Creatinine Glucose POC Glucose (mg/dL) 109 H 119 H Calcium Phosphorus 09/24/16 05:13 RBC Hgb Hct MCV RDW Sodium 134 L Chloride BUN 49 H Creatinine 8.80 H* Glucose POC Glucose (mg/dL) Calcium 7.3 L Phosphorus 8.2 H* - Diagnostic Findings Chest x-ray: image reviewed (Suspect chronic changes and minimal atelectasis at the right base, no clear-cut evidence to suggest pneumonia.) Assessment and Plan Plan: Impression: 1 acute hypotension most likely medications induced, patient has been on multiple medications for hypertension, and these were given upon admission along with pain medicine to control her back pain. Her hypotension did resolve and no issues overnight, no issues related to blood pressure this morning. 2 acute hypoglycemia, resolved with 1 amp of D50. 3 chronic renal disease, patient is on hemodialysis, and she was dialyzed early this morning. 4 history of secondary hyperparathyroidism related to renal failure. 5 history of diabetes,2 poorly controlled, this is being addressed by the admitting physician. 6 history of obstructive sleep apnea syndrome, patient will need outpatient evaluation. 7 history of severe osteoarthritis 8 morbid obesity 9 chronic pain syndrome mostly back pain. Recommendation: Patient demonstrated hemodynamic stability overnight, no issues were noted related to her blood pressure, hence I believe her hypertension was induced by medications. My recommendation at this point is to transfer the patient back to the ICU to regular medical floor, continue dialysis, and we will follow on when necessary basis. Time with Patient: Greater than 30
--- NOTE | 2016-09-24 15:53 | CONS ---
DATE OF CONSULTATION: 09/24/2016 REASON FOR CONSULTATION: End-stage renal disease. HISTORY OF PRESENT ILLNESS: Patient is a 61-year-old female with a history of end-stage renal disease, now on hemodialysis. Previously patient had been on peritoneal dialysis. She was admitted to the hospital with abdominal pain. She had missed 2 treatments at the time of admission. Yesterday patient was being dialyzed and her blood pressure dropped significantly in the 80 mmHg range for systolic, and therefore she was transferred to the ICU. Apparently her blood pressure has been in the 110 range. She does not have any fever. She has been fairly stable. Patient will be dialyzed again today. PAST MEDICAL HISTORY: 1. End-stage renal disease. 2. Morbid obesity. 3. Previous PD and peritonitis, switched over to hemodialysis now. 4. History of noncompliance as outpatient. 5. Diabetes. 6. Diabetic neuropathy, nephropathy. 7. Osteoarthritis. 8. Metabolic bone disease associated with CKD. PAST SURGICAL HISTORY: 1. PD catheter insertion and removal. 2. Perm-A-Cath placement. 3. Cholecystectomy. 4. Cardiac catheterization. 5. Coronary stent placement. Home medications include: 1. Coreg. 2. Omeprazole. 3. Isosorbide mononitrate. 4. Albuterol. 5. Renvela. 6. She takes Motrin occasionally. 7. Xanax. 8. Lasix. ALLERGIES: NONE. REVIEW OF SYSTEMS: As per HPI. Other systems negative. SOCIAL HISTORY: Patient does smoke. No history of drug abuse or alcohol abuse. On examination, currently she is comfortable. She is being moved from bedside chair to the bed and she is quite weak and requires a lot of help. Blood pressure is 104/46, heart rate 69 per minute. She is afebrile. EXAMINATION OF THE HEART: S1 and S2. EXAMINATION OF THE LUNGS: Bilateral breath sounds are heard. ABDOMEN: Soft, morbidly obese. Examination of lower extremities shows chronic skin changes, edema 1+ bilaterally. CHUTE OPERATOR exam is grossly intact. Patient is moving all 4 extremities. Labs show sodium 134, potassium 4.1, phosphorus 8.2. Hemoglobin 8.7 g/dL. ASSESSMENT: 1. End-stage renal disease, on hemodialysis on a Wednesday, Wednesday, Wednesday schedule. Patient will be dialyzed today and then again tomorrow. 2. Mild volume overload. Will try for about 1 liter today of ultrafiltration with dialysis. 3. Generalized debility. Patient may need rehab at the time of discharge. 4. Hyperphosphatemia. Maintain patient on Renvela. 5. Anemia with no active bleeding noted. Will maintain patient on Aranesp. PLAN: Hemodialysis today as well as in a.m. Start Aranesp. Maintain Renvela. Repeat labs in a.m. She could be transferred out of the ICU, as her blood pressure is much more stable. Thank you for this consultation. Will continue to follow the patient with you during her hospitalization.
[2016-09-24] MEDS ORDERED: DARBEPOETIN ALFA 40 MCG/0.4 ML SYRINGE SQ SCH (16:00)
[2016-09-24] MEDS: SODIUM CHLORIDE 0.9% 1,000 ML IV SCH (16:44)
--- NOTE | 2016-09-24 17:28 | PN ---
Patient was transferred to ICU last night because of her drop in blood pressure. During dialysis they removed 1 liter of fluid, after which her blood pressure dropped. Patient today is complaining of severe back pain. Patient is undergoing dialysis; not removing any fluid. Patient was complaining of severe back pain today. Yesterday she was complaining of left knee and hip pain. Left knee showed severe osteoarthritis and I believe patient has chronic back pain. She does not have any ( ) signs yet. Because of the severity of her back pain, I am consulting Dr. Wharton. I will leave the imaging studies to Dr. Wharton. Considering her end-stage renal disease, if patient needs MRI we can get an MRI with contrast, but patient will need dialysis 3 days in a row after giving her gadolinium contrast. REVIEW OF SYSTEMS: CARDIOVASCULAR: No chest pain, no orthopnea, no PND, no palpitations. PULMONARY: Denied any shortness of breath. No cough or hemoptysis. GASTROINTESTINAL: No diarrhea, nausea or vomiting. No abdominal pain. Normoactive bowel sounds. NEUROLOGIC: No headaches, no weakness, no numbness. MUSCULOSKELETAL: As described in HPI. Medications were reviewed. PHYSICAL EXAMINATION: Temperature 98.4, pulse of 69, respiratory rate of 22. Blood pressure is 104/46. Saturating at 97% on room air. GENERAL: The patient is alert and oriented x3, not in any acute distress. Well developed, well nourished. HEENT: Pupils are round and equally reacting to light. EOMI. No scleral icterus. No conjunctival pallor. Normocephalic, atraumatic. No pharyngeal erythema. No thyromegaly. CARDIOVASCULAR: S1 and S2 present. No murmurs, rubs, or gallops. PULMONARY: Chest is clear to auscultation, no wheezing or crackles. ABDOMEN: Soft, nontender, nondistended, normoactive bowel sounds. No palpable organomegaly. MUSCULOSKELETAL: Unchanged compared to yesterday. EXTREMITIES: No cyanosis, clubbing, or pedal edema. NEUROLOGICAL: Unchanged compared to yesterday. SKIN: No rashes. LABORATORY DATA: Sodium is 134. BUN of 51, creatinine 8.8. Phosphorus of 8.7. ASSESSMENT AND PLAN: 1. End-stage renal disease, on hemodialysis. Patient is getting hemodialysis today. 2. Hypotension, probably related to hemodialysis. Patient's blood pressure is fairly stable now. Coreg will be changed to metoprolol. 3. Morbid obesity. 4. Severe low back pain. Management as mentioned above. Patient will be started on Tramadol and also lidocaine patch. Will also give Decadron if there is any inflammation in the back. That will help the inflammation. Will also consult Dr. Wharton. 5. Metabolic bone disease and hyperphosphatemia. 6. Essential hypertension. 7. Normocytic anemia. 8. Chronic obstructive pulmonary disease. Does use CPAP machine at home. 9. Deep venous thrombosis prophylaxis. 10. Chronic obstructive pulmonary disease without any acute exacerbation. 11. Chronic medical debility. 12. Severe osteoarthritis.
[2016-09-24 17:42] LABS: Glucose,Whole Blood 109 mg/dL (75-99)
[2016-09-24] MEDS: METOPROLOL TARTRATE 50 MG TAB PO SCH (19:49)
[2016-09-24 21:04] LABS: Glucose,Whole Blood 159 mg/dL (75-99)
[2016-09-24] MEDS ORDERED: SODIUM CHLORIDE 0.9% 250 ML IV ONE (22:00)
[2016-09-25] MEDS: HEPARIN SODIUM,PORCINE 5,000 UNIT/ML 1 ML VIAL SQ SCH ×4 (01:57→23:15)
[2016-09-25] MEDS: HYDROcodone/APAP 7.5-325MG 1 EACH TAB PO PRN ×3 (04:12→18:59)
[2016-09-25 06:13] LABS: Glucose,Whole Blood 196 mg/dL (75-99)
[2016-09-25] MEDS: SEVELAMER 800 MG TAB PO SCH ×3 (06:49→18:59)
[2016-09-25] MEDS: PANTOPRAZOLE 40 MG TABLET PO SCH ×2 (06:49→18:55)
[2016-09-25] MEDS: INSULIN LISPRO (humaLOG) 300 UNIT/3 ML VIAL SQ SCH ×4 (06:50→20:40)
[2016-09-25 07:04] LABS: Anisocytosis Slight; Basophils % (A) 0 %; CH 31.4; CHCM 30.6; Eosinophils % (A) 0 %; HCT 28.1 % (34.0-46.0); HDW 2.96; HGB 8.5 gm/dL (11.4-16.0); Hypochromasia Moderate; Luc # (Auto) 0.02; Luc % (Auto) 0; Lymphocytes # (A) 0.4 k/uL (1.0-4.8); Lymphocytes % (A) 9 %; MCH 31.2 pg (25.0-35.0); MCHC 30.2 g/dL (31.0-37.0); MCV 103.4 fL (80.0-100.0); Macrocytosis Moderate; Mean Platelet Volume 7.5; Monocytes # (A) 0.1 k/uL (0-1.0); Monocytes % (A) 2 %; Neutrophils # (A) 4.2 k/uL (1.3-7.7); Neutrophils % (A) 88 %; RBC 2.71 m/uL (3.80-5.40); RDW 18.5 % (11.5-15.5); WBC 4.8 k/uL (3.8-10.6); WBC (Perox) 4.83
[2016-09-25 07:40] LABS: Phosphorous 7.6 mg/dL (2.5-4.5); Potassium 4.7 mmol/L (3.5-5.1)
[2016-09-25] MEDS: NYSTATIN 100,000 UNIT/GM POWD 15 GM TOPICAL SCH ×3 (07:57→20:41)
[2016-09-25] MEDS: LIDOCAINE 5% PATCH TOPICAL SCH (07:57)
[2016-09-25] MEDS: DEXAMETHASONE 4 MG TAB PO SCH ×4 (07:58→20:41)
[2016-09-25] MEDS: FUROSEMIDE 80 MG TAB PO SCH ×2 (07:58→18:55)
[2016-09-25] MEDS: METOPROLOL TARTRATE 50 MG TAB PO SCH ×2 (07:58→20:41)
[2016-09-25] MEDS: ISOSORBIDE MONONITRATE ER 30 MG TAB.ER.24H PO SCH (07:58)
[2016-09-25] MEDS: ALPRAZolam 0.5 MG TAB PO SCH ×2 (08:02→20:40)
[2016-09-25] MEDS: traMADol 50 MG TAB PO PRN ×2 (08:02→20:40)
--- NOTE | 2016-09-25 09:14 | P.CNOR ---
History of Present Illness - [facility] Consult date: 09/25/16 Requesting physician: Penelope Garcia Consult reason: low back pain History of present illness: This is a pleasant 61-year-old female who is seen and examined at bedside for ongoing low back pain after we are consulted by Dr. Garcia. Patient originally admitted to [facility] emergency department for increased generalized weakness, abdominal pain, and left leg pain. She is known to have renal failure and is currently on hemodialysis. She also has a significant medical history including congestive heart failure and diabetes. Since being admitted, imaging has been taken of her left knee which showed tricompartmental osteoarthritis. Patient states she was told previously she had arthritis in the left knee and was told she may eventually have to be mobile with the use of wheelchair. Patient states in regards to her lumbar spine, she has noticed increased pain after sustaining a fall approximately 2-3 weeks ago. She currently has a lidocaine patch intact over the lumbar spine. She states she does get pains that radiate down her legs but they are intermittent and vary from the right lower extremity to left lower extremity without. She states there is no pattern in her pain. She states she is minimally ambulatory on a regular basis. She states at the bedside she does not want any surgical intervention in regards to her lumbar spine. She also states she has not had any imaging or intervention to her lumbar spine previously. Patient states she has a history of barely urinating. Upon presentation to the emergency department, medicine states she was complaining of some shortness of breath and was found to have pulmonary edema on x-ray. Patient is also currently being seen by pulmonology. Past Medical History Past Medical History: Heart Failure, COPD, Diabetes Mellitus, Dialysis, GERD/ Reflux, Hyperlipidemia, Hypertension, Osteoarthritis (OA), Pneumonia, Renal Disease Additional Past Medical History / Comment(s): Pt recently admitted to [facility] on with ESRD/bilateral knee [id number] to falling. Other hx: 07/2016 peritonitis, chronic renal disease stage IV, cardiomyopathy, IDDM type II, normocytic anemia, ARPIT without device, frequent constipation, hyponatremia, hypocalcemia, low albumin, mild to moderate protein calorie malnutrition, obesity, gastritis, chronic pain syndrome, back/sciatica and hip pain bilaterally, cataract in R eye. History of Any Multi-Drug Resistant Organisms: None Reported Past Surgical History: Cholecystectomy, Heart Catheterization Additional Past Surgical History / Comment(s): 2013 Peritoneal dialysis catheter placement and removal, hemodialysis cath placement BUT MAL FUNCTIONED AND NEW DIALYSIS CATH PLACED 09-16-162011 cardiac cath, pilonodial cyst removed Past Anesthesia/Blood Transfusion Reactions: No Reported Reaction Additional Past Anesthesia/Blood Transfusion Reaction / Comm: never received a blood transfusion Past Psychological History: Anxiety, Depression Additional Psychological History / Comment(s): Father is from [facility]. She has had no international travel at any time. She has no travel to the [facility]. She lives in her family home with her son , and does not work outside of the home. No significant alcohol use. No history of recreational drug use. There is a pet cat in the home, and her adult son cares for the box. Smoking Status: Current every day smoker Past Alcohol Use History: None Reported Additional Past Alcohol Use History / Comment(s): Pt started smoking in 1975 and WAS a ppd now down to 1/2 ppd Past Drug Use History: None Reported - Past Family History Mother Family Medical History: Congestive Heart Failure (CHF), Coronary Artery Disease (CAD), Diabetes Mellitus Additional Family Medical History / Comment(s): Mother of diabetic complications at the age of 55yrs. Father Family Medical History: Diabetes Mellitus, Hypertension, Pneumonia Additional Family Medical History / Comment(s): alcoholism. Father of pneumonia at the age of 81 yrs. Medications and Allergies Home Medications Medication Instructions Recorded Confirmed Type Carvedilol [Coreg*] 12.5 mg PO BID 11/24/13 09/23/16 History Isosorbide Mononitrate [Imdur] 30 mg PO DAILY 11/24/13 09/23/16 History Omeprazole 20 mg PO BID 04/27/16 09/23/16 History Albuterol Inhaler [Ventolin Hfa 1 - 2 puff INHALATION RT-Q6H PRN 09/09/16 History Inhaler] Albuterol Nebulized [Ventolin 2.5 mg INHALATION RT-Q6H PRN 09/09/16 09/23/16 History Nebulized] hydrALAZINE HCL [Apresoline] 25 mg PO TID 09/09/16 09/23/16 History INSULIN LISPRO (humaLOG) [humaLOG See Protocol SQ ACHS 09/14/16 09/23/16 History (formulary)] Allergies Allergy/AdvReac Type Severity Reaction Status Date / Time No Known Allergies Allergy Verified 09/23/16 11:28 Physical Examination Physical exam: Patient is awake, alert, and oriented 3 Vital signs stable Good chest excursion with adequate inspiration and expiration; no acute distress Examination of lumbar spine reveals skin is intact with no abrasions, lacerations, or bruises; no erythema, purulence or signs of infection Lidocaine patch intact along the midline of the lumbar spine No significant pain with palpation of the lumbar spine Dorsiflexion, plantarflexion, and extensor hallucis longus positive sustained bilaterally Evidence of trophic skin changes of the bilateral lower extremities at the feet and ankles Significant difficulty with forming hip flexion bilaterally; some difficulty with performing bilateral knee extension Patellar reflex 2+ bilaterally No lower extremity hyperreflexia bilaterally Straight leg test negative bilateral lower extremities No signs or symptoms of DVT; no calf pain Edema in the bilateral lower extremities distal to the knee Neurovascularly intact Results Pertinent studies: X-rays of the left knee: Tricompartmental osteoarthritis moderate in degree; evidence of fracture X-ray of the right hip: No focal findings; soft tissue positive for widespread arthrosclerotic calcifications - Labs Labs: Abnormal Lab Results - Last 24 Hours (Table) 09/24/16 09/24/16 09/25/16 Range/Units 17:39 21:02 06:10 RBC (3.80-5.40) m/uL Hgb (11.4-16.0) gm/dL Hct (34.0-46.0) % MCV (80.0-100.0) fL MCHC (31.0-37.0) g/dL RDW (11.5-15.5) % Lymphocytes # (1.0-4.8) k/uL Sodium 133 L (137-145) mmol/L Chloride 97 L (98-107) mmol/L BUN 39 H (7-17) mg/dL Creatinine 7.05 H* (0.52-1.04) mg/dL Glucose 197 H (74-99) mg/dL POC Glucose (mg/dL) 109 H 159 H (75-99) mg/dL Calcium 7.0 L (8.4-10.2) mg/dL Phosphorus 7.6 H (2.5-4.5) mg/dL 09/25/16 09/25/16 Range/Units 06:10 06:11 RBC 2.71 L (3.80-5.40) m/uL Hgb 8.5 L (11.4-16.0) gm/dL Hct 28.1 L (34.0-46.0) % MCV 103.4 H (80.0-100.0) fL MCHC 30.2 L (31.0-37.0) g/dL RDW 18.5 H (11.5-15.5) % Lymphocytes # 0.4 L (1.0-4.8) k/uL Sodium (137-145) mmol/L Chloride (98-107) mmol/L BUN (7-17) mg/dL Creatinine (0.52-1.04) mg/dL Glucose (74-99) mg/dL POC Glucose (mg/dL) 196 H (75-99) mg/dL Calcium (8.4-10.2) mg/dL Phosphorus (2.5-4.5) mg/dL H & H 09/23/16 09/24/16 09/25/16 Range/Units 21:55 05:13 06:10 Hgb 8.4 L 8.7 L 8.5 L (11.4-16.0) gm/dL Hct 26.0 L 27.0 L 28.1 L (34.0-46.0) % Result Diagrams: 09/25/16 06:10 09/25/16 06:10 Assessment and Plan Plan: Assessment: Low back pain status post fall Generalized weakness Left knee pain; tricompartmental osteoarthritis of the left knee End-stage renal disease Pulmonary edema Diabetes Plan: 1. Given her fall couple weeks ago, ongoing low back pain, and no further imaging previously taken, we will currently plan to order x-rays the lumbar spine for further evaluation. If these x-rays are positive for fracture, we will plan to obtain bracing at that time. If these images are negative for fracture, we will plan to consult with pain management for further evaluation. At this time we are planning to avoid all surgical intervention. Patient states at the bedside she does not want surgery in regards to her lumbar spine. At this time I feel obtaining further imaging outside lumbar x-ray may not be overly beneficial as the patient is currently wanting to continue with conservative treatment. We will plan to follow-up with an appropriate plan of care following her x-ray results. 2. Dr. Garcia in medicine and Dr. Grant in pulmonology will continue the following the patient for her other medical diagnoses 3. I will discuss this patient in detail with Dr. Luisito Wharton Time with Patient: Greater than 30
--- NOTE | 2016-09-25 09:48 | PN ---
Patient is seen for followup for end-stage renal disease. She was admitted to the hospital after not having made it to 2 treatments as outpatient. She stated she was weak and could not make it. Patient was also having abdominal pain. Since she has been here, she has been fairly stable. She has been eating okay. Blood pressure had dropped initially but she is now holding on her own with systolics ranging around 120 to 140 mmHg. There is consideration for rehab. On examination, blood pressure is 145/82, heart rate 93 per minute. She is afebrile. Examination of the heart, S1 and S2. Examination of the lungs, decreased breaths in bilateral bases. Abdomen is soft, morbidly obese. Examination of lower extremities shows chronic skin changes. Trace edema noted bilaterally. Significantly dry skin noted bilaterally. [employer] exam is grossly intact. Labs show sodium 133, potassium 4.7. Hemoglobin 8.5 g/dL. ASSESSMENT: 1. End-stage renal disease on hemodialysis on a Wednesday, Wednesday, Wednesday schedule via IJ Perm-A-Cath. Will schedule for hemodialysis today. 2. Anemia of chronic disease started on Aranesp. 3. Generalized debility, being considered for rehab. 4. Hypotension. Blood pressure medications have been adjusted, hydralazine is discontinued. Patient remains on oral Lasix. She has some urine output. 5. Chronic kidney disease bone mineral disorder, maintained on Renvela. Phosphorus is elevated. I am not sure if patient has been compliant as outpatient. I will increase the Renvela to 2 tablets t.i.d. with meals. PLAN: Hemodialysis today and increase Renvela. Consider rehab if covered by insurance and patient is advised that she needs to be compliant with her dialysis treatments.
[2016-09-25] MEDS: ALBUTEROL NEBULIZED 2.5 MG/3 ML INHALATION PRN (11:15)
[2016-09-25 11:49] LABS: Glucose,Whole Blood 189 mg/dL (75-99)
--- NOTE | 2016-09-25 12:02 | P.PN ---
Subjective Principal diagnosis: Acute hypotension This is a 61-year-old female with history of multiple medical problems including hypertension, chronic renal failure, on hemodialysis, chronic pain syndrome mostly back pain, diabetes, secondary hyperparathyroidism, COPD, GERD , underlying coronary artery disease, patient was seen yesterday initially at [facility], and she was complaining of weakness. Apparently she missed her dialysis that day, hence the patient was evaluated, she requested to be admitted for rehab, however she was told to be more compliant with dialysis, and have her dialysis done today instead. Patient came on her own from [facility] to our ER, and she had similar complaints. Patient was admitted, underwent dialysis yesterday, and she is undergoing dialysis this morning. Apparently upon arrival patient was given her usual meds mostly blood pressure medications, and her systolic blood pressure was noted to be low in the 70s. Patient was transferred to the ICU last night, and all along and for the night, her blood pressure was relatively normal. Patient did not require any fluid boluses, did not require any levo fed, she is presently receiving dialysis again, and she is mostly in pain mostly back pain which is chronic according to the patient. No cough no wheezing no shortness of breath, no chest pain. Patient feels generally weak. Labs were reviewed she had a hemoglobin of 8.7 WBC count of 9.8 electrolytes are normal BUN 49 creatinine 8.80. Her sugar last night while she was on the medical floor was as low as 57. Patient was given D50. Chest x-ray this morning showed mostly atelectasis at the right medial lung base, and chronic elevation of the right hemidiaphragm. Essentially unremarkable chest noted. Patient was reevaluated today on 09/25/2016, doing quite well, no shortness of breath no cough no wheezing no chest pain, her back pain is even better controlled with pain medications that she is receiving. Patient remained hemodynamically stable since she was transferred out of the ICU today. And she has no active pulmonary symptoms. Labs were reviewed including CBC and basic metabolic profile. Objective - Vital Signs Vital signs: Vital Signs Temp 97.5 F L 09/25/16 08:00 Pulse 93 09/25/16 11:25 Resp 18 09/25/16 08:00 BP 145/82 09/25/16 08:00 Pulse Ox 94 L 09/25/16 08:00 Intake & Output 0509/25/16 09/25/16 18:59 06:59 18:59 Intake Total 100 200 100 Output Total 220 Balance -120 200 100 Weight 115 kg 115 kg Intake: IV 100 0 Sodium Chloride 0.9% 1, 100 0 000 ml @ 20 mls/hr IV . Q24H [facility] Rx#:[id number] Oral 200 100 Output: Urine 220 Other: Voiding Method Bedpan Bedpan # Voids 1 1 # Bowel Movements 1 - Exam Physical Exam: Revealed a 61-year-old female in no form of respiratory distress , HEENT:[Neck is supple.] [No neck masses.] [No thyromegaly.] [No JVD.] Chest: [Diminished breath sounds at the bases no crackles, no rhonchi, no wheezes.] Cardiac Exam: [Normal S1 and S2, no S3 gallop, no murmur.] Abdomen: [Soft, nontender, no megaly, no rebound, no guarding, normal bowel sounds.] Extremities: [No clubbing, no edema, no cyanosis.] Neurological Exam: [No focal neurologic deficit.] - Labs CBC & Chem 7: 09/25/16 06:10 09/25/16 06:10 Labs: Abnormal Lab Results - Last 24 Hours (Table) 09/24/16 09/24/16 09/25/16 Range/Units 17:39 21:02 06:10 RBC (3.80-5.40) m/uL Hgb (11.4-16.0) gm/dL Hct (34.0-46.0) % MCV (80.0-100.0) fL MCHC (31.0-37.0) g/dL RDW (11.5-15.5) % Lymphocytes # (1.0-4.8) k/uL Sodium 133 L (137-145) mmol/L Chloride 97 L (98-107) mmol/L BUN 39 H (7-17) mg/dL Creatinine 7.05 H* (0.52-1.04) mg/dL Glucose 197 H (74-99) mg/dL POC Glucose (mg/dL) 109 H 159 H (75-99) mg/dL Calcium 7.0 L (8.4-10.2) mg/dL Phosphorus 7.6 H (2.5-4.5) mg/dL 09/25/16 09/25/16 09/25/16 Range/Units 06:10 06:11 11:35 RBC 2.71 L (3.80-5.40) m/uL Hgb 8.5 L (11.4-16.0) gm/dL Hct 28.1 L (34.0-46.0) % MCV 103.4 H (80.0-100.0) fL MCHC 30.2 L (31.0-37.0) g/dL RDW 18.5 H (11.5-15.5) % Lymphocytes # 0.4 L (1.0-4.8) k/uL Sodium (137-145) mmol/L Chloride (98-107) mmol/L BUN (7-17) mg/dL Creatinine (0.52-1.04) mg/dL Glucose (74-99) mg/dL POC Glucose (mg/dL) 196 H 189 H (75-99) mg/dL Calcium (8.4-10.2) mg/dL Phosphorus (2.5-4.5) mg/dL Assessment and Plan Plan: Impression: 1 acute hypotension most likely medications induced, patient has been on multiple medications for hypertension, and these were given upon admission along with pain medicine to control her back pain. Her hypotension did resolve and no issues overnight, no issues related to blood pressure this morning. 2 acute hypoglycemia, resolved with 1 amp of D50. 3 chronic renal disease, patient is on hemodialysis, and she was dialyzed early this morning. 4 history of secondary hyperparathyroidism related to renal failure. 5 history of diabetes,2 poorly controlled, this is being addressed by the admitting physician. 6 history of obstructive sleep apnea syndrome, patient will need outpatient evaluation. 7 history of severe osteoarthritis 8 morbid obesity 9 chronic pain syndrome mostly back pain. Recommendation: Continue present treatment plan as per the admitting physician and nephrology on the case, we'll sign off and see on when necessary basis. Time with Patient: Less than 30
--- NOTE | 2016-09-25 14:43 | XR ---
EXAMINATION TYPE: XR lumbar spine 2 or 3V DATE OF EXAM: 09/25/2016 2:38 PM COMPARISON: NONE HISTORY: Lower back pain after recent fall TECHNIQUE: Frontal and lateral radiograph were obtained of the lumbar spine. FINDINGS: Lumbar vertebral bodies maintain normal alignment and vertebral body height. Facet arthropa thy is most pronounced at L4-L5 and L5-S1 but present throughout the thoracic spine. Anterior osteoph yte projects from the superior endplate of T12. Minimal endplate sclerosis is noted of the inferior e ndplate of L5. Atherosclerosis is present of the abdominal aorta and its branches. Abdominal aorta is of normal chiara dinora measuring up to 2.2 cm infrarenally. Remainder the visualized osseous structures appear intact. V isualized bowel gas is nondilated. IMPRESSION: No evidence of fracture, dislocation, or malalignment. Degenerative changes of the lumbar spine most pronounced at the lumbosacral junction.
[2016-09-25 17:12] LABS: Glucose,Whole Blood 185 mg/dL (75-99)
[2016-09-25 20:33] LABS: Glucose,Whole Blood 214 mg/dL (75-99)
--- NOTE | 2016-09-25 20:38 | P.PN ---
Subjective Date of service 09/25/2016 Progress note being dictated for Dr. Garcia. Interval history: This is 61-year-old female admitted with hypotension severe back pain in a patient with end-stage renal disease on hemodialysis and other medical issues. Hypotension resolved. Transferred out of ICU today to telemetry unit .Back pain better controlled today on [place] every 6 hours. Lumbar spine reporting no evidence of fracture, dislocation or malalignment, degenerative changes of the lumbar spine most pronounced at lumbosacral junction. Evaluated by orthopedics with recommendations noted-conservative management .Telemetry sinus rhythm. Received hemodialysis today. Denies chest pain, palpitations, shortness of breath. Objective - Vital Signs Vital signs: Vital Signs Temp 98.4 F 09/25/16 16:00 Pulse 81 09/25/16 16:00 Resp 18 09/25/16 16:00 BP 128/51 09/25/16 16:00 Pulse Ox 94 L 09/25/16 16:00 Intake & Output 09/25/16 09/25/16 09/26/16 06:59 18:59 06:59 Intake Total 200 100 Balance 200 100 Weight 115 kg 115 kg Intake: IV 0 0 Sodium Chloride 0.9% 1, 0 0 000 ml @ 20 mls/hr IV . Q24H [facility] Rx#:[id number] Oral 200 100 Other: Voiding Method Bedpan Bedpan # Voids 1 - Exam PHYSICAL EXAM: VITAL SIGNS: As above GENERAL: [Sitting up in bed, no acute distress] HEENT: [Pupils equal conjunctiva normal.] NECK: [Supple, no JVD] RESPIRATORY EFFORT:[Normal] LUNGS: [Clear, diminished bases, no wheezing crackles or rhonchi] CARDIOVASCULAR[regular S1 and S2, no murmurs rubs or gallops] GI: [Abdomen soft, nontender, positive bowel sounds.] PSYCH: [Alert and oriented -3, mood and affect normal.] NEURO: Unchanged, in comparison to yesterday - Labs CBC & Chem 7: 09/25/16 06:10 09/25/16 06:10 Labs: Abnormal Lab Results - Last 24 Hours (Table) 09/24/16 09/25/16 09/25/16 Range/Units 21:02 06:10 06:10 RBC 2.71 L (3.80-5.40) m/uL Hgb 8.5 L (11.4-16.0) gm/dL Hct 28.1 L (34.0-46.0) % MCV 103.4 H (80.0-100.0) fL MCHC 30.2 L (31.0-37.0) g/dL RDW 18.5 H (11.5-15.5) % Lymphocytes # 0.4 L (1.0-4.8) k/uL Sodium 133 L (137-145) mmol/L Chloride 97 L (98-107) mmol/L BUN 39 H (7-17) mg/dL Creatinine 7.05 H* (0.52-1.04) mg/dL Glucose 197 H (74-99) mg/dL POC Glucose (mg/dL) 159 H (75-99) mg/dL Calcium 7.0 L (8.4-10.2) mg/dL Phosphorus 7.6 H (2.5-4.5) mg/dL 09/25/16 09/25/16 09/25/16 Range/Units 06:11 11:35 16:38 RBC (3.80-5.40) m/uL Hgb (11.4-16.0) gm/dL Hct (34.0-46.0) % MCV (80.0-100.0) fL MCHC (31.0-37.0) g/dL RDW (11.5-15.5) % Lymphocytes # (1.0-4.8) k/uL Sodium (137-145) mmol/L Chloride (98-107) mmol/L BUN (7-17) mg/dL Creatinine (0.52-1.04) mg/dL Glucose (74-99) mg/dL POC Glucose (mg/dL) 196 H 189 H 185 H (75-99) mg/dL Calcium (8.4-10.2) mg/dL Phosphorus (2.5-4.5) mg/dL Assessment and Plan Plan: 1. Hypotension secondary to probably hemodialysis, med induced; stabilized 2. [End-stage renal disease on hemodialysis.]. 3. [Morbid obesity, BMI 43.5]. 4. [Severe low back pain, in a patient with chronic pain syndrome]. 5. [Metabolic bone disease and hyperphosphatemia]. 6. [Essential hypertension]. 7. [Normocytic anemia]. 8. COPD, uses CPAP machine at home 9. DVT 10. COPD without acute exacerbation 11. Chronic medical debility 12. Severe osteoarthritis 13. Diabetes mellitus Plan: Continue on current medication regime ,monitoring and symptomatic treatment. Conservative management as per orthopedics. Pain management. Discharge planning in progress for [facility]. Further recommendations to follow. The impression and plan of care has been dictated as directed. : I performed a H&P examination of this patient and discussed the same with the dictator. I agree with the dictator's note. Any additional findings/opinions/ etc. will be noted.
[2016-09-26] MEDS: HYDROcodone/APAP 7.5-325MG 1 EACH TAB PO PRN ×4 (03:20→21:28)
[2016-09-26 05:58] LABS: Glucose,Whole Blood 244 mg/dL (75-99)
[2016-09-26] MEDS: SEVELAMER 800 MG TAB PO SCH ×3 (06:35→17:15)
[2016-09-26] MEDS: INSULIN LISPRO (humaLOG) 300 UNIT/3 ML VIAL SQ SCH ×4 (06:35→21:26)
[2016-09-26] MEDS: PANTOPRAZOLE 40 MG TABLET PO SCH ×2 (06:35→17:15)
[2016-09-26 06:50] LABS: Anisocytosis Slight; Basophils % (A) 0 %; CH 31.3; CHCM 29.3; Eosinophils % (A) 0 %; HCT 28.6 % (34.0-46.0); HGB 8.3 gm/dL (11.4-16.0); Hypochromasia Marked; Luc # (Auto) 0.03; Luc % (Auto) 1; Lymphocytes # (A) 0.4 k/uL (1.0-4.8); Lymphocytes % (A) 8 %; MCH 31.2 pg (25.0-35.0); MCV 107.8 fL (80.0-100.0); Macrocytosis Marked; Mean Platelet Volume 8.3; Monocytes # (A) 0.2 k/uL (0-1.0); Monocytes % (A) 4 %; Neutrophils # (A) 4.4 k/uL (1.3-7.7); Neutrophils % (A) 87 %; RBC 2.66 m/uL (3.80-5.40); RDW 18.5 % (11.5-15.5); WBC (Perox) 5.38
[2016-09-26 07:08] LABS: Calcium 7.5 mg/dL (8.4-10.2); Potassium 4.5 mmol/L (3.5-5.1)
[2016-09-26] MEDS: LIDOCAINE 5% PATCH TOPICAL SCH (08:18)
[2016-09-26] MEDS: ALPRAZolam 0.5 MG TAB PO SCH ×2 (08:19→21:25)
[2016-09-26] MEDS: HEPARIN SODIUM,PORCINE 5,000 UNIT/ML 1 ML VIAL SQ SCH ×3 (08:19→23:57)
[2016-09-26] MEDS: ISOSORBIDE MONONITRATE ER 30 MG TAB.ER.24H PO SCH (08:19)
[2016-09-26] MEDS: FUROSEMIDE 80 MG TAB PO SCH ×2 (08:19→15:16)
[2016-09-26] MEDS: DEXAMETHASONE 4 MG TAB PO SCH ×4 (08:19→21:25)
[2016-09-26] MEDS: METOPROLOL TARTRATE 50 MG TAB PO SCH ×2 (08:20→21:25)
[2016-09-26] MEDS: NYSTATIN 100,000 UNIT/GM POWD 15 GM TOPICAL SCH ×3 (08:20→21:33)
[2016-09-26] MEDS: traMADol 50 MG TAB PO PRN ×2 (08:20→15:15)
[2016-09-26 08:48] LABS: Manual Review Performed
--- NOTE | 2016-09-26 09:07 | P.PN ---
Subjective SHEENT is seen in follow-up for end-stage renal disease. She is maintained on hemodialysis on a Wednesday schedule via permacath. Patient did miss 2 treatments of hemodialysis prior to admission. She underwent hemodialysis yesterday and tolerated it well. Currently she is having breakfast. Denies chest pain or shortness of breath. No vomiting or diarrhea. Does admit to generalized pain. Vital signs are stable. General: The patient appeared well nourished and normally developed. HEENT: Head exam is unremarkable. Neck is without jugular venous distension. LUNGS: Lungs are clear to auscultation and percussion. Breath sounds decreased. HEART: Rate and Rhythm are regular. First and second heart sounds normal. No murmurs, rubs or gallops. ABDOMEN: Abdominal exam reveals normal bowel sounds. Non-tender and non- distended. No evidence of peritonitis. EXTREMITITES: No clubbing, cyanosis, or edema. Objective - Vital Signs Vital signs: Vital Signs Temp 97.1 F L 09/25/16 23:29 Pulse 80 09/26/16 04:00 Resp 16 09/26/16 04:00 BP 150/76 09/26/16 04:00 Pulse Ox 96 09/26/16 04:00 Intake & Output 09/25/16 09/26/16 09/26/16 18:59 06:59 18:59 Intake Total 100 10 Balance 100 10 Weight 115 kg 112.7 kg Intake: IV 0 10 Sodium Chloride 0.9% 1, 0 10 000 ml @ 20 mls/hr IV . Q24H [facility] Rx#:[id number] Oral 100 Other: Voiding Method Bedpan Bedpan # Voids 0 # Bowel Movements 2 - Labs CBC & Chem 7: 09/26/16 05:59 09/26/16 05:59 Labs: Abnormal Lab Results - Last 24 Hours (Table) 09/25/16 09/25/16 09/25/16 Range/Units 11:35 16:38 20:22 RBC (3.80-5.40) m/uL Hgb (11.4-16.0) gm/dL Hct (34.0-46.0) % MCV (80.0-100.0) fL MCHC (31.0-37.0) g/dL RDW (11.5-15.5) % Lymphocytes # (1.0-4.8) k/uL Sodium (137-145) mmol/L BUN (7-17) mg/dL Creatinine (0.52-1.04) mg/dL Glucose (74-99) mg/dL POC Glucose (mg/dL) 189 H 185 H 214 H (75-99) mg/dL Calcium (8.4-10.2) mg/dL Phosphorus (2.5-4.5) mg/dL 09/26/16 09/26/16 09/26/16 Range/Units 05:55 05:59 05:59 RBC 2.66 L (3.80-5.40) m/uL Hgb 8.3 L (11.4-16.0) gm/dL Hct 28.6 L (34.0-46.0) % MCV 107.8 H (80.0-100.0) fL MCHC 29.0 L (31.0-37.0) g/dL RDW 18.5 H (11.5-15.5) % Lymphocytes # 0.4 L (1.0-4.8) k/uL Sodium 134 L (137-145) mmol/L BUN 32 H (7-17) mg/dL Creatinine 4.98 H (0.52-1.04) mg/dL Glucose 240 H (74-99) mg/dL POC Glucose (mg/dL) 244 H (75-99) mg/dL Calcium 7.5 L (8.4-10.2) mg/dL Phosphorus 6.0 H (2.5-4.5) mg/dL Assessment and Plan Plan: Assessment: #1. End-stage renal disease maintained on hemodialysis on a Wednesday schedule via a permacath. #2. Chronic kidney disease mineral bone disease. #3. Anemia of chronic kidney disease. Rule out iron deficiency. #4. Hypotension. Resolved. #5. Generalized debility. Plan: Hemodialysis on Wednesday with goal 3-4 L ultrafiltration. Check iron studies. Maintain Aranesp. Maintain PhosLo with meals. Check UA and urine culture. Patient is concerned about having a urinary tract infection. Being considered for subacute rehab.
[2016-09-26] MEDS: ALBUTEROL NEBULIZED 2.5 MG/3 ML INHALATION PRN ×2 (09:27→20:11)
[2016-09-26 10:48] LABS: % Iron Saturation 31.9 % (20-50)
[2016-09-26 12:06] LABS: Glucose,Whole Blood 174 mg/dL (75-99)
[2016-09-26 16:59] LABS: Glucose,Whole Blood 126 mg/dL (75-99)
--- NOTE | 2016-09-26 18:26 | PN ---
A 61-year-old admitted with back pain. Patient has extremely poor functionality and patient will need physical therapy. Patient says now she wants to go to her daughter's place. I do not believe she can take care of her. I spent extensive amount of time today in discussing regarding going to subacute rehabilitation that is actually the reason she came in with. The patient underwent hemodialysis yesterday. REVIEW OF SYSTEMS: CARDIOVASCULAR: No chest pain, no orthopnea, no PND, no palpitations. PULMONARY: Denied any shortness of breath. No cough or hemoptysis. GASTROINTESTINAL: No diarrhea, nausea or vomiting. No abdominal pain. Normoactive bowel sounds. NEUROLOGIC: No headaches, no weakness, no numbness. Medications were reviewed. PHYSICAL EXAMINATION: Temperature 97.6, pulse of 70, respiratory rate of 18, blood pressure is 140/83, saturating at 100% on room air. GENERAL: She is morbidly obese. Alert and oriented x3. HEENT: Pupils are round and equally reacting to light. EOMI. No scleral icterus. No conjunctival pallor. Normocephalic, atraumatic. No pharyngeal erythema. No thyromegaly. CARDIOVASCULAR: S1 and S2 present. No murmurs, rubs, or gallops. PULMONARY: Chest is clear to auscultation, no wheezing or crackles. ABDOMEN: Soft, nontender, nondistended, normoactive bowel sounds. No palpable organomegaly. MUSCULOSKELETAL: No joint swelling or deformity. EXTREMITIES: No cyanosis, clubbing, or pedal edema. NEUROLOGICAL: No significant change, but patient's pain appears to be significantly controlled at this point of time. SKIN: No rashes. LABORATORY DATA: BUN and creatinine 32 and 4.98. ASSESSMENT AND PLAN: 1. Hypotension related to hemodialysis which resolved at this point of time. 2. Chronic low back pain secondary to degenerative disc disease. No acute abnormality at this point of time. Patient's pain is well controlled at this point of time. 3. 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 4. End stage renal disease, hemodialysis dependent. 5. Chronic obstructive pulmonary disease, not in acute exacerbation. 6. Sleep apnea for which patient uses CPAP machine. 7. Morbid obesity. 8. Chronic medical ability. 9. Type 2 diabetes mellitus, fairly controlled blood sugars with present regimen and will be continued on the same regimen. Patient probably can be discharged on Wednesday to subacute rehabilitation. Patient was evaluated by Dr. Wharton for her back issues because of the severity of back pain she had.
[2016-09-26 20:46] LABS: Glucose,Whole Blood 219 mg/dL (75-99)
[2016-09-27] MEDS: traMADol 50 MG TAB PO PRN ×3 (00:37→20:13)
[2016-09-27] MEDS: HYDROcodone/APAP 7.5-325MG 1 EACH TAB PO PRN ×2 (05:06→19:10)
[2016-09-27 07:28] LABS: Glucose,Whole Blood 271 mg/dL (75-99)
[2016-09-27] MEDS: SEVELAMER 800 MG TAB PO SCH ×3 (07:51→17:12)
[2016-09-27] MEDS: ALPRAZolam 0.5 MG TAB PO SCH ×2 (07:52→20:13)
[2016-09-27] MEDS: PANTOPRAZOLE 40 MG TABLET PO SCH ×2 (07:52→17:12)
[2016-09-27] MEDS: ISOSORBIDE MONONITRATE ER 30 MG TAB.ER.24H PO SCH (07:52)
[2016-09-27] MEDS: METOPROLOL TARTRATE 50 MG TAB PO SCH ×2 (07:52→20:16)
[2016-09-27] MEDS: ALBUTEROL NEBULIZED 2.5 MG/3 ML INHALATION PRN ×2 (07:53→18:52)
[2016-09-27] MEDS: DEXAMETHASONE 4 MG TAB PO SCH ×3 (07:53→23:40)
[2016-09-27] MEDS: HEPARIN SODIUM,PORCINE 5,000 UNIT/ML 1 ML VIAL SQ SCH ×3 (07:53→23:40)
[2016-09-27] MEDS: INSULIN LISPRO (humaLOG) 300 UNIT/3 ML VIAL SQ SCH ×4 (07:53→20:17)
[2016-09-27] MEDS: FUROSEMIDE 80 MG TAB PO SCH ×2 (07:54→17:12)
[2016-09-27] MEDS: LIDOCAINE 5% PATCH TOPICAL SCH (07:56)
[2016-09-27] MEDS: NYSTATIN 100,000 UNIT/GM POWD 15 GM TOPICAL SCH ×3 (08:06→23:42)
[2016-09-27 08:13] LABS: Anisocytosis Slight; Basophils % (A) 0 %; CH 31.7; CHCM 30.6; Eosinophils % (A) 0 %; HCT 29.5 % (34.0-46.0); HDW 2.89; HGB 8.7 gm/dL (11.4-16.0); Hypochromasia Moderate; Luc # (Auto) 0.03; Luc % (Auto) 1; Lymphocytes # (A) 0.4 k/uL (1.0-4.8); Lymphocytes % (A) 7 %; MCH 30.8 pg (25.0-35.0); MCHC 29.4 g/dL (31.0-37.0); MCV 104.6 fL (80.0-100.0); Macrocytosis Marked; Mean Platelet Volume 7.6; Monocytes # (A) 0.2 k/uL (0-1.0); Monocytes % (A) 4 %; Neutrophils # (A) 5.1 k/uL (1.3-7.7); Neutrophils % (A) 89 %; RBC 2.82 m/uL (3.80-5.40); RDW 18.4 % (11.5-15.5); WBC 5.8 k/uL (3.8-10.6); WBC (Perox) 5.77
[2016-09-27 08:25] LABS: Calcium 7.6 mg/dL (8.4-10.2); Magnesium 2.1 mg/dL (1.6-2.3); Phosphorous 6.4 mg/dL (2.5-4.5); Potassium 5.1 mmol/L (3.5-5.1)
[2016-09-27 08:27] VITALS: RESP 16
--- NOTE | 2016-09-27 09:01 | P.PN ---
Donny GILLESPIE is seen in follow-up for end-stage renal disease. She is maintained on hemodialysis on a Wednesday schedule via permacath. Patient did miss 2 treatments of hemodialysis prior to admission. She underwent hemodialysis on Wednesday and tolerated it well. Currently she is undergoing a breathing treatment. Denies chest pain but was a little dyspneic this morning. She is quite anxious. No vomiting or diarrhea. Does admit to generalized pain. Vital signs are stable. General: The patient appeared well nourished and normally developed. HEENT: Head exam is unremarkable. Neck is without jugular venous distension. LUNGS: Lungs are clear to auscultation and percussion. Breath sounds decreased. HEART: Rate and Rhythm are regular. First and second heart sounds normal. No murmurs, rubs or gallops. ABDOMEN: Abdominal exam reveals normal bowel sounds. Non-tender and non- distended. No evidence of peritonitis. EXTREMITITES: Trace edema. Objective - Vital Signs Vital signs: Vital Signs Temp 97.4 F L 09/27/16 07:00 Pulse 80 09/27/16 08:07 Resp 16 09/27/16 07:00 BP 148/78 09/27/16 07:00 Pulse Ox 94 L 09/27/16 07:00 Intake & Output 09/26/16 09/27/16 09/27/16 18:59 06:59 18:59 Intake Total 760 500 Output Total 0 Balance 760 500 Weight 114 kg Intake: Oral 760 500 Output: Urine 0 Other: Voiding Method Bedpan Bedpan - Labs CBC & Chem 7: 09/27/16 07:35 09/27/16 07:35 Labs: Abnormal Lab Results - Last 24 Hours (Table) 09/26/16 09/26/16 09/26/16 Range/Units 05:59 12:03 16:56 RBC (3.80-5.40) m/uL Hgb (11.4-16.0) gm/dL Hct (34.0-46.0) % MCV (80.0-100.0) fL MCHC (31.0-37.0) g/dL RDW (11.5-15.5) % Sodium (137-145) mmol/L Chloride (98-107) mmol/L BUN (7-17) mg/dL Creatinine (0.52-1.04) mg/dL Glucose (74-99) mg/dL POC Glucose (mg/dL) 174 H 126 H (75-99) mg/dL Calcium (8.4-10.2) mg/dL Phosphorus (2.5-4.5) mg/dL TIBC 144 L (265-497) ug/dL 09/26/16 09/27/16 09/27/16 Range/Units 20:44 07:25 07:35 RBC (3.80-5.40) m/uL Hgb (11.4-16.0) gm/dL Hct (34.0-46.0) % MCV (80.0-100.0) fL MCHC (31.0-37.0) g/dL RDW (11.5-15.5) % Sodium 134 L (137-145) mmol/L Chloride 96 L (98-107) mmol/L BUN 42 H (7-17) mg/dL Creatinine 6.31 H* (0.52-1.04) mg/dL Glucose 282 H (74-99) mg/dL POC Glucose (mg/dL) 219 H 271 H (75-99) mg/dL Calcium 7.6 L (8.4-10.2) mg/dL Phosphorus 6.4 H (2.5-4.5) mg/dL TIBC (265-497) ug/dL 09/27/16 Range/Units 07:35 RBC 2.82 L (3.80-5.40) m/uL Hgb 8.7 L (11.4-16.0) gm/dL Hct 29.5 L (34.0-46.0) % MCV 104.6 H (80.0-100.0) fL MCHC 29.4 L (31.0-37.0) g/dL RDW 18.4 H (11.5-15.5) % Sodium (137-145) mmol/L Chloride (98-107) mmol/L BUN (7-17) mg/dL Creatinine (0.52-1.04) mg/dL Glucose (74-99) mg/dL POC Glucose (mg/dL) (75-99) mg/dL Calcium (8.4-10.2) mg/dL Phosphorus (2.5-4.5) mg/dL TIBC (265-497) ug/dL Assessment and Plan Plan: Assessment: #1. End-stage renal disease maintained on hemodialysis on a Wednesday schedule via a permacath. #2. Chronic kidney disease mineral bone disease. #3. Anemia of chronic kidney disease. #4. Hypotension. Resolved. #5. Generalized debility. Plan: Hemodialysis on Wednesday with goal 3-4 L ultrafiltration. Maintain Aranesp. Maintain PhosLo with meals. Being considered for subacute rehab - potential discharge tomorrow.
[2016-09-27 09:23] LABS: Manual Review Performed
[2016-09-27 12:05] LABS: Glucose,Whole Blood 268 mg/dL (75-99)
[2016-09-27 17:03] LABS: Glucose,Whole Blood 107 mg/dL (75-99)
[2016-09-27 20:13] LABS: Glucose,Whole Blood 182 mg/dL (75-99)
[2016-09-28] MEDS: HYDROcodone/APAP 7.5-325MG 1 EACH TAB PO PRN ×4 (01:53→21:02)
[2016-09-28 07:15] LABS: Glucose,Whole Blood 246 mg/dL (75-99)
[2016-09-28] MEDS: ALBUTEROL NEBULIZED 2.5 MG/3 ML INHALATION PRN ×3 (07:20→19:55)
--- NOTE | 2016-09-28 07:35 | PN ---
DATE OF SERVICE: 09/27/2016 PRESENTING COMPLAINT: Back pain and leg pain. INTERVAL HISTORY: This is a 61-year-old female with back pain and multiple medical comorbidities. Patient has very poor functionality and requires physical therapy and placement in subacute rehab. Upon arrival into the patient's room, patient was crying out, moaning, asking for pain medications as we continued to stay, she stopped, stopped crying and stopped moaning and as we began prepared to leave the room, patient began crying and moaning that she needed help and she needed pain medication. All things that she needed. Patient's mood is very labile. Review of systems done for constitutional, cardiovascular, gastrointestinal, pulmonary, with relevant findings as above. CURRENT MEDICATIONS: 1. [place]. 2. Xanax. 3. Aranesp. 4. Hexadrol. 5. Lasix. 6. Heparin. 7. Humalog. 8. Imdur. 9. Lidoderm. 10. Lopressor. 11. Mycostatin powder. 12. Pantoprazole. 13. Renvela. 14. Ultram. PHYSICAL EXAMINATION: VITAL SIGNS: Temperature 97.6, pulse 59, respirations 16, blood pressure 143/80, oxygen saturation 99% on room air. GENERAL APPEARANCE: Patient is awake, alert, whining and crying as we arrived into the room, does stop doing that when attention is paid and then she becomes more, her mood becomes more labile and she begins to cry and moan that her pain is not controlled and she wants pain medications even when alternatives are discussed with her. EYES: Pupils equal conjunctivae normal. NECK: JVD not raised. Mass not palpable. Respiratory effort normal. LUNGS: Bilateral breath sounds diminished. Good airway clearance. CARDIOVASCULAR: S1, S2 sounds are normal. No edema noted. ABDOMEN: Soft, nontender. Liver and spleen not palpable. PSYCHIATRIC: Patient is alert and oriented x3. Mood and affect are very labile, crying one minute and fine the next. INVESTIGATIONS: Hemoglobin 8.7. Sodium 134, creatinine 6.31, patient due for hemodialysis 09/28/2016. ASSESSMENT: 1. Chronic low back pain secondary to degenerative disc disease. Imaging did not reveal any acute abnormality at this time. We will continue current pain management regimen. 2. Metabolic bone disease secondary to hypophosphatemia. 3. End-stage renal disease, hemodialysis dependent. 4. Chronic obstructive pulmonary disease, not in acute exacerbation. 5. Sleep apnea. 6. Morbid obesity. 7. Chronic medical debility. 8. Type 2 diabetes mellitus, blood sugars remain fairly well controlled with present regimen. PLAN: Patient probably can be discharged Wednesday09/28/2016 to subacute rehabilitation. We will continue to monitor patient's medical status in terms of hemodialysis and her response to that and any lab values that need to be supplemented. Patient was seen and examined by nurse practitioner Teresita Cardoso and all elements of the case discussed with attending, Dr. Haas. I performed a history and physical examination of this patient and discussed the same with the dictator. I agree with the dictator's note. Any additional findings/opinions, etc. will be noted.
[2016-09-28 07:40] LABS: Calcium 7.8 mg/dL (8.4-10.2); Magnesium 2.2 mg/dL (1.6-2.3); Phosphorous 6.4 mg/dL (2.5-4.5); Potassium 5.2 mmol/L (3.5-5.1)
[2016-09-28 07:56] LABS: Anisocytosis Slight; Basophils % (A) 0 %; CH 31.8; CHCM 31.3; Eosinophils % (A) 0 %; HCT 31.3 % (34.0-46.0); HDW 2.91; HGB 9.9 gm/dL (11.4-16.0); Hypochromasia Slight; Luc # (Auto) 0.04; Luc % (Auto) 1; Lymphocytes # (A) 0.5 k/uL (1.0-4.8); Lymphocytes % (A) 7 %; MCH 32.4 pg (25.0-35.0); MCHC 31.7 g/dL (31.0-37.0); MCV 102.2 fL (80.0-100.0); Macrocytosis Moderate; Mean Platelet Volume 7.7; Monocytes # (A) 0.3 k/uL (0-1.0); Monocytes % (A) 5 %; Neutrophils # (A) 5.3 k/uL (1.3-7.7); Neutrophils % (A) 87 %; RBC 3.06 m/uL (3.80-5.40); RDW 18.1 % (11.5-15.5); WBC 6.1 k/uL (3.8-10.6); WBC (Perox) 6.44
[2016-09-28] MEDS: ISOSORBIDE MONONITRATE ER 30 MG TAB.ER.24H PO SCH (08:00)
[2016-09-28] MEDS: SEVELAMER 800 MG TAB PO SCH ×3 (08:01→17:52)
[2016-09-28] MEDS: ALPRAZolam 0.5 MG TAB PO SCH ×2 (08:01→21:02)
[2016-09-28] MEDS: FUROSEMIDE 80 MG TAB PO SCH ×2 (08:01→17:52)
[2016-09-28] MEDS: HEPARIN SODIUM,PORCINE 5,000 UNIT/ML 1 ML VIAL SQ SCH ×3 (08:02→23:27)
[2016-09-28] MEDS: METOPROLOL TARTRATE 50 MG TAB PO SCH ×2 (08:02→21:02)
[2016-09-28] MEDS: LIDOCAINE 5% PATCH TOPICAL SCH (08:02)
[2016-09-28] MEDS: INSULIN LISPRO (humaLOG) 300 UNIT/3 ML VIAL SQ SCH ×4 (08:02→21:03)
[2016-09-28] MEDS: PANTOPRAZOLE 40 MG TABLET PO SCH ×2 (08:03→17:51)
[2016-09-28] MEDS: DEXAMETHASONE 4 MG TAB PO SCH ×4 (08:03→21:02)
[2016-09-28] MEDS: NYSTATIN 100,000 UNIT/GM POWD 15 GM TOPICAL SCH ×3 (08:04→22:27)
[2016-09-28] MEDS: traMADol 50 MG TAB PO PRN ×2 (11:31→21:02)
--- NOTE | 2016-09-28 11:35 | PN ---
DATE OF SERVICE: 09/27/2016 ATTENDING NOTE: This patient was seen and examined by me on 09/27/16. I agree with the note of my nurse practitioner, Ms. Cardoso. This is a patient I have known for quite some time with multiple medical problems. When I walked in the room, patient was rather comfortable, lying down. When we went in, she started saying I wanted pain medications. During the conversation when we diverted her attention, she became rather comfortable as noticed by all of us in the room including the nurse and nurse practitioner. Patient is tolerating a diet. Looking at inpatient rehab. ON EXAMINATION: LUNGS: Slightly decreased breath sounds. CARDIOVASCULAR: First and second sounds normal. ABDOMEN: Soft, nontender. The patient has got a dialysis catheter on the right chest wall. Accu-Cheks are noted. ASSESSMENT: 1. Medical debility. 2. Chronic low back pain from degenerative joint disease. 3. Metabolic bone disease. 4. End-stage kidney disease on hemodialysis. PLAN: Looking at inpatient rehab. Care was discussed with the patient. We will also order a heating pad.
[2016-09-28 11:47] LABS: Glucose,Whole Blood 216 mg/dL (75-99)
[2016-09-28] MEDS ORDERED: HEPARIN SODIUM,PORCINE 5,000 UNIT/ML 1 ML VIAL ONE ×2 (14:30→22:30)
--- NOTE | 2016-09-28 15:21 | DS ---
DATE OF ADMISSION: 09/23/2016 DATE OF DISCHARGE: 09/28/2016 FINAL DIAGNOSIS: 1. Acute and chronic low back pain from exacerbation of lumbar degenerative joint disease. 2. Osteoarthritis of multiple joints, bilateral, chronic. 3. Metabolic bone disease secondary to end-stage kidney disease. 4. End-stage kidney disease, hemodialysis dependent from diabetic nephrosclerosis and hypertensive nephrosclerosis. 5. Chronic obstructive pulmonary disease in an ex-smoker. 6. Morbid obesity with a body mass index of 42.8. 7. Chronic medical debility. 8. Diabetes mellitus type 2, chronically on insulin. 9. Macrocytic anemia secondary to end-stage kidney disease. 10. Gastroesophageal reflux disease. 11. Hyperlipidemia. 12. Essential hypertension. 13. Obstructive sleep apnea, does not use CPAP. 14. Chronic nicotine dependence. Patient is a smoker. 15. Chronic pain syndrome in multiple joints. HOSPITAL COURSE: This patient with multiple medical problems presented with increasing pain in different parts, medications were adjusted. Patient known to have chronic pain has seen pain specialist in the past. Oftentimes is emotional about the same. By the time of discharge, patient is tolerating a diet. Doing well. Hemodialysis today. Patient is to go to rehab. Care was discussed in detail with the patient. On exam, lungs decreased breath sounds. CARDIOVASCULAR: First and second sounds normal. Patient's hemoglobin is 9.9. BUN 54, creatinine 6.95. CONSULTATION: Dr. Rosas ) from nephrology and Dr. Grant from pulmonary. [facility]. DISCHARGE MEDICATIONS: Coreg 12.5 p.o. b.i.d. Imdur 30 mg p.o. daily. Lasix 80 mg p.o. b.i.d. omeprazole 20 mg p.o. b.i.d. Ventolin HFA 1 to 2 puffs q.6 p.r.n. Ventolin 2.5 nebulizer q.6 p.r.n. , Motrin 600 mg q.6 p.r.n. Humalog per scale. Novolin 70/30 25 units subcu a.c. b.i.d. Renvela 800 mg p.o. t.i.d. Xanax 0.5 p.o. q.12. [place] 40 mcg subcu 7 days. [place] 7.5 1 tablets q.6 p.r.n. ( ) 5% patch topical daily, nystatin topical t.i.d. Ultram 50 mg p.o. q.i.d. p.r.n. DISPOSITION: [facility] . Follow up with Dr. Rosas ) as needed and follow with [facility]ir[facility]. Patient counseled against smoking. Keep hemodialysis schedule as before.
--- NOTE | 2016-09-28 15:23 | DS ---
ADDENDUM TO DISCHARGE SUMMARY DATE OF ADMISSION: 09/23/2016 DATE OF DISCHARGE: 09/28/2016 Correction to medications. Coreg is to be discontinued, Lopressor 50 mg po b.i.d.
--- NOTE | 2016-09-28 16:09 | PN ---
Patient is seen for followup for end-stage renal disease. She is normally dialyzed on a Wednesday, Wednesday, Wednesday schedule. She is awaiting rehab placement. On examination, patient is comfortable, not in any acute distress. Blood pressure was 124/84, heart rate 52 per minute. She is afebrile. EXAMINATION OF THE HEART: S1 and S2. EXAMINATION OF THE LUNGS: Bilateral breath sounds are heard. ABDOMEN: Soft, obese, nontender. Examination of the lower extremities shows no evidence of edema. Labs show potassium 5.2, sodium 132; hemoglobin 9.9 g/dL. ASSESSMENT: 1. End-stage renal disease, on hemodialysis on a Wednesday, Wednesday, Wednesday schedule. Patient is scheduled for hemodialysis today. 2. Chronic kidney disease bone mineral disorder, maintained on phosphate binders. Renvela was increased. 3. Mild hyperkalemia. Expect improvement with hemodialysis today. 4. Fluid overload, currently improved. PLAN: Hemodialysis today. Increase UF as tolerated to about 3 liters, depending on the blood pressure. Possible discharge today to rehab facility.
[2016-09-28] MEDS ORDERED: SODIUM CHLORIDE 0.9% 500 ML IV ONE (16:35)
[2016-09-28] MEDS ORDERED: fentaNYL (PF) 50 MCG/ML 2 ML AMP IV ONE (16:41)
[2016-09-28] MEDS: MIDAZOLAM 2 MG/2 ML VIAL IVP ONE ×2 (16:41→16:56)
[2016-09-28] MEDS: LIDOCAINE 2% INJ 20 MG/ML SQ ONE ×2 (16:55→16:57)
[2016-09-28] MEDS ORDERED: IODIXANOL 320 MG/ML 100 ML IV ONE (17:14)
[2016-09-28 17:48] LABS: Glucose,Whole Blood 188 mg/dL (75-99)
--- NOTE | 2016-09-28 18:13 | XR ---
EXAMINATION TYPE: XR chest 1V portable DATE OF EXAM: 09/28/2016 6:08 PM COMPARISON: 09/24/2016 HISTORY: Catheter placement TECHNIQUE: Single frontal view of the chest is obtained. FINDINGS: There is a dual-lumen right-sided central venous catheter with the tip in the superior chava a cava. There is no pneumothorax. There is no heart failure. Lungs appear clear of consolidation. IMPRESSION: Catheter appears in fairly good position without a significant change compared to last e xam.
[2016-09-28 20:09] LABS: Glucose,Whole Blood 168 mg/dL (75-99)
--- NOTE | 2016-09-28 22:27 | PN ---
DATE OF SERVICE: 09/28/2016 PRESENTING COMPLAINT: Back and leg pain. INTERVAL HISTORY: This is a 61-year-old female with back pain and multiple medical comorbidities. Patient has very poor functionality and requires physical therapy and placement in subacute rehab. Today patient was found sitting up in bed, eating her breakfast calmly and quietly. Once I arrived in the room, she began to cry and moan about various different complaints, wanting different things for her breakfast. Patient's mood overall continues to be very labile. Review of systems done for constitutional, cardiovascular, gastrointestinal, pulmonary, with relevant findings as above. CURRENT MEDICATIONS: 1. [place]. 2. Xanax. 3. Aranesp. 4. Hexadrol. 5. Lasix. 6. Heparin. 7. Humalog. 8. Imdur. 9. Lidoderm. 10. Lopressor. 11. Mycostatin powder. 12. Pantoprazole. 13. Renvela. 14. Ultram. PHYSICAL EXAMINATION: VITAL SIGNS: Temperature 97.4 pulse 52, respiratory rate 16, blood pressure 124/84, oxygen saturation 97% on room air. GENERAL APPEARANCE: Patient is awake, sitting up in bed, fidgeting quite a bit with her gown. Upon my arrival patient continues to cry, wanting different things for her breakfast. Moans about pain, discomfort again. She stopped shortly after my arrival. Mood continues to be labile. EYES: Pupils equal. Conjunctivae normal. NECK: JVD not raised. Mass not palpable. RESPIRATORY: Effort normal. LUNGS: Bilateral breath sounds diminished to the bases. CARDIOVASCULAR: S1, S2 sounds are normal. No edema. ABDOMEN: Soft, nontender. Liver and spleen not palpable. PSYCHIATRIC: Patient is alert and oriented x3. Mood and affect are very labile with periods of crying and then the patient is fine in the next moment. INVESTIGATIONS: Hemoglobin 9.9. Sodium 132, potassium 5.2. BUN 54, creatinine 6.95. Blood glucose 241. Magnesium 2.2. Phosphorus is 6.4. ASSESSMENT: 1. Chronic low back pain secondary to degenerative disc disease. Imaging does not reveal any acute abnormality at this time. Continue current pain management regimen. 2. Hypophosphatemia secondary to metabolic bone disease as a result of end-stage renal disease. 3. End-stage renal disease, hemodialysis-dependent. 4. Chronic obstructive pulmonary disease, not in acute exacerbation. 5. Obstructive sleep apnea. Patient refuses to utilize CPAP nightly. 6. Morbid obesity; body mass index 42.8 kg/square meter. 7. Chronic medical debility. 8. Diabetes mellitus, type 2. Blood sugars remain fairly well controlled. Will continue with current regimen. PLAN: Patient to be discharged to [facility] with dialysis services to be provided. Discharge plan will occur on Wednesday09/29/2016. We will continue to monitor patient's medical status in terms of hemodialysis and her response to that and any lab values that need to be supplemented. Patient was seen and examined by nurse practitioner Teresita Cardoso and all elements of the case were discussed with attending, Dr. Haas.
[2016-09-29] MEDS: HYDROcodone/APAP 7.5-325MG 1 EACH TAB PO PRN ×2 (03:16→08:34)
[2016-09-29] MEDS: traMADol 50 MG TAB PO PRN ×2 (03:17→08:34)
[2016-09-29] MEDS: ALBUTEROL NEBULIZED 2.5 MG/3 ML INHALATION PRN ×2 (06:18→12:30)
[2016-09-29 07:31] LABS: Glucose,Whole Blood 265 mg/dL (75-99)
[2016-09-29 07:45] VITALS: BP 147/66; TEMP 98.4
--- NOTE | 2016-09-29 07:48 | PN ---
DATE OF SERVICE: 09/28/2016 Attending note: This patient was seen and examined by me. I reviewed the note of my nurse practitioner and agree with the same except for the changes below. Patient overall doing better. Eating better. Pain is controlled. Her mood does fluctuate. On exam: LUNGS: Decreased breath sounds. Mild wheezing. CARDIOVASCULAR: First and second sounds normal. ABDOMEN: Soft, nontender. PSYCH: Alert and oriented x3. INVESTIGATIONS: Labs are noted. Accu-Cheks are noted. ASSESSMENT: 1. Chronic pain with improvement. 2. Endstage kidney disease, hemodialysis-dependent. 3. Metabolic bone disease as a result of endstage kidney disease. PLAN: Care was discussed with the patient, looking at discharge probably tomorrow now after talking to the manager social services. Other medication and treatment plan is to continue.
--- NOTE | 2016-09-29 08:09 | PCN ---
DATE OF PROCEDURE: PREOPERATIVE DIAGNOSIS: Acute renal failure with malfunction dialysis catheter. PROCEDURE: Placement of the 28 cm dialysis catheter during superior vena cavogram. This patient had a dialysis catheter placed in the past. This catheter has been malfunctioning and patient was brought to the [facility] Director and right side of the neck and chest was prepped and drapes in a sterile manner. A small incision was made in the neck area. Catheter was identified and divided and passed a glidewire under C-arm control. After that we created a tunnel, through the tunnel, we brought 28 cm dialysis catheter and sheath was advanced on the top of the guidewire and through the sheath, we introduced the dialysis catheter. Tip of the catheter was in the superior vena cava and atrium. Then we decided to do the venacavogram superior and dye was injected and the tip of the catheter was at the junction of superior vena cava and atrium. There was no obstruction noted at the superior vena cava. Catheter was flushed and hep-locked. Incision closed with Vicryl and nylon. Patient tolerated the procedure well and transferred to recovery room in satisfactory condition.
[2016-09-29] MEDS: INSULIN LISPRO (humaLOG) 300 UNIT/3 ML VIAL SQ SCH ×2 (08:28→12:26)
[2016-09-29] MEDS: HEPARIN SODIUM,PORCINE 5,000 UNIT/ML 1 ML VIAL SQ SCH (08:29)
[2016-09-29] MEDS: SEVELAMER 800 MG TAB PO SCH ×2 (08:29→12:27)
[2016-09-29] MEDS: PANTOPRAZOLE 40 MG TABLET PO SCH (08:29)
[2016-09-29] MEDS: FUROSEMIDE 80 MG TAB PO SCH (08:30)
[2016-09-29] MEDS: ISOSORBIDE MONONITRATE ER 30 MG TAB.ER.24H PO SCH (08:30)
[2016-09-29] MEDS: DEXAMETHASONE 4 MG TAB PO SCH ×2 (08:30→12:27)
[2016-09-29] MEDS: LIDOCAINE 5% PATCH TOPICAL SCH (08:30)
[2016-09-29] MEDS: METOPROLOL TARTRATE 50 MG TAB PO SCH (08:31)
[2016-09-29] MEDS: ALPRAZolam 0.5 MG TAB PO SCH (08:34)
[2016-09-29 08:43] LABS: Anisocytosis Slight; Basophils % (A) 0 %; CH 31.6; CHCM 30.5; Eosinophils % (A) 0 %; HCT 31.3 % (34.0-46.0); HDW 2.73; HGB 9.3 gm/dL (11.4-16.0); Hypochromasia Moderate; Luc # (Auto) 0.05; Luc % (Auto) 1; Lymphocytes # (A) 0.4 k/uL (1.0-4.8); Lymphocytes % (A) 5 %; MCH 30.8 pg (25.0-35.0); MCHC 29.5 g/dL (31.0-37.0); MCV 104.2 fL (80.0-100.0); Macrocytosis Moderate; Mean Platelet Volume 7.5; Monocytes # (A) 0.4 k/uL (0-1.0); Monocytes % (A) 5 %; Neutrophils # (A) 6.7 k/uL (1.3-7.7); Neutrophils % (A) 89 %; RBC 3.01 m/uL (3.80-5.40); RDW 18.3 % (11.5-15.5); WBC 7.5 k/uL (3.8-10.6); WBC (Perox) 8.32
[2016-09-29] MEDS: NYSTATIN 100,000 UNIT/GM POWD 15 GM TOPICAL SCH (08:45)
[2016-09-29 09:52] LABS: Calcium 7.5 mg/dL (8.4-10.2); Potassium 4.6 mmol/L (3.5-5.1)
[2016-09-29 11:13] LABS: Glucose,Whole Blood 243 mg/dL (75-99)
[2016-09-29 11:57] VITALS: BMI 43.0
[2016-09-29 12:44] VITALS: PULSE 72
--- NOTE | 2016-09-29 16:24 | PN ---
DATE OF SERVICE: 09/29/2016 PRESENTING COMPLAINT: Back and leg pain. INTERVAL HISTORY: This is a 61-year-old female with back pain and multiple medical comorbidities. Patient has very poor functionality and requires physical therapy and placement in subacute rehab. Today patient was found sitting up in bed, eating her breakfast calmly and quietly. Once I arrived in the room she began to cry and moan about various different complaints, wanting different things for her breakfast. Today patient was sleeping on my arrival and was overall well-behaved and mood was appropriate. Review of systems done for constitutional, cardiovascular, gastrointestinal, pulmonary; relevant findings as above. CURRENT MEDICATIONS: 1. [place]. 2. Xanax. 3. Aranesp. 4. Lasix. PHYSICAL EXAMINATION: VITAL SIGNS: Temperature 98.4 pulse 62, respiratory rate 16, blood pressure 147/66, oxygen saturation 97% on room air. GENERAL APPEARANCE: Patient resting quietly and comfortably in bed. When she realized medical staff was present in the room she began to cry and moan and request pain medication, etc. Patient's mood continues to be labile, happy and content one minute, sad and emotional the next. EYES: Pupils equal. Conjunctivae normal. NECK: JVD not raised. Masses not palpable. RESPIRATORY: Effort normal. LUNGS: Bilateral breath sounds diminished at the bases. CARDIOVASCULAR: S1, S2 sounds are normal. No edema. ABDOMEN: Soft, nontender. Liver and spleen not palpable. PSYCHIATRIC: Patient is alert and oriented x3. Mood and affect are very labile with periods of crying and then the patient is fine in the next moment. INVESTIGATIONS: Morning blood glucose 243. ASSESSMENT: 1. Chronic low back pain secondary to degenerative disease. Imaging did not reveal any acute abnormality at this time. Continue current pain management regimen. 2. Hypophosphatemia secondary to metabolic bone disease, a result of end-stage renal disease. 3. End-stage renal disease, hemodialysis-dependent. 4. Chronic obstructive pulmonary disease, not in acute exacerbation. 5. Obstructive sleep apnea; refuses to utilize CPAP nightly. 6. Morbid obesity; body mass index 42.8 kg/square meter. 7. Chronic medical debility. 8. Diabetes mellitus, type 2. Blood sugars remain fairly well controlled. Will continue with current regimen. PLAN: Patient to be discharged to ( ) with dialysis service to be provided. Discharge plan on Wednesday09/29/2016. Patient was seen and examined by nurse practitioner Teresita Cardoso. All elements of the case were discussed with attending, Dr. Haas.
--- NOTE | 2016-09-30 08:19 | PN ---
The patient is seen for followup for end-stage renal disease. Her Perm-A-Cath was not working well yesterday and she had a new catheter placed, which ran fine. There are plans for discharge today to rehab. On examination, blood pressure is 147/66, heart rate 72 per minute. The patient is afebrile. EXAMINATION OF THE HEART: S1 and S2. EXAMINATION OF THE LUNGS: Decreased breath sounds in bases. ABDOMEN: Soft, morbidly obese. Examination of lower extremities shows no significant edema. Labs show potassium 4.6. Hemoglobin was at 9.3 g/dL. ASSESSMENT: 1. End-stage renal disease on hemodialysis on a Wednesday, Wednesday, Wednesday schedule. 2. Generalized debility. 3. Anemia of chronic disease. 4. Malfunctioning Perm-A-Cath, status post new catheter placement yesterday. PLAN: Patient can be discharged to rehab facility. She will follow up as outpatient for hemodialysis on a Wednesday, Wednesday, Wednesday schedule.
--- NOTE | 2016-09-30 12:00 | DS ---
ADDENDUM: DATE OF ADMISSION: 09/23/2016 DATE OF DISCHARGE: 09/29/2016 ADDENDUM: Please refer to my discharge summary from yesterday. Patient is stable, doing well, tolerating a diet. On exam, lungs decreased breath sounds. CARDIOVASCULAR: First and second sounds are normal. Disposition to [facility].
--- NOTE | 2016-10-08 09:35 | IR ---
EXAMINATION TYPE: IR cvc insert central tunneled DATE OF EXAM: 09/28/2016 5:43 PM COMPARISON: NONE HISTORY: Dialysis catheter. Fluoroscopy was provided to the referring clinician. See dictated report from [facility]..
== END 2016-09-29 13:50 | DRG 551 ==
LOC: EC 11:14 → SUPCPDRO 11:14 → 6SEL 13:58 → 6ICU 09-24 02:21 → 6SEL 09-24 19:36 → 5MS5E 09-26 16:24
PROVIDERS: ADMIT Hospitalist; ATTEND Hospitalist
PROC: 5A1D60Z (ICD-10-PCS; principal; 2016-09-23)
PROC: 02HV33Z Insertion of Infusion Device into Superior Vena Cava, Percutaneous Approach (ICD-10-PCS; 2016-09-23)
DX: M47.26 Other spondylosis with radiculopathy, lumbar region (principal); N18.6 End stage renal disease; I13.2 Hypertensive heart and chronic kidney disease with heart failure and with stage 5 chronic kidney disease, or end stage renal disease; N17.9 Acute kidney failure, unspecified; E88.89 Other specified metabolic disorders; I42.9 Cardiomyopathy, unspecified; T82.41XA Breakdown (mechanical) of vascular dialysis catheter, initial encounter; J98.11 Atelectasis; N25.81 Secondary hyperparathyroidism of renal origin; Z68.41 Body mass index [BMI] 40.0-44.9, adult; E11.21 Type 2 diabetes mellitus with diabetic nephropathy; E11.40 Type 2 diabetes mellitus with diabetic neuropathy, unspecified; D63.1 Anemia in chronic kidney disease; G89.4 Chronic pain syndrome; E11.22 Type 2 diabetes mellitus with diabetic chronic kidney disease; E11.649 Type 2 diabetes mellitus with hypoglycemia without coma; E11.65 Type 2 diabetes mellitus with hyperglycemia; E66.01 Morbid (severe) obesity due to excess calories; E78.5 Hyperlipidemia, unspecified; E83.39 Other disorders of phosphorus metabolism; E87.5 Hyperkalemia; F17.200 Nicotine dependence, unspecified, uncomplicated; G47.33 Obstructive sleep apnea (adult) (pediatric); I12.9 Hypertensive chronic kidney disease with stage 1 through stage 4 chronic kidney disease, or unspecified chronic kidney disease; I25.10 Atherosclerotic heart disease of native coronary artery without angina pectoris; I50.9 Heart failure, unspecified; J44.9 Chronic obstructive pulmonary disease, unspecified; K21.9 Gastro-esophageal reflux disease without esophagitis; M17.12 Unilateral primary osteoarthritis, left knee; Z99.2 Dependence on renal dialysis; Z91.15 Patient's noncompliance with renal dialysis; Y71.2 Prosthetic and other implants, materials and accessory cardiovascular devices associated with adverse incidents; Z79.4 Long term (current) use of insulin; Z79.899 Other long term (current) drug therapy; Z82.49 Family history of ischemic heart disease and other diseases of the circulatory system; Z91.19 Patient's noncompliance with other medical treatment and regimen; Z95.5 Presence of coronary angioplasty implant and graft
CPT/HCPCS: 36415; 36556; 71010; 71020; 72100; 73502; 76937; 77001; 80048; 80053; 82009; 82550; 82553; 82728; 83036; 83540; 83550; 83605; 83690; 83735; 83880; 84100; 84484; 85025; 85027; 85610; 85730; 90935; 93005; 94640; 94760; 96374; 96375; 96376; 99285

== ENCOUNTER 2016-10-07 14:45 | Inpatient (IN) | payer MEDICARE, OTHER ==
[2016-10-07] MEDS ORDERED: SODIUM CHLORIDE 0.9% 1,000 ML IV STA (15:10)
[2016-10-07 15:46] LABS: INR 1.2 (<1.1); Partial Thromboplastin Time 25.3 sec (22.0-30.0); Prothrombin Time 11.5 sec (9.0-12.0)
[2016-10-07 15:48] LABS: Anisocytosis Slight; Basophils % (A) 0 %; CH 31.9; CHCM 31.3; Eosinophils # (A) 0.1 k/uL (0-0.7); Eosinophils % (A) 2 %; HCT 26.5 % (34.0-46.0); HGB 8.2 gm/dL (11.4-16.0); Hypochromasia Slight; Luc % (Auto) 3; Lymphocytes # (A) 0.7 k/uL (1.0-4.8); Lymphocytes % (A) 9 %; MCH 31.7 pg (25.0-35.0); MCHC 30.9 g/dL (31.0-37.0); MCV 102.6 fL (80.0-100.0); Macrocytosis Moderate; Mean Platelet Volume 7.4; Monocytes # (A) 0.7 k/uL (0-1.0); Monocytes % (A) 9 %; Neutrophils # (A) 6.1 k/uL (1.3-7.7); Neutrophils % (A) 78 %; RBC 2.58 m/uL (3.80-5.40); RDW 17.2 % (11.5-15.5); WBC 7.9 k/uL (3.8-10.6); WBC (Perox) 8.19
[2016-10-07 15:51] LABS: Calcium 7.4 mg/dL (8.4-10.2); Potassium 5.2 mmol/L (3.5-5.1); Total Bilirubin 0.4 mg/dL (0.2-1.3); Total Protein 4.7 g/dL (6.3-8.2)
--- NOTE | 2016-10-07 15:57 | ED ---
General Adult HPI - General Chief complaint: Recheck/Abnormal Lab/Rx Stated complaint: Dialysis Port Time Seen by Provider: 10/07/16 15:05 Source: patient, EMS, RN notes reviewed, old records reviewed Mode of arrival: EMS Limitations: physical limitation - History of Present Illness Initial comments: Patient 61-year-old female who presents emergency room today with chief complaint of needing a dialysis port. History provided by EMS stating that patient pulled it out while she was at halfway. I did discuss this with patient. She does not remember taking a dialysis port. States she was sent in to have a new port placed. She does admit to chronic back pain. She was given morphine by EMS. She currently denies any other complaints or symptoms. Patient denies any recent fever, chills, shortness of breath, chest pain, nausea or vomiting, numbness or tingling, dysuria or hematuria, constipation or diarrhea, headaches or visual changes, or any other complaints. - Related Data Home Medications Medication Instructions Recorded Confirmed Isosorbide Mononitrate [Imdur] 30 mg PO DAILY 11/24/13 09/23/16 Omeprazole 20 mg PO BID 04/27/16 09/23/16 Albuterol Inhaler [Ventolin Hfa 1 - 2 puff INHALATION RT-Q6H PRN 09/09/16 Inhaler] Albuterol Nebulized [Ventolin 2.5 mg INHALATION RT-Q6H PRN 09/09/16 09/23/16 Nebulized] INSULIN LISPRO (humaLOG) [humaLOG See Protocol SQ ACHS 09/14/16 09/23/16 (formulary)] Previous Rx's Medication Instructions Recorded Furosemide [Lasix] 80 mg PO BID #60 tablet 01/10/14 Ibuprofen [Motrin] 600 mg PO Q6HR PRN #24 tab 09/09/16 Insulin NPH Hum/Reg Insulin Hm 25 units SQ AC-BID #0 09/16/16 [NovoLIN 70-30 100 UNIT/ML VIAL] Sevelamer [Renvela] 800 mg PO TID-W/MEALS #60 tab 09/16/16 ALPRAZolam [Xanax] 0.5 mg PO Q12HR #15 tab 09/28/16 Darbepoetin Praveen [Aranesp] 40 mcg SQ Q7D syringe 09/28/16 HYDROcodone/APAP 7.5-325MG [[place] 1 each PO Q6H PRN #10 tab 09/28/16 7.5-325] INSULIN LISPRO (humaLOG) [humaLOG 0 unit SQ ACHS vial 09/28/16 (formulary)] Lidocaine 5% Patch [Lidoderm 5% 1 patch TOPICAL DAILY #7 patch 09/28/16 Patch] Metoprolol Tartrate [Lopressor] 50 mg PO BID tab 09/28/16 Nystatin 100,000 Unit/gm Powd 1 applic TOPICAL TID applic 09/28/16 [Mycostatin Powder] traMADol HCl [Ultram] 50 mg PO QID PRN #10 tab 09/28/16 Allergies Allergy/AdvReac Type Severity Reaction Status Date / Time No Known Allergies Allergy Verified 10/07/16 16:07 Review of Systems ROS Statement: Those systems with pertinent positive or pertinent negative responses have been documented in the HPI. ROS Other: All systems not noted in ROS Statement are negative. Past Medical History Past Medical History: Heart Failure, COPD, Diabetes Mellitus, Dialysis, GERD/ Reflux, Hyperlipidemia, Hypertension, Osteoarthritis (OA), Pneumonia, Renal Disease Additional Past Medical History / Comment(s): Pt recently admitted to [facility] on with ESRD/bilateral knee [id number] to falling. Other hx: 07/2016 peritonitis, chronic renal disease stage IV, cardiomyopathy, IDDM type II, normocytic anemia, ARPIT without device, frequent constipation, hyponatremia, hypocalcemia, low albumin, mild to moderate protein calorie malnutrition, obesity, gastritis, chronic pain syndrome, back/sciatica and hip pain bilaterally, cataract in R eye. History of Any Multi-Drug Resistant Organisms: None Reported Past Surgical History: Cholecystectomy, Heart Catheterization Additional Past Surgical History / Comment(s): 2013 Peritoneal dialysis catheter placement and removal, hemodialysis cath placement BUT MAL FUNCTIONED AND NEW DIALYSIS CATH PLACED 09-16-16, 2011 cardiac cath, pilonodial cyst removed Past Anesthesia/Blood Transfusion Reactions: No Reported Reaction Additional Past Anesthesia/Blood Transfusion Reaction / Comment(s): never received a blood transfusion Past Psychological History: Anxiety, Depression Additional Psychological History / Comment(s): Father is from [facility]. She has had no international travel at any time. She has no travel to the [facility]. She lives in her family home with her son , and does not work outside of the home. No significant alcohol use. No history of recreational drug use. There is a pet cat in the home, and her adult son cares for the box. Smoking Status: Current every day smoker Past Alcohol Use History: None Reported Additional Past Alcohol Use History / Comment(s): Pt started smoking in 1975 and WAS a ppd now down to 1/2 ppd Past Drug Use History: None Reported - Past Family History Mother Family Medical History: Congestive Heart Failure (CHF), Coronary Artery Disease (CAD), Diabetes Mellitus Additional Family Medical History / Comment(s): Mother of diabetic complications at the age of 55yrs. Father Family Medical History: Diabetes Mellitus, Hypertension, Pneumonia Additional Family Medical History / Comment(s): alcoholism. Father of pneumonia at the age of 81 yrs. General Exam - General Exam Comments Initial Comments: General: The patient is awake and alert, in no distress, and does not appear acutely ill. Eye: Pupils are equal, round and reactive to light, extra-ocular movements are intact. No nystagmus. There is normal conjunctiva bilaterally. No signs of icterus. Ears, nose, mouth and throat: There are moist mucous membranes and no oral lesions. Neck: The neck is supple, there is no tenderness or JVD. Cardiovascular: There is a regular rate and rhythm. No murmur, rub or gallop is appreciated. Respiratory: Lungs are clear to auscultation, respirations are non-labored, breath sounds are equal. No wheezes, stridor, rales, or rhonchi. Gastrointestinal: Soft, non-distended, non-tender abdomen without masses or organomegaly noted. There is no rebound or guarding present. No CVA tenderness. Bowel sounds are unremarkable. Musculoskeletal: Normal ROM, no tenderness. Strength 5/5. Sensation intact. Pulses equal bilaterally 2+. Neurological: A&O x 3. CN II-XII intact, There are no obvious motor or sensory deficits. Coordination appears grossly intact. Speech is normal. Skin: Skin is warm and dry and no rashes or lesions are noted. Psychiatric: Cooperative, appropriate mood & affect, normal judgment. Limitations: physical limitation Course Vital Signs 10/07/16 14:58 Temperature 98 F Pulse Rate 88 Respiratory 16 Rate Blood Pressure 112/73 O2 Sat by Pulse 100 Oximetry Medical Decision Making - Medical Decision Making Patient reexamined at this time shows no signs of distress. Patient was sent in by [facility] for a dialysis port. Patient's labs been reviewed does show elevated BUN/creatinine. Hemoglobin 8.2. These numbers are consistent with previous labs that she's had most recently on last admission. Patient urinalysis does show evidence for infection will be started on Rocephin here in the emergency room. Case was discussed with nurse practitioner Teresita who will admit for Dr. Haas - Lab Data Result diagrams: 10/07/16 15:00 10/07/16 15:00 Lab Results 10/07/16 10/07/16 10/07/16 Range/Units 15:00 15:00 15:00 WBC 7.9 (3.8-10.6) k/uL RBC 2.58 L (3.80-5.40) m/uL Hgb 8.2 L (11.4-16.0) gm/dL Hct 26.5 L (34.0-46.0) % MCV 102.6 H (80.0-100.0) fL MCH 31.7 (25.0-35.0) pg MCHC 30.9 L (31.0-37.0) g/dL RDW 17.2 H (11.5-15.5) % Plt Count 215 (150-450) k/uL Neutrophils % 78 % Lymphocytes % 9 % Monocytes % 9 % Eosinophils % 2 % Basophils % 0 % Neutrophils # 6.1 (1.3-7.7) k/uL Lymphocytes # 0.7 L (1.0-4.8) k/uL Monocytes # 0.7 (0-1.0) k/uL Eosinophils # 0.1 (0-0.7) k/uL Basophils # 0.0 (0-0.2) k/uL Hypochromasia Slight Anisocytosis Slight Macrocytosis Moderate PT 11.5 (9.0-12.0) sec INR 1.2 (<1.1) APTT 25.3 (22.0-30.0) sec Sodium 135 L (137-145) mmol/L Potassium 5.2 H (3.5-5.1) mmol/L Chloride 99 (98-107) mmol/L Carbon Dioxide 24 (22-30) mmol/L Anion Gap 12 mmol/L BUN 78 H (7-17) mg/dL Creatinine 9.80 H* (0.52-1.04) mg/dL Est GFR (MDRD) Af Amer 5 (>60 ml/min/1.73 sqM) Est GFR (MDRD) Non-Af 4 (>60 ml/min/1.73 sqM) Glucose 137 H (74-99) mg/dL Calcium 7.4 L (8.4-10.2) mg/dL Total Bilirubin 0.4 (0.2-1.3) mg/dL AST 15 (14-36) U/L ALT 34 (9-52) U/L Alkaline Phosphatase 140 H (38-126) U/L Total Protein 4.7 L (6.3-8.2) g/dL Albumin 2.0 L (3.5-5.0) g/dL Urine Color Urine Appearance (Clear) Urine pH (5.0-8.0) Ur Specific Dearing (1.001-1.035) Urine Protein (Negative) Urine Glucose (UA) (Negative) Urine Ketones (Negative) Urine Blood (Negative) Urine Nitrite (Negative) Urine Bilirubin (Negative) Urine Urobilinogen (<2.0) mg/dL Ur Leukocyte Esterase (Negative) Urine RBC (0-5) /hpf Urine WBC (0-5) /hpf Ur Squamous Epith Cells (0-4) /hpf Urine Bacteria (None) /hpf Hyaline Casts (0-2) /lpf Urine Mucus (None) /hpf Urine Yeast (Budding) (None) /hpf 10/07/16 Range/Units 15:40 WBC (3.8-10.6) k/uL RBC (3.80-5.40) m/uL Hgb (11.4-16.0) gm/dL Hct (34.0-46.0) % MCV (80.0-100.0) fL MCH (25.0-35.0) pg MCHC (31.0-37.0) g/dL RDW (11.5-15.5) % Plt Count (150-450) k/uL Neutrophils % % Lymphocytes % % Monocytes % % Eosinophils % % Basophils % % Neutrophils # (1.3-7.7) k/uL Lymphocytes # (1.0-4.8) k/uL Monocytes # (0-1.0) k/uL Eosinophils # (0-0.7) k/uL Basophils # (0-0.2) k/uL Hypochromasia Anisocytosis Macrocytosis PT (9.0-12.0) sec INR (<1.1) APTT (22.0-30.0) sec Sodium (137-145) mmol/L Potassium (3.5-5.1) mmol/L Chloride (98-107) mmol/L Carbon Dioxide (22-30) mmol/L Anion Gap mmol/L BUN (7-17) mg/dL Creatinine (0.52-1.04) mg/dL Est GFR (MDRD) Af Amer (>60 ml/min/1.73 sqM) Est GFR (MDRD) Non-Af (>60 ml/min/1.73 sqM) Glucose (74-99) mg/dL Calcium (8.4-10.2) mg/dL Total Bilirubin (0.2-1.3) mg/dL AST (14-36) U/L ALT (9-52) U/L Alkaline Phosphatase (38-126) U/L Total Protein (6.3-8.2) g/dL Albumin (3.5-5.0) g/dL Urine Color Yellow Urine Appearance Cloudy H (Clear) Urine pH 7.0 (5.0-8.0) Ur Specific Dearing 1.013 (1.001-1.035) Urine Protein 1+ H (Negative) Urine Glucose (UA) Negative (Negative) Urine Ketones Negative (Negative) Urine Blood Moderate H (Negative) Urine Nitrite Negative (Negative) Urine Bilirubin Negative (Negative) Urine Urobilinogen <2.0 (<2.0) mg/dL Ur Leukocyte Esterase Large H (Negative) Urine RBC 8 H (0-5) /hpf Urine WBC 87 H (0-5) /hpf Ur Squamous Epith Cells <1 (0-4) /hpf Urine Bacteria Moderate H (None) /hpf Hyaline Casts 1 (0-2) /lpf Urine Mucus Rare H (None) /hpf Urine Yeast (Budding) Moderate H (None) /hpf Disposition Clinical Impression: Urinary tract infection, Chronic renal failure Disposition: ADMITTED IP TO THIS HOSP Condition: Stable Referrals: Dakota Izagurire MD [Primary Care Provider] - 1-2 days Time of Disposition: 16:12
[2016-10-07 16:04] LABS: Appearance,Urine Cloudy (Clear); Bacteria,Urine Moderate /hpf; Bilirubin,Urine Negative (Negative); Glucose,Urine (UA) Negative (Negative); Ketones,Urine Negative (Negative); Leukocyte Esterase,Urine Large (Negative); Mucus,Urine Rare /hpf; Nitrite,Urine Negative (Negative); Particle Count 6755; Protein,Urine 1+ (Negative); RBC,Urine 8 /hpf (0-5); Specific Gravity,Urine 1.013 (1.001-1.035); Squamous Epithelial Cell,Urine <1 /hpf (0-4); UA Billing (MACRO vs. MICRO) MICRO; Urobilinogen,Urine <2.0 mg/dL (<2.0); WBC,Urine 87 /hpf (0-5)
[2016-10-07] MEDS ORDERED: NALOXONE 0.4 MG/ML 1 ML VIAL IV PRN (16:27)
[2016-10-07] MEDS ORDERED: SODIUM CHLORIDE 0.9% 1,000 ML IV ONE (16:27)
[2016-10-07 21:05] LABS: Glucose,Whole Blood 140 mg/dL (75-99)
[2016-10-07] MEDS: MORPHINE ORAL SOLN 20 MG/1 ML ORAL SYRINGE PO PRN (22:13)
[2016-10-08] MEDS: QUEtiapine 25 MG TAB PO SCH ×4 (02:06→23:17)
[2016-10-08] MEDS: MORPHINE ORAL SOLN 20 MG/1 ML ORAL SYRINGE PO PRN ×2 (07:51→16:04)
--- NOTE | 2016-10-08 13:59 | P.PN ---
Progress Note - Text Exceedingly well known to the service. Underwent placement of tunneled right internal jugular dialysis catheter on 08/13 after peritonitis and removal of peritoneal dialysis catheter. Underwent replacement of tunneled right internal jugular dialysis catheter on after catheter was noted to thrombose. Now the catheter has been "pulled out". Patient has absolutely no recollection about the events. Able to answer questions about location, place, and time but occasionally answers inappropriately with higher level questions. In the past, patient was against long-term hemodialysis but is now amenable to having this done including placement of access in her left arm. AF VSS EXTR; brachial, radial and ulnar pulses are palpable bilaterally, both hands are viable impression/plan 1. hemodialysis dependent renal failure with need for temporary and permanent access. 2. mental status changes with urosepsis Multiple attempts were made to contact her daughter and son with no answer. All attempts went to voice mail. Patient was agreeable to catheter. This is an emergency to insert hemodialysis catheter so patient can be dialyzed. Will proceed.
[2016-10-08 14:20] LABS: Calcium 7.3 mg/dL (8.4-10.2)
[2016-10-08] MEDS ORDERED: LIDOCAINE 2% INJ 20 MG/ML SQ ONE ×2 (14:52→15:12)
[2016-10-08] MEDS ORDERED: HEPARIN SODIUM 1,000 UNIT/ML VIAL IV ONE (15:35)
[2016-10-08] MEDS ORDERED: traMADol 50 MG TAB PO PRN (15:41)
[2016-10-08] MEDS ORDERED: SODIUM CHLORIDE 0.9% 500 ML IV ONE (15:56)
--- NOTE | 2016-10-08 16:00 | P.PCN ---
Date of Procedure: 10/08/16 Preoperative Diagnosis: hemodialysis dependent renal failure Postoperative Diagnosis: same Procedure(s) Performed: tunneled left IJ dialysis catheter Implants: Anesthesia: local Surgeon: Sravani Almeida Estimated Blood Loss (ml): 25 Indications for Procedure: hemodialysis dependent renal failure Operative Findings: Description of Procedure: after sterile prep and drape of the left neck, the area overlying the left internal jugular vein was infiltrated with a solution of 1% lidocaine. Using ultrasound guidance, a 21 G needle was placed into the left internal jugular vein followed by a 018" wire. A sheath and core were placed over the wire. The core and wire were removed and a 035 stiff glide wire was threaded into the inferior vena cava using fluoroscopic guidance. A tunnel onto the anterior chest wall was created and the dialysis catheter was threaded through the tunnel taking care not to twist it. The tract into the jugular vein was sequentially dilated. Finally, a dilator and peel-a-way sheath was placed. The wire and dilator was removed and the catheter was placed into the peel-away sheath. The peel-away sheath was then removed. The tip of the catheter was placed in the superior vena cava/right atrial junction. No kinks were noted throughout its course. Both ports aspirated and flushed without difficulty and were capped with a solution of 1000U/heparin per cc. The incisions were closed with a 4-0 vicryl used to secure the dermal layers and 4-0 nylon to skin. Sterile dressings. Needle and sponge counts correct. CXR pending.
--- NOTE | 2016-10-08 16:03 | XR ---
EXAMINATION TYPE: XR chest 1V portable DATE OF EXAM: 10/08/2016 3:58 PM Comparison: 09/28/2016 Clinical History: 61-year-old female line placement. Findings: Left-sided double-lumen hemodialysis catheter with tips at the mid to lower SVC. Heart is mildly enlarged. Mild diffuse interstitial prominence is unchanged. Left base is underpenetr ated and not well assessed. Right lung and pleural space appear clear as does the left upper lung. Impression: Borderline to mild cardiomegaly. There are chronic changes. Left base underpenetrated and not well as sessed.
[2016-10-08] MEDS: SEVELAMER 800 MG TAB PO SCH (17:26)
[2016-10-08] MEDS: SERTRALINE 50 MG TAB PO SCH (17:26)
[2016-10-08] MEDS: ISOSORBIDE MONONITRATE ER 30 MG TAB.ER.24H PO SCH (17:26)
--- NOTE | 2016-10-08 18:56 | HP ---
DATE OF ADMISSION: 10/07/2016 PRESENTING COMPLAINT: Pulled out dialysis catheter. HISTORY OF PRESENTING COMPLAINT: This is a 61-year-old patient known to me from multiple medical admissions. Patient's chronic stable medical conditions include chronic low back pain from DJD, osteoarthritis, metabolic bone disease, end-stage kidney disease, on hemodialysis, COPD in an ex-smoker, morbid obesity, diabetes mellitus, type 2, macrocytic anemia, GERD, hyperlipidemia, hypertension, chronic pain syndrome, pain in multiple joints. Patient came in somewhat lethargic yesterday; had pulled out her dialysis catheter. Patient is able to communicate but often dozes off. Seems to be a bit delirious. Patient seems to have lost weight. REVIEW OF SYSTEMS: CONSTITUTIONAL: Tired. HEENT: None. RESPIRATORY: Some wheezing and cough. CARDIOVASCULAR: None. GASTROINTESTINAL: None. GENITOURINARY: None. MUSCULOSKELETAL: Aches and pains in different joints. DERMATOLOGICAL: Dry skin. HEMATOLOGICAL: None. LYMPHATICS: None. PSYCHIATRY: Occasionally delirious while talking. NEUROLOGICAL: None. PAST HISTORY: 1. Chronic low back pain. 2. Metabolic bone disease. 3. End-stage kidney disease. 4. COPD. 5. Obesity. 6. Diabetes mellitus, type 2. 7. GERD. 8. Hyperlipidemia. 9. Hypertension. 10. Sleep apnea; does not use CPAP. 11. ( ) nicotine dependence. PAST SURGICAL HISTORY: 1. Cholecystectomy. 2. Cardiac catheterization. 3. Peritoneal dialysis catheter placed, removed. 4. New hemodialysis catheter placed on 09/16/16. SOCIAL HISTORY: Patient currently lives at [facility]. Patient had been a smoker for a long time until very recently. FAMILY HISTORY: Congestive heart failure, coronary artery disease, diabetes. HOME MEDICATIONS: 1. Renagel 800 mg p.o. t.i.d. 2. Ultram 50 mg q.6 p.r.n. 3. Xanax 1 mg p.o. q.12. 4. Ventolin HFA 2 puffs q.6. 5. Scroggins 7.5 one tablet q.i.d. 6. Humalog per protocol. 7. Nystatin topically t.i.d. 8. Omeprazole 20.6 mg p.o. b.i.d. 9. Novolin 70/30 25 units b.i.d. 10. Lopressor 50 mg p.o. q.12. 11. Lasix 80 mg p.o. b.i.d. 12. Zoloft 50 mg p.o. daily. 13. Darbepoetin 40 mcg on Fridays. 14. Lidoderm 5% patch daily. 15. Imdur ER 30 mg p.o. daily. 16. Seroquel 25 mg p.o. q.8. 17. Roxanol 20 mg q.2 hours p.r.n. 18. Ventolin 2.5 nebulizer q.i.d. p.r.n. FAMILY HISTORY: Reviewed; non-contributory to presentation. On examination, temperature 98.1, pulse 80, respiration 20, blood pressure 130/69, pulse ox 94% on room air. GENERAL APPEARANCE: Well built; BMI of 34.8. Lying in bed. Somewhat delirious. EYES: Pupils equal. Conjunctivae normal. HEENT: Oral cavity normal. NECK: JVD not raised. Mass not palpable. RESPIRATORY: Effort increased. LUNGS: Some wheezing. CARDIOVASCULAR: First and second sounds normal. No edema. ABDOMEN: Distended, soft. Liver and spleen not palpable. LYMPHATIC: No lymph node palpable in neck or axillae. PSYCHIATRY: Patient is able to answer questions but is occasionally delirious. NEUROLOGICAL: Pupils equal. Cranial nerves grossly intact. Moving all 4 limbs. INVESTIGATIONS: White count 7.9, hemoglobin 8.2. Potassium 5.2. BUN 78, creatinine 9.0. UA positive for leukocyte esterase, bacteria, some yeast. ASSESSMENT: 1. Acute metabolic encephalopathy; could be from missed hemodialysis. 2. Acute urinary tract infection with some funguria. 3. Acute metabolic encephalopathy from incomplete hemodialysis. 4. Chronic low back pain from lumbar degenerative joint disease. 5. Primary osteoarthritis of multiple joints bilaterally. 6. Metabolic bone disease from end-stage kidney disease. 7. 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 8. Chronic obstructive pulmonary disease in an ex-smoker. 9. Morbid obesity; body mass index greater than 40. 10. Chronic medical debility. 11. Diabetes mellitus, type 2, chronically on insulin. 12. Macrocytic anemia secondary to end-stage kidney disease. 13. Gastroesophageal reflux disease. 14. Hyperlipidemia. 15. Essential hypertension. 16. Obstructive sleep apnea; does not use CPAP. 17. Chronic nicotine dependence. Patient stated that she is not smoking currently. 18. Chronic pain syndrome in multiple joints. 19. Acute urinary tract infection, present on admission. PLAN: Patient was started on nebulized bronchodilators. Nephrology was consulted. Will also treat the patient for UTI. Patient will be started on ceftriaxone. Hopefully patient will be dialyzed today. Nephrology is consulted. Care was discussed with the patient.
[2016-10-08] MEDS: HYDROcodone/APAP 7.5-325MG 1 EACH TAB PO SCH ×2 (20:46→21:41)
[2016-10-08] MEDS ORDERED: HEPARIN SODIUM,PORCINE 10,000 UNIT/ML 1 ML VIAL IV ONE (21:29)
[2016-10-08] MEDS ORDERED: HEPARIN SODIUM,PORCINE 5,000 UNIT/ML 1 ML VIAL IV PRN (21:29)
[2016-10-08] MEDS: METOPROLOL TARTRATE 50 MG TAB PO SCH (21:48)
[2016-10-08] MEDS: FUROSEMIDE 80 MG TAB PO SCH (21:48)
[2016-10-08 22:04] LABS: INR 1.2 (<1.1); Partial Thromboplastin Time 22.7 sec (22.0-30.0); Prothrombin Time 11.8 sec (9.0-12.0)
[2016-10-08 22:06] LABS: Anisocytosis Slight; Basophils # (A) 0.1 k/uL (0-0.2); Basophils % (A) 1 %; CH 30.8; CHCM 27.8; Eosinophils # (A) 0.2 k/uL (0-0.7); Eosinophils % (A) 2 %; HCT 29.6 % (34.0-46.0); HDW 2.41; HGB 8.7 gm/dL (11.4-16.0); Hypochromasia Marked; Luc # (Auto) 0.24; Luc % (Auto) 3; Lymphocytes # (A) 0.6 k/uL (1.0-4.8); Lymphocytes % (A) 7 %; MCH 32.9 pg (25.0-35.0); MCHC 29.5 g/dL (31.0-37.0); Macrocytosis Marked; Mean Platelet Volume 8.5; Monocytes # (A) 0.6 k/uL (0-1.0); Monocytes % (A) 7 %; Neutrophils # (A) 6.8 k/uL (1.3-7.7); Neutrophils % (A) 80 %; RBC 2.66 m/uL (3.80-5.40); RDW 16.4 % (11.5-15.5); WBC 8.5 k/uL (3.8-10.6); WBC (Perox) 7.83
[2016-10-08 22:07] LABS: MCV 111.4 fL (80.0-100.0)
[2016-10-08] MEDS: HEPARIN SODIUM,PORCINE/D5W PMX 25,000 UNIT in DEXTROSE/WATER 1 500ML.BAG IV SCH (22:15)
[2016-10-09] MEDS: MORPHINE ORAL SOLN 20 MG/1 ML ORAL SYRINGE PO PRN ×2 (02:08→07:48)
[2016-10-09 04:35] LABS: Anisocytosis Slight; Basophils % (A) 1 %; CH 31.4; CHCM 30.2; Eosinophils # (A) 0.2 k/uL (0-0.7); Eosinophils % (A) 2 %; HGB 7.8 gm/dL (11.4-16.0); Hypochromasia Moderate; Luc # (Auto) 0.23; Luc % (Auto) 3; Lymphocytes # (A) 0.8 k/uL (1.0-4.8); Lymphocytes % (A) 10 %; MCH 31.3 pg (25.0-35.0); Macrocytosis Moderate; Mean Platelet Volume 7.6; Monocytes # (A) 0.6 k/uL (0-1.0); Monocytes % (A) 8 %; Neutrophils # (A) 5.7 k/uL (1.3-7.7); Neutrophils % (A) 76 %; RBC 2.48 m/uL (3.80-5.40); RDW 16.8 % (11.5-15.5); WBC 7.4 k/uL (3.8-10.6); WBC (Perox) 7.55
[2016-10-09 06:25] LABS: MCV 104.5 fL (80.0-100.0)
--- NOTE | 2016-10-09 08:53 | P.NPCON ---
History of Present Illness - Reason for Consult end stage renal disease - History of Present Illness Reason for consultation: End-stage renal disease History of present illness: Patient is a 61-year-old female seen in renal consultation for end-stage renal disease. She is maintained on hemodialysis on a Wednesday schedule via permacath. Patient presented to the hospital after she pulled out a permacath. Patient doesn't really recall S2 why she did that. She is currently resting in bed and is only moaning. She is not a very reliable historian. Patient states her last hemodialysis was on Wednesday. She denies chest pain or shortness of breath. No vomiting or diarrhea. Hemodynamically she stable. Again she is only moaning and is not providing reliable history. She had a new permacath placed on October 08. Vital signs are stable. General: The patient appeared well nourished and normally developed. HEENT: Head exam is unremarkable. Neck is without jugular venous distension. LUNGS: Lungs are clear to auscultation and percussion. Breath sounds decreased. HEART: Rate and Rhythm are regular. First and second heart sounds normal. No murmurs, rubs or gallops. ABDOMEN: Abdominal exam reveals normal bowel sounds. Non-tender and non- distended. No evidence of peritonitis. EXTREMITITES: No clubbing, cyanosis, or edema. Past Medical History Past Medical History: Heart Failure, COPD, Diabetes Mellitus, Dialysis, GERD/ Reflux, Hyperlipidemia, Hypertension, Osteoarthritis (OA), Pneumonia, Renal Disease Additional Past Medical History / Comment(s): 09/10/16 with ESRD/bilateral knee sprains D/T falling. Other hx: 07/2016 peritonitis, chronic renal disease stage IV, cardiomyopathy, IDDM type II, normocytic anemia, ARPIT without device, frequent constipation, hyponatremia, hypocalcemia, low albumin, mild to moderate protein calorie malnutrition, obesity, gastritis, chronic pain syndrome , back/sciatica and hip pain bilaterally, cataract in R eye. History of Any Multi-Drug Resistant Organisms: None Reported Past Surgical History: Cholecystectomy, Heart Catheterization Additional Past Surgical History / Comment(s): 2013 Peritoneal dialysis catheter placement and removal, hemodialysis cath placement BUT MAL FUNCTIONED AND NEW DIALYSIS CATH PLACED [id number] cardiac cath, pilonodial cyst removed Past Anesthesia/Blood Transfusion Reactions: No Reported Reaction Additional Past Anesthesia/Blood Transfusion Reaction / Comment(s): never received a blood transfusion Past Psychological History: Anxiety, Depression Additional Psychological History / Comment(s): Father is from [facility]. PT CURRENTLY AT [facility].She has had no international travel at any time. She has no travel to the [facility] No significant alcohol use. No history of recreational drug use. Smoking Status: Former smoker Past Alcohol Use History: None Reported Additional Past Alcohol Use History / Comment(s): Pt started smoking in 1975, SMOKED 1PPD THEN DECREASED TO 1/2 PPD THEN QUIT WHEN WENT TO [facility] 09-29-16 Past Drug Use History: None Reported - Past Family History Mother Family Medical History: Congestive Heart Failure (CHF), Coronary Artery Disease (CAD), Diabetes Mellitus Additional Family Medical History / Comment(s): Mother of diabetic complications at the age of 55yrs. Father Family Medical History: Diabetes Mellitus, Hypertension, Pneumonia Additional Family Medical History / Comment(s): alcoholism. Father of pneumonia at the age of 81 yrs. Medications and Allergies Home Medications Medication Instructions Recorded Confirmed Type Albuterol Nebulized [Ventolin 2.5 mg INHALATION RT-Q4H PRN 09/09/16 10/07/16 History Nebulized] ALPRAZolam [Xanax] 1 mg PO Q12HR PRN 10/07/16 10/07/16 History Albuterol Inhaler [Ventolin Hfa 2 puff INHALATION RT-Q6H PRN 10/07/16 10/07/16 History Inhaler] Darbepoetin Praveen 40mcg/Ml 40 mcg SQ FR 10/07/16 10/07/16 History Furosemide [Lasix] 80 mg PO BID 10/07/16 10/07/16 History HYDROcodone/APAP 7.5-325MG [[place] 1 tab PO QID 10/07/16 10/07/16 History 7.5-325] INSULIN LISPRO (HumaLOG) [HumaLOG] See Protocol SQ QID 10/07/16 10/07/16 History Insulin NPH Hum/Reg Insulin Hm 25 unit SQ BID 10/07/16 10/07/16 History [NovoLIN 70-30 100 UNIT/ML VIAL] Isosorbide Mononitrate ER [Imdur] 30 mg PO DAILY 10/07/16 10/07/16 History Lidocaine [Lidoderm 5% Patch] 1 patch TRANSDERM DAILY 10/07/16 10/07/16 History MORPHINE ORAL SOLN 20mg/mL 20 mg PO Q2HR PRN 10/07/16 10/07/16 History [Roxanol Oral Soln Conc 20MG/ML] Metoprolol Tartrate [Lopressor] 50 mg PO Q12H 10/07/16 10/07/16 History Nystatin 100,000 Unit/gm Powd 1 applic TOPICAL TID 10/07/16 10/07/16 History [Mycostatin Powder] Omeprazole Magnesium Dr 20.6mg 20.6 mg PO BID 10/07/16 10/07/16 History QUEtiapine FUMARATE [SEROquel] 25 mg PO Q8HR 10/07/16 10/07/16 History Sertraline HCl [Zoloft] 50 mg PO DAILY 10/07/16 10/07/16 History Sevelamer HCl [Renagel] 800 mg PO TID-W/MEALS 10/07/16 10/07/16 History traMADol HCL [Ultram] 50 mg PO Q6HR PRN 10/07/16 10/07/16 History Allergies Allergy/AdvReac Type Severity Reaction Status Date / Time No Known Allergies Allergy Verified 10/07/16 16:07 Physical Exam Vitals: Vital Signs Temp Pulse Pulse Resp BP Pulse Ox 10/09/16 07:00 98.1 F 82 16 109/56 94 L 10/08/16 22:36 98 F 95 10/08/16 14:16 98.1 F 93 20 114/54 92 L Intake and Output 10/08/16 10/09/16 10/09/16 22:59 06:59 14:59 Intake Total 130 446 Output Total 100 Balance 130 346 Intake: IV 130 446 .9@20 80 160 Heparin Sodium,Porcine/ 286 D5w Pmx 25,000 unit In Dextrose/Water 1 500ml. bag @ 18 UNITS/KG/HR 35. 82 mls/hr IV .[id number] [facility] Rx#:[id number] Output: Urine 100 Uretheral ([place]) 100 Other: Voiding Method Indwelling Catheter Indwelling Catheter Weight 99.5 kg 101 kg Results - Lab Results Most recent lab results Calcium 7.3 mg/dL (8.4-10.2) L 10/08/16 13:50 10/09/16 03:54 10/08/16 13:50 Assessment and Plan Plan: Assessment: #1. End-stage renal disease maintained on hemodialysis on a Wednesday schedule via permacath. #2. Noncompliance with hemodialysis as an outpatient. #3. Anemia of chronic kidney disease. Rule out iron deficiency. #4. Chronic kidney disease mineral bone disease. #5. Pyuria. Plan: Hemodialysis today with goal 2-3 L ultrafiltration. Check iron studies. Start Aranesp. Check phosphorus level. Maintain Renvela with meals. Check urine culture. She is currently on IV Rocephin. She can be discharged from nephrology standpoint after dialysis today. Thank you for the consultation. I will continue to follow the patient with you during her hospital stay.
[2016-10-09 08:58] LABS: INR 1.2 (<1.1); Partial Thromboplastin Time 70.8 sec (22.0-30.0); Prothrombin Time 12.3 sec (9.0-12.0)
[2016-10-09] MEDS: SERTRALINE 50 MG TAB PO SCH (09:32)
[2016-10-09] MEDS: METOPROLOL TARTRATE 50 MG TAB PO SCH ×2 (09:33→22:33)
[2016-10-09] MEDS: QUEtiapine 25 MG TAB PO SCH ×2 (09:35→19:07)
[2016-10-09] MEDS: SEVELAMER 800 MG TAB PO SCH ×3 (09:35→19:12)
[2016-10-09] MEDS: FUROSEMIDE 80 MG TAB PO SCH ×2 (09:35→21:21)
[2016-10-09] MEDS: PANTOPRAZOLE 40 MG TABLET PO SCH (09:36)
[2016-10-09] MEDS: ISOSORBIDE MONONITRATE ER 30 MG TAB.ER.24H PO SCH (09:36)
[2016-10-09] MEDS: HYDROcodone/APAP 7.5-325MG 1 EACH TAB PO SCH ×4 (09:40→22:37)
--- NOTE | 2016-10-09 10:18 | IR ---
EXAMINATION TYPE: IR cvc insert central tunneled DATE OF EXAM: 10/08/2016 3:58 PM COMPARISON: NONE HISTORY: Hemodialysis catheter. Fluoroscopy was provided to the referring clinician. See dictated report from vascular surgery.
[2016-10-09] MEDS: DARBEPOETIN ALFA 40 MCG/0.4 ML SYRINGE SQ SCH (10:20)
--- NOTE | 2016-10-09 11:29 | US ---
EXAMINATION TYPE: US venous doppler duplex LE RT DATE OF EXAM: 10/09/2016 9:55 AM COMPARISON: NONE CLINICAL HISTORY: dialysis access, please do arms and use tourniquet. IMPRESSION: Right arm vein mapping attempted. DVT found in patients IJV. Cephalic vein scanned and measured in its entirety. Unable to complete test due to patient cooperation. Patient refused the remaining portion of exam.
--- NOTE | 2016-10-09 12:11 | P.PN ---
Progress Note - Text Patient is arousable but very sleepy; alert and oriented to person and time only. Does not know the place or specifics of why she is in the hospital. Observed pulling on IV tubing almost reflexively. Catheter site is intact. Very convoluted story concerning patient's recent medical history with no documentation from outside facilities available at this time. REquested records through social service. Discussed with Dr. Lagunas who states that patient was diagnosed with a rectal perforation at [facility] and at that time was made hospice. Ethics consult is being performed with psychiatric evaluation requested to determine patient competency. Request that dialysis catheter remain covered in its entirety with ABD and secured with tape so that patient is unable to access catheter and pull it out. There are limited areas for catheter placement at this time. Further intervention pending ethics and psych evaluation. Will hold off on planning more permanent access at this time.
[2016-10-09 12:41] LABS: % Iron Saturation 28.4 % (20-50)
[2016-10-09] MEDS: HEPARIN SODIUM,PORCINE/D5W PMX 25,000 UNIT in DEXTROSE/WATER 1 500ML.BAG IV SCH (13:48)
--- NOTE | 2016-10-09 14:01 | P.CN ---
Psychiatric Consult - . Consult date: 10/09/16 Consult:: IDENTIFYING DATA: Ms. Rizzo is a 61-year-old woman with end-stage renal disease and on dialysis. She presented to medicine unit with a marked change of her mental status with agitation and confusion. She pulled out her dialysis catheter during her treatment. Medicine placed a psychiatric consult to evaluate her for competence. HISTORY OF PRESENT ILLNESS: I reviewed the medical record and attempted to interview her. She was laying in bed and did not initially respond to her name. After shouting her name and shaking her shoulder she looked in my direction. She was unable to attend or concentrate on the conversation. She looked to the side and made gestures as though she were responding to internal stimuli. She was unable to communicate an understanding of her illness, appreciate her situation and understand the consequences of consenting or refusing to treatment, understand information about her illness and treatment or communicate a choice. PAST PSYCHIATRIC HISTORY: According to EMR she has no history of mental health treatment. PAST MEDICAL HISTORY: She has a complicated medical history that includes degenerative joint disease, osteoarthritis, metabolic bone disease, end-stage kidney disease, COPD, morbid obesity, type 2 diabetes mellitus, macrocytic anemia, GERD, hyperlipidemia, hypertension and chronic pain syndrome. SUBSTANCE USE HISTORY: She was unable to provide a coherent history and medical record did not indicate a history of drug or alcohol use problems.. FAMILY PSYCHIATRIC/SUBSTANCE USE HISTORY: Unknown. SOCIAL HISTORY: She is unable to provide a coherent social history. MENTAL STATUS EXAM: She presented as a disheveled and obese elderly woman lying in her hospital bed. She was restless. She initially did not respond to her name. She had a distressed facial expression. Her speech was not spontaneous. Her affect was flat. Her speech was not coherent. She was not oriented to place or time. She thought that she was in her own home and not in the hospital. She appeared to be experiencing both auditory and visual hallucinations. IMPRESSIONS: She is a 61-year-old female who has signs and symptoms of delirium most likely related to the end-stage renal disease. She is unable to provide a coherent history, understand the need for treatment, appreciate her situation understanding consequences of consenting or refusing treatment and understand information about her illness. She has not competent at the current time to give consent for treatment. DIAGNOSIS: Delirium due to multiple etiologies a cute with mixed level of activity RECOMMENDATION: Patient will need a substitute decision maker until her medical condition improves to where she is able to appreciate her situation and make sound and coherent decisions about her medical treatment. 10/09/16 13:44
[2016-10-09 16:48] LABS: Calcium 7.4 mg/dL (8.4-10.2); Potassium 5.1 mmol/L (3.5-5.1); Total Bilirubin 0.5 mg/dL (0.2-1.3); Total Protein 5.1 g/dL (6.3-8.2)
--- NOTE | 2016-10-09 19:50 | PN ---
DATE OF SERVICE: 10/09/2016 PRESENTING COMPLAINT: Pulled out dialysis catheter. INTERVAL HISTORY: This is a 61-year-old female who presented to the emergency department after pulling out her dialysis catheter. Today patient remains lethargic, delirious, unable to communicate well. No acute distress noted. Review of systems done for constitutional, cardiovascular, GI, pulmonary, with relevant findings as above. CURRENT MEDICATIONS: 1. [place]. 2. Xanax. 3. Aranesp. 4. Lasix. 5. Heparin. 6. Imdur. 7. Lopressor. 8. Protonix. 9. Seroquel. 10. Zoloft. 11. Renvela. 12. Ultram. PHYSICAL EXAMINATION: VITAL SIGNS: Temperature 98.1, pulse 82, respirations 16, blood pressure 109/56, oxygen saturation 94% on room air. GENERAL APPEARANCE: Patient is lying in bed; looks as though she is trying to complete an activity; however, there is nothing really in front of her. Patient is not engaging in terms of conversation. EYES: Pupils equal. Conjunctivae normal. NECK: JVD not raised. Mass not palpable. Lung sounds are diminished throughout. RESPIRATORY: Effort normal, unlabored. CARDIOVASCULAR: S1, S2 noted. No edema. ABDOMEN: Soft, nontender. Liver and spleen not palpable. PSYCHIATRY: Alert and oriented x1. Unable to really converse. Difficult to determine patient's mood or affect. She is lethargic and delirious at this time. INVESTIGATIONS: White blood cell count 7.4, hemoglobin 7.8, platelet count 204. Sodium 137, potassium 5.1. BUN 81, creatinine 11.11. ASSESSMENT: 1. Acute metabolic encephalopathy; could be from missed hemodialysis. Slow to respond. 2. Acute urinary tract infection with some funguria. 3. Acute metabolic encephalopathy from incomplete hemodialysis, slow to respond. 4. Chronic low back pain from lumbar degenerative joint disease. 5. Primary osteoarthritis of multiple joints bilaterally. 6. Metabolic bone disease from end-stage kidney disease. 7. 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 8. Chronic obstructive pulmonary disease in an ex-smoker. 9. Morbid obesity; body mass index greater than 40. 10. Chronic medical debility. 11. Diabetes mellitus, type 2, chronically on insulin. 12. Macrocytic anemia secondary to end-stage kidney disease. 13. Gastroesophageal reflux disease. 14. Hyperlipidemia. 15. Essential hypertension. 16. Obstructive sleep apnea; does not use CPAP. 17. Chronic nicotine dependence. Patient stated that she is not smoking currently. 18. Chronic pain syndrome in multiple joints. 19. Acute urinary tract infection, present on admission. PLAN: Given patient's current status and delirious state, Ethics was consulted to see the patient as well as Psychiatry. Some concerns were expressed regarding patient's ability to understand care and procedures that she needs and the ability to make proper medical decisions for herself. Psychiatry has weighed in, and their opinion is that the patient is not able to make medical decisions for herself. Patient has pulled out a couple of her dialysis catheters, and most recently had one replaced on 10/08/2016 by Vascular Surgery. Nephrology continues to arrange and follow patient in regards to her chronic end-stage kidney disease. Patient receiving dialysis today and from nephrology standpoint patient can be discharged. Will continue to follow. Patient was seen and examined by nurse practitioner, Teresita Cardoso, and all elements of the case were discussed with attending, Dr. Haas.
--- NOTE | 2016-10-09 22:28 | PN ---
DATE OF SERVICE: 10/09/2016 ATTENDING NOTE: This patient was seen and examined by me earlier today. I reviewed the note of my nurse practitioner, Ms. Cardoso. This is a patient who presented after ( ) dialysis catheter. Remains delirious. She is pending dialysis. On examination, blood pressure 156. The patient looking in bed somewhat delirious. LUNGS: Decreased breath sounds. Some crackles. CARDIOVASCULAR: First and second sounds normal. Patient's delirious. INVESTIGATIONS: Potassium 5.1, BUN 81, creatinine 11.11. ASSESSMENT: 1. Acute metabolic encephalopathy from missed hemodialysis, slow to respond. 2. Multiple medical problems. 3. Additionally patient was patient was found to have a DVT and internal jugular vein. Therefore, patient was put on IV heparin. Patient also on IV ceftriaxone for the UTI. 4. Overall prognosis is not good. No family is at the bedside. Due for dialysis later today.
[2016-10-10] MEDS: QUEtiapine 25 MG TAB PO SCH ×4 (01:23→23:07)
[2016-10-10] MEDS: HEPARIN SODIUM,PORCINE/D5W PMX 25,000 UNIT in DEXTROSE/WATER 1 500ML.BAG IV SCH ×2 (03:28→10:29)
[2016-10-10 08:55] LABS: Anisocytosis Slight; Basophils % (A) 0 %; CH 31.5; CHCM 30.2; Eosinophils # (A) 0.3 k/uL (0-0.7); Eosinophils % (A) 3 %; HCT 25.6 % (34.0-46.0); HDW 2.59; HGB 7.7 gm/dL (11.4-16.0); Hypochromasia Moderate; Luc # (Auto) 0.26; Luc % (Auto) 3; Lymphocytes % (A) 11 %; MCH 31.4 pg (25.0-35.0); MCV 104.7 fL (80.0-100.0); Macrocytosis Moderate; Mean Platelet Volume 7.5; Monocytes # (A) 0.6 k/uL (0-1.0); Monocytes % (A) 7 %; Neutrophils # (A) 6.5 k/uL (1.3-7.7); Neutrophils % (A) 75 %; RBC 2.45 m/uL (3.80-5.40); RDW 16.8 % (11.5-15.5); WBC 8.7 k/uL (3.8-10.6); WBC (Perox) 8.98
[2016-10-10] MEDS: MORPHINE ORAL SOLN 20 MG/1 ML ORAL SYRINGE PO PRN ×2 (09:04→15:56)
[2016-10-10] MEDS: SEVELAMER 800 MG TAB PO SCH ×3 (09:12→17:19)
[2016-10-10] MEDS: PANTOPRAZOLE 40 MG TABLET PO SCH (09:14)
[2016-10-10] MEDS: ISOSORBIDE MONONITRATE ER 30 MG TAB.ER.24H PO SCH (09:15)
[2016-10-10] MEDS: FUROSEMIDE 80 MG TAB PO SCH ×2 (09:15→21:07)
[2016-10-10] MEDS: METOPROLOL TARTRATE 50 MG TAB PO SCH ×2 (09:16→21:07)
[2016-10-10] MEDS: SERTRALINE 50 MG TAB PO SCH (09:23)
[2016-10-10] MEDS: ALPRAZolam 0.5 MG TAB PO PRN (09:43)
[2016-10-10] MEDS: HYDROcodone/APAP 7.5-325MG 1 EACH TAB PO SCH ×4 (09:43→21:06)
[2016-10-10 10:03] LABS: Calcium 7.4 mg/dL (8.4-10.2); Potassium 4.2 mmol/L (3.5-5.1)
--- NOTE | 2016-10-10 10:31 | P.PN ---
Subjective Patient is seen in follow-up for end-stage renal disease. She is meeting on hemodialysis on a Wednesday schedule. Patient has been noncompliant with hemodialysis as an outpatient. She had pulled out her dialysis access and had a new axis placed on October 08. She underwent hemodialysis yesterday. Currently resting in bed. She admits to generalized pain. Appetite is fair. Denies chest pain or shortness of breath. Vital signs are stable. General: The patient appeared well nourished and normally developed. HEENT: Head exam is unremarkable. Neck is without jugular venous distension. LUNGS: Lungs are clear to auscultation and percussion. Breath sounds decreased. HEART: Rate and Rhythm are regular. First and second heart sounds normal. No murmurs, rubs or gallops. ABDOMEN: Abdominal exam reveals normal bowel sounds. Non-tender and non- distended. No evidence of peritonitis. EXTREMITITES: No clubbing, cyanosis, or edema. Objective - Vital Signs Vital signs: Vital Signs Temp 97 F L 10/10/16 07:00 Pulse 78 10/10/16 07:00 Resp 18 10/10/16 07:00 BP 82/52 10/10/16 07:00 Pulse Ox 92 L 10/10/16 07:00 Intake & Output 10/09/16 10/10/16 10/10/16 18:59 06:59 18:59 Intake Total 240 336 Output Total 350 0 Balance -110 336 Weight 106 kg Intake: Intake, IV Titration 286 Amount Heparin Sodium,Porcine/ 286 D5w Pmx 25,000 unit In Dextrose/Water 1 500ml. bag @ 18 UNITS/KG/HR 35. 82 mls/hr IV .[id number] [facility] Rx#:[id number] Oral 240 50 Output: Urine 350 0 Uretheral (Barlow) 200 0 Other: Voiding Method Indwelling Catheter Indwelling Catheter # Voids 1 # Bowel Movements 1 1 - Labs CBC & Chem 7: 10/10/16 08:27 10/10/16 08:27 Labs: Abnormal Lab Results - Last 24 Hours (Table) 10/08/16 10/09/16 10/09/16 Range/Units 13:50 08:31 08:31 RBC (3.80-5.40) m/uL Hgb (11.4-16.0) gm/dL Hct (34.0-46.0) % MCV (80.0-100.0) fL MCHC (31.0-37.0) g/dL RDW (11.5-15.5) % APTT (22.0-30.0) sec Sodium (137-145) mmol/L Carbon Dioxide 21 L (22-30) mmol/L BUN 81 H* (7-17) mg/dL Creatinine 10.49 H* 11.11 H* (0.52-1.04) mg/dL Glucose 114 H (74-99) mg/dL Calcium 7.4 L (8.4-10.2) mg/dL TIBC 148 L (265-497) ug/dL Ferritin 357 H (11-264) ng/mL Alkaline Phosphatase 146 H (38-126) U/L Total Protein 5.1 L (6.3-8.2) g/dL Albumin 2.1 L (3.5-5.0) g/dL 10/10/16 10/10/16 10/10/16 Range/Units 08:27 08:27 08:27 RBC 2.45 L (3.80-5.40) m/uL Hgb 7.7 L (11.4-16.0) gm/dL Hct 25.6 L (34.0-46.0) % MCV 104.7 H (80.0-100.0) fL MCHC 30.0 L (31.0-37.0) g/dL RDW 16.8 H (11.5-15.5) % APTT 88.7 H (22.0-30.0) sec Sodium 134 L (137-145) mmol/L Carbon Dioxide (22-30) mmol/L BUN 44 H (7-17) mg/dL Creatinine 6.73 H* (0.52-1.04) mg/dL Glucose 132 H (74-99) mg/dL Calcium 7.4 L (8.4-10.2) mg/dL TIBC (265-497) ug/dL Ferritin (11-264) ng/mL Alkaline Phosphatase (38-126) U/L Total Protein (6.3-8.2) g/dL Albumin (3.5-5.0) g/dL Microbiology - Last 24 Hours (Table) 10/09/16 14:30 Urine Culture - Preliminary Urine,Catheterized Assessment and Plan Plan: Assessment: #1. End-stage renal disease maintained on hemodialysis on a Wednesday schedule via permacath. #2. Noncompliance with hemodialysis as an outpatient. #3. Anemia of chronic kidney disease. Iron replete. #4. Chronic kidney disease mineral bone disease. #5. Pyuria. #6. IJ thrombus maintained on IV heparin. Plan: Hemodialysis today with goal 1 L ultrafiltration. Continue Aranesp. Check phosphorus level. Maintain Renvela with meals. Follow-up urine culture. She is currently on IV Rocephin.
--- NOTE | 2016-10-10 18:57 | PN ---
DATE OF SERVICE: 10/10/2016 PRESENTING COMPLAINT: Pulled out dialysis catheter. INTERVAL HISTORY: This patient presented after pulling out her dialysis catheter. Today patient remains lethargic, able to answer simple straightforward questions, does drift quickly back off to sleep even while questions are asked. Patient's meal tray is at the bedside and disinterested, refusing to eat. Review of systems done for constitutional, cardiovascular, GI, pulmonary with relevant findings as above. CURRENT MEDICATIONS: [place], Xanax, Aranesp, Lasix, heparin, Imdur, Lopressor, Protonix, Seroquel, Zoloft, Renvela, Ultram. PHYSICAL EXAMINATION: VITAL SIGNS: Temperature 97.0, pulse 78, respirations 18, blood pressure 110/52, oxygen saturation 97% on room air. EYES: Pupils equal. Conjunctivae normal. NECK: JVD not raised. Mass not palpable. LUNGS: Diminished bilaterally. RESPIRATORY: Effort normal. CARDIOVASCULAR: First and second sounds noted. No edema. ABDOMEN: Soft, nontender. Liver and spleen not palpable. PSYCHIATRY: Patient is alert to name and place. INVESTIGATIONS: Hemoglobin 7.7, sodium 134, BUN 44, creatinine 6.73. ASSESSMENT: 1. Acute metabolic encephalopathy could be from his hemodialysis slow to respond. 2. Acute urinary tract infection with some funguria. 3. Acute metabolic encephalopathy from incomplete dialysis, slow to respond. 4. Chronic low back pain from lumbar degenerative joint disease. 5. Primary osteoarthritis of multiple joints bilaterally. 6. Metabolic bone disease from end-stage kidney disease. 7. 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 8. Chronic obstructive pulmonary disease in an ex-smoker. 9. Morbid obesity; body mass index greater than 40%. 10. Chronic medical debility. 11. Diabetes mellitus, type 2, chronically on insulin. 12. Macrocytic anemia secondary to end-stage kidney disease. 13. Gastroesophageal reflux disease. 14. Hyperlipidemia. 15. Essential hypertension. 16. Obstructive sleep apnea does not use CPAP. 17. Chronic nicotine dependence, patient stated that she is not smoking currently. 18. Chronic pain syndrome in multiple joints. 19. Acute urinary tract infection present on admission. 20. Delirium due to multiple etiologies acute with mixed level of activity. PLAN: Given patient's current status and delirious state ethics and psychiatry have been to see the patient. Psychiatry recommends substitute decision-maker in light of her current situation and her current mental status. Will continue with current medication and treatment plan. Patient is to continue to receive dialysis. Will continue to follow. Patient was seen and examined by nurse practitioner, Teresita Cardoso, and all the elements of the case were discussed with attending, Dr. Haas.
[2016-10-10] MEDS: ALBUTEROL NEBULIZED 2.5 MG/3 ML INHALATION PRN (21:00)
--- NOTE | 2016-10-10 23:01 | CT ---
EXAM: CT Head Without Intravenous Contrast CLINICAL HISTORY: Reason: lethargic TECHNIQUE: Axial computed tomography images of the head/brain without intravenous contrast. CTDI is 57.40 mGy and DLP is 1064.30 mGy-cm. This CT exam was performed using one or more of the following dose reduction techniques: automated exposure control, adjustment of the mA and/or kV according to patient size, and/or use of iterative reconstruction technique. COMPARISON: 04/29/[address] FINDINGS: Brain: Small left thalamic lacunar infarct is slightly more conspicuous although probably not new. There is also a small lacunar type infarct in the right cerebellum now seen, although appears nonacute. No identifiable acute or recent territorial infarct. There is again patchy periventricular white matter hypodensity most commonly seen on a chronic small vessel ischemic basis. No hemorrhage. Ventricles: Mild ventricular and sulcal prominence consistent with mild generalized atrophy, stable. Bones/joints: Stable. No acute fracture. Soft tissues: Stable. Vasculature: Intracranial atherosclerosis is again present. Sinuses: Scattered bilateral sinusitis changes again present, now includes air-fluid levels in the bilateral maxillary, left sphenoid and frontal sinuses. Mastoid air cells: Unremarkable as visualized. No mastoid effusion. IMPRESSION: 1. No identifiable acute or recent territorial infarct. Note that early infarct may initially be inapparent by CT, and for which follow-up imaging could be considered as clinically indicated. 2. Lacunar changes in the left thalamus, likely present previously, and also now seen in the right cerebellum where it appears nonacute. 3. Persistent or recurrent bilateral sinusitis, mildly increased.
[2016-10-11] MEDS: MORPHINE ORAL SOLN 20 MG/1 ML ORAL SYRINGE PO PRN (06:03)
--- NOTE | 2016-10-11 07:33 | PN ---
DATE OF SERVICE: 10/10/2016 ATTENDING NOTE: Patient was seen earlier by me today and seen and examined. I reviewed the note of my nurse practitioner, Ms. Cardoso. I discussed with her. The patient remains somewhat lethargic but able to answer simple questions. The patient did get ultrafiltration today. Not eating much. Did attempt to call family, got a voice message. Review of systems was attempted. On examination, LUNGS: Decreased breath sounds. CARDIOVASCULAR: First and second sounds. NEUROLOGICAL: Arousable, but lethargic. INVESTIGATIONS: White count 8.7. ASSESSMENT: 1. Acute metabolic encephalopathy worsening. 2. Acute urinary tract infection. 3. End-stage kidney disease on hemodialysis. 4. Element of delirium multifactorial. PLAN: Prognosis does not look good. Did tell the nurse to let me know when the family comes in. Patient also has a right IJ deep venous thrombosis for which patient is on IV heparin. Will do CT scan of the brain. Also get neurological opinion.
[2016-10-11] MEDS: ALBUTEROL NEBULIZED 2.5 MG/3 ML INHALATION PRN (07:52)
[2016-10-11 08:00] LABS: Anisocytosis Slight; Basophils % (A) 1 %; CH 31.1; CHCM 29.7; Eosinophils # (A) 0.2 k/uL (0-0.7); Eosinophils % (A) 3 %; HCT 25.3 % (34.0-46.0); HDW 2.75; HGB 7.8 gm/dL (11.4-16.0); Hypochromasia Marked; Luc # (Auto) 0.17; Luc % (Auto) 2; Lymphocytes # (A) 0.8 k/uL (1.0-4.8); Lymphocytes % (A) 11 %; MCH 32.2 pg (25.0-35.0); MCHC 30.6 g/dL (31.0-37.0); MCV 105.2 fL (80.0-100.0); Macrocytosis Moderate; Mean Platelet Volume 8.1; Monocytes # (A) 0.4 k/uL (0-1.0); Monocytes % (A) 6 %; Neutrophils # (A) 5.6 k/uL (1.3-7.7); Neutrophils % (A) 77 %; RBC 2.41 m/uL (3.80-5.40); RDW 16.8 % (11.5-15.5); WBC 7.3 k/uL (3.8-10.6); WBC (Perox) 7.48
[2016-10-11] MEDS ORDERED: HEPARIN SODIUM,PORCINE 10,000 UNIT/ML 1 ML VIAL ONE (08:32)
[2016-10-11 08:41] LABS: Calcium 7.4 mg/dL (8.4-10.2)
[2016-10-11] MEDS: FUROSEMIDE 80 MG TAB PO SCH ×2 (08:44→21:29)
[2016-10-11] MEDS: SEVELAMER 800 MG TAB PO SCH ×3 (08:44→17:47)
[2016-10-11] MEDS: SERTRALINE 50 MG TAB PO SCH (08:44)
[2016-10-11] MEDS: QUEtiapine 25 MG TAB PO SCH ×3 (08:45→21:29)
[2016-10-11] MEDS: ISOSORBIDE MONONITRATE ER 30 MG TAB.ER.24H PO SCH (08:46)
[2016-10-11] MEDS: METOPROLOL TARTRATE 50 MG TAB PO SCH ×2 (08:46→21:29)
[2016-10-11 08:49] LABS: Potassium 4.2 mmol/L (3.5-5.1)
[2016-10-11] MEDS: HYDROcodone/APAP 7.5-325MG 1 EACH TAB PO SCH ×3 (08:49→17:46)
[2016-10-11] MEDS: ALPRAZolam 0.5 MG TAB PO PRN (08:50)
[2016-10-11] MEDS: HEPARIN SODIUM,PORCINE/D5W PMX 25,000 UNIT in DEXTROSE/WATER 1 500ML.BAG IV SCH ×2 (09:39→20:20)
[2016-10-11] MEDS: PANTOPRAZOLE 40 MG TABLET PO SCH (09:39)
--- NOTE | 2016-10-11 10:51 | P.PN ---
Subjective Patient is seen in follow-up for end-stage renal disease. She is meeting on hemodialysis on a Wednesday schedule. Patient has been noncompliant with hemodialysis as an outpatient. She had pulled out her dialysis access and had a new axis placed on October 08. She underwent hemodialysis Wednesday and Wednesday. Currently resting in bed. She is quite lethargic and is not really responding much to verbal commands. She does open her eyes and states she feels okay. Vital signs are stable. General: The patient appeared well nourished and normally developed. HEENT: Head exam is unremarkable. Neck is without jugular venous distension. LUNGS: Lungs are clear to auscultation and percussion. Breath sounds decreased. HEART: Rate and Rhythm are regular. First and second heart sounds normal. No murmurs, rubs or gallops. ABDOMEN: Abdominal exam reveals normal bowel sounds. Non-tender and non- distended. No evidence of peritonitis. EXTREMITITES: No clubbing, cyanosis, or edema. Objective - Vital Signs Vital signs: Vital Signs Temp 97.6 F 10/11/16 07:00 Pulse 78 10/11/16 08:07 Resp 20 10/11/16 08:00 BP 143/57 10/11/16 07:00 Pulse Ox 94 L 10/11/16 07:00 Intake & Output 10/10/16 10/11/16 10/11/16 18:59 06:59 18:59 Intake Total 1241.73 595.84 70.43 Output Total 150 100 100 Balance 1091.73 495.84 -29.57 Weight 106 kg 103 kg Intake: IV 358 160 .9@20 160 Heparin Sodium,Porcine/ 358 D5w Pmx 25,000 unit In Dextrose/Water 1 500ml. bag @ 18 UNITS/KG/HR 35. 82 mls/hr IV .[id number] [facility] Rx#:[id number] Intake, IV Titration 833.73 195.84 70.43 Amount Heparin Sodium,Porcine/ 733.73 195.84 70.43 D5w Pmx 25,000 unit In Dextrose/Water 1 500ml. bag @ 18 UNITS/KG/HR 35. 82 mls/hr IV .[id number] [facility] Rx#:[id number] cefTRIAXone 1,000 mg In 100 Sodium Chloride 0.9% 50 ml @ 100 mls/hr IVPB Q24HR [facility] Rx#:[id number] Oral 50 240 Output: Urine 150 100 100 Uretheral (Barlow) 100 100 Other: Voiding Method Indwelling Catheter Indwelling Catheter Indwelling Catheter # Voids 1 # Bowel Movements 5 1 - Labs CBC & Chem 7: 10/11/16 07:24 10/11/16 07:24 Labs: Abnormal Lab Results - Last 24 Hours (Table) 10/10/16 10/10/16 10/11/16 Range/Units 08:27 16:50 00:59 RBC (3.80-5.40) m/uL Hgb (11.4-16.0) gm/dL Hct (34.0-46.0) % MCV (80.0-100.0) fL MCHC (31.0-37.0) g/dL RDW (11.5-15.5) % Lymphocytes # (1.0-4.8) k/uL APTT >200.0 H* 41.8 H (22.0-30.0) sec Sodium (137-145) mmol/L BUN (7-17) mg/dL Creatinine (0.52-1.04) mg/dL Glucose (74-99) mg/dL Calcium (8.4-10.2) mg/dL Phosphorus 5.9 H (2.5-4.5) mg/dL 10/11/16 10/11/16 Range/Units 07:24 07:24 RBC 2.41 L (3.80-5.40) m/uL Hgb 7.8 L (11.4-16.0) gm/dL Hct 25.3 L (34.0-46.0) % MCV 105.2 H (80.0-100.0) fL MCHC 30.6 L (31.0-37.0) g/dL RDW 16.8 H (11.5-15.5) % Lymphocytes # 0.8 L (1.0-4.8) k/uL APTT (22.0-30.0) sec Sodium 134 L (137-145) mmol/L BUN 33 H (7-17) mg/dL Creatinine 5.29 H* (0.52-1.04) mg/dL Glucose 153 H (74-99) mg/dL Calcium 7.4 L (8.4-10.2) mg/dL Phosphorus (2.5-4.5) mg/dL Assessment and Plan Plan: Assessment: #1. End-stage renal disease maintained on hemodialysis on a Wednesday schedule via permacath. #2. Noncompliance with hemodialysis as an outpatient. #3. Anemia of chronic kidney disease. Iron replete. #4. Chronic kidney disease mineral bone disease. #5. Pyuria. #6. IJ thrombus maintained on IV heparin. Plan: Hemodialysis tomorrow with goal 1 L ultrafiltration. Continue Aranesp. Maintain Renvela with meals. Follow-up urine culture. She is currently on IV Rocephin. Overall prognosis poor.
--- NOTE | 2016-10-11 11:18 | P.CNNES ---
History of Present Illness Consult date: 10/11/16 Requesting physician: Saleem Haas Reason for Consult: Encephalopathy History of Present Illness: Patient is a 61-year-old female who is being evaluated by the neurology service on 10/11/2016 per the request of Dr. Haas for encephalopathy. Patient has extensive medical history which includes end-stage renal disease on hemodialysis, COPD, morbid obesity, osteoarthritis, metabolic bone disease, morbid obesity, diabetes mellitus, anemia, hypertension, and chronic pain syndrome. Patient was brought to [facility] with increased lethargy. Patient had pulled out her dialysis catheter and had incomplete treatment. Labs on admission were reviewed C7 0.9, RBCs 2.58, hemoglobin 8.2, hematocrit 26.5. BUN was 78, creatinine 9.8, sodium 135, potassium 5.2, alk phos 140. Patient was found to have urinary tract infection on admission as well. She is afebrile blood pressure stable area did CT of the brain showed no acute or recent infarct. CT did reveal old lacunar changes in the left thalamus and right cerebellum. At the time of my evaluation, patient' s resting comfortably in bed and appears to be in no acute distress. Review of Systems REVIEW OF SYSTEMS: Otherwise unremarkable and noncontributory. Past Medical History Past Medical History: Heart Failure, COPD, Diabetes Mellitus, Dialysis, GERD/ Reflux, Hyperlipidemia, Hypertension, Osteoarthritis (OA), Pneumonia, Renal Disease Additional Past Medical History / Comment(s): 09/10/16 with ESRD/bilateral knee sprains D/T falling. Other hx: 07/2016 peritonitis, chronic renal disease stage IV, cardiomyopathy, IDDM type II, normocytic anemia, ARPIT without device, frequent constipation, hyponatremia, hypocalcemia, low albumin, mild to moderate protein calorie malnutrition, obesity, gastritis, chronic pain syndrome , back/sciatica and hip pain bilaterally, cataract in R eye. History of Any Multi-Drug Resistant Organisms: None Reported Past Surgical History: Cholecystectomy, Heart Catheterization Additional Past Surgical History / Comment(s): 2013 Peritoneal dialysis catheter placement and removal, hemodialysis cath placement BUT MAL FUNCTIONED AND NEW DIALYSIS CATH PLACED 09-16-16, 2011 cardiac cath, pilonodial cyst removed Past Anesthesia/Blood Transfusion Reactions: No Reported Reaction Additional Past Anesthesia/Blood Transfusion Reaction / Comment(s): never received a blood transfusion Past Psychological History: Anxiety, Depression Additional Psychological History / Comment(s): Father is from [facility]. PT CURRENTLY AT [facility].She has had no international travel at any time. She has no travel to the [facility] [place]., No significant alcohol use. No history of recreational drug use. Smoking Status: Former smoker Past Alcohol Use History: None Reported Additional Past Alcohol Use History / Comment(s): Pt started smoking in 1975, SMOKED 1PPD THEN DECREASED TO 1/2 PPD THEN QUIT WHEN WENT TO [facility] 09-29-16 Past Drug Use History: None Reported - Past Family History Mother Family Medical History: Congestive Heart Failure (CHF), Coronary Artery Disease (CAD), Diabetes Mellitus Additional Family Medical History / Comment(s): Mother of diabetic complications at the age of 55yrs. Father Family Medical History: Diabetes Mellitus, Hypertension, Pneumonia Additional Family Medical History / Comment(s): alcoholism. Father of pneumonia at the age of 81 yrs. Medications and Allergies Home Medications Medication Instructions Recorded Confirmed Type Albuterol Nebulized [Ventolin 2.5 mg INHALATION RT-Q4H PRN 09/09/16 10/07/16 History Nebulized] ALPRAZolam [Xanax] 1 mg PO Q12HR PRN 10/07/16 10/07/16 History Albuterol Inhaler [Ventolin Hfa 2 puff INHALATION RT-Q6H PRN 10/07/16 10/07/16 History Inhaler] Darbepoetin Praveen 40mcg/Ml 40 mcg SQ FR 10/07/16 10/07/16 History Furosemide [Lasix] 80 mg PO BID 10/07/16 10/07/16 History HYDROcodone/APAP 7.5-325MG [[place] 1 tab PO QID 10/07/16 10/07/16 History 7.5-325] INSULIN LISPRO (HumaLOG) [HumaLOG] See Protocol SQ QID 10/07/16 10/07/16 History Insulin NPH Hum/Reg Insulin Hm 25 unit SQ BID 10/07/16 10/07/16 History [NovoLIN 70-30 100 UNIT/ML VIAL] Isosorbide Mononitrate ER [Imdur] 30 mg PO DAILY 10/07/16 10/07/16 History Lidocaine [Lidoderm 5% Patch] 1 patch TRANSDERM DAILY 10/07/16 10/07/16 History MORPHINE ORAL SOLN 20mg/mL 20 mg PO Q2HR PRN 10/07/16 10/07/16 History [Roxanol Oral Soln Conc 20MG/ML] Metoprolol Tartrate [Lopressor] 50 mg PO Q12H 10/07/16 10/07/16 History Nystatin 100,000 Unit/gm Powd 1 applic TOPICAL TID 10/07/16 10/07/16 History [Mycostatin Powder] Omeprazole Magnesium Dr 20.6mg 20.6 mg PO BID 10/07/16 10/07/16 History QUEtiapine FUMARATE [SEROquel] 25 mg PO Q8HR 10/07/16 10/07/16 History Sertraline HCl [Zoloft] 50 mg PO DAILY 10/07/16 10/07/16 History Sevelamer HCl [Renagel] 800 mg PO TID-W/MEALS 10/07/16 10/07/16 History traMADol HCL [Ultram] 50 mg PO Q6HR PRN 10/07/16 10/07/16 History Allergies Allergy/AdvReac Type Severity Reaction Status Date / Time No Known Allergies Allergy Verified 10/07/16 16:07 Physical Examination - Vital Signs Vital Signs: Vital Signs Temp Pulse Pulse Resp BP Pulse Ox 10/11/16 08:07 78 10/11/16 08:00 66 20 10/11/16 07:54 78 10/11/16 07:00 97.6 F 66 20 143/57 94 L 10/10/16 23:00 98.7 F 80 16 124/51 95 10/10/16 21:10 78 10/10/16 21:00 78 10/10/16 16:00 78 18 Intake and Output 10/10/16 10/11/16 10/11/16 22:59 06:59 14:59 Intake Total 473.73 355.84 70.43 Output Total 150 100 100 Balance 323.73 255.84 -29.57 Intake: IV 160 .9@20 160 Intake, IV Titration 233.73 195.84 70.43 Amount Heparin Sodium,Porcine/ 233.73 195.84 70.43 D5w Pmx 25,000 unit In Dextrose/Water 1 500ml. bag @ 18 UNITS/KG/HR 35. 82 mls/hr IV .[id number] [facility] Rx#:[id number] Oral 240 Output: Urine 150 100 100 Uretheral (Bar[place]) 100 100 Other: Voiding Method Indwelling Catheter Indwelling Catheter Indwelling Catheter # Voids 1 # Bowel Movements 1 Weight 106 kg 103 kg PHYSICAL EXAM: GENERAL APPEARANCE: Patient is a well-developed, obese , female who appears to be in no acute distress. HEENT: Normocephalic, atraumatic, no facial asymmetry is seen. Neck is supple with no masses felt. CARDIOVASCULAR: Regular rate and rhythm. ABDOMEN: Nontender, nondistended. EXTREMITIES: Show no edema or clubbing. NEUROLOGICAL EXAM: Patient is awake but lethargic. Patient does respond when name called. Patient quickly drifts back to sleep. Patient is oriented 3. Speech is mildly dysarthric. Language is normal. Strength is 4+/5 in bilateral upper extremities and 3/5 in bilateral lower extremities. Sensory exam is normal to light touch in all 4 extremities. No facial asymmetry is seen on cranial nerve testing. No tremors or seizure-like activity noted. Results - Laboratory Findings CBC and BMP: 10/11/16 07:24 10/11/16 07:24 Abnormal Lab Findings: Abnormal Labs 10/07/16 10/07/16 10/07/16 15:00 15:00 15:40 RBC 2.58 L Hgb 8.2 L Hct 26.5 L MCV 102.6 H MCHC 30.9 L RDW 17.2 H Lymphocytes # 0.7 L PT APTT Sodium 135 L Potassium 5.2 H Carbon Dioxide BUN 78 H Creatinine 9.80 H* Glucose 137 H POC Glucose (mg/dL) Calcium 7.4 L Phosphorus TIBC Ferritin Alkaline Phosphatase 140 H Total Protein 4.7 L Albumin 2.0 L Urine Appearance Cloudy H Urine Protein 1+ H Urine Blood Moderate H Ur Leukocyte Esterase Large H Urine RBC 8 H Urine WBC 87 H Urine Bacteria Moderate H Urine Mucus Rare H Urine Yeast (Budding) Moderate H 10/07/16 10/08/16 10/08/16 20:45 13:50 21:42 RBC 2.66 L Hgb 8.7 L Hct 29.6 L MCV 111.4 H D MCHC 29.5 L RDW 16.4 H Lymphocytes # 0.6 L PT APTT Sodium Potassium Carbon Dioxide BUN 81 H* Creatinine 10.49 H* Glucose POC Glucose (mg/dL) 140 H Calcium 7.3 L Phosphorus TIBC Ferritin Alkaline Phosphatase Total Protein Albumin Urine Appearance Urine Protein Urine Blood Ur Leukocyte Esterase Urine RBC Urine WBC Urine Bacteria Urine Mucus Urine Yeast (Budding) 10/09/16 10/09/16 10/09/16 03:49 03:54 08:27 RBC 2.48 L Hgb 7.8 L Hct 26.0 L MCV 104.5 H D MCHC 30.0 L RDW 16.8 H Lymphocytes # 0.8 L PT 12.3 H APTT 49.0 H 70.8 H Sodium Potassium Carbon Dioxide BUN Creatinine Glucose POC Glucose (mg/dL) Calcium Phosphorus TIBC Ferritin Alkaline Phosphatase Total Protein Albumin Urine Appearance Urine Protein Urine Blood Ur Leukocyte Esterase Urine RBC Urine WBC Urine Bacteria Urine Mucus Urine Yeast (Budding) 10/09/16 10/09/16 10/10/16 08:31 08:31 08:27 RBC 2.45 L Hgb 7.7 L Hct 25.6 L MCV 104.7 H MCHC 30.0 L RDW 16.8 H Lymphocytes # PT APTT Sodium Potassium Carbon Dioxide 21 L BUN 81 H* Creatinine 11.11 H* Glucose 114 H POC Glucose (mg/dL) Calcium 7.4 L Phosphorus TIBC 148 L Ferritin 357 H Alkaline Phosphatase 146 H Total Protein 5.1 L Albumin 2.1 L Urine Appearance Urine Protein Urine Blood Ur Leukocyte Esterase Urine RBC Urine WBC Urine Bacteria Urine Mucus Urine Yeast (Budding) 10/10/16 10/10/16 10/10/16 08:27 08:27 08:27 RBC Hgb Hct MCV MCHC RDW Lymphocytes # PT APTT 88.7 H Sodium 134 L Potassium Carbon Dioxide BUN 44 H Creatinine 6.73 H* Glucose 132 H POC Glucose (mg/dL) Calcium 7.4 L Phosphorus 5.9 H TIBC Ferritin Alkaline Phosphatase Total Protein Albumin Urine Appearance Urine Protein Urine Blood Ur Leukocyte Esterase Urine RBC Urine WBC Urine Bacteria Urine Mucus Urine Yeast (Budding) 10/10/16 10/11/16 10/11/16 16:50 00:59 07:24 RBC 2.41 L Hgb 7.8 L Hct 25.3 L MCV 105.2 H MCHC 30.6 L RDW 16.8 H Lymphocytes # 0.8 L PT APTT >200.0 H* 41.8 H Sodium Potassium Carbon Dioxide BUN Creatinine Glucose POC Glucose (mg/dL) Calcium Phosphorus TIBC Ferritin Alkaline Phosphatase Total Protein Albumin Urine Appearance Urine Protein Urine Blood Ur Leukocyte Esterase Urine RBC Urine WBC Urine Bacteria Urine Mucus Urine Yeast (Budding) 10/11/16 07:24 RBC Hgb Hct MCV MCHC RDW Lymphocytes # PT APTT Sodium 134 L Potassium Carbon Dioxide BUN 33 H Creatinine 5.29 H* Glucose 153 H POC Glucose (mg/dL) Calcium 7.4 L Phosphorus TIBC Ferritin Alkaline Phosphatase Total Protein Albumin Urine Appearance Urine Protein Urine Blood Ur Leukocyte Esterase Urine RBC Urine WBC Urine Bacteria Urine Mucus Urine Yeast (Budding) Assessment and Plan (1) Chronic renal failure Status: Acute (2) Urinary tract infection Status: Acute (3) Diabetes Status: Chronic (4) Acute metabolic encephalopathy Status: Acute Plan: Recommendation: It appears patient's confusion and lethargy stems from acute metabolic encephalopathy from missed and incomplete hemodialysis. Computed tomography scan of the brain showed no acute process. There are no focal neurological deficits. Continue treatment per nephrology. Continue medical management. Psychiatric consult noted. I will continue to follow with you on an as-needed basis. Feel free to call with any questions or concerns. Thank you for allowing me to participate in the care of your patient. Feel free to call with questions or concerns. I performed an examination of the patient and discussed the management with the RESIN PAINTER. I have reviewed the RESIN PAINTER notes and agree with the findings and plan of care.
--- NOTE | 2016-10-11 19:39 | PN ---
DATE OF SERVICE: 10/11/2016 PRESENTING COMPLAINT: Pulled out the dialysis catheter. INTERVAL HISTORY: This patient presented after pulling out her dialysis catheter. Today patient remains lethargic, briefly open his eyes and responds when name is called. Able to answer simple straightforward questions. Knows where she is at, knows her name, does not know why she is in the hospital. Patient refusing to eat. Review of systems done for constitutional, cardiovascular, GI, pulmonary, with relevant findings as above. CURRENT MEDICATIONS: [place], Xanax, Aranesp, Lasix, heparin, Imdur, Lopressor, Protonix, Seroquel, Zoloft, Renvela, Ultram. PHYSICAL EXAMINATION: VITAL SIGNS: Temperature 97.6, pulse 66, respiratory rate 20, blood pressure 143/57, oxygen saturation 94% on room air. GENERAL APPEARANCE: Patient lying flat on the bed, sleeping, not distressed. Lethargic. EYES: Pupils equal. Conjunctivae normal. NECK: JVD not raised. Mass not palpable. LUNGS: Diminished throughout bilaterally. RESPIRATORY: Effort normal, unlabored. CARDIOVASCULAR: First and second sounds noted, generalized edema. ABDOMEN: Soft, nontender. Liver and spleen not palpable. PSYCHIATRY: Alert and oriented x2 to 3. Mood and affect lethargic. INVESTIGATIONS: White blood cell count 7.3, hemoglobin 7.8, platelet count 158. Sodium 134, potassium 4.2, BUN 33, creatinine 5.29. ASSESSMENT: 1. Acute metabolic encephalopathy, worsening. 2. Acute urinary tract infection. 3. End-stage kidney disease on hemodialysis, 4. Element of delirium multifactorial. 5. Chronic low back pain from lumbar degenerative joint disease. 6. Primary osteoarthritis of multiple joints bilaterally. 7. Metabolic bone disease from end-stage kidney disease. 8. 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 9. Chronic obstructive pulmonary disease in an ex-smoker. 10. Morbid obesity; body mass index greater than 40%. 11. Chronic medical debility. 12. Diabetes mellitus type 2, chronically on insulin. 13. Macrocytic anemia secondary to end-stage kidney disease. 14. Gastroesophageal reflux disease. 15. Hyperlipidemia. 16. Essential hypertension. 17. Obstructive sleep apnea does not use CPAP. 18. Chronic nicotine dependence. Patient stated that she is not currently smoking. 19. Chronic pain syndrome in multiple joints. PLAN: Prognosis does not look good. Patient continued on heparin for right IJ vein thrombosis. CT scan does not reveal any acute process. Neurology consult completed and reveals possible acute metabolic encephalopathy related to missed or incomplete hemodialysis. Will continue to follow. Patient seen and examined by nurse practitioner, Teresita Cardoso and all elements of the case discussed with Dr. Haas attending. I performed a history and physical examination of this patient and discussed the same with the dictator. I agree with the dictator's note. Any additional findings/opinions, etc. will be noted.
--- NOTE | 2016-10-11 20:45 | P.CONS ---
History of Present Illness - Reason for Consult Consult date: 10/11/16 - History of Present Illness This is 61 years old female, was admitted to [facility], because of acute metabolic encephalopathy, constipation she missed her dialysis , patient had history of chronic renal failure and she is on dialysis, and also she had a history of chronic pain and she was treated as an outpatient by her primary care, the cause of degenerative disc disease/degenerative joint disease , she is currently on Hinckley 7.5/325 every 6 hours when necessary, and Roxanol( morphine sulfate) 20 mg every 2 hours, and Ultram 50 mg every 6 hours, the patient, reported that she's been on Hinckley for long time and currently her pain is not under control, and she is complaining of pain in the low back and lower extremities Past Medical History Past Medical History: Heart Failure, COPD, Diabetes Mellitus, Dialysis, GERD/ Reflux, Hyperlipidemia, Hypertension, Osteoarthritis (OA), Pneumonia, Renal Disease Additional Past Medical History / Comment(s): 09/10/16 with ESRD/bilateral knee sprains D/T falling. Other hx: 07/2016 peritonitis, chronic renal disease stage IV, cardiomyopathy, IDDM type II, normocytic anemia, ARPIT without device, frequent constipation, hyponatremia, hypocalcemia, low albumin, mild to moderate protein calorie malnutrition, obesity, gastritis, chronic pain syndrome , back/sciatica and hip pain bilaterally, cataract in R eye. History of Any Multi-Drug Resistant Organisms: None Reported Past Surgical History: Cholecystectomy, Heart Catheterization Additional Past Surgical History / Comment(s): 2013 Peritoneal dialysis catheter placement and removal, hemodialysis cath placement BUT MAL FUNCTIONED AND NEW DIALYSIS CATH PLACED 09-16-16, 2011 cardiac cath, pilonodial cyst removed Past Anesthesia/Blood Transfusion Reactions: No Reported Reaction Additional Past Anesthesia/Blood Transfusion Reaction / Comm: never received a blood transfusion Past Psychological History: Anxiety, Depression Additional Psychological History / Comment(s): Father is from [facility]. PT CURRENTLY AT [facility].She has had no international travel at any time. She has no travel to the [facility]., No significant alcohol use. No history of recreational drug use. Smoking Status: Former smoker Past Alcohol Use History: None Reported Additional Past Alcohol Use History / Comment(s): Pt started smoking in 1975, SMOKED 1PPD THEN DECREASED TO 1/2 PPD THEN QUIT WHEN WENT TO [facility] 09-29-16 Past Drug Use History: None Reported - Past Family History Mother Family Medical History: Congestive Heart Failure (CHF), Coronary Artery Disease (CAD), Diabetes Mellitus Additional Family Medical History / Comment(s): Mother of diabetic complications at the age of 55yrs. Father Family Medical History: Diabetes Mellitus, Hypertension, Pneumonia Additional Family Medical History / Comment(s): alcoholism. Father of pneumonia at the age of 81 yrs. Medications and Allergies Home Medications Medication Instructions Recorded Confirmed Type Albuterol Nebulized [Ventolin 2.5 mg INHALATION RT-Q4H PRN 09/09/16 10/07/16 History Nebulized] ALPRAZolam [Xanax] 1 mg PO Q12HR PRN 10/07/16 10/07/16 History Albuterol Inhaler [Ventolin Hfa 2 puff INHALATION RT-Q6H PRN 10/07/16 10/07/16 History Inhaler] Darbepoetin Praveen 40mcg/Ml 40 mcg SQ FR 10/07/16 10/07/16 History Furosemide [Lasix] 80 mg PO BID 10/07/16 10/07/16 History HYDROcodone/APAP 7.5-325MG [Hinckley 1 tab PO QID 10/07/16 10/07/16 History 7.5-325] INSULIN LISPRO (HumaLOG) [HumaLOG] See Protocol SQ QID 10/07/16 10/07/16 History Insulin NPH Hum/Reg Insulin Hm 25 unit SQ BID 10/07/16 10/07/16 History [NovoLIN 70-30 100 UNIT/ML VIAL] Isosorbide Mononitrate ER [Imdur] 30 mg PO DAILY 10/07/16 10/07/16 History Lidocaine [Lidoderm 5% Patch] 1 patch TRANSDERM DAILY 10/07/16 10/07/16 History MORPHINE ORAL SOLN 20mg/mL 20 mg PO Q2HR PRN 10/07/16 10/07/16 History [Roxanol Oral Soln Conc 20MG/ML] Metoprolol Tartrate [Lopressor] 50 mg PO Q12H 10/07/16 10/07/16 History Nystatin 100,000 Unit/gm Powd 1 applic TOPICAL TID 10/07/16 10/07/16 History [Mycostatin Powder] Omeprazole Magnesium Dr 20.6mg 20.6 mg PO BID 10/07/16 10/07/16 History QUEtiapine FUMARATE [SEROquel] 25 mg PO Q8HR 10/07/16 10/07/16 History Sertraline HCl [Zoloft] 50 mg PO DAILY 10/07/16 10/07/16 History Sevelamer HCl [Renagel] 800 mg PO TID-W/MEALS 10/07/16 10/07/16 History traMADol HCL [Ultram] 50 mg PO Q6HR PRN 10/07/16 10/07/16 History Allergies Allergy/AdvReac Type Severity Reaction Status Date / Time No Known Allergies Allergy Verified 10/07/16 16:07 Physical Exam Vitals: Vital Signs Temp Pulse Pulse Resp BP Pulse Ox 10/11/16 16:00 57 L 20 10/11/16 15:00 97.1 F L 57 L 20 134/63 96 10/11/16 08:07 78 10/11/16 08:00 66 20 10/11/16 07:54 78 10/11/16 07:00 97.6 F 66 20 143/57 94 L 10/10/16 23:00 98.7 F 80 16 124/51 95 10/10/16 21:10 78 10/10/16 21:00 78 Intake and Output 10/11/16 10/11/16 10/11/16 06:59 14:59 22:59 Intake Total 355.84 926.09 213.925 Output Total 100 100 250 Balance 255.84 826.09 -36.075 Intake: IV 160 705.66 .9@20 160 240 Heparin Sodium,Porcine/ 465.66 D5w Pmx 25,000 unit In Dextrose/Water 1 500ml. bag @ 18 UNITS/KG/HR 35. 82 mls/hr IV .[id number] [facility] Rx#:[id number] Intake, IV Titration 195.84 170.43 213.925 Amount Heparin Sodium,Porcine/ 195.84 70.43 213.925 D5w Pmx 25,000 unit In Dextrose/Water 1 500ml. bag @ 18 UNITS/KG/HR 35. 82 mls/hr IV .[id number] [facility] Rx#:[id number] cefTRIAXone 1,000 mg In 100 Sodium Chloride 0.9% 50 ml @ 100 mls/hr IVPB Q24HR [facility] Rx#:[id number] Oral 50 Output: Urine 100 100 250 Uretheral (Barlow) 100 100 100 Other: Voiding Method Indwelling Catheter Indwelling Catheter Indwelling Catheter # Voids 1 Weight 103 kg 103 kg Patient Weight 10/12/16 06:59 Weight 103 kg Physical Examinations : 1-Constitutional : Cooperative , not in acute distress , drowsy. 2-HEENT : nech ; supple , no Lymphadenopathy , no Thyromegaly , :eyes , no icterus, no photophobia . ENT : , normal oropharynx , no Thrush 3- Respiratory : Chest clear to auscultations Bilaterally , no wheezing . 4- Cardiovascular : regular rate and rhythem , S1 , S2 , no S3 , no S4. 5- Gastrointestinal: abdomen soft no tenderness , no organomegally . 6- Genitourinary : Defferred . 7-Integumentary : No cellulitis , no ulcers , normal skin turgor , no cyanotic . 8- neurologic : Cranial nerve II to XII intact , no focal neurological deffecit 9-psychatric : alert , oriented X 3 , appropriate affect , intact judgment and insight . 10-Lymphatic : no Lymphadenopathy. 11- musculoskeltal: normal gait Lumber spine moter stegnth lower extremities ,thigh and legs 3-4 /5 Right side , 3-4/5 Left side deep tendon reflexes : normal Knee Jerk , normal ankle Jerk positive lumber facet Loading Test Range of motion of the lumbar spine Flexion 30 degrees, extension 10 degrees strait leg raising test , positive at degree Fabere test positive RT and positive LT . Results CBC & Chem 7: 10/11/16 07:24 10/11/16 07:24 Labs: Abnormal Lab Results - Last 24 Hours (Table) 10/10/16 10/11/16 10/11/16 Range/Units 08:27 00:59 07:24 RBC 2.41 L (3.80-5.40) m/uL Hgb 7.8 L (11.4-16.0) gm/dL Hct 25.3 L (34.0-46.0) % MCV 105.2 H (80.0-100.0) fL MCHC 30.6 L (31.0-37.0) g/dL RDW 16.8 H (11.5-15.5) % Lymphocytes # 0.8 L (1.0-4.8) k/uL APTT 41.8 H (22.0-30.0) sec Sodium (137-145) mmol/L BUN (7-17) mg/dL Creatinine 6.73 H* (0.52-1.04) mg/dL Glucose (74-99) mg/dL Calcium (8.4-10.2) mg/dL 10/11/16 10/11/16 Range/Units 07:24 14:17 RBC (3.80-5.40) m/uL Hgb (11.4-16.0) gm/dL Hct (34.0-46.0) % MCV (80.0-100.0) fL MCHC (31.0-37.0) g/dL RDW (11.5-15.5) % Lymphocytes # (1.0-4.8) k/uL APTT 132.5 H* (22.0-30.0) sec Sodium 134 L (137-145) mmol/L BUN 33 H (7-17) mg/dL Creatinine 5.29 H* (0.52-1.04) mg/dL Glucose 153 H (74-99) mg/dL Calcium 7.4 L (8.4-10.2) mg/dL Assessment and Plan Plan: Assessment and plan= 61 years old female with a chronic history of low back pain , degenerative joint disease she was treated as an outpatient with Hinckley 7.5/ 325 every 6 hours, she was admitted with acute metabolic encephalopathy secondary to missing dialysis, recommend discontinue morphine, discontinue Ultram, and increased Hinckley 10/325 every 6 hours, Time with Patient: Less than 30
[2016-10-11] MEDS: HYDROcodone/APAP 10-325MG 1 EACH TAB PO PRN (21:31)
[2016-10-12 08:12] LABS: Anisocytosis Slight; Basophils # (A) 0.1 k/uL (0-0.2); Basophils % (A) 1 %; CH 31.3; Eosinophils # (A) 0.3 k/uL (0-0.7); Eosinophils % (A) 4 %; HDW 2.83; HGB 7.3 gm/dL (11.4-16.0); Hypochromasia Marked; Luc # (Auto) 0.18; Luc % (Auto) 3; Lymphocytes # (A) 0.8 k/uL (1.0-4.8); Lymphocytes % (A) 11 %; MCH 31.8 pg (25.0-35.0); MCHC 30.4 g/dL (31.0-37.0); MCV 104.9 fL (80.0-100.0); Macrocytosis Moderate; Mean Platelet Volume 7.7; Monocytes # (A) 0.4 k/uL (0-1.0); Monocytes % (A) 6 %; Neutrophils # (A) 5.4 k/uL (1.3-7.7); Neutrophils % (A) 76 %; RBC 2.29 m/uL (3.80-5.40); RDW 16.8 % (11.5-15.5); WBC 7.1 k/uL (3.8-10.6); WBC (Perox) 7.22
[2016-10-12 08:17] LABS: INR 1.3 (<1.1); Partial Thromboplastin Time 49.7 sec (22.0-30.0); Prothrombin Time 12.4 sec (9.0-12.0)
[2016-10-12] MEDS: HYDROcodone/APAP 10-325MG 1 EACH TAB PO PRN ×3 (08:43→20:17)
[2016-10-12] MEDS: QUEtiapine 25 MG TAB PO SCH ×3 (08:44→23:46)
[2016-10-12] MEDS: SEVELAMER 800 MG TAB PO SCH ×3 (08:44→16:56)
[2016-10-12] MEDS: ISOSORBIDE MONONITRATE ER 30 MG TAB.ER.24H PO SCH (08:45)
[2016-10-12] MEDS: METOPROLOL TARTRATE 50 MG TAB PO SCH ×2 (08:45→20:19)
[2016-10-12] MEDS: SERTRALINE 50 MG TAB PO SCH (08:45)
[2016-10-12 08:57] LABS: Calcium 7.3 mg/dL (8.4-10.2); Potassium 3.5 mmol/L (3.5-5.1)
[2016-10-12] MEDS: PANTOPRAZOLE 40 MG TABLET PO SCH (08:57)
--- NOTE | 2016-10-12 09:20 | PN ---
DATE OF SERVICE: 10/11/2016 ATTENDING NOTE: This patient was seen and examined by me yesterday on 10/11/2016. I reviewed the note of my nurse practitioner, Ms. Cardoso and discussed with her. Patient has got a new dialysis access. Nursing found that patient will get her pain medication and then dose off, not eating much. Getting dialyzed. Sometimes the patient will get up and shout and yell by the nursing. On examination, temperature 97.6, blood pressure 121/57. RESPIRATORY: Effort normal. LUNGS: Diminished breath sounds. CARDIOVASCULAR: First and second sounds are normal, mild edema. Able to answer questions. INVESTIGATIONS: Hemoglobin 7.8, potassium 4.2. ASSESSMENT: 1. Acute metabolic encephalopathy actually fluctuating, maybe an effect of also pain medications. 2. Acute urinary tract infection delirium element also pleasant. 3. Pain medication seeking behavior in the past, well-documented and known. PLAN: Neurology was consulted, though I doubt there is a focal event going on. CT scan was negative. Will also consult Dr. Rutledge from pain management to whom patient is well known. Outpatient IV pain medications to be discontinued for sure and see how she does. Overall prognosis remains guarded. There is a big compliance issue from an outpatient. Prognosis does not look good. Did tell the nurse to let me know when family comes. Did try to call her on the phone.
--- NOTE | 2016-10-12 10:07 | P.PN ---
Subjective Patient is seen in follow-up for end-stage renal disease. She is meeting on hemodialysis on a Wednesday schedule. Patient has been noncompliant with hemodialysis as an outpatient. She had pulled out her dialysis access and had a new access placed on October 08. She underwent hemodialysis Wednesday and Wednesday. Currently resting in bed. She is awake and moaning in pain. States she has pain mostly in her abdomen. Vital signs are stable. General: The patient appeared well nourished and normally developed. HEENT: Head exam is unremarkable. Neck is without jugular venous distension. LUNGS: Lungs are clear to auscultation and percussion. Breath sounds decreased. HEART: Rate and Rhythm are regular. First and second heart sounds normal. No murmurs, rubs or gallops. ABDOMEN: Abdominal exam reveals normal bowel sounds. Non-tender and non- distended. No evidence of peritonitis. EXTREMITITES: No clubbing, cyanosis, or edema. Objective - Vital Signs Vital signs: Vital Signs Temp 97.1 F L 10/12/16 07:00 Pulse 70 10/12/16 07:00 Resp 22 10/12/16 07:00 BP 146/66 10/12/16 07:00 Pulse Ox 97 10/12/16 07:00 Intake & Output 10/11/16 10/12/16 10/12/16 18:59 06:59 18:59 Intake Total 1140.015 648 Output Total 350 Balance 790.015 648 Weight 103 kg 103 kg Intake: IV 705.66 648 .9@20 240 240 Heparin Sodium,Porcine/ 465.66 408 D5w Pmx 25,000 unit In Dextrose/Water 1 500ml. bag @ 18 UNITS/KG/HR 35. 82 mls/hr IV .[id number] [facility] Rx#:[id number] Intake, IV Titration 384.355 Amount Heparin Sodium,Porcine/ 284.355 D5w Pmx 25,000 unit In Dextrose/Water 1 500ml. bag @ 18 UNITS/KG/HR 35. 82 mls/hr IV .[id number] [facility] Rx#:[id number] cefTRIAXone 1,000 mg In 100 Sodium Chloride 0.9% 50 ml @ 100 mls/hr IVPB Q24HR [facility] Rx#:[id number] Oral 50 Output: Urine 350 Uretheral (Barlow) 200 Other: Voiding Method Indwelling Catheter Indwelling Catheter # Voids 1 - Labs CBC & Chem 7: 10/12/16 07:33 10/12/16 07:33 Labs: Abnormal Lab Results - Last 24 Hours (Table) 10/10/16 10/11/16 10/11/16 Range/Units 08:27 14:17 23:15 RBC (3.80-5.40) m/uL Hgb (11.4-16.0) gm/dL Hct (34.0-46.0) % MCV (80.0-100.0) fL MCHC (31.0-37.0) g/dL RDW (11.5-15.5) % Lymphocytes # (1.0-4.8) k/uL PT (9.0-12.0) sec APTT 132.5 H* 67.2 H (22.0-30.0) sec Sodium (137-145) mmol/L BUN (7-17) mg/dL Creatinine 6.73 H* (0.52-1.04) mg/dL Glucose (74-99) mg/dL Calcium (8.4-10.2) mg/dL 10/12/16 10/12/16 10/12/16 Range/Units 07:33 07:33 07:33 RBC 2.29 L (3.80-5.40) m/uL Hgb 7.3 L (11.4-16.0) gm/dL Hct 24.0 L (34.0-46.0) % MCV 104.9 H (80.0-100.0) fL MCHC 30.4 L (31.0-37.0) g/dL RDW 16.8 H (11.5-15.5) % Lymphocytes # 0.8 L (1.0-4.8) k/uL PT 12.4 H (9.0-12.0) sec APTT 49.7 H (22.0-30.0) sec Sodium 135 L (137-145) mmol/L BUN 34 H (7-17) mg/dL Creatinine 6.25 H* (0.52-1.04) mg/dL Glucose 152 H (74-99) mg/dL Calcium 7.3 L (8.4-10.2) mg/dL Microbiology - Last 24 Hours (Table) 10/09/16 14:30 Urine Culture - Final Urine,Catheterized Enterococcus faecium VRE Kimberly albicans Assessment and Plan Plan: Assessment: #1. End-stage renal disease maintained on hemodialysis on a Wednesday schedule via permacath. #2. Noncompliance with hemodialysis as an outpatient. #3. Anemia of chronic kidney disease. Iron replete. #4. Chronic kidney disease mineral bone disease. #5. UTI with urine culture positive for VRE and Kimberly albicans. #6. IJ thrombus maintained on IV heparin. Plan: Hemodialysis today with goal 1 L ultrafiltration. Continue Aranesp. Maintain Renvela with meals. Continue antibiotics. Overall prognosis poor.
[2016-10-12] MEDS: HEPARIN SODIUM,PORCINE/D5W PMX 25,000 UNIT in DEXTROSE/WATER 1 500ML.BAG IV SCH (11:32)
[2016-10-12] MEDS: FUROSEMIDE 80 MG TAB PO SCH ×2 (12:05→20:19)
[2016-10-12] MEDS ORDERED: IOHEXOL 350 MG/ML 25 ML BOTTLE (ORAL USE) PO PRN (21:17)
[2016-10-12] MEDS ORDERED: DAPTOmycin 500 MG in SODIUM CHLORIDE 0.9% 50 ML IV SCH (21:30)
--- NOTE | 2016-10-12 22:26 | PN ---
DATE OF SERVICE: 10/12/2016 PRESENTING COMPLAINT: Pulled out dialysis catheter. INTERVAL HISTORY: This is a patient who presented after pulling out her dialysis catheter. Today patient continues to be lethargic, awakens to voice command, opens her eyes to name, and does respond to simple, very straightforward questions. Patient receiving medications routinely which may be contributing to the situation. Patient does take her medications; however, she refuses to eat. Review of systems done for constitutional, cardiovascular, GI, pulmonary, with relevant findings as above. CURRENT MEDICATIONS: 1. Maspeth. 2. Xanax. 3. Aranesp. 4. Lasix. 5. Heparin. 6. Imdur. 7. Lopressor. 8. Protonix. 9. Seroquel. 10. Zoloft. 11. Renvela. 12. Ultram. PHYSICAL EXAMINATION: VITAL SIGNS: Temperature 97.3, pulse 66, respiratory rate 16, blood pressure 140/56, oxygen saturation 100% on room air. GENERAL APPEARANCE: Patient is lying in bed on her stomach. When I approached the patient, she immediately began to complain of pain, but was unable to quantify or specify where her pain was. She drifted back off to sleep. EYES: Pupils equal. Conjunctivae normal. NECK: JVD not raised. Mass not palpable. LUNGS: Diminished bilaterally. RESPIRATORY: Effort normal, unlabored. CARDIOVASCULAR: First and second sounds normal. Trace edema noted. ABDOMEN: Soft, nontender. Liver and spleen not palpable. PSYCHIATRY: Alert to name. Mood and affect lethargic. INVESTIGATIONS: White blood cell count 7.1, hemoglobin 7.3, platelet count 161. Sodium 135, potassium 3.5. BUN 34, creatinine 6.25. Consult with Pain Management completed today. ASSESSMENT: 1. Acute metabolic encephalopathy actually fluctuating; may be an effect of pain medication as well. 2. Acute urinary tract infection; delirium element also present. 3. Pain medication-seeking behavior in the past, well documented and known. 4. Acute urinary tract infection. 5. End-stage kidney disease, on hemodialysis. 6. Chronic low back pain from lumbar degenerative joint disease. 7. Primary osteoarthritis in multiple joints bilaterally. 8. Metabolic bone disease from end-stage kidney disease. 9. 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 10. Chronic obstructive pulmonary disease in an ex-smoker. 11. Morbid obesity; body mass index greater than 40. 12. Chronic medical debility. 13. Diabetes mellitus, type 2, chronically on insulin. 14. Macrocytic anemia secondary to end-stage kidney disease. 15. Gastroesophageal reflux disease. 16. Hyperlipidemia. 17. Essential hypertension. 18. Chronic obstructive sleep apnea; does not use CPAP. 19. Chronic nicotine dependence. Patient states that she is not currently smoking. 20. Chronic pain syndrome in multiple joints. PLAN: Prognosis is not good. Dr. Spencer saw the patient in consult today and recommends discontinuing morphine and Ultram and increasing Maspeth 10/325 every 6 hours. Patient receives hemodialysis Wednesday, Wednesday and Wednesday, for which Dr. Gaviria is following. Neurology is also on consultation. Psychiatry is also on consultation. Patient was seen and examined by nurse practitioner Teresita Cardoso, and all elements of the case were discussed with Dr. Haas, attending.
--- NOTE | 2016-10-12 23:51 | CT ---
EXAM: CT Abdomen and Pelvis Without Intravenous Contrast CLINICAL HISTORY: Rectal perforation. TECHNIQUE: Axial computed tomography images of the abdomen and pelvis without intravenous contrast. Oral contrast was administered. Coronal and sagittal reformatted images were created and reviewed. DOSE INFORMATION: CTDI is 21.43 mGy and DLP is 1143 mGy-cm. This CT exam was performed using one or more of the following dose reduction techniques: automated exposure control, adjustment of the mA and/or kV according to patient size, and/or use of iterative reconstruction technique. COMPARISON: CT dated 08/14/2016. FINDINGS: Lower thorax: Small bilateral pleural effusions. ABDOMEN: Liver: Fatty infiltration of the liver with focal area of increased fatty infiltration adjacent to falciform ligament. Gallbladder and bile ducts: Gallbladder surgically absent. No biliary ductal dilation. Pancreas: Fatty atrophy of the pancreas. No ductal dilation. No adjacent inflammatory changes. Spleen: Unremarkable. No splenomegaly. Adrenals: Unremarkable. No mass. Kidneys and ureters: Unremarkable on noncontrast CT. No obstructing calculi. No hydronephrosis. Stomach and bowel: No extraluminal air adjacent to the rectum to suggest rectal perforation. Possible mild rectal wall thickening although evaluation is limited due to underdistention and lack of luminal contrast. Apparent thickening at the anorectal junction. Sigmoid diverticula without evidence of acute diverticulitis. No evidence of bowel obstruction. No significant bowel wall thickening. Appendix: No findings to suggest acute appendicitis. PELVIS: Bladder: Unremarkable. No calculi or wall thickening. Reproductive: No large adnexal mass. Uterus and ovaries appear stable compared to prior CT. ABDOMEN and PELVIS: Intraperitoneal space: Mild presacral edema. No large fluid collection. No free air. Bones/joints: Degenerative changes of the lower lumbar spine. No evidence of acute fracture. Soft tissues: Fat-containing umbilical hernia. Obesity. Scattered body wall edema. Vasculature: Atherosclerotic vascular disease. No abdominal aortic aneurysm. Lymph nodes: No enlarged lymph nodes. IMPRESSION: 1. No extraluminal air adjacent to the rectum to suggest rectal perforation. Note that evaluation of the rectum is somewhat limited due to underdistention and lack of luminal contrast at this location. If there is continued clinical concern for rectal perforation, follow-up imaging with rectal contrast can be obtained. 2. Possible mild rectal wall thickening and apparent thickening at the anorectal junction which may be related to underdistention or mild proctitis. Mild presacral edema is present, nonspecific. 3. Sigmoid diverticula without evidence of acute diverticulitis. 4. Fatty infiltration of the liver. 5. Fat-containing umbilical hernia. 6. Small pleural effusions.
[2016-10-13] MEDS: HEPARIN SODIUM,PORCINE/D5W PMX 25,000 UNIT in DEXTROSE/WATER 1 500ML.BAG IV SCH ×3 (04:48→20:49)
[2016-10-13 07:45] LABS: Anisocytosis Slight; Basophils % (A) 1 %; CH 32.1; CHCM 31.5; Eosinophils # (A) 0.1 k/uL (0-0.7); Eosinophils % (A) 1 %; HCT 25.7 % (34.0-46.0); HDW 3.06; HGB 8.1 gm/dL (11.4-16.0); Hypochromasia Slight; Luc # (Auto) 0.18; Luc % (Auto) 3; Lymphocytes # (A) 0.9 k/uL (1.0-4.8); Lymphocytes % (A) 14 %; MCH 32.4 pg (25.0-35.0); MCHC 31.5 g/dL (31.0-37.0); MCV 102.6 fL (80.0-100.0); Macrocytosis Moderate; Mean Platelet Volume 7.2; Monocytes # (A) 0.4 k/uL (0-1.0); Monocytes % (A) 6 %; Neutrophils # (A) 5.1 k/uL (1.3-7.7); Neutrophils % (A) 76 %; RBC 2.51 m/uL (3.80-5.40); RDW 17.1 % (11.5-15.5); WBC 6.7 k/uL (3.8-10.6); WBC (Perox) 6.53
[2016-10-13 08:12] LABS: Calcium 7.2 mg/dL (8.4-10.2)
[2016-10-13 08:26] LABS: Potassium 3.5 mmol/L (3.5-5.1)
--- NOTE | 2016-10-13 08:47 | CONS ---
DATE OF CONSULTATION: 10/12/2016 Reason for consultation is VRE positive urine culture. HISTORY OF PRESENT ILLNESS: The patient is a 61-year-old female with a past medical history significant for end-stage renal disease, appears to be on a peritoneal dialysis that was discontinued because of recurrent peritonitis. The patient did get pulmonary catheter has been getting hemodialysis. The patient was at the [facility] for rehabilitation and was recently admitted to [facility] with low blood sugar. At that time, the patient did have elevated white count. CT of abdominal pannus was done by the admitting physician with the possibility of fecal retention and possible small fecal perforation. Patient was considered to be high risk for a surgical procedure and the patient was begging her nephrology at that time that she did not want to have any more dialysis and would like to go hospice. As per my impression, the patient was switched to hospice at that time. However, apparently after she went back to the [facility], she did pull the Pulmo-Cath out and subsequently was sent into the [facility] for further evaluation. Patient has been evaluated by Vascular Surgery and Nephrology. She did get another Pulmo-Cath and is getting Aranesp through it. The patient does have a Barlow catheter inserted for unknown reason and the urine as sent which was positive. Culture came back. She was started on Rocephin with culture coming back for VRE today and so I was asked to see the patient for further recommendation. All of this information has been obtained from the chart and talking to the nursing staff as the patient is not a very good historian and would not provide any reliable history. Review of systems could not be reliably obtained and past medical history as per HPI. PAST MEDICAL HISTORY: Significant for COPD, diabetes mellitus, gastroesophageal reflux disease, hypertension, hyperlipidemia, osteoarthritis and pneumonia, right renal disease on hemodialysis with recurrent peritonitis. PAST SURGICAL HISTORY: Cholecystectomy, heart catheterization, peritoneal catheter subsequently removed. Abdominal catheter placement. SOCIAL HISTORY: and a question of more towards more dialysis and right oral hospice as per my impression and the patient was switched to the hospital. Her in the bed in after she went back to the number of hours. Pulmicort subsequently was sent to the [facility] for further evaluation. Patient has been evaluated by vascular surgery and nephrology. She did get on the palm sit straight up. The patient to have a Barlow catheter associated for unknown reasons in the urine was sent, which was positive. Culture came back she was started on Rocephin with culture coming back for as well as to see the patient for that admission on this admission has been obtained from review of the chart and talking to the nursing staff, as the patient is not a very good historian without family history. Review of systems could not be obtained with HPI. PAST MEDICAL HISTORY: Significant for COPD, diabetes mellitus, dystrophy affecting his hypertension, hyperlipidemia, osteoarthritis pneumonia. Incision is on hemodialysis peritonitis. PAST SURGICAL HISTORY: Cholecystectomy heart catheterization peritonitis catheter subsequent removal of the lipoma catheter placement. SOCIAL HISTORY: Former smoker. No drinking or any drug use. FAMILY HISTORY: Mother with history of congestive heart failure, coronary artery disease. Father with a history of diabetes, hypertension, pneumonia, alcoholism. ALLERGIES: No known drug allergies. Medications include the patient is currently on [place], vitamin, Xanax, Lasix, heparin, Lomotil, Lopressor, Protonix, heparin. On examination, her blood pressure is 108/48 with a pulse of 103, temperature 98. General description is a middle-age female, lying in bed in no distress. HEENT examination shows pallor. No scleral icterus. Oral mucosa dry. NECK: Trachea central. No thyromegaly. LUNGS: Unlabored breathing. Clear to auscultation anteriorly. HEART: S1, S2, regular rate and rhythm. ABDOMEN: Soft. No tenderness. EXTREMITIES: No edema of feet. SKIN EXAMINATION: No rash or mass palpable. NEUROLOGICAL: The patient responds to her name. However further neuro exam could not be done. LABS: Hemoglobin 7.3, white count is 7.1, BUN of 34, creatinine 6.25. Urine that was done on admission was positive with the culture showing VRE and Kimberly albicans. DIAGNOSTIC IMPRESSION AND PLAN: 1. Patient with a positive urine culture. Patient who is a dialysis patient and with her hemodialysis not clear why the Barlow catheter was placed and the urine output is questionable with the question of possible Barlow colonization. infection are less likely. 2. Patient who did have a recent abnormal CT that we need to follow up to make sure no evidence of any perforation though the patient clinically not behaving as such. PLAN: 1. Discontinue her Barlow catheter . Would recommend doing a straight cath to get a clean catch urine for the urine culture. 2. Obtain a CT of the abdomen and pelvis with oral contrast only. 3. Antibiotic will switch to daptomycin and discontinue the Rocephin; however, if the repeat urine is clear recommend discontinuation of antibiotic all together. Thank you for this consultation. Prognosis remains to be poor. Patient may be candidate for hospice care. ANDRÉS
[2016-10-13] MEDS: HYDROcodone/APAP 10-325MG 1 EACH TAB PO PRN ×3 (09:39→23:34)
[2016-10-13] MEDS: METOPROLOL TARTRATE 50 MG TAB PO SCH ×2 (09:41→20:49)
[2016-10-13] MEDS: SEVELAMER 800 MG TAB PO SCH ×3 (09:41→17:59)
[2016-10-13] MEDS: SERTRALINE 50 MG TAB PO SCH (09:41)
[2016-10-13] MEDS: FUROSEMIDE 80 MG TAB PO SCH ×2 (09:41→20:49)
[2016-10-13] MEDS: ISOSORBIDE MONONITRATE ER 30 MG TAB.ER.24H PO SCH (09:41)
[2016-10-13] MEDS: PANTOPRAZOLE 40 MG TABLET PO SCH (09:41)
[2016-10-13] MEDS: QUEtiapine 25 MG TAB PO SCH ×3 (09:42→23:34)
--- NOTE | 2016-10-13 09:49 | PN ---
DATE OF SERVICE: 10/12/2016 ATTENDING NOTE: This patient was seen and examined by me earlier today. I reviewed the note of my nurse practitioner, Ms. Cardoso and discussed with her and agreed. Patient is getting hemodialysis today. Actually did get up and eat lunch. Likes to close her eyes, when talked to she will answer questions then close her eyes yet again. I was informed that son did not show up in court to get guardianship today. On examination, lying in bed, lethargic, but arousable. Does answer questions. Ask for pain medicines and then drifts off again. LUNGS: Decreased breath sounds. CARDIOVASCULAR: First and second sounds normal. No edema. ABDOMEN: Soft. INVESTIGATIONS: White count 7.1, hemoglobin 7.3. Potassium 3.5. ASSESSMENT: 1. Acute metabolic encephalopathy fluctuating, though better than yesterday. The dialysis provider did tell me that patient ( ) yesterday and was creating quite a ( ) for pain medicines. Overall prognosis remains guarded. Continue with treatment plan. Patient is also on IV heparin for internal jugular clot. We will try to get opinion from vascular on the same. ( ) patient's high level of noncompliance as an outpatient, overall prognosis remains to be ( ).
--- NOTE | 2016-10-13 10:54 | P.PN ---
Subjective Patient is seen in follow-up for end-stage renal disease. She is meeting on hemodialysis on a Wednesday schedule. Patient has been noncompliant with hemodialysis as an outpatient. She had pulled out her dialysis access and had a new access placed on October 08. She underwent hemodialysis Wednesday and Wednesday and is now maintained on a Wednesday schedule. Currently resting in bed. She is awake and responding to verbal commands. admits to generalized pain. Vital signs are stable. General: The patient appeared well nourished and normally developed. HEENT: Head exam is unremarkable. Neck is without jugular venous distension. LUNGS: Lungs are clear to auscultation and percussion. Breath sounds decreased. HEART: Rate and Rhythm are regular. First and second heart sounds normal. No murmurs, rubs or gallops. ABDOMEN: Abdominal exam reveals normal bowel sounds. Non-tender and non- distended. No evidence of peritonitis. EXTREMITITES: No clubbing, cyanosis, or edema. Objective - Vital Signs Vital signs: Vital Signs Temp 97.2 F L 10/13/16 07:00 Pulse 88 10/13/16 07:00 Resp 16 10/13/16 07:00 BP 156/74 10/13/16 07:00 Pulse Ox 97 10/13/16 07:00 Intake & Output 10/12/16 10/13/16 10/13/16 18:59 06:59 18:59 Intake Total 1548 129.103 Output Total 650 175 Balance -650 1373 129.103 Weight 103 kg 108.5 kg 108.5 kg Intake: IV 648 .9@20 240 Heparin Sodium,Porcine/ 408 D5w Pmx 25,000 unit In Dextrose/Water 1 500ml. bag @ 18 UNITS/KG/HR 35. 82 mls/hr IV .[id number] VENU Rx#:[id number] Intake, IV Titration 500 129.103 Amount Heparin Sodium,Porcine/ 500 129.103 D5w Pmx 25,000 unit In Dextrose/Water 1 500ml. bag @ 18 UNITS/KG/HR 35. 82 mls/hr IV .[id number] VENU Rx#:[id number] Oral 400 Output: Urine 650 175 Uretheral (Barlow) 350 175 Other: Voiding Method Indwelling Catheter Incontinent # Voids 1 # Bowel Movements 3 - Labs CBC & Chem 7: 10/13/16 07:20 10/13/16 07:20 Labs: Abnormal Lab Results - Last 24 Hours (Table) 10/12/16 10/13/16 10/13/16 Range/Units 21:23 07:20 07:20 RBC 2.51 L (3.80-5.40) m/uL Hgb 8.1 L (11.4-16.0) gm/dL Hct 25.7 L (34.0-46.0) % MCV 102.6 H (80.0-100.0) fL RDW 17.1 H (11.5-15.5) % Lymphocytes # 0.9 L (1.0-4.8) k/uL APTT 71.1 H (22.0-30.0) sec Carbon Dioxide 21 L (22-30) mmol/L Creatinine 3.54 H (0.52-1.04) mg/dL Glucose 172 H (74-99) mg/dL Calcium 7.2 L (8.4-10.2) mg/dL 10/13/16 Range/Units 07:20 RBC (3.80-5.40) m/uL Hgb (11.4-16.0) gm/dL Hct (34.0-46.0) % MCV (80.0-100.0) fL RDW (11.5-15.5) % Lymphocytes # (1.0-4.8) k/uL APTT 181.0 H* (22.0-30.0) sec Carbon Dioxide (22-30) mmol/L Creatinine (0.52-1.04) mg/dL Glucose (74-99) mg/dL Calcium (8.4-10.2) mg/dL Microbiology - Last 24 Hours (Table) 10/09/16 14:30 Urine Culture - Final Urine,Catheterized Enterococcus faecium VRE Kimberly albicans Assessment and Plan Plan: Assessment: #1. End-stage renal disease maintained on hemodialysis on a Wednesday schedule via permacath. #2. Noncompliance with hemodialysis as an outpatient. #3. Anemia of chronic kidney disease. Iron replete. #4. Chronic kidney disease mineral bone disease. #5. UTI with urine culture positive for VRE and Kimberly albicans. #6. IJ thrombus maintained on IV heparin. Plan: Hemodialysis tomorrow with goal 1 L ultrafiltration. Continue Aranesp. Maintain Renvela with meals. Continue antibiotics per infectious disease recommendations. Overall prognosis poor.
--- NOTE | 2016-10-13 22:23 | PN ---
DATE OF SERVICE: 10/13/2016 PRESENTING COMPLAINT: Tired. INTERVAL HISTORY: This is a patient presented after pulling out dialysis catheter. Continues to be pretty much in bed, not eating. When she gets up, she wants pain medicines. Already seen by pain specialists. ( ) Naomi, gets very agitated and shouts at people. Got dialyzed again. REVIEW OF SYSTEMS: ( ) to do for constitutional, cardiovascular, GI, pulmonary. Current medications are reviewed. On examination, temperature 97.3, pulse 80, respirations 18, blood pressure 123/56, pulse ox 99% on room air. GENERAL APPEARANCE: Lying in bed, sleeping, but arousable. EYES: Pupils equal; conjunctivae pale. NECK: JVD unable to assess. Mass not palpable. RESPIRATORY: Effort normal. LUNGS: Diminished breath sounds. CARDIOVASCULAR: First and second sounds normal. Some edema. ABDOMEN: Soft, nontender, liver and spleen not palpable. PSYCHIATRY: Arousable. Does answer questions and then decides to doze off. INVESTIGATIONS: White count 6.7, hemoglobin 8.1. Potassium 3.5, creatinine 3.54. ASSESSMENT: 1. Acute metabolic encephalopathy, multifactorial though somewhat better after using pain medications. 2. Acute urinary tract infection, present at admission, growing VRE and chaim albicans. 3. Pain medication seeking behavior, persistent and continuous. 4. End-stage kidney disease, on hemodialysis. 5. Back pain from lumbar degenerative joint disease. 6. Primary osteoarthritis of multiple joints. 7. Metabolic bone disease from chronic kidney disease. 8. 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 9. Chronic obstructive pulmonary disease in an ex-smoker. 10. Morbid obesity, body mass index greater than 40. 11. Chronic medical debility. 12. Diabetes mellitus type 2, on insulin. 13. Microcytic anemia, secondary to end-stage kidney disease. 14. Gastroesophageal reflux disease. 15. Hyperlipidemia. 16. Essential hypertension. 17. Obstructive sleep apnea, does not use CPAP. 18. Chronic nicotine dependence, the patient is a smoker. 19. Deep venous thrombosis in the internal jugular vein on the right side. PLAN: The patient overall prognosis remains poor. It is learned today that again patient was made near hospice at the [facility]. Patient continues to refuse to eat. I told the aide to feed the patient. The patient refused to eat yet again, pulling out things. Quality extremely poor. Several attempts have been made by the social work faculty member to get a hold of those children but they are not responding. Earlier they said they are not sure if they really ought to be involved with the care of the patient. I spoke to Dr. Gaviria from nephrology. He also has the impression it looks like the patient may be appropriate for hospice and if not make any remarkable change. In the meantime, continue current medications and treatment plan. Overall prognosis remains not good. The patient remains on IV heparin.
[2016-10-14] MEDS: HYDROcodone/APAP 10-325MG 1 EACH TAB PO PRN ×4 (06:01→23:04)
--- NOTE | 2016-10-14 07:34 | PN ---
DATE OF SERVICE: 10/13/2016 Reason for followup is VRE and Kimberly positive urine. INTERVAL HISTORY: The patient is afebrile. She is hemodynamically stable. sllightly more awake. Overall remains to be stable. No nausea, no vomiting or any diarrhea has been noticed. On examination, blood pressure is 153/66 with a pulse of 78, temperature 97.3. He is 99% on room air. General description is a middle age female lying in bed in no distress. RESPIRATORY SYSTEM: Unlabored breathing. Clear to auscultation anteriorly. HEART: S1 and S2. Regular rate and rhythm. ABDOMEN: Soft, no tenderness. LABS: Hemoglobin 8.1, white count 6.7, BUN of 17 and creatinine 3.54. Repeat urine could not be obtained. quintero has been discontinued. CT of the abdomen and pelvis showed no rectal perforation. DIAGNOSTIC IMPRESSION AND PLAN: Patient with positive culture with VRE and Kimberly with a question of possible quintero colonization that has been discontinued. Unfortunately, unable to obtain a new UA. Depending on results of the new UA will determine further antibiotic. Continue the patient on daptomycin at this point. Continue supportive care. MTDD
[2016-10-14] MEDS: ALBUTEROL NEBULIZED 2.5 MG/3 ML INHALATION PRN ×2 (09:08→21:22)
[2016-10-14 09:40] LABS: Anisocytosis Slight; Basophils % (A) 1 %; CH 31.6; CHCM 30.8; Eosinophils # (A) 0.1 k/uL (0-0.7); Eosinophils % (A) 2 %; HCT 24.3 % (34.0-46.0); HDW 2.85; HGB 7.7 gm/dL (11.4-16.0); Hypochromasia Moderate; Luc # (Auto) 0.13; Luc % (Auto) 2; Lymphocytes % (A) 16 %; MCH 32.9 pg (25.0-35.0); MCHC 31.9 g/dL (31.0-37.0); MCV 103.2 fL (80.0-100.0); Macrocytosis Moderate; Mean Platelet Volume 7.8; Monocytes # (A) 0.4 k/uL (0-1.0); Monocytes % (A) 7 %; Neutrophils # (A) 4.2 k/uL (1.3-7.7); Neutrophils % (A) 72 %; RBC 2.35 m/uL (3.80-5.40); RDW 17.1 % (11.5-15.5); WBC 5.9 k/uL (3.8-10.6); WBC (Perox) 5.88
[2016-10-14 09:42] LABS: Calcium 7.4 mg/dL (8.4-10.2); Potassium 3.6 mmol/L (3.5-5.1)
--- NOTE | 2016-10-14 09:43 | P.PN ---
Subjective Patient is seen in follow-up for end-stage renal disease. She is maintained on hemodialysis on a Wednesday schedule. Patient has been noncompliant with hemodialysis as an outpatient. She had pulled out her dialysis access and had a new access placed on October 08. She underwent hemodialysis Wednesday and Wednesday and is now maintained on a Wednesday schedule. She is currently undergoing hemodialysis. Currently resting in bed. She is awake and responding to verbal commands. Admits to generalized pain, mostly in the abdomen. She is not eating much due to pain. Vital signs are stable. General: The patient appeared well nourished and normally developed. HEENT: Head exam is unremarkable. Neck is without jugular venous distension. LUNGS: Lungs are clear to auscultation and percussion. Breath sounds decreased. HEART: Rate and Rhythm are regular. First and second heart sounds normal. No murmurs, rubs or gallops. ABDOMEN: Abdominal exam reveals normal bowel sounds. Non-tender and non- distended. No evidence of peritonitis. EXTREMITITES: No clubbing, cyanosis, or edema. Objective - Vital Signs Vital signs: Vital Signs Temp 97.5 F L 10/14/16 07:00 Pulse 92 10/14/16 09:18 Resp 18 10/14/16 08:00 BP 141/74 10/14/16 07:00 Pulse Ox 98 10/14/16 07:00 Intake & Output 10/13/16 10/14/16 10/14/16 18:59 06:59 18:59 Intake Total 538.603 926.493 Balance 538.603 926.493 Weight 108.5 kg 107.9 kg 107.9 kg Intake: IV 208.75 240 .9@20 240 Heparin Sodium,Porcine/ 208.75 D5w Pmx 25,000 unit In Dextrose/Water 1 500ml. bag @ 18 UNITS/KG/HR 35. 82 mls/hr IV .[id number] VENU Rx#:[id number] Intake, IV Titration 329.853 146.493 Amount Heparin Sodium,Porcine/ 329.853 146.493 D5w Pmx 25,000 unit In Dextrose/Water 1 500ml. bag @ 18 UNITS/KG/HR 35. 82 mls/hr IV .[id number] VENU Rx#:[id number] Oral 540 Other: Voiding Method Incontinent Incontinent Incontinent # Bowel Movements 1 - Labs CBC & Chem 7: 10/13/16 07:20 10/13/16 07:20 Labs: Abnormal Lab Results - Last 24 Hours (Table) 10/13/16 10/13/16 Range/Units 15:48 22:47 APTT 91.4 H 80.2 H (22.0-30.0) sec Assessment and Plan Plan: Assessment: #1. End-stage renal disease maintained on hemodialysis on a Wednesday schedule via left chest permacath. #2. Noncompliance with hemodialysis as an outpatient. #3. Anemia of chronic kidney disease. Iron replete. #4. Chronic kidney disease mineral bone disease. #5. UTI with urine culture positive for VRE and Kimberly albicans. #6. Right IJ thrombus maintained on IV heparin. Plan: Currently undergoing hemodialysis without ultrafiltration. Continue Aranesp. Maintain Renvela with meals. Continue antibiotics per infectious disease recommendations. Overall prognosis poor. Unable to reach family. Legal guardianship will likely need to be obtained some medical decisions can be made. Due to her overall condition, hospice is also in consideration.
[2016-10-14 11:12] LABS: INR 1.3 (<1.1); Partial Thromboplastin Time 50.8 sec (22.0-30.0)
[2016-10-14] MEDS: ALPRAZolam 0.5 MG TAB PO PRN ×2 (11:41→23:04)
[2016-10-14] MEDS: PANTOPRAZOLE 40 MG TABLET PO SCH (11:41)
[2016-10-14] MEDS: ISOSORBIDE MONONITRATE ER 30 MG TAB.ER.24H PO SCH (11:42)
[2016-10-14] MEDS: SEVELAMER 800 MG TAB PO SCH ×3 (11:42→17:00)
[2016-10-14] MEDS: QUEtiapine 25 MG TAB PO SCH ×2 (11:42→17:00)
[2016-10-14] MEDS: SERTRALINE 50 MG TAB PO SCH (11:43)
[2016-10-14] MEDS: FUROSEMIDE 80 MG TAB PO SCH ×3 (11:44→21:03)
[2016-10-14] MEDS: METOPROLOL TARTRATE 50 MG TAB PO SCH ×2 (11:44→21:02)
[2016-10-14] MEDS ORDERED: GELATIN SPONGE,ABSORB (SMALL) 1 EACH SPONGE ONE (12:00)
[2016-10-14] MEDS ORDERED: HEPARIN SODIUM,PORCINE 5,000 UNIT/ML 1 ML VIAL ONE (12:00)
--- NOTE | 2016-10-14 17:06 | PN ---
DATE OF SERVICE: 10/14/2016 REASON FOR FOLLOWUP: Positive urine culture with VRE and kimberly. INTERVAL HISTORY: The patient is afebrile. She seems to be slightly more awake and alert. Patient remains pleasantly confused. No nausea, vomiting or any diarrhea has been noticed. The patient has been dialyzed and no urine output, per the RN. On examination, her blood pressure is 141/74 with a pulse of 92, temperature 97.5. She is 98% on room air. General description is a middle-aged female lying in bed in no distress. RESPIRATORY SYSTEM: Unlabored breathing. Clear to auscultation anteriorly. HEART: S1, S2. Regular rate and rhythm. ABDOMEN: Soft. No tenderness. LABS: Hemoglobin 7.7, white count 5.9 with a BUN of 18, creatinine 4.27. DIAGNOSTIC IMPRESSION AND PLAN: Patient with a positive urine culture with vancomycin-resistant enterococcus and Kimberly albicans, question of possible Barlow colonization. Patient does not make a significant amount of urine because of her underlying dialysis. Patient is not running any fever; no white count. Antibiotic will be safely discontinued. We will monitor her closely off antibiotic therapy. If any new fever or any changes in condition, to obtain appropriate cultures and start her on appropriate antibiotic at that point.
[2016-10-14] MEDS: HEPARIN SODIUM,PORCINE/D5W PMX 25,000 UNIT in DEXTROSE/WATER 1 500ML.BAG IV SCH (18:33)
[2016-10-14] MEDS ORDERED: APIXABAN 5 MG TAB PO SCH (21:00)
[2016-10-14] MEDS: APIXABAN 5 MG TAB PO SCH (21:02)
--- NOTE | 2016-10-14 22:32 | PN ---
DATE OF SERVICE: 10/14/2016 PRESENTING COMPLAINT: Tired. INTERVAL HISTORY: This is patient who is getting hemodialyzed. Actually did eat today somewhat and then sent back to bed, blood pressure is better controlled. Review of systems attempted for constitutional, cardiovascular, GI, pulmonary; relevant findings as above. Current medications are reviewed. On examination, temperature 97.3, pulse 77, respirations 16, blood pressure 130/51, pulse ox 100% on room air. General appearance: Lying in bed, lethargic but arousable. Does talk. EYES: Pupils equal. Conjunctivae pale. NECK: JVD not raised. Mass not palpable. RESPIRATORY: Effort normal. LUNGS: Decreased breath sounds. CARDIOVASCULAR: First and second sounds normal. Minimal edema. ABDOMEN: Soft, nontender. Liver and spleen not palpable. PSYCHIATRY: Patient when woken up, does talk but then dozes off. On examination, hemoglobin 7.7, potassium 3.6. ASSESSMENT: 1. Acute metabolic encephalopathy multifactorial, somewhat better after cutting back on pain medications. 2. Acute urinary tract infection, present on admission growing VRE, Kimberly albicans. 3. Pain medication, ( ) persistent and continuous. 4. End-stage kidney disease on hemodialysis. 5. Back pain from lumbar degenerative joint disease. 6. Primary osteoarthritis in multiple joints. 7. Metabolic bone disease from chronic kidney disease. 8. 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 9. Chronic obstructive pulmonary disease in an ex-smoker. 10. Morbid obesity, body mass index greater than 40. 11. Chronic medical debility. 12. Diabetes mellitus type 2 chronically on insulin. 13. Macrocytic anemia secondary to end-stage kidney disease. 14. Gastroesophageal reflux disease. 15. Hyperlipidemia. 16. Essential hypertension. 17. Obstructive sleep apnea, does not use CPAP. 18. Chronic nicotine dependence, the patient is a smoker. 19. ( ) in the right side. PLAN: Had a long talk with Dr. Gaviria from nephrology; we both agreed to proceed using Eliquis 5 mg b.i.d. for anticoagulation. We will do this for a total of three months. Patient ( ) is very noncompliant and keeps attempting to pull out her access. well service floor worker trying to get hold of the family. Prognosis remains guarded. Will follow.
[2016-10-15] MEDS ORDERED: ONDANSETRON 4 MG TAB PO PRN (07:53)
[2016-10-15] MEDS: HYDROcodone/APAP 10-325MG 1 EACH TAB PO PRN ×3 (07:57→20:07)
[2016-10-15] MEDS: SERTRALINE 50 MG TAB PO SCH (07:58)
[2016-10-15] MEDS: PANTOPRAZOLE 40 MG TABLET PO SCH (07:58)
[2016-10-15] MEDS: QUEtiapine 25 MG TAB PO SCH ×4 (07:59→22:56)
[2016-10-15] MEDS: SEVELAMER 800 MG TAB PO SCH ×3 (07:59→18:23)
[2016-10-15] MEDS: METOPROLOL TARTRATE 50 MG TAB PO SCH ×2 (07:59→22:24)
[2016-10-15] MEDS: ISOSORBIDE MONONITRATE ER 30 MG TAB.ER.24H PO SCH (08:00)
[2016-10-15] MEDS: FUROSEMIDE 80 MG TAB PO SCH ×2 (08:00→22:24)
[2016-10-15] MEDS: APIXABAN 5 MG TAB PO SCH ×2 (08:00→21:56)
[2016-10-15 09:03] LABS: Anisocytosis Slight; CH 31.6; CHCM 30.6; HCT 25.5 % (34.0-46.0); HDW 2.93; HGB 7.7 gm/dL (11.4-16.0); Hypochromasia Moderate; MCH 31.6 pg (25.0-35.0); MCHC 30.4 g/dL (31.0-37.0); MCV 103.9 fL (80.0-100.0); Macrocytosis Moderate; Mean Platelet Volume 7.4; RBC 2.45 m/uL (3.80-5.40); RDW 17.5 % (11.5-15.5); WBC 6.5 k/uL (3.8-10.6)
[2016-10-15 09:13] LABS: Calcium 7.6 mg/dL (8.4-10.2); Potassium 3.6 mmol/L (3.5-5.1)
[2016-10-15] MEDS: ALBUTEROL NEBULIZED 2.5 MG/3 ML INHALATION PRN ×2 (10:21→15:09)
--- NOTE | 2016-10-15 10:34 | P.PN ---
Subjective Patient is seen in follow-up for end-stage renal disease. She is maintained on hemodialysis on a Wednesday schedule. Patient has been noncompliant with hemodialysis as an outpatient. She had pulled out her dialysis access and had a new access placed on October 08. She underwent hemodialysis Wednesday and Wednesday and is now maintained on a Wednesday schedule. Currently resting in bed. She is awake and responding to verbal commands. Admits to generalized pain, mostly in the abdomen. She is not eating much due to pain. Does admit to nausea and some dry heaves. Vital signs are stable. General: The patient appeared well nourished and normally developed. HEENT: Head exam is unremarkable. Neck is without jugular venous distension. LUNGS: Lungs are clear to auscultation and percussion. Breath sounds decreased. HEART: Rate and Rhythm are regular. First and second heart sounds normal. No murmurs, rubs or gallops. ABDOMEN: Abdominal exam reveals normal bowel sounds. Non-tender and non- distended. No evidence of peritonitis. EXTREMITITES: No clubbing, cyanosis, or edema. Objective - Vital Signs Vital signs: Vital Signs Temp 97.4 F L 10/15/16 07:00 Pulse 88 10/15/16 10:29 Resp 16 10/15/16 07:00 BP 159/75 10/15/16 07:00 Pulse Ox 97 10/15/16 07:00 Intake & Output 10/14/16 10/15/16 10/15/16 18:59 06:59 18:59 Intake Total 347.95 Balance 347.95 Weight 107.9 kg 107.9 kg Intake: Intake, IV Titration 227.95 Amount Heparin Sodium,Porcine/ 227.95 D5w Pmx 25,000 unit In Dextrose/Water 1 500ml. bag @ 18 UNITS/KG/HR 35. 82 mls/hr IV .[id number] VENU Rx#:[id number] Oral 120 Other: Voiding Method Incontinent Incontinent # Voids 0 1 - Labs CBC & Chem 7: 10/15/16 08:10 10/15/16 08:10 Labs: Abnormal Lab Results - Last 24 Hours (Table) 10/14/16 10/15/16 10/15/16 Range/Units 10:30 08:10 08:10 RBC (3.80-5.40) m/uL Hgb (11.4-16.0) gm/dL Hct (34.0-46.0) % MCV (80.0-100.0) fL MCHC (31.0-37.0) g/dL RDW (11.5-15.5) % PT 13.0 H (9.0-12.0) sec APTT 50.8 H 30.7 H (22.0-30.0) sec Sodium 134 L (137-145) mmol/L Creatinine 3.25 H (0.52-1.04) mg/dL Glucose 125 H (74-99) mg/dL Calcium 7.6 L (8.4-10.2) mg/dL 10/15/16 Range/Units 08:10 RBC 2.45 L (3.80-5.40) m/uL Hgb 7.7 L (11.4-16.0) gm/dL Hct 25.5 L (34.0-46.0) % MCV 103.9 H (80.0-100.0) fL MCHC 30.4 L (31.0-37.0) g/dL RDW 17.5 H (11.5-15.5) % PT (9.0-12.0) sec APTT (22.0-30.0) sec Sodium (137-145) mmol/L Creatinine (0.52-1.04) mg/dL Glucose (74-99) mg/dL Calcium (8.4-10.2) mg/dL Assessment and Plan Plan: Assessment: #1. End-stage renal disease maintained on hemodialysis on a Wednesday schedule via left chest permacath. #2. Noncompliance with hemodialysis as an outpatient. #3. Anemia of chronic kidney disease. Iron replete. #4. Chronic kidney disease mineral bone disease. #5. UTI with urine culture positive for VRE and Kimberly albicans. #6. Right IJ thrombus maintained on eliquis. Plan: Hemodialysis tomorrow. Continue Aranesp. Maintain Renvela with meals. Continue antibiotics per infectious disease recommendations. Overall prognosis poor. Unable to reach family. Legal guardianship will likely need to be obtained some medical decisions can be made. Due to her overall condition, hospice is also in consideration.
--- NOTE | 2016-10-15 11:27 | XR ---
EXAMINATION TYPE: XR abdomen acute w cxr DATE OF EXAM: 10/15/2016 8:47 AM COMPARISON: NONE HISTORY: Abdomen pain TECHNIQUE: Acute abdominal series performed with supine and upright views and supplemented with a fro ntal chest FINDINGS: Catheter is present within the chest. Contrast is within the transverse colon to the rectum . No free air is evident. No differential air-fluid levels are present. No mass effect is evident. Ps oas margins are normal. IMPRESSION: 1. Nonspecific acute abdominal series
[2016-10-15 15:10] VITALS: BMI 40.8
[2016-10-15] MEDS ORDERED: BACITRACIN 500 UNIT/GM OINT 28.4 GM TUBE TOPICAL ONE (16:22)
[2016-10-15] MEDS ORDERED: LIDOCAINE 1% INJ 10MG/ML (20 ML MDV) ONE (16:26)
[2016-10-15] MEDS ORDERED: SCOPOLAMINE 1.5MG/72HR PATCH TRANSDERM SCH (16:30)
[2016-10-15] MEDS: ALPRAZolam 0.5 MG TAB PO PRN (20:06)
--- NOTE | 2016-10-15 21:10 | P.PN ---
Progress Note - Text Received call that patient was being discharged to hospice and would no longer be on hemodialysis. Request made that dialysis catheter be removed in anticipation of hospice care. Catheter removed without incident. Orders written.
--- NOTE | 2016-10-15 21:18 | P.PCN ---
Date of Procedure: 10/15/16 Preoperative Diagnosis: hemodialysis dependent renal failure; hospice care Postoperative Diagnosis: same Procedure(s) Performed: removal of tunneled left IJ dialysis catheter Implants: Anesthesia: none Surgeon: Sravani Almeida Indications for Procedure: 61 y/o woman, multiple medical comorbidities. Hemodialysis dependent renal failure. Request made that tunneled left IJ dialysis catheter be removed since patient is being discharged to hospice. Operative Findings: Description of Procedure: After sterile prep and drape of the left chest catheter exit site, the suture holding the catheter in position was cut and the catheter was removed in its entirety. Hemostasis achieved with manual compression. Sterile dressing. Patient tolerated procedure. Orders written.
[2016-10-16] MEDS: SEVELAMER 800 MG TAB PO SCH ×3 (07:11→16:33)
[2016-10-16] MEDS: SERTRALINE 50 MG TAB PO SCH (07:11)
[2016-10-16] MEDS: APIXABAN 5 MG TAB PO SCH (07:11)
[2016-10-16] MEDS: FUROSEMIDE 80 MG TAB PO SCH (07:11)
[2016-10-16] MEDS: METOPROLOL TARTRATE 50 MG TAB PO SCH (07:11)
[2016-10-16] MEDS: QUEtiapine 25 MG TAB PO SCH ×2 (07:11→16:33)
[2016-10-16] MEDS: PANTOPRAZOLE 40 MG TABLET PO SCH (07:11)
[2016-10-16 08:30] VITALS: RESP 16
--- NOTE | 2016-10-16 08:32 | PN ---
DATE OF SERVICE: 10/15/2016 Reason for follow-up is positive urine culture with VRE and Kimberly. INTERVAL HISTORY: The patient is afebrile. She remains to be pleasantly confused and incoherent and unable to provide any history or answer any question appropriately. The patient denies to be in any distress. Has been breathing comfortably on room air. No nausea, vomiting or any diarrhea per the R.N. On examination, blood pressure is 181/90 with a pulse of 79, temperature 96.7. She is 98% on room air. General description is a middle-age female lying in bed in no distress. RESPIRATORY SYSTEM: Unlabored breathing. Clear to auscultation anteriorly. HEART: S1, S2. Regular rate and rhythm. LABS: Hemoglobin is 7.7, white count 6.5, BUN of 10, creatinine 3.25. DIAGNOSTIC IMPRESSION AND PLAN: Patient with positive urine culture with vancomycin-resistant enterococcus and Kimberly most likely a colonizer contamination. Patient hardly make any urine. quintero has been discontinued. The patient with no fever, no elevated white count. Will continue to monitor closely off antibiotics. Hospice or comfort care may be appropriate for her. She was already made hospice one time at [facility]. Plan of care was discussed with the admitting physician. ANDRÉS
[2016-10-16] MEDS: ISOSORBIDE MONONITRATE ER 30 MG TAB.ER.24H PO SCH (08:37)
--- NOTE | 2016-10-16 08:51 | P.PN ---
Subjective Patient is seen in follow-up for end-stage renal disease. She is maintained on hemodialysis on a Wednesday schedule. Patient has been noncompliant with hemodialysis as an outpatient. She had pulled out her dialysis access and had a new access placed on October 08. She underwent hemodialysis Wednesday and Wednesday and is now maintained on a Wednesday schedule. Currently resting in bed. Her dialysis catheter has been discontinued and she has been made hospice. Vital signs are stable. General: The patient appeared well nourished and normally developed. HEENT: Head exam is unremarkable. Neck is without jugular venous distension. LUNGS: Lungs are clear to auscultation and percussion. Breath sounds decreased. HEART: Rate and Rhythm are regular. First and second heart sounds normal. No murmurs, rubs or gallops. ABDOMEN: Abdominal exam reveals normal bowel sounds. Non-tender and non- distended. No evidence of peritonitis. EXTREMITITES: No clubbing, cyanosis, or edema. Objective - Vital Signs Vital signs: Vital Signs Temp 98.8 F 10/16/16 07:00 Pulse 85 10/16/16 07:00 Resp 16 10/16/16 07:00 BP 149/76 10/16/16 07:00 Pulse Ox 93 L 10/16/16 07:00 Intake & Output 10/15/16 10/16/16 10/16/16 18:59 06:59 18:59 Output Total 150 Balance -150 Weight 107.9 kg 107.9 kg Output: Urine 150 Other: Voiding Method Incontinent Incontinent # Voids 2 0 - Labs CBC & Chem 7: 10/15/16 08:10 10/15/16 08:10 Labs: Abnormal Lab Results - Last 24 Hours (Table) 10/15/16 10/15/16 10/15/16 Range/Units 08:10 08:10 08:10 RBC 2.45 L (3.80-5.40) m/uL Hgb 7.7 L (11.4-16.0) gm/dL Hct 25.5 L (34.0-46.0) % MCV 103.9 H (80.0-100.0) fL MCHC 30.4 L (31.0-37.0) g/dL RDW 17.5 H (11.5-15.5) % APTT 30.7 H (22.0-30.0) sec Sodium 134 L (137-145) mmol/L Creatinine 3.25 H (0.52-1.04) mg/dL Glucose 125 H (74-99) mg/dL Calcium 7.6 L (8.4-10.2) mg/dL Assessment and Plan Plan: Assessment: #1. End-stage renal disease maintained on hemodialysis on a Wednesday schedule via left chest permacath. #2. Noncompliance with hemodialysis as an outpatient. #3. Anemia of chronic kidney disease. Iron replete. #4. Chronic kidney disease mineral bone disease. #5. UTI with urine culture positive for VRE and Kimberly albicans. #6. Right IJ thrombus maintained on eliquis. Plan: Patient has been made hospice. Potential discharge today.
[2016-10-16] MEDS: DARBEPOETIN ALFA 40 MCG/0.4 ML SYRINGE SQ SCH (09:48)
[2016-10-16] MEDS: HYDROcodone/APAP 10-325MG 1 EACH TAB PO PRN (12:32)
[2016-10-16] MEDS: ALBUTEROL NEBULIZED 2.5 MG/3 ML INHALATION PRN (15:36)
[2016-10-16] MEDS: ALPRAZolam 0.5 MG TAB PO PRN (16:33)
[2016-10-16 16:48] VITALS: PULSE 85
[2016-10-16 17:16] VITALS: BP 150/78; TEMP 98.2
--- NOTE | 2016-10-16 19:47 | PN ---
DATE OF SERVICE: 10/15/2016 PRESENTING COMPLAINT: Tired. INTERVAL HISTORY: This is a patient on hemodialysis, continues to be not eating at all. Will need a spoon again. Did pull out his IV access from the foot. All attempts to get involved, helpful, aid is not able to do much. Review of systems attempted. Current medications are reviewed. On examination, temperature 96.7, pulse 79, respirations 16, blood pressure 108/90, pulse ox 98% on room air. GENERAL APPEARANCE: Lying in bed lethargic but arousable. EYES: Pupils equal. Conjunctivae pale. NECK: JVD not raised. Mass not palpable. RESPIRATORY: Effort normal. LUNGS: Decreased breath sounds. CARDIOVASCULAR: First and second sounds normal. Some edema. ABDOMEN: Soft, nontender. Liver and spleen not palpable. PSYCHIATRY: Lethargic, does talk but then dozes off. ASSESSMENT: 1. Acute metabolic encephalopathy, multifactorial. 2. Acute urinary tract infection present on admission growing vancomycin-resistant enterococcus and Kimberly albicans. 3. End-stage kidney disease on hemodialysis. 4. Back pain and lumbar degenerative joint disease. 5. Primary osteoarthritis in multiple joints. 6. Metabolic bone disease from chronic kidney disease. 7. 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 8. Chronic obstructive pulmonary disease in an ex-smoker. 9. Morbid obesity with body mass index greater than 40. 10. Chronic medical debility. 11. Diabetes mellitus, type 2, chronically on insulin. 12. Macrocytic anemia secondary to end-stage kidney disease. 13. Gastroesophageal reflux disease. 14. Hyperlipidemia. 15. Essential hypertension. 16. Obstructive sleep apnea, does not use CPAP. 17. Chronic nicotine dependence. Patient is a smoker. PLAN: I spoke to Dr. Alvarez. All attempts to take care of patient found to be not helpful at all. I also spoke to Dr. Almeida. I did speak to the geriatric social worker and spoke to the sisters, looking into guardianship. No family is present earlier in the day. ADVANCED CARE PLANNING: I had a meeting with the patient's sister at length. Also present was my nurse practitioner, Ms. Cardoso, and geriatric social worker, Jennifer ( ). Sister knows patient is in overall poor condition. Also knows that the patient earlier was even really close to hospice. After lengthy discussion, she has decided to proceed with hospice care. She is going to the court tomorrow to get guardianship. She does only want medications to keep her comfortable and at least to stop the dialysis knowing that nothing is going to help the patient anymore. Patient deteriorating over a long period of time. Time spent for this advanced care planning was about 25 minutes in addition to the progress note.
--- NOTE | 2016-10-16 20:27 | PN ---
DATE OF SERVICE: 10/16/2016 Reason for follow up is a VRE and a positive urine. INTERVAL HISTORY: The patient is afebrile. She remained hemodynamically stable. Patient remains to be lethargic. Unable to provide a reliable history. On examination, blood pressure is 149/76 with a pulse of 85, temperature of 98.8. She is 93% on room air. General description is a middle aged female lying in bed in no distress. RESPIRATORY SYSTEM: Unlabored breathing. Decreased breath sounds in bases. HEART: S1, S2. Regular rate and rhythm. ABDOMEN: Soft. No tenderness. LABS: No new labs have been obtained. DIAGNOSTIC IMPRESSION AND PLAN: Patient with positive urine culture with vancomycin-resistant enterococcus, colonizer as patient not clinically behaving as true infection. She is currently off antibiotic therapy with no worsening clinical condition. Recommend keeping the patient off antibiotics. Plan for possible hospice , antibiotics can be discontiued at this point. [facility]
--- NOTE | 2016-10-16 23:39 | DS ---
DATE OF ADMISSION: 10/07/2016 DATE OF DISCHARGE: FINAL DIAGNOSES: 1. Acute metabolic encephalopathy multifactorial. 2. Acute urinary tract infection present on admission, from VRE and Kimberly albicans. 3. Pain medication seeking behavior. 4. End-stage kidney disease on hemodialysis. 5. Back pain from lumbar degenerative joint disease. 6. Primary osteoarthritis of multiple joints. 7. Metabolic bone disease from chronic kidney disease. 8. End stage kidney disease from diabetic nephropathy and hypertensive nephrosclerosis. 9. Chronic obstructive pulmonary disease in an ex-smoker. 10. Morbid obesity, body mass index greater than 40. 11. Chronic medical debility. 12. Diabetes mellitus type 2 chronically on insulin. 13. Macrocytic anemia secondary to end stage kidney disease. 14. Gastroesophageal reflux disease. 15. Hyperlipidemia. 16. Essential hypertension. 17. Obstructive sleep apnea. Does not use CPAP. 18. Chronic ongoing nicotine dependence. Patient is a smoker. 19. Right internal jugular DVT with IV heparin monitoring. Consultation: Dr. Almeida from vascular surgery. Dr. Gaviria from nephrology. Dr. Rutledge from pain management and Dr. Jha from psychiatry. HOSPITAL COURSE: This is a patient who has very unpleasant medical conditions going on for some time with very poor compliance, smoking, yet again presented with having pulled out a line. Patient also found to have DVT in the right IJ. The patient continued not to eat, pain medication seeking behavior. Patient's sister got guardianship from the court as the 2 children were not capable of the same. The patient has been made hospice. Hardly eating. On examination, LUNGS: Diminished breath sounds. CARDIOVASCULAR: Heart sounds muffled. full. ABDOMEN: Soft. Patient able to answer simple questions. DISCHARGE MEDICATIONS: 1. Ventolin 2.5 q.4 p.r.n. 2. Ventolin HFA 2 puffs q.6 p.r.n. 3. Lasix 80 mg p.o. b.i.d. 4. Humalog per scale. 5. Novolin 70/30 25 units b.i.d. if eating. 6. Imdur ER 30 mg p.o. daily. 7. Norman 5% patch daily. 8. Lopressor 50 mg p.o. q.12. 9. Mycostatin one application topically t.i.d. 10. Omeprazole magnesium 1 tablet b.i.d. 11. Zoloft 50 mg p.o. daily. 12. Renagel 800 mg p.o. t.i.d. 13. Ultram 50 mg q.6 p.r.n. 14. [place] 10 1 tablets q.6 p.r.n. 15. Ativan 1 mg q.4 p.r.n. for anxiety. 16. Roxanol 20 mg/mL 5 mg p.o. q.4 p.r.n. 17. Seroquel 25 mg p.o. q.h.s. 18. Scopolamine patch q 0.72 hours. DISPOSITION: Home with sister. Home with hospice per Dr. Izaguirre.
== END 2016-10-17 05:01 | disposition hospice, home (50) | DRG 689 ==
LOC: EC 14:45 → SUPCPDRO 14:45 → 5MS5E 16:27
PROVIDERS: ADMIT Hospitalist; ATTEND Hospitalist
PROC: 5A1D60Z (ICD-10-PCS; principal; 2016-10-08 14:14)
PROC: 02HV33Z Insertion of Infusion Device into Superior Vena Cava, Percutaneous Approach (ICD-10-PCS; 2016-10-08 14:14)
PROC: B548ZZA Ultrasonography of Superior Vena Cava, Guidance (ICD-10-PCS; 2016-10-08 14:14)
PROC: 2W54XYZ Removal of Other Device on Chest Wall (ICD-10-PCS; 2016-10-15)
DX: N39.0 Urinary tract infection, site not specified (principal); G93.41 Metabolic encephalopathy; N18.6 End stage renal disease; E88.89 Other specified metabolic disorders; I82.C11 Acute embolism and thrombosis of right internal jugular vein; F05 Delirium due to known physiological condition; I42.9 Cardiomyopathy, unspecified; B37.49 Other urogenital candidiasis; Z68.41 Body mass index [BMI] 40.0-44.9, adult; E66.01 Morbid (severe) obesity due to excess calories; Z51.5 Encounter for palliative care; E11.21 Type 2 diabetes mellitus with diabetic nephropathy; E11.22 Type 2 diabetes mellitus with diabetic chronic kidney disease; I50.9 Heart failure, unspecified; F17.200 Nicotine dependence, unspecified, uncomplicated; D63.1 Anemia in chronic kidney disease; I12.9 Hypertensive chronic kidney disease with stage 1 through stage 4 chronic kidney disease, or unspecified chronic kidney disease; M51.36 Other intervertebral disc degeneration, lumbar region; B95.2 Enterococcus as the cause of diseases classified elsewhere; Z16.21 Resistance to vancomycin; Z76.5 Malingerer [conscious simulation]; M19.91 Primary osteoarthritis, unspecified site; J44.9 Chronic obstructive pulmonary disease, unspecified; K21.9 Gastro-esophageal reflux disease without esophagitis; E78.5 Hyperlipidemia, unspecified; G47.33 Obstructive sleep apnea (adult) (pediatric); K59.00 Constipation, unspecified; F32.9 Major depressive disorder, single episode, unspecified; F41.9 Anxiety disorder, unspecified; G89.4 Chronic pain syndrome; Z90.49 Acquired absence of other specified parts of digestive tract; Z99.2 Dependence on renal dialysis; Z91.19 Patient's noncompliance with other medical treatment and regimen; Z79.4 Long term (current) use of insulin; Z79.899 Other long term (current) drug therapy; Z83.3 Family history of diabetes mellitus
CPT/HCPCS: 36415; 36556; 70450; 71010; 74022; 74176; 76937; 77001; 80048; 80053; 81001; 82272; 82728; 83540; 83550; 83880; 84100; 85025; 85027; 85610; 85730; 87077; 87086; 87186; 90935; 94640; 96361; 96365; 99284